=== PATIENT | female | born 1970 | race Caucasian/White ===

== ENCOUNTER 2017-10-20 08:33 | Emergency (ER) | payer BC, SELFPAY ==
[2017-10-20 08:34] VITALS: BP 166/87; PULSE 72; RESP 14; TEMP 36.6; O2SAT 100; BMI 35.2
--- NOTE | 2017-10-20 08:56 | ED.VISSUMM ---
- ER Visit Summary Date of Service: 10/20/17 Chief Complaint: Left lower quadrant abdominal pain with onset Thursday History of Present Illness: The patient is a 47 F sentence with chief complaint of left lower quadrant abdominal pain that started Thursday. She reports increased pain with movement and walking. She denied fever or chills. She did report night sweats and also volunteer that she has had a 15 pound weight loss that was unintentional. She states she feels fatigued and has no energy. She does not have restful sleep and falls asleep easily. She has no history of obstructive sleep apnea. She denies nausea, vomiting or diarrhea. She denies change in the consistency, caliber or frequency of her bowel movements. 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 She denies any urologic symptoms. She is status post hysterectomy approximately 1 year ago because of endometriosis. She did have a bilateral salpingo-oophorectomy as well. There is no history of renal ureterolithiasis. She denies any trauma. She denies rash or any skin lesions. She denies any cardiac or respiratory symptoms. She denies heat or cold intolerance. There is significant family history of cancer involving the liver, pancreas and colon. Physical Examination: No signs are remarkable for blood pressure 166/87. She is obese with a BMI of 35.3. Head is atraumatic normocephalic. Pupils are equal round reactive. Extraocular muscles are intact. TMs are pearly white with landmarks noted. Nares patent with no drainage. Posterior pharynx without erythema or exudate. Uvula is midline. There is no dysphonia or dysphasia. Trachea is midline. There is no stridor with auscultation of the neck. Heart is regular without murmur, gallop or rub. S1 and S2 are normal. Lungs are clear to auscultation with good movement of air bilaterally. Abdomen is soft with tenderness in the left upper quadrant. There is no hepatosplenomegaly. There is no evidence of umbilical or ventral hernia. Difficult to assess for inguinal hernia. She does report left CVA tenderness. There is no rash or lesions noted. She is alert oriented with a nonfocal neurologic exam. Patient did cry during the end of the history. Test Results: Nitro white count is normal with 45 segs and 43% lymphocytes. BMP is unremarkable. Chloride was elevated 111. Hepatic panel and lipase are normal. UA is nondiagnostic. Macro was positive for leukoesterase and ketones at 25 and 5 respectively. Micro reveals 0-5 WBCs and 0 RBCs 0-5 epithelial cells and 1+ bacteria. This is not consistent with a urinary tract infection and she has no urinary symptoms. ESR is slightly elevated at 30. Since this is not markedly elevated not concerned at this time with inflammatory process and specifically autoimmune, infectious or cancer. Emergency Department Course and Treatment: The patient complains of fatigue unintentional weight loss lack of energy will obtain a CBC to evaluate for anemia, and ESR. Since she has tenderness in the left upper quadrant and left lower quadrant will obtain hepatic and lipase. Also will obtain a UA since she has left CVA tenderness to percussion. Patient had 2 CAT scans of the abdomen and pelvis the end of 2015 that were unremarkable for any acute pathology and there was no mention or evidence of diverticulosis. The patient was medicated with 4 mg of Zofran and 4 mg of morphine for her discomfort. Treatment Plan: Repeat blood pressure is 144/90. Because patient complained of bloating sensation she was treated with Bentyl. Since her workup is unremarkable and her exam is benign for any acute emergent process. We will have her follow-up with her PCP Dr. Turner. Because she has had multiple elevated blood pressure readings not only today but prior visits will initiate treatment with antihypertensive, lisinopril 10 mg. We will also recommend follow-up with Dr. Stroud for outpatient sleep study since many of her symptoms are consistent with obstructive sleep apnea. Disposition: Charge with prescription for lisinopril and outpatient follow-up for further testing. Impression: 1. Left lower quadrant abdominal pain unknown etiology 2. Hypertension newly diagnosed and treated 3. Obesity 4. Fatigued, generalized weakness and sleep disturbance evaluate for obstructive sleep apnea This note was generated with [employer] dictation software. It may contain incorrect words, spelling, and punctuation that were not noted in review of the chart prior to signing ED Disposition - Plan for ED Patient: Disposition: Home or Assisted Living Chief Complaint: Abd Pain Instructions: ED Abdominal Pain Unkn Cause, ED Hypertension New Begin Tx, ED Apnea Sleep Obstructive Prescriptions: Dicyclomine HCl [Bentyl] 20 mg PO ACHS #10 cap Lisinopril [Zestril] 10 mg PO DAILY #30 tab Referrals: Yamile Turner MD [Primary Care Provider] - 1 Week Additional Instructions: Her prescriptions were sent to [facility] [place] your preferred pharmacy
[2017-10-20] MEDS: Ondansetron 4 MG/2 ML Vial IV (09:06)
[2017-10-20] MEDS: 0.9% Normal Saline 1,000 ML 150 ML IV (09:06)
[2017-10-20 09:14] LABS: Basophil# 0.01 X10^3/uL; Basophil% 0.2 % (0-1); Eosinophil# 0.13 X10^3/uL; Eosinophils% 2.9 % (0-5); Hematocrit 40.5 % (37-47); Hemoglobin 13.2 g/dl (12.0-15.0); Lymphocyte % 42.7 % (19-41); Mean Corp Hgb Conc 32.6 g/gl (32-36); Mean Corpuscular Hgb 28.7 pg (27.0-32.0); Neutrophil # 2.01 X10^3/uL (2.7-7.7); Neutrophil % 45.2 % (47-70); Platelet Count 253 K/mm3 (150-450); RBC Distribution Width CV 14.2 % (11.6-14.6); RBC Distribution Width SD 45.6 fl (35.1-43.9); White Blood Count 4.5 K/mm3 (4.4-11.0)
[2017-10-20 09:16] LABS: POSITIVE COUNT NO; POSITIVE DIFFERENTIAL NO; POSITIVE MORPHOLOGY NO
[2017-10-20 09:24] LABS: Erythrocyte Sedimentation Rate 30 mm/hr (0-20)
[2017-10-20 09:30] LABS: ALB/GLOB Ratio 0.9 RATIO (0.9-2.4); AST(SGOT) 21 U/L (15-37); Alanine Aminotransfer ALT/SGPT 17 U/L (13-56); Albumin, Serum 3.6 g/dL (3.2-5.0); Alkaline Phosphatase 90 U/L (45-117); Anion Gap 7 (5-15); BUN 19 mg/dL (7-18); BUN/Creat Ratio 27.9 RATIO (10-20); Calcium,Total 8.6 mg/dL (8.5-10.1); Chloride 111 mmol/L (98-107); Creatinine, Serum 0.68 mg/dL (0.55-1.02); EST Glomerular Filtration Rate 97 mL/min (>60); Est Glom Filt Rate - Afr Amer 118 mL/min (>60); Estimated Creatinine Clearance 97.32 ml/min; Globulin 3.9 g/dL (2.2-4.2); Glucose 84 mg/dL (74-106); Lipase 234 U/L (73-393); Potassium 3.7 mmol/L (3.5-5.1); Protein, Total 7.5 g/dL (6.4-8.2); Sodium Level 142 mmol/L (136-145)
[2017-10-20 09:50] VITALS: BP 144/90; PULSE 84; RESP 20; O2SAT 99
[2017-10-20 09:52] LABS: Mucous, Urine 0 SEEN /hpf (<or=2+); Red Blood Cells-Urine 0 SEEN /hpf (0-5)
[2017-10-20] MEDS: Dicyclomine 10 MG Capsule 20 MG PO (09:55)
[2017-10-20 09:59] LABS: Color, Urine Yellow (Yellow); Glucose, Dipstick Normal (Normal); Ketone-Dipstick 5 mg/dl (Negative); Leukocyte Esterase-Dipstick 25 /ul (Negative); Nitrite-Dipstick Negative (Negative); Occult Blood-Urine Negative /ul (Negative); Protein-Dipstick Negative (Negative); Urine Bilirubin Dipstick Negative (Negative); Urine Clarity Sl. Cloudy (Clear); Urine Urobilinogen Normal (Normal)
[2017-10-20 10:06] LABS: Bacteria 1+ /hpf (None Seen); Squamous Epithelial Cells - UA 0-5 SEEN /hpf (5-10); White Blood Cells 0-5 SEEN /hpf (0-5)
--- NOTE | 2017-10-20 10:36 | NURSING ---
PT REPORTS SUDDEN ONSET EPIGASTRIC BURNING THROUGH TO BACK FEW MINUTES AFTER DEBTYL GIVEN. SITTING UP AT SIDE OF BED ROCKING IN PAIN. DENIES NAUSEA. PT HYPERVENTILATING. ENCOURAGED BREATHING TECHNIQUES. DR CITLALY WEBB.
[2017-10-20 11:20] VITALS: BP 149/94; PULSE 87; RESP 18; O2SAT 99
--- NOTE | 2017-10-20 12:26 | ED.DCSUM_ITS ---
- ER Visit Summary Date of Service: 10/20/17 Chief Complaint: [] History of Present Illness: The patient is a 47 F [] Physical Examination: [] Test Results: [] Emergency Department Course and Treatment: [] Treatment Plan: [] Disposition: [] Impression: [] This note was generated with [employer] dictation software. It may contain incorrect words, spelling, and punctuation that were not noted in review of the chart prior to signing ED Disposition - Plan for ED Patient: Disposition: Home or Assisted Living Chief Complaint: Abd Pain Instructions: ED Abdominal Pain Unkn Cause, ED Hypertension New Begin Tx, ED Apnea Sleep Obstructive Prescriptions: Dicyclomine HCl [Bentyl] 20 mg PO ACHS #10 cap Lisinopril [Zestril] 10 mg PO DAILY #30 tab Famotidine [Pepcid] 20 mg PO BID #30 tab Referrals: Yamile Turner MD [Primary Care Provider] - 1 Week Additional Instructions: Her prescriptions were sent to [facility] [place] your preferred pharmacy
[2017-10-20 12:31] VITALS: BP 159/95
== END 2017-10-20 12:32 | disposition home or self-care (01) ==
PROVIDERS: Emergency Provider Emergency Medicine; Family Provider Internal Medicine; PCP Internal Medicine
DX: R10.32 Left lower quadrant pain (principal); R10.31 Right lower quadrant pain; R10.13 Epigastric pain; R10.33 Periumbilical pain; R53.83 Other fatigue; M62.81 Muscle weakness (generalized); G47.8 Other sleep disorders; I10 Essential (primary) hypertension; E66.9 Obesity, unspecified; Z68.35 Body mass index [BMI] 35.0-35.9, adult; F32.9 Major depressive disorder, single episode, unspecified; Z79.899 Other long term (current) drug therapy
CPT/HCPCS: 80053; 81001; 83690; 85025; 85652; 96361; 96365; 96375; 99285; J7030; J2405; J3490

== ENCOUNTER 2017-10-26 13:52 | Emergency (ER) | payer BC, SELFPAY ==
[2017-10-26 13:55] VITALS: BP 142/103; PULSE 82; RESP 20; TEMP 36.7; O2SAT 98; BMI 34.8
--- NOTE | 2017-10-26 14:01 | CT_ITS ---
STUDY: CT ABDOMEN AND PELVIS WITHOUT CONTRAST REASON FOR EXAM: Female, 47 years old. Abdominal pain and diarrhea. Prior gastric bypass surgery. RADIATION DOSAGE (If Supplied By Facility): CTDIvol = ( 16.34 ) mGy, DLP = ( 881.60 ) mGycm TECHNIQUE: Transaxial images were obtained from the dome of the diaphragm to the symphysis pubis without oral contrast, and without intravenous contrast. Sagittal and coronal images were reconstructed. Individualized dose optimization techniques were used for this CT. COMPARISON: Comparison is made with prior examination June 26, 2016. FINDINGS: The visualized lung bases are unremarkable. The visualized portions of the heart are within normal limits. Normal liver. There are surgical clips in the gallbladder fossa consistent with a prior cholecystectomy. Borderline splenomegaly. Normal pancreas. Normal bilateral adrenal glands. Normal right kidney. Normal left kidney. Surgical changes are seen in the region of the stomach with prior gastric bypass surgery. Normal small intestine. Normal colon. There is non-visualization of the appendix. Normal abdominal aorta. Normal inferior vena cava. Normal retroperitoneum. Normal urinary bladder. There is absence of the uterus consistent with a prior hysterectomy. Normal abdominal wall. Normal osseous structures. CT/Abdomen/Pelvis without Cont IMPRESSION: No acute abnormality is seen. Electronically Signed: Sergo Jacinto MD at 15:07 EST Tel [phone], Service support ,
[2017-10-26] MEDS: Ondansetron 4 MG/2 ML Vial IV (14:33)
[2017-10-26] MEDS: Dicyclomine 10 MG Capsule 20 MG PO (14:33)
[2017-10-26 14:35] LABS: Absolute Lymphocyte Count 1.88 X10^3/ul (0.83-4.51); Absolute Neutrophil Count 2.5 X10^3/uL (2.0-7.7); Basophil# 0.02 X10^3/uL; Basophil% 0.4 % (0-1); Eosinophil# 0.15 X10^3/uL; Eosinophils% 2.9 % (0-5); Hematocrit 38.3 % (37-47); Hemoglobin 12.1 g/dl (12.0-15.0); Lymphocyte # 1.88 X10^3/ul (4.0); Lymphocyte % 36.7 % (19-41); Mean Corp Hgb Conc 31.6 g/gl (32-36); Mean Corpuscular Hgb 28.1 pg (27.0-32.0); Mean Corpuscular Volume 88.9 fL (81-99); Mean Platelet Vol. 11.1 fl (6.2-12.0); Monocyte# 0.56 X10^3/uL; Monocyte% 10.9 % (0-10); Neutrophil # 2.51 X10^3/uL (2.7-7.7); Neutrophil % 49.1 % (47-70); Platelet Count 285 K/mm3 (150-450); RBC Distribution Width CV 14.3 % (11.6-14.6); RBC Distribution Width SD 46.8 fl (35.1-43.9); Red Blood Count 4.31 M/mm3 (4.2-5.4); White Blood Count 5.1 K/mm3 (4.4-11.0)
[2017-10-26 14:42] LABS: POSITIVE COUNT NO; POSITIVE DIFFERENTIAL NO; POSITIVE MORPHOLOGY NO
--- NOTE | 2017-10-26 14:43 | ED.VISSUMM ---
- ER Visit Summary Date of Service: 10/26/17 Chief Complaint: Abdominal pain History of Present Illness: The patient is a 47 F who has had a week's worth of abdominal pain. It is a continuous aching throughout her entire abdomen. She has had nausea without vomiting. She now has diarrhea. No urinary symptoms. She has not had a fever. She was seen here last week for the same symptoms. She had laboratory studies with no imaging performed. She was started on lisinopril due to high blood pressure and was given Pepcid at home. She followed up with her PCP who increased her lisinopril dose. Physical Examination: Vital signs reviewed. HEENT exam unremarkable. Heart is regular rate and rhythm without murmurs. Lungs are clear to auscultation. Abdomen is soft with diffuse tenderness to palpation. Extremities reveal no edema. Skin exam normal. Neurologic exam normal. Test Results: Laboratory studies normal. CAT scan normal Emergency Department Course and Treatment: Patient was initially treated with Bentyl and Zofran. She was still tearful and in pain so she is given a dose of morphine. Treatment Plan: I am unclear the etiology of the patient's pain. She has been seen here multiple times for abdominal pain without definitive diagnosis. She has had gastric bypass as well as a hysterectomy. I do not find any acute causes for her pain. It is mostly in the upper part of her abdomen. She is already on Bentyl at home. I will add Carafate to her medication regimen. She will need to follow-up with her primary care physician for further testing. Disposition: Discharge Impression: Abdominal pain This note was generated with [employer] dictation software. It may contain incorrect words, spelling, and punctuation that were not noted in review of the chart prior to signing ED Disposition - Plan for ED Patient: Chief Complaint: Abd Pain Referrals: Yamile Turner MD [Primary Care Provider] -
[2017-10-26 14:54] LABS: ALB/GLOB Ratio 0.9 RATIO (0.9-2.4); AST(SGOT) 29 U/L (15-37); Alanine Aminotransfer ALT/SGPT 31 U/L (13-56); Albumin, Serum 3.4 g/dL (3.2-5.0); Alkaline Phosphatase 108 U/L (45-117); Anion Gap 7 (5-15); BUN 16 mg/dL (7-18); BUN/Creat Ratio 24.1 RATIO (10-20); Calcium,Total 8.5 mg/dL (8.5-10.1); Chloride 110 mmol/L (98-107); Creatinine, Serum 0.66 mg/dL (0.55-1.02); EST Glomerular Filtration Rate 100 mL/min (>60); Est Glom Filt Rate - Afr Amer 122 mL/min (>60); Estimated Creatinine Clearance 100.27 ml/min; Globulin 3.6 g/dL (2.2-4.2); Glucose 85 mg/dL (74-106); Lipase 220 U/L (73-393); Potassium 4.7 mmol/L (3.5-5.1); Sodium Level 140 mmol/L (136-145)
--- NOTE | 2017-10-26 15:33 | ED.DEP ---
ED Disposition - Plan for ED Patient: Disposition: Home or Assisted Living Chief Complaint: Abd Pain Instructions: ED Abdominal Pain Unkn Cause Prescriptions: Sucralfate [Carafate] 1 gm PO 4X/DAY #60 tab Referrals: Yamile Turner MD [Primary Care Provider] -
[2017-10-26 15:44] VITALS: BP 132/77; PULSE 61; RESP 18; O2SAT 97
--- NOTE | 2017-10-26 15:45 | ED.RN ---
REVIEWED D/C INSTRUCTIONS, FOLLOW UP CARE, PRESCRIPTION, AND S/S THAT WOULD WARRANT A RETURN TO THE ED WITH PT. PT VERBALIZED AN UNDERSTANDING AND DENIES FURTHER QUESTIONS FOR THIS RN. PT SKIN P/W/D, RESP EVEN AND UNLABORED, PT A&O X 3, NO DISTRESS NOTED. PT AMBULATED OUT OF ED, GAIT STEADY.
== END 2017-10-26 15:46 | disposition home or self-care (01) ==
PROVIDERS: Emergency Provider Emergency Medicine; Family Provider Internal Medicine; PCP Internal Medicine
DX: R10.84 Generalized abdominal pain (principal); I10 Essential (primary) hypertension; F32.9 Major depressive disorder, single episode, unspecified; Z98.84 Bariatric surgery status; Z79.899 Other long term (current) drug therapy
CPT/HCPCS: 74176; 80053; 83690; 85025; 96374; 96375; 99285; A4216; J2405

== ENCOUNTER 2018-06-10 10:50 | Emergency (ER) | payer OTHER, SELFPAY ==
[2018-06-10 10:51] VITALS: BP 157/102; PULSE 67; RESP 18; TEMP 36.6; O2SAT 99; BMI 34.4
--- NOTE | 2018-06-10 10:59 | CT_ITS ---
STUDY: CT BRAIN WITHOUT CONTRAST REASON FOR EXAM: Female, 48 years old. Headaches. Hypertension. RADIATION DOSAGE (If Supplied By Facility): CTDIvol = ( 60.81 ) mGy, DLP = ( 1067.08 ) mGycm TECHNIQUE: Transaxial CT imaging of the brain was performed without administration of intravenous contrast material. Individualized dose optimization techniques were used for this CT. COMPARISON: Comparison is made with prior study dated September 30, 2017. FINDINGS: Normal soft tissue structures. Normal calvarium. Normal size ventricles and extra-axial spaces for the patient's age. Normal white matter tracts of the cerebral hemispheres. Normal basal ganglia and thalami. Normal brainstem. Normal cerebellum. There is no intracranial hemorrhage. There are no findings of an acute ischemic infarction. Normal visualized paranasal sinuses. CT/Brain/Head without Contrast IMPRESSION: Normal unenhanced CT scan of the brain. Electronically Signed: Sergo Jacinto MD at 12:12 EDT Tel [phone], Service support ,
--- NOTE | 2018-06-10 11:00 | EKG12_ITS ---
Test Reason : GEN ILLNESS Blood Pressure : / mmHG Vent. Rate : 061 BPM Atrial Rate : 061 BPM P-R Int : 158 ms QRS Dur : 088 ms QT Int : 402 ms P-R-T Axes : 035 034 034 degrees QTc Int : 404 ms Normal sinus rhythm Low voltage QRS (limb leads) Confirmed by SUSAN ORTIZ, MAO ([id number]), editor trade journal [employer] ([id number]) on 06/14/2018 2:43:09 PM Referred By: MARLO Confirmed By:MAO DAVIS MD
--- NOTE | 2018-06-10 11:00 | ED.VISSUMM ---
- ER Visit Summary Date of Service: 06/10/18 Chief Complaint: Headache, high blood pressure, tingling in hands History of Present Illness: The patient is a 48 F presents to the emergency department multiple complaints. Patient states she is been in normal state of health. She states over the past 2-3 days, she had a dull headache. She describes it as a pressure behind her forehead. It is worse with change in position. She is also had intermittent tingling in both hands and in her feet. The patient does have a history of hypertension and is on 5 mg of lisinopril. She states normally, her blood pressure is under very good control. She states that today, she just felt very lightheaded. They took her blood pressure and her diastolic was 110. She denies chest pain. She denies shortness of breath. She denies any orthopnea or increasing edema. Physical Examination: Vital signs reviewed General: Well-nourished, well-developed Head: Normocephalic, atraumatic Eyes: Pupils equal and reactive, extraocular muscles intact Neck, supple, no lymphadenopathy Heart: Regular rate and rhythm Respiratory: No distress, clear bilaterally Abdomen: Soft, nontender, nondistended, no peritoneal signs Back: Nontender Extremities: Nontender, no edema, no cords Skin: Normal color no rash Neuro: Alert and oriented, no focal or lateralizing deficits Test Results: [] Emergency Department Course and Treatment: The patient presents with elevated blood pressure, frontal headache, intermittent tingling of all extremities. I do not suspect hypertensive emergency. Her symptoms are nonfocal. They are mostly diffuse. I do feel that her headache and symptoms are likely secondary to her worsening hypertension. I did do a metabolic workup. Her EKG was unremarkable. Her head CT is also unremarkable. Screening labs are unremarkable. There is no protein in the urine. She has no evidence of orthopnea or evidence of heart failure. The patient was treated with Tylenol and Toradol. She did have some improvement of her headache. At this time, I do feel that the safest plan would be to increase her lisinopril from 5 mg to 10. I did prevocational/rehabilitation counselor her on taking her blood pressure and following up with her doctor closely for reevaluation. The patient is comfortable with this plan of care. Treatment Plan: [] Disposition: Discharge Impression: 1. Hypertension 2. Frontal headache This note was generated with Dragon dictation software. It may contain incorrect words, spelling, and punctuation that were not noted in review of the chart prior to signing ED Disposition - Plan for ED Patient: Chief Complaint: General Illness Instructions: ED Hypertension Conf Out Of Control Referrals: Yamile Turner MD [Primary Care Provider] -
[2018-06-10 11:09] VITALS: BP 168/76; PULSE 64; RESP 12; O2SAT 99
[2018-06-10 11:15] LABS: Bacteria 0 SEEN /hpf (None Seen); Mucous, Urine 0 SEEN /hpf (<or=2+); Red Blood Cells-Urine 0 SEEN /hpf (0-5)
[2018-06-10 11:16] LABS: Color, Urine Yellow (Yellow); Glucose, Dipstick Normal (Normal); Ketone-Dipstick Negative (Negative); Leukocyte Esterase-Dipstick 25 /ul (Negative); Nitrite-Dipstick Negative (Negative); Occult Blood-Urine Negative /ul (Negative); Protein-Dipstick Negative (Negative); Urine Bilirubin Dipstick Negative (Negative); Urine Clarity Clear (Clear); Urine Urobilinogen Normal (Normal)
[2018-06-10 11:21] LABS: White Blood Cells 0-5 SEEN /hpf (0-5)
[2018-06-10 11:22] LABS: Calcium Oxalate Crystals Ur 3+ /hpf (<or=2+); Squamous Epithelial Cells - UA 0-5 SEEN /hpf (5-10)
[2018-06-10 11:27] LABS: Basophil# 0.01 X10^3/uL; Basophil% 0.2 % (0-1); Eosinophil# 0.13 X10^3/uL; Eosinophils% 2.8 % (0-5); Hematocrit 37.2 % (37-47); Hemoglobin 11.6 g/dl (12.0-15.0); Mean Corp Hgb Conc 31.2 g/gl (32-36); Mean Corpuscular Hgb 27.6 pg (27.0-32.0); Mean Corpuscular Volume 88.4 fL (81-99); Mean Platelet Vol. 10.2 fl (6.2-12.0); Monocyte# 0.44 X10^3/uL; Monocyte% 9.4 % (0-10); Neutrophil # 1.99 X10^3/uL (2.7-7.7); Neutrophil % 42.6 % (47-70); Platelet Count 259 K/mm3 (150-450); RBC Distribution Width CV 14.3 % (11.6-14.6); RBC Distribution Width SD 46.5 fl (35.1-43.9); Red Blood Count 4.21 M/mm3 (4.2-5.4); White Blood Count 4.7 K/mm3 (4.4-11.0)
[2018-06-10 11:32] LABS: POSITIVE COUNT NO; POSITIVE DIFFERENTIAL NO; POSITIVE MORPHOLOGY NO
[2018-06-10 11:43] LABS: ALB/GLOB Ratio 0.9 RATIO (0.9-2.4); AST(SGOT) 22 U/L (15-37); Alanine Aminotransfer ALT/SGPT 20 U/L (13-56); Albumin, Serum 3.6 g/dL (3.2-5.0); Alkaline Phosphatase 97 U/L (45-117); Anion Gap 7 (5-15); BUN 18 mg/dL (7-18); BUN/Creat Ratio 22.2 RATIO (10-20); Calcium,Total 8.8 mg/dL (8.5-10.1); Chloride 109 mmol/L (98-107); Creatinine, Serum 0.81 mg/dL (0.55-1.02); EST Glomerular Filtration Rate 79 mL/min (>60); Est Glom Filt Rate - Afr Amer 96 mL/min (>60); Globulin 3.9 g/dL (2.2-4.2); Glucose 77 mg/dL (74-106); Potassium 3.7 mmol/L (3.5-5.1); Protein, Total 7.5 g/dL (6.4-8.2); Sodium Level 142 mmol/L (136-145)
[2018-06-10] MEDS: Ketorolac 15 MG/ML Vial IV (12:24)
[2018-06-10] MEDS: Acetaminophen 500 MG Tablet 1000 MG PO (12:24)
[2018-06-10 12:45] VITALS: BP 138/86; PULSE 65; RESP 16
== END 2018-06-10 12:54 | disposition home or self-care (01) ==
PROVIDERS: Emergency Provider Emergency Medicine; Family Provider Internal Medicine; PCP Internal Medicine
DX: I10 Essential (primary) hypertension (principal); R51 Headache
CPT/HCPCS: 70450; 80053; 81001; 85025; 93005; 96361; 96374; 99285; J7030; J7040

== ENCOUNTER 2018-12-02 06:51 | Outpatient (RCR) | payer SELFPAY ==
[2018-11-24 18:12] VITALS: BMI 35.2
== END 2018-12-02 19:00 | disposition home or self-care (01) ==
LOC: PT 06:51
PROVIDERS: Family Provider Internal Medicine; PCP Internal Medicine
DX: R69 Illness, unspecified (principal)

== ENCOUNTER 2019-03-31 18:56 | Emergency (ER) | payer OTHER, SELFPAY ==
[2018-11-24 18:12] VITALS: BMI 35.2
[2019-03-31 18:56] VITALS: BP 124/93; PULSE 70; RESP 16; TEMP 36.8; O2SAT 98; BMI 36.0
--- NOTE | 2019-03-31 21:07 | ED.VIS.GI ---
History of Present Illness Chief Complaint: Nausea/Vomiting/Diarrhea Informant: Patient - Abdominal Pain/Flank Pain Onset: Days - 3 Context: Gradual Onset Timing: Intermittent Quality: Cramping Location: - - Periumbilical Current Severity: Mild Maximum Severity: Mild Worsened by: Food Relieved by: Nothing - Nausea/Vomiting/Emesis GI Symptom: Nausea, Vomiting Quality: Nonbilious. Negative for: Blood streaks, Coffee ground, Hematemesis Severity: Severe - Diarrhea/Melena/Hematochezia GI Symptom: Diarrhea - Last bowel movement was over 12 hours ago. Negative for: Melena, Hematochezia Stool Quality: Watery. Negative for: Maroon, [place] per rectum Associated Symptoms: - - Not sure if she has had normal urine output or if it is decreased. Negative for: Dysuria, Frequency, Hematuria, Urgency Narrative: Vomiting and diarrhea with mild cramping for the past several days sent from urgent care. Patient denies any fevers or chills. No recent travel out of the area or country. No recent ground water ingestion or suspicious food ingestion. No recent antibiotics. No recent hospitalization or surgeries. - Past Medical History (1) Hypertension Status: Chronic (2) Migraines Status: Chronic Past Medical History - Allergies and Home Meds Allergies/Adverse Reactions: Allergies ethinyl estradiol [From NuvaRing] Allergy (Verified 03/31/19 18:58) Rash etonogestrel [From NuvaRing] Allergy (Verified 03/31/19 18:58) Rash oxycodone [From Percocet] Adverse Reaction (Intermediate, Verified 03/31/19 18:58) Rash Primary Care Physician: Yamile Turner MD [Primary Care Provider] - Surgical History: cholecystectomy, hysterectomy, - - , gastric bypass Smoking Status: Never smoker Alcohol: None - Family History Paternal Family History: Reports: - Review of Systems General: Reports: Malaise. Denies: Chills, Fever, Sweats Eyes: Denies: Visual changes - bilaterally, Diplopia ENT: Denies: Rhinorrhea, Sore throat Cardiovascular: Denies: Chest pain, Palpitations Respiratory: Denies: Dyspnea, Cough, Dyspnea on exertion Gastrointestinal: Reports: Abdominal pain, Nausea, Vomiting, Diarrhea. Denies: Melena, Hematochezia Genitourinary: Denies: Dysuria, Hematuria, Frequency Musculoskeletal: Denies: Back pain, Swelling, Extremity Pain Skin: Denies: Rash, Wounds Neurological: Denies: Headache, Weakness, Numbness Physical Exam Vital Signs/Narrative: Vital Signs Temp Pulse Resp BP Pulse Ox 03/31/19 18:56 98.2 F 70 16 124/93 H 98 Inital Vital Signs reviewed: Yes General: Well nourished, Well developed, Obese, No Acute Distress - Speaking softly, appears somewhat ill, no active emesis Head: Normocephalic, Atraumatic Eyes: Perrl, EOMI ENT: Moist mucous membranes - Partially moist, No rhinorrhea Neck: Supple, Nontender Cardiovascular: Regular rate, Regular rhythm, No murmurs. Negative for: Tachycardia Respiratory: No distress, CTA bilaterally, Chest nontender Abdomen: Soft, Nontender, Nondistended, Normal bowel sounds Back: Nontender, Normal Inspection Extremities: Nontender, No edema. Negative for: Calf Tenderness Skin: Normal color, No rash, No Trauma Neurological: Alert, Oriented x3, Cranial nerves II-XII grossly intact, Normal Strength, Normal Sensation Psychological: Normal affect, Normal Mood Diagnostic/Tx/Re-eval Laboratory Results 03/31/19 03/31/19 22:00 22:00 WBC 5.2 RBC 4.31 Hgb 11.6 L Hct 36.4 L MCV 84.5 MCH 26.9 L MCHC 31.9 L RDW Std Deviation 45.8 H RDW Coeff of Shira 14.8 H Plt Count 268 MPV 10.6 Immature Gran % (Auto) 0.200 Neut % (Auto) 44.0 L Lymph % (Auto) 43.7 H [place] % (Auto) 9.8 Eos % (Auto) 1.9 Baso % (Auto) 0.4 Absolute Neuts (auto) 2.3 Absolute Lymphs (auto) 2.27 Absolute Nucleated RBC 0.00 Nucleated RBC % 0 Sodium 141 Potassium 3.7 Chloride 112 H Carbon Dioxide 24.0 Anion Gap 5 BUN 19 H Creatinine 0.80 Estim Creat Clear Calc 80.90 Est GFR (MDRD) Af Amer 97 Est GFR (MDRD) Non-Af 80 BUN/Creatinine Ratio 23.7 H Glucose 90 Calcium 8.6 - Medical Decision Making Patient was given IV fluids and Zofran, however her arm started hurting just proximal to the IV site and nursing thinks it infiltrated so they discontinued her fluids which had gone about shelter in, and I reexamined her. Her arm is soft, all compartments are soft and nondistended, she has full range of motion of all joints. Supportive care advised along with warm compress. She feels much better with regards to nausea, and is tolerating oral fluids. She is amenable to discharge with oral Zofran. Her labs are very reassuring, shows some mild prerenal azotemia and no leukocytosis to suggest a dangerous process here. I suspect she has viral gastroenteritis, we discussed reasons to return and follow-up and she is comfortable with that plan. ED Disposition - Plan for ED Patient: Disposition: Home or Assisted Living Diagnosis: Mild dehydration, Gastroenteritis Instructions: GASTROENTERITIS, Viral (6y-Adult), DIET, Vomiting or Diarrhea [6yr-Adult] Prescriptions: Ondansetron [Zofran] 8 mg PO Q8H PRN #12 tab PRN Reason: Nausea/Vomiting Transmission Status: Pending to [facility] Referrals: Yamile Turner MD [Primary Care Provider] - (if not improving after 2-3 days)
[2019-03-31] MEDS: Ondansetron 4 MG/2 ML Vial IV (22:06)
[2019-03-31] MEDS: 0.9% Normal Saline 1,000 ML 1000 ML IV (22:06)
[2019-03-31 22:07] VITALS: PULSE 53; RESP 16; O2SAT 100
[2019-03-31 22:07] LABS: Absolute Lymphocyte Count 2.27 X10^3/uL (0.83-4.51); Absolute Neutrophil Count 2.3 X10^3/uL (2.0-7.7); Basophil# 0.02 X10^3/uL; Basophil% 0.4 % (0-1); Eosinophils% 1.9 % (0-5); Hematocrit 36.4 % (37-47); Hemoglobin 11.6 g/dL (12.0-15.0); Lymphocyte # 2.27 X10^3/ul (4.0); Lymphocyte % 43.7 % (19-41); Mean Corp Hgb Conc 31.9 g/dL (32-36); Mean Corpuscular Hgb 26.9 pg (27.0-32.0); Mean Corpuscular Volume 84.5 fL (81-99); Mean Platelet Vol. 10.6 fl (6.2-12.0); Monocyte# 0.51 X10^3/uL; Monocyte% 9.8 % (0-10); NRBC Flagged by Analyzer 0 % (0-5); Neutrophil # 2.28 X10^3/uL (2.7-7.7); Platelet Count 268 K/mm3 (150-450); RBC Distribution Width CV 14.8 % (11.6-14.6); RBC Distribution Width SD 45.8 fl (35.1-43.9); Red Blood Count 4.31 M/mm3 (4.2-5.4); White Blood Count 5.2 K/mm3 (4.4-11.0)
[2019-03-31 22:20] LABS: Anion Gap 5 (5-15); BUN 19 mg/dL (7-18); BUN/Creat Ratio 23.7 RATIO (10-20); Calcium,Total 8.6 mg/dL (8.5-10.1); Chloride 112 mmol/L (98-107); EST Glomerular Filtration Rate 80 mL/min (>60); Est Glom Filt Rate - Afr Amer 97 mL/min (>60); Glucose 90 mg/dL (74-106); Potassium 3.7 mmol/L (3.5-5.1); Sodium Level 141 mmol/L (136-145)
[2019-04-01 00:10] VITALS: BP 138/74; PULSE 66; RESP 17; O2SAT 98
== END 2019-04-01 00:20 | disposition home or self-care (01) ==
PROVIDERS: Emergency Provider Emergency Medicine; Family Provider Internal Medicine; PCP Internal Medicine
DX: K52.9 Noninfective gastroenteritis and colitis, unspecified (principal); E86.0 Dehydration; I10 Essential (primary) hypertension
CPT/HCPCS: 80048; 85025; 96361; 96374; 99285; J7030; A4216; J2405

== ENCOUNTER 2019-04-27 07:22 | Emergency (ER) | payer OTHER, SELFPAY ==
[2019-04-27 07:24] VITALS: BP 160/102; PULSE 94; RESP 18; TEMP 36.9; O2SAT 95; BMI 37.1
--- NOTE | 2019-04-27 07:40 | CT_ITS ---
STUDY: CT ABDOMEN AND PELVIS WITH CONTRAST REASON FOR EXAM: Female, 49 years old. Nausea and vomiting. History of gastric bypass surgery. RADIATION DOSAGE (If Supplied By Facility): CTDIvol = ( 20.11 ) mGy, DLP = ( 1251.65 ) mGycm TECHNIQUE: Transaxial images were obtained from the dome of the diaphragm to the symphysis pubis without oral contrast. 100 IV Isovue 300 was administered. Sagittal and coronal images were reconstructed. Individualized dose optimization techniques were used for this CT. COMPARISON: Comparison is made with prior examination dated October 26, 2017. FINDINGS: Minimal increase in markings at the lung bases suggestive of mild atelectasis. The visualized portions of the heart are within normal limits. Mild degree of intrahepatic biliary dilatation most likely secondary to the postcholecystectomy state. There are surgical clips in the gallbladder fossa consistent with a prior cholecystectomy. Normal spleen. Normal pancreas. Normal bilateral adrenal glands. Normal right kidney. Normal left kidney. Prior subtotal resection of the stomach secondary to gastric bypass surgery. Normal small intestine. Normal colon. The patient is status post appendectomy. Normal abdominal aorta. Normal inferior vena cava. Normal retroperitoneum. Normal urinary bladder. There is absence of the uterus consistent with a prior hysterectomy. Normal abdominal wall. Normal osseous structures. CT/Abdomen/Pelvis W IV Cont ONLY IMPRESSION: Status post cholecystectomy. Status post gastric bypass surgery. Mild degree of intrahepatic biliary ductal dilatation. Electronically Signed: Sergo Jacinto, at 10:01 EDT , Service support ,
[2019-04-27] MEDS: 0.9% Normal Saline 1,000 ML 1000 ML IV (08:09)
[2019-04-27] MEDS: HYDROmorphone 1 MG/ML Syringe IV ×2 (08:09→08:41)
[2019-04-27] MEDS: Ondansetron 4 MG/2 ML Vial IV (08:09)
--- NOTE | 2019-04-27 08:19 | ED.VISSUMM ---
- ER Visit Summary Date of Service: 04/27/19 Chief Complaint: Abdominal pain History of Present Illness: The patient is a 49 F with abdominal pain that started yesterday. It is severe today. It is periumbilical and radiates to her back. Associate with nausea, vomiting, diarrhea, fevers. She also reports a headache and anorexia. She never had this before. Nothing seems to trigger it. Nothing seems to help. History of cholecystectomy, hysterectomy, gastric bypass. Physical Examination: Afebrile and vital signs unremarkable except blood pressure 160/102. Patient appears uncomfortable but not toxic or in distress. Heart regular rate and rhythm. Lungs clear. Abdomen is tender in the periumbilical and to the right of the periumbilical region. No guarding or rebound. No distention. Skin appears normal. Test Results: Laboratory studies, urinalysis, and CT pending. Emergency Department Course and Treatment: Patient treated with pain medicine, nausea medicine, and IV fluids while awaiting results. White count 3.5. Lactate normal. Patient has no other evidence to suggest sepsis. This may be a viral process. CMP, lipase unremarkable. Urinalysis unremarkable. CT abdomen showed postoperative changes. She has mild intrahepatic ductal dilation, and she is postcholecystectomy, and has had this before. Repeat vitals and exam are reassuring. I believe the patient is appropriate for outpatient follow-up. Return for any new or worsening symptoms. Nausea meds, [id number] pain meds, and stay hydrated. Treatment Plan: As above Disposition: Discharge Impression: 1. Abdominal pain This note was generated with [employer] dictation software. It may contain incorrect words, spelling, and punctuation that were not noted in review of the chart prior to signing ED Disposition - Plan for ED Patient: Referrals: Yamile Turner MD [Primary Care Provider] -
[2019-04-27 08:26] LABS: Absolute Lymphocyte Count 0.89 X10^3/uL (0.83-4.51); Absolute Neutrophil Count 2.1 X10^3/uL (2.0-7.7); Basophil# 0.01 X10^3/uL; Basophil% 0.3 % (0-1); Eosinophil# 0.03 X10^3/uL; Eosinophils% 0.9 % (0-5); Hematocrit 40.4 % (37-47); Lymphocyte # 0.89 X10^3/ul (4.0); Lymphocyte % 25.3 % (19-41); Mean Corp Hgb Conc 32.2 g/dL (32-36); Mean Corpuscular Hgb 26.8 pg (27.0-32.0); Mean Corpuscular Volume 83.3 fL (81-99); Mean Platelet Vol. 10.5 fl (6.2-12.0); Monocyte# 0.52 X10^3/uL; Monocyte% 14.8 % (0-10); NRBC Flagged by Analyzer 0 % (0-5); Neutrophil # 2.07 X10^3/uL (2.7-7.7); Neutrophil % 58.7 % (47-70); Platelet Count 237 K/mm3 (150-450); RBC Distribution Width CV 14.7 % (11.6-14.6); RBC Distribution Width SD 44.7 fl (35.1-43.9); Red Blood Count 4.85 M/mm3 (4.2-5.4); White Blood Count 3.5 K/mm3 (4.4-11.0)
[2019-04-27 08:40] LABS: ALB/GLOB Ratio 0.8 RATIO (0.9-2.4); AST(SGOT) 22 U/L (15-37); Alanine Aminotransfer ALT/SGPT 17 U/L (13-56); Albumin, Serum 3.5 g/dL (3.2-5.0); Alkaline Phosphatase 103 U/L (45-117); Anion Gap 10 (5-15); BUN 17 mg/dL (7-18); BUN/Creat Ratio 18.1 RATIO (10-20); Calcium,Total 8.6 mg/dL (8.5-10.1); Chloride 109 mmol/L (98-107); Creatinine, Serum 0.94 mg/dL (0.55-1.02); EST Glomerular Filtration Rate 67 mL/min (>60); Est Glom Filt Rate - Afr Amer 81 mL/min (>60); Estimated Creatinine Clearance 66.28 ml/min; Globulin 4.2 g/dL (2.2-4.2); Glucose 90 mg/dL (74-106); Lipase 187 U/L (73-393); Potassium 3.8 mmol/L (3.5-5.1); Protein, Total 7.7 g/dL (6.4-8.2); Sodium Level 142 mmol/L (136-145)
[2019-04-27 09:26] VITALS: TEMP 36.8; O2SAT 92
[2019-04-27 09:29] LABS: Red Blood Cells-Urine 0 SEEN /hpf (0-5)
[2019-04-27 09:36] LABS: Color, Urine Yellow (Yellow); Glucose, Dipstick Normal (Normal); Ketone-Dipstick 15 mg/dl (Negative); Leukocyte Esterase-Dipstick 100 /ul (Negative); Nitrite-Dipstick Negative (Negative); Occult Blood-Urine Negative /ul (Negative); Protein-Dipstick 30 mg/dl (Negative); Specific Gravity, Urine 1.015 (1.002-1.030); Urine Bilirubin Dipstick Negative (Negative); Urine Clarity Sl. Cloudy (Clear); Urine Urobilinogen Normal (Normal)
[2019-04-27 09:44] LABS: Lactic Acid 0.5 mmol/L (0.4-2.0)
[2019-04-27 09:48] LABS: Squamous Epithelial Cells - UA 0-5 SEEN /hpf (5-10); White Blood Cells 0-5 SEEN /hpf (0-5)
[2019-04-27 09:49] LABS: Bacteria RARE /hpf (None Seen); Mucous, Urine RARE /hpf (<or=2+)
--- NOTE | 2019-04-27 10:09 | ED.RN ---
0945-pt sleeping and spo2 drops to 89% on ra post dilaudid. o2 on at 2l and up to 94% now.
[2019-04-27 10:27] VITALS: BP 126/98; PULSE 77; RESP 16; O2SAT 98
--- NOTE | 2019-04-27 10:30 | ED.DEP ---
ED Disposition - Plan for ED Patient: Instructions: ABDOMINAL PAIN, Unknown Cause, (Female) Prescriptions: Ondansetron [Zofran Odt] 4 mg PO Q8H PRN PRN #10 tab PRN Reason: Nausea Prescription Printed Referrals: Yamile Turner MD [Primary Care Provider] -
== END 2019-04-27 10:43 | disposition home or self-care (01) ==
LOC: ED 09:13
PROVIDERS: Emergency Provider Emergency Medicine; Family Provider Internal Medicine; PCP Internal Medicine
DX: R10.33 Periumbilical pain (principal); Z98.84 Bariatric surgery status; I10 Essential (primary) hypertension; G43.909 Migraine, unspecified, not intractable, without status migrainosus; Z79.899 Other long term (current) drug therapy
CPT/HCPCS: 74177; 80053; 81001; 83605; 83690; 85025; 96361; 96374; 96375; 99285; J7030; Q9967; J2405

== ENCOUNTER 2019-05-05 14:03 | Emergency (ER) | payer OTHER, SELFPAY ==
[2019-05-05 14:04] VITALS: BP 125/73; PULSE 85; RESP 18; TEMP 36.6; O2SAT 100; BMI 38.0
--- NOTE | 2019-05-05 14:44 | ED.DCSUM_ITS ---
History of Present Illness Chief Complaint: Nausea/Vomiting - Abdominal Pain/Flank Pain Onset: Weeks - 3 Context: Gradual Onset Timing: Continuous, Waxes and wanes Location: LUQ Current Severity: Moderate Maximum Severity: Moderate Worsened by: Food Relieved by: Nothing - Nausea/Vomiting/Emesis GI Symptom: Nausea, Vomiting Quality: Nonbilious - Now just dry heaves. Negative for: Blood streaks, Coffee ground, Hematemesis Severity: Moderate - Diarrhea/Melena/Hematochezia GI Symptom: Diarrhea. Negative for: Melena, Hematochezia Stool Quality: Watery Severity: Severe - 10-20 per 24-hour period Associated Symptoms: Negative for: Dysuria, Frequency, Hematuria, Urgency Narrative: Patient has had persistent vomiting and diarrhea associated with left upper quadrant pain. This has not migrated or changed. She was seen here initially, given medications for supportive care but the symptoms have progressed and been very persistent. She initially was having some fevers but those have resolved. She has had prior cholecystectomy. She does not drink alcohol or have a history of pancreatitis. She was seen as an outpatient, she had some outpatient labs and stool studies obtained, however when she came here to the hospital to get blood they were unable to get blood from her because she was dehydrated and so they directed her to the emergency department. She states she already gave a stool sample to the lab. - Past Medical History (1) Hypertension Status: Chronic Past Medical History - Allergies and Home Meds Allergies/Adverse Reactions: Allergies ethinyl estradiol [From NuvaRing] Allergy (Verified 05/05/19 14:06) Rash etonogestrel [From NuvaRing] Allergy (Verified 05/05/19 14:06) Rash oxycodone [From Percocet] Adverse Reaction (Intermediate, Verified 05/05/19 14:06) Rash Primary Care Physician: Yamile Turner MD [Primary Care Provider] - Surgical History: cholecystectomy, hysterectomy, - - , gastric bypass Smoking Status: Never smoker - Family History Paternal Family History: Reports: - Review of Systems General: Reports: Malaise, - - lightheadedness off and on, leandra w/ standing. Denies: Chills, Fever, Sweats Eyes: Denies: Visual changes - bilaterally, Diplopia ENT: Denies: Rhinorrhea, Sore throat Cardiovascular: Denies: Chest pain, Palpitations Respiratory: Denies: Dyspnea, Cough, Dyspnea on exertion Gastrointestinal: Reports: Abdominal pain, Nausea, Vomiting, Diarrhea. Denies: Melena, Hematochezia Genitourinary: Denies: Dysuria, Hematuria, Frequency Musculoskeletal: Denies: Back pain, Extremity Pain Skin: Denies: Rash, Wounds Neurological: Denies: Headache, Weakness, Numbness Physical Exam Vital Signs/Narrative: Vital Signs Temp Pulse Resp BP Pulse Ox 05/05/19 14:04 98 F 85 18 125/73 H 100 Inital Vital Signs reviewed: Yes General: Well nourished, Well developed, Obese, No Acute Distress - appears duglas ised Head: Normocephalic, Atraumatic Eyes: Perrl, EOMI ENT: No rhinorrhea, Dry mucous membranes Neck: Supple, Nontender Cardiovascular: Regular rate, Regular rhythm, No murmurs. Negative for: Tachycardia Respiratory: No distress, CTA bilaterally, Chest nontender Abdomen: Soft, Nondistended, Normal bowel sounds, Tender - LUQ. Negative for: Guarding, Rebound tenderness Back: Nontender, Normal Inspection Extremities: Nontender, No edema Skin: Normal color, No rash, No Trauma Neurological: Alert, Oriented x3, Cranial nerves II-XII grossly intact, Normal Strength, Normal Sensation Psychological: Normal affect, Normal Mood Diagnostic/Tx/Re-eval Impressions Abdomen/Pelvis CT 05/05/19 14:45 IMPRESSION: No acute abdominal or pelvic pathology demonstrated on this noncontrast CT. Mild splenomegaly. Status post cholecystectomy. Electronically Signed: Andres Larry, at 16:29 EDT Tel , Service support , 05/05/19 14:45 CT Abd [Abdomen/Pelvis without Cont] [CT] Stat Laboratory Results 05/05/19 05/05/19 14:20 14:20 WBC 6.6 RBC 4.77 Hgb 12.8 Hct 40.2 MCV 84.3 MCH 26.8 L MCHC 31.8 L RDW Std Deviation 46.6 H RDW Coeff of Shira 15.2 H Plt Count 318 MPV 11.0 Immature Gran % (Auto) 0.200 Neut % (Auto) 65.8 Lymph % (Auto) 21.0 [place]own[place] % (Auto) 10.9 H Eos % (Auto) 1.8 Baso % (Auto) 0.3 Absolute Neuts (auto) 4.4 Absolute Lymphs (auto) 1.39 Nucleated RBC % 0 Sodium 144 Potassium 3.4 L Chloride 114 H Carbon Dioxide 21.0 Anion Gap 9 BUN 14 Creatinine 0.98 Estim Creat Clear Calc 63.58 Est GFR (MDRD) Af Amer 77 Est GFR (MDRD) Non-Af 64 BUN/Creatinine Ratio 14.3 Glucose 78 Calcium 8.6 Total Bilirubin 0.30 AST 31 ALT 40 Alkaline Phosphatase 148 H Total Protein 7.7 Albumin 3.6 Globulin 4.1 Albumin/Globulin Ratio 0.9 Lipase 205 - Medical Decision Making Other than a slightly low potassium level, her labs are remarkably unremarkable. She has a BUN of 14 and a creatinine of almost 1. This indicates a little prerenal azotemia, but certainly not overly dehydrated. She was given 2 L of IV fluids, and she is tolerating oral fluids after Zofran and GI medications to improve her pain. I offered admission but she prefers to go home. I think that is reasonable. I called down to the lab to see what outpatient stool studies were ordered and they are running, it is ova and parasites and enteric bacterial panel. They have not been run yet and will not be today. At this time the patient can follow-up closely as an outpatient. She will be given follow-up prescription for Zofran and Bentyl. Of note, the CT showed slight splenomegaly, it is unknown if this is the cause of her pain or if it is related to her diarrhea, I suspect it is not given the lack of other findings. ED Disposition - Plan for ED Patient: Disposition: Home or Assisted Living Diagnosis: Nausea vomiting and diarrhea, Left upper quadrant pain Instructions: VOMITING AND DIARRHEA, Nonspecific (Adult) Prescriptions: Dicyclomine HCl [Bentyl] 20 mg PO Q6H PRN #20 cap PRN Reason: abdominal pain Prescription Printed Ondansetron [Zofran Odt] 4 - 8 mg PO Q8H PRN PRN #16 tab PRN Reason: Nausea Prescription Printed Referrals: Yamile Turner MD [Primary Care Provider] - 2 Days (For test results, reevaluation)
--- NOTE | 2019-05-05 14:45 | CT_ITS ---
STUDY: CT ABDOMEN AND PELVIS WITHOUT CONTRAST REASON FOR EXAM: Female, 49 years old. Pain RADIATION DOSAGE (If Supplied By Facility): DLP = ( 1058.91 ) mGycm TECHNIQUE: Transaxial images were obtained from the dome of the diaphragm to the symphysis pubis without oral contrast, and without intravenous contrast. Sagittal and coronal images were reconstructed. Individualized dose optimization techniques were used for this CT. COMPARISON: CT abdomen and pelvis April 27, 2019 FINDINGS: Evaluation of the abdominal viscera is limited in the absence of intravenous contrast. The visualized lung bases are clear. The visualized portions of the heart and pericardium are within normal limits. The gallbladder has been removed. The liver demonstrates an unremarkable unenhanced appearance. The spleen is normal mildly enlarged. The pancreas demonstrates an unremarkable unenhanced appearance. The adrenal glands are within normal limits. There are no obstructing renal stones. There is no hydronephrosis. Gastric bypass noted. There is no bowel obstruction or inflammation. The aorta is normal in caliber. There is no abdominal or pelvic free air, free fluid, fluid collection or lymphadenopathy. There are no destructive osseous lesions. CT/Abdomen/Pelvis without Cont IMPRESSION: No acute abdominal or pelvic pathology demonstrated on this noncontrast CT. Mild splenomegaly. Status post cholecystectomy. Electronically Signed: Andres Larry, at 16:29 EDT Tel , Service support ,
[2019-05-05 15:36] LABS: Absolute Lymphocyte Count 1.39 X10^3/uL (0.83-4.51); Absolute Neutrophil Count 4.4 X10^3/uL (2.0-7.7); Basophil# 0.02 X10^3/uL; Basophil% 0.3 % (0-1); Eosinophil# 0.12 X10^3/uL; Eosinophils% 1.8 % (0-5); Hematocrit 40.2 % (37-47); Hemoglobin 12.8 g/dL (12.0-15.0); Lymphocyte # 1.39 X10^3/ul (4.0); Mean Corp Hgb Conc 31.8 g/dL (32-36); Mean Corpuscular Hgb 26.8 pg (27.0-32.0); Mean Corpuscular Volume 84.3 fL (81-99); Monocyte# 0.72 X10^3/uL; Monocyte% 10.9 % (0-10); NRBC Flagged by Analyzer 0 % (0-5); Neutrophil # 4.36 X10^3/uL (2.7-7.7); Neutrophil % 65.8 % (47-70); Platelet Count 318 K/mm3 (150-450); RBC Distribution Width CV 15.2 % (11.6-14.6); RBC Distribution Width SD 46.6 fl (35.1-43.9); Red Blood Count 4.77 M/mm3 (4.2-5.4); White Blood Count 6.6 K/mm3 (4.4-11.0)
[2019-05-05] MEDS: 0.9% Normal Saline 1,000 ML 999 ML IV ×2 (15:39→17:05)
[2019-05-05] MEDS: Dicyclomine 20 MG/2 ML Vial IM (15:39)
[2019-05-05] MEDS: Ondansetron 4 MG/2 ML Vial IV (15:39)
[2019-05-05 15:59] LABS: ALB/GLOB Ratio 0.9 RATIO (0.9-2.4); AST(SGOT) 31 U/L (15-37); Alanine Aminotransfer ALT/SGPT 40 U/L (13-56); Albumin, Serum 3.6 g/dL (3.2-5.0); Alkaline Phosphatase 148 U/L (45-117); Anion Gap 9 (5-15); BUN 14 mg/dL (7-18); BUN/Creat Ratio 14.3 RATIO (10-20); Calcium,Total 8.6 mg/dL (8.5-10.1); Chloride 114 mmol/L (98-107); Creatinine, Serum 0.98 mg/dL (0.55-1.02); EST Glomerular Filtration Rate 64 mL/min (>60); Est Glom Filt Rate - Afr Amer 77 mL/min (>60); Estimated Creatinine Clearance 63.58 ml/min; Globulin 4.1 g/dL (2.2-4.2); Glucose 78 mg/dL (74-106); Lipase 205 U/L (73-393); Potassium 3.4 mmol/L (3.5-5.1); Protein, Total 7.7 g/dL (6.4-8.2); Sodium Level 144 mmol/L (136-145)
[2019-05-05 17:00] VITALS: BP 132/78; PULSE 75; RESP 16; O2SAT 99
[2019-05-05] MEDS: Ketorolac 30 MG/ML Syringe IV (17:10)
[2019-05-05 18:09] VITALS: BP 136/63; PULSE 82; RESP 16; O2SAT 100
--- NOTE | 2019-05-05 18:10 | ED.RN ---
REVIEWED D/C INSTRUCTIONS, FOLLOW UP CARE, PRESCRIPTIONS, AND S/S THAT WOULD WARRANT A RETURN TO THE ED WITH PT. PT VERBALIZED AN UNDERSTANDING AND DENIES FURTHER QUESTIONS FOR THIS RN. PT SKIN P/W/D, RESP EVEN AND UNLABORED, PT A&O X 3, NO DISTRESS NOTED. PT AMBULATED OUT OF ED, GAIT STEADY.
== END 2019-05-05 18:11 | disposition home or self-care (01) ==
PROVIDERS: Emergency Provider Emergency Medicine; Family Provider Internal Medicine; PCP Internal Medicine
DX: R11.2 Nausea with vomiting, unspecified (principal); R10.12 Left upper quadrant pain; R19.7 Diarrhea, unspecified; I10 Essential (primary) hypertension; E66.9 Obesity, unspecified
CPT/HCPCS: 74176; 80053; 83690; 85025; 96361; 96372; 96374; 96375; 99285; J7030; A4216; J2405

== ENCOUNTER → 2019-05-05 | Outpatient (CLI) | payer OTHER, SELFPAY ==
[2019-04-27 07:24] VITALS: BMI 37.1
== END | disposition home or self-care (01) ==
PROVIDERS: Family Provider Internal Medicine; PCP Internal Medicine
DX: R10.12 Left upper quadrant pain (principal); R19.7 Diarrhea, unspecified
CPT/HCPCS: 87177; 87209; 87506

== ENCOUNTER 2019-09-20 13:58 | Emergency (ER) | payer OTHER, SELFPAY ==
[2019-09-20 13:59] VITALS: BP 161/82; PULSE 67; RESP 16; TEMP 36; O2SAT 98; BMI 37.9
--- NOTE | 2019-09-20 15:11 | ED.VIS.HA ---
History of Present Illness Chief Complaint: Headache Informant: Patient Onset: Today Context: Sudden Timing: Continuous Quality: Similar Prior Headaches, Dull, Throbbing Location: Predominate right side Current Severity: Moderate Maximum Severity: Severe Worsened by: Light Relieved by: Nothing Associated Symptoms: Nausea, Photophobia. Negative for: Fever, Vomiting, Sore Throat, Sinus Pressure, Numbness, Tingling, Preceding Aura, Visual Changes, Blurred Vision, Visual Loss Injury: - - There is no history of trauma Narrative: Patient is a middle-age woman with history of migraine headaches who awoke with headache this morning. She states it is no different than her typical headache. She contacted her primary care physician and was instructed to come to the emergency department she attempted to go to urgent care who instructed her to come to the emergency department. She states she is taken her medication without relief. This is not unusual. She does report photophobia. Denies double vision, blurred vision loss of vision. She denies ringing or ears or sonophobia. She does complain of neck pain, which is chronic. She denies neck stiffness. She denies cardiac respiratory symptoms. She does report nausea without vomiting. She also reports intermittent left-sided abdominal pain that she is had for years and worked up with no known etiology. She had one episode which she felt she may have been slightly clumsy. She has not noted a rash. There is no history of trauma. Her most recent MRI was 6 months ago. There is no family history of subarachnoid hemorrhage. Prior similar symptoms: Yes Recent Illness/Hospitalization: No - Past Medical History (1) Hypertension Status: Chronic (2) Migraines Status: Chronic Past Medical History - Allergies and Home Meds Allergies/Adverse Reactions: Allergies ethinyl estradiol [From NuvaRing] Allergy (Verified 09/20/19 13:59) Rash etonogestrel [From NuvaRing] Allergy (Verified 09/20/19 13:59) Rash oxycodone [From Percocet] Adverse Reaction (Intermediate, Verified 09/20/19 13:59) Rash Primary Care Physician: Yamile Turner MD [Primary Care Provider] - Prior records reviewed: Yes Surgical History: cholecystectomy, hysterectomy, - - , gastric bypass Lives: Spouse/ Significant Other Smoking Status: Never smoker Alcohol: None Drugs: None - Family History Paternal Family History: Reports: - Review of Systems General: Denies: Chills, Fever, Malaise, Sweats Eyes: Denies: Visual changes - bilaterally, Blurred Vision - bilaterally, Diplopia ENT: Denies: Bilateral ear pain, Rhinorrhea, Sore throat Respiratory: Denies: Dyspnea, Cough, Dyspnea on exertion Gastrointestinal: Reports: Nausea. Denies: Abdominal pain, Vomiting, Diarrhea, Constipation, Melena, Hematochezia, -, - Genitourinary: Denies: Dysuria, Hematuria, Frequency Musculoskeletal: Reports: Neck pain. Denies: Myalgias, Arthralgias, Back pain, Swelling, Extremity Pain, -, - Neurological: Reports: Headache. Denies: Weakness, Parasthesia Hematologic: Denies: Easy bruising, Easy bleeding Physical Exam Vital Signs/Narrative: Vital Signs Temp Pulse Resp BP Pulse Ox 09/20/19 13:59 96.8 F L 67 16 161/82 H 98 Inital Vital Signs reviewed: Yes General: Well nourished, Well developed, Obese Head: NC, AT. Negative for: Tenderness, Temporary Artery Tenderness, Vesicular Rash, Sinus Tenderness Eyes: Perrl, EOMI, - - There is no APD. Posterior chamber is normal with no evidence of hemorrhage. There is normal cup-to-disc ratio.. Negative for: Pale conjunctiva, Scleral icterus ENT: Moist mucous membranes, No rhinorrhea, TM's clear. Negative for: Nasal congestion, Sinus tenderness Neck: Supple, No Lymphadenopathy, No JVD, Nontender, No Meningismus Cardiovascular: Regular rate, Regular rhythm, No murmurs, Normal S1, Normal S2 Respiratory: No distress, CTA bilaterally, Chest nontender Abdomen: Soft, Nontender, Nondistended, Normal bowel sounds Rectal: Deferred Back: Nontender, Normal Inspection Extremities: Nontender, No edema Skin: Normal color, No rash. Negative for: Cyanosis, Diaphoresis, Jaundice Neuro: Alert, Oriented x3, Cranial nerves II-XII grossly intact, Normal Strength, Normal Sensation, Normal DTR, Normal Gait Psychological: Depressed Diagnostic/Tx/Re-eval - Medical Decision Making With a normal neurologic exam recent MRI that was normal and no difference in headache compared to typical migraine will treat as a migraine headache. She was reassessed at 1719. She was awakened from sleep. She reports significant improvement. She would like to go home. ED Disposition - Plan for ED Patient: Diagnosis: Headache, migraine, intractable Instructions: ED, Migraine (Classical) Referrals: Yamile Turner MD [Primary Care Provider] - As Needed
[2019-09-20] MEDS: DiphenhydrAMINE 50 MG/ML Syringe 25 MG IV (15:26)
[2019-09-20] MEDS: Metoclopramide 10 MG/2 ML Vial IV (15:26)
[2019-09-20] MEDS: Ketorolac 30 MG/ML Syringe 15 MG IV (15:26)
[2019-09-20 16:08] VITALS: BP 142/81; PULSE 72; RESP 16; O2SAT 98
[2019-09-20 17:33] VITALS: BP 128/96; PULSE 74; RESP 18; O2SAT 98
== END 2019-09-20 17:34 | disposition home or self-care (01) ==
PROVIDERS: Emergency Provider Emergency Medicine; Family Provider Internal Medicine; PCP Internal Medicine
DX: G43.919 Migraine, unspecified, intractable, without status migrainosus (principal); M54.2 Cervicalgia; G89.29 Other chronic pain; R10.9 Unspecified abdominal pain; I10 Essential (primary) hypertension; F32.9 Major depressive disorder, single episode, unspecified; E66.9 Obesity, unspecified; Z79.899 Other long term (current) drug therapy; Z88.5 Allergy status to narcotic agent; Z98.84 Bariatric surgery status; Z90.49 Acquired absence of other specified parts of digestive tract; Z90.710 Acquired absence of both cervix and uterus
CPT/HCPCS: 96374; 96375; 99283; A4216

== ENCOUNTER 2019-12-01 12:13 | Emergency (ER) | payer OTHER, SELFPAY ==
[2019-12-01 12:15] VITALS: BP 164/111; PULSE 92; RESP 16; TEMP 37; O2SAT 98; BMI 38.3
--- NOTE | 2019-12-01 12:37 | EKG12_ITS ---
Test Reason : RC Blood Pressure : / mmHG Vent. Rate : 070 BPM Atrial Rate : 070 BPM P-R Int : 158 ms QRS Dur : 098 ms QT Int : 396 ms P-R-T Axes : 031 014 041 degrees QTc Int : 427 ms Normal sinus rhythm Normal ECG Confirmed by JENN JOINER ([id number]), graphic editor YI HAWKINS ([id number]) on 12/05/2019 11:02:52 AM Referred By: AMADEO Confirmed By:JENN JOINER
--- NOTE | 2019-12-01 12:45 | RAD_ITS ---
STUDY: X-RAY CHEST REASON FOR EXAM: Female, 49 years old. COUGH, SOB SINCE THURSDAY. STATES SHE HAD FEVER OF 101 AT HOME YESTERDAY TECHNIQUE: Single AP portable view of the chest. COMPARISON: Comparison is made with prior examination dated May 05, 2017. FINDINGS: The lungs are clear and expanded. Scattered calcified granulomas. There is no demonstrated pleural abnormality. Normal size heart. Normal mediastinum and diaz. Normal visualized pulmonary arteries. Normal visualized aortic arch and descending thoracic aorta. There are diffuse degenerative changes of the visualized thoracic spine. Dextroscoliosis. Normal visualized ribs, clavicles, and shoulders. There is no demonstrated abnormality of the visualized soft tissue structures of the upper abdomen. RAD/Chest 1 View (Portable) IMPRESSION: No acute abnormality is seen. Electronically Signed: Sergo Jacinto, at 13:11 EDT , Service support ,
[2019-12-01 13:16] VITALS: BP 167/64; PULSE 60; RESP 16; TEMP 37.1; O2SAT 99
[2019-12-01 13:57] LABS: Absolute Lymphocyte Count 1.91 X10^3/uL (0.83-4.51); Absolute Neutrophil Count 2.4 X10^3/uL (2.0-7.7); Basophil# 0.01 X10^3/uL; Basophil% 0.2 % (0-1); Eosinophil# 0.08 X10^3/uL; Eosinophils% 1.7 % (0-5); Hemoglobin 14.3 g/dL (12.0-15.0); Lymphocyte # 1.91 X10^3/ul (4.0); Lymphocyte % 39.5 % (19-41); Mean Corp Hgb Conc 31.8 g/dL (32-36); Mean Corpuscular Hgb 28.2 pg (27.0-32.0); Mean Corpuscular Volume 88.8 fL (81-99); Mean Platelet Vol. 10.7 fl (6.2-12.0); Monocyte% 8.3 % (0-10); NRBC Flagged by Analyzer 0 % (0-5); Neutrophil # 2.43 X10^3/uL (2.7-7.7); Neutrophil % 50.1 % (47-70); Platelet Count 260 K/mm3 (150-450); RBC Distribution Width CV 14.6 % (11.6-14.6); RBC Distribution Width SD 46.9 fl (35.1-43.9); Red Blood Count 5.07 M/mm3 (4.2-5.4); White Blood Count 4.8 K/mm3 (4.4-11.0)
[2019-12-01 14:10] LABS: ALB/GLOB Ratio 0.8 RATIO (0.9-2.4); AST(SGOT) 24 U/L (15-37); Alanine Aminotransfer ALT/SGPT 22 U/L (13-56); Albumin, Serum 3.8 g/dL (3.2-5.0); Alkaline Phosphatase 95 U/L (45-117); Anion Gap 5 (5-15); BUN 16 mg/dL (7-18); BUN/Creat Ratio 18.7 RATIO (10-20); Chloride 112 mmol/L (98-107); Creatinine, Serum 0.85 mg/dL (0.55-1.02); EST Glomerular Filtration Rate 74 mL/min (>60); Est Glom Filt Rate - Afr Amer 90 mL/min (>60); Estimated Creatinine Clearance 76.14 ml/min; Globulin 4.5 g/dL (2.2-4.2); Glucose 90 mg/dL (74-106); Potassium 3.9 mmol/L (3.5-5.1); Protein, Total 8.3 g/dL (6.4-8.2); Sodium Level 139 mmol/L (136-145)
--- NOTE | 2019-12-01 14:23 | ED.VIS.GEN ---
History of Present Illness Chief Complaint: Shortness of Breath Narrative: Patient presents with cough congestion rhinorrhea has been going on for about a week. She has had a fever but this has some what subsided. She is here because her employer told her that she cannot return back to work until she is clear from coronavirus. She has no contacts with any persons of interest. Past Medical History - Allergies and Home Meds Allergies/Adverse Reactions: Allergies ethinyl estradiol [From NuvaRing] Allergy (Verified 12/01/19 12:15) Rash etonogestrel [From NuvaRing] Allergy (Verified 12/01/19 12:15) Rash oxycodone [From Percocet] Adverse Reaction (Intermediate, Verified 12/01/19 12:15) Rash Primary Care Physician: Yamile Turner MD [Primary Care Provider] - Past Medical History: - - Headache, hypertension Surgical History: cholecystectomy, hysterectomy, - - , gastric bypass Smoking Status: Never smoker - Family History Paternal Family History: Reports: - Review of Systems General: Reports: Fever Eyes: Denies: Visual changes - bilaterally ENT: Reports: Rhinorrhea. Denies: Sore throat Cardiovascular: Denies: Chest pain Respiratory: Reports: Cough. Denies: Dyspnea Gastrointestinal: Denies: Abdominal pain, Nausea Genitourinary: Denies: Dysuria Musculoskeletal: Denies: Myalgias, Arthralgias Skin: Denies: Rash Neurological: Denies: Headache, Weakness Psych: Denies: Depression Endocrine: Denies: Polyuria Physical Exam Vital Signs/Narrative: Vital Signs Temp Pulse Resp BP Pulse Ox 12/01/19 13:16 98.7 F 60 16 167/64 H 99 12/01/19 12:15 98.6 F 92 16 164/111 H 98 General: Well nourished, Well developed ENT: Moist mucous membranes, - - Some upper airway congestion Cardiovascular: Regular rate, Regular rhythm Respiratory: - - Some bronchial breath sounds but mostly clear bilateral breath sounds Abdomen: Soft, Nontender Back: Nontender, Normal Inspection Extremities: Nontender Skin: Normal color, No rash Neurological: Alert Diagnostic/Tx/Re-eval - Medical Decision Making Patient has a negative influenza screening she has a normal chest x-ray. She does appear somewhat anxious she wants to go back to work, her employer will not let her go back to work until she has a negative coronavirus test. We cannot provide that here today due to shortages. I advised her she can follow-up with our other testing sites, or self quarantine as CDC recommends for 14 days. At this time she is not hypoxic she appears well and she has a normal x-ray. I believe she is stable for discharge. Patient was seen by me during peak influenza as well as the coronavirus outbreak. It is an epidemic. It is in National state of emergency. Emergency departments are full. The hospitals are full. There is quite a bit of a risk in all patients presenting to the emergency department. However per [facility] protocol all attempts were made by myself as well as the staff to keep the contamination level down. I was fully mask and gloved the entire time in the patient's presence. Patient may benefit from more testing however at this time it would be riskier to either get more testing or to get admitted to the hospital. The patient has normal vital signs appears well and can get the rest of the testing done in the outpatient environment which would be much safer for the patient. ED Disposition - Plan for ED Patient: Disposition: Home or Assisted Living Diagnosis: Upper respiratory infection Instructions: URI, Viral, No Abx (Adult) Referrals: Yamile Turner MD [Primary Care Provider] - 3-5 Days
[2019-12-01 14:31] VITALS: BP 155/71; PULSE 66; RESP 18; TEMP 37.1; O2SAT 99
[2019-12-01 15:06] VITALS: BP 154/92; PULSE 70; RESP 18; O2SAT 99
== END 2019-12-01 15:06 | disposition home or self-care (01) ==
PROVIDERS: Emergency Provider Emergency Medicine; PCP Internal Medicine
DX: J06.9 Acute upper respiratory infection, unspecified (principal); I10 Essential (primary) hypertension
CPT/HCPCS: 36415; 71045; 80053; 85025; 87040; 87804; 87880; 93005; 96360; 99285; J7040; A4216

== ENCOUNTER → 2020-05-02 17:24 | Outpatient (CLI) | payer OTHER, SELFPAY ==
[2020-05-01 16:32] VITALS: BMI 38.3
== END ==
PROVIDERS: PCP Internal Medicine; Referring Provider Physician Assistant Surgical; Visit Provider Physician Assistant Surgical
DX: Z20.828 Contact with and (suspected) exposure to other viral communicable diseases (principal)
CPT/HCPCS: 87635; 94799; C9803; U0003

== ENCOUNTER 2020-10-22 10:41 | Emergency (ER) | payer OTHER, SELFPAY ==
[2020-05-01 16:32] VITALS: BMI 38.3
[2020-10-22 10:42] VITALS: BP 154/74; PULSE 70; RESP 18; TEMP 36.6; O2SAT 100; BMI 38.7
[2020-10-22 11:05] VITALS: O2SAT 96
--- NOTE | 2020-10-22 11:05 | EKG12_ITS ---
Test Reason : CP Blood Pressure : / mmHG Vent. Rate : 072 BPM Atrial Rate : 072 BPM P-R Int : 154 ms QRS Dur : 096 ms QT Int : 386 ms P-R-T Axes : 030 018 029 degrees QTc Int : 422 ms Normal sinus rhythm Low voltage QRS (Limb Leads) Confirmed by SUSAN ORTIZ, MAO ([id number]), communications editor ALEE CONDE ([id number]) on 10/25/2020 9:25:24 AM Referred By: BUSTER Confirmed By:MAO DAVIS MD
--- NOTE | 2020-10-22 11:05 | RAD_ITS ---
STUDY: X-RAY CHEST REASON FOR EXAM: Female, 50 years old. Right sided chest and quot;tenderness and quot; and dizziness. TECHNIQUE: PA and lateral views of the chest. COMPARISON: Comparison is made with prior study dated 12/01/2019. FINDINGS: EKG electrodes are seen. The lungs are clear and expanded. There is no demonstrated pleural abnormality. Normal size heart. Normal mediastinum and diaz. Normal visualized pulmonary arteries. Normal visualized aortic arch and descending thoracic aorta. There are diffuse degenerative changes of the visualized thoracic spine. Dextroscoliosis. Normal visualized ribs, clavicles, and shoulders. Prior cholecystectomy. RAD/Chest PA and Lateral IMPRESSION: No acute abnormality is seen. Electronically Signed: Sergo Jacinto MD at 11:33 EST , Service support ,
[2020-10-22 11:20] LABS: Absolute Lymphocyte Count 2.01 X10^3/uL (0.83-4.51); Absolute Neutrophil Count 2.4 X10^3/uL (2.0-7.7); Basophil# 0.03 X10^3/uL; Basophil% 0.6 % (0-1); Eosinophil# 0.11 X10^3/uL; Eosinophils% 2.2 % (0-5); Hematocrit 43.6 % (37-47); Hemoglobin 13.9 g/dL (12.0-15.0); Lymphocyte # 2.01 X10^3/ul (4.0); Lymphocyte % 40.1 % (19-41); Mean Corp Hgb Conc 31.9 g/dL (32-36); Mean Corpuscular Hgb 29.4 pg (27.0-32.0); Mean Corpuscular Volume 92.2 fL (81-99); Mean Platelet Vol. 10.9 fl (6.2-12.0); Monocyte# 0.46 X10^3/uL; Monocyte% 9.2 % (0-10); NRBC Flagged by Analyzer 0 % (0-5); Neutrophil % 47.9 % (47-70); Platelet Count 264 K/mm3 (150-450); RBC Distribution Width CV 12.9 % (11.6-14.6); RBC Distribution Width SD 43.7 fl (35.1-43.9); Red Blood Count 4.73 M/mm3 (4.2-5.4)
--- NOTE | 2020-10-22 11:50 | NURSING ---
CHEMISTRIES HEMOLIZED. LAB WILL PRINT LABELS
[2020-10-22 12:28] LABS: Anion Gap 4 (5-15); BUN 15 mg/dL (7-18); BUN/Creat Ratio 19.4 RATIO (10-20); Calcium,Total 9.1 mg/dL (8.5-10.1); Chloride 113 mmol/L (98-107); Creatinine, Serum 0.78 mg/dL (0.55-1.02); EST Glomerular Filtration Rate 83 mL/min (>60); Est Glom Filt Rate - Afr Amer 100 mL/min (>60); Estimated Creatinine Clearance 78.98 ml/min; Glucose 92 mg/dL (74-106); Sodium Level 141 mmol/L (136-145)
[2020-10-22 12:41] VITALS: BP 130/78; PULSE 72; RESP 16; O2SAT 99
--- NOTE | 2020-10-22 12:45 | ED.DCSUM_ITS ---
History of Present Illness Chief Complaint: Dizziness Informant: Patient Narrative: Patient presenting for evaluation secondary to chest pain and presyncopal event. Patient states that over the course of about the last week she has been dealing with increasing pain in her right breast and right axilla. Pain is worse on palpation, and seems to be getting worse over the course of the week. Is worse with movement as well. No skin changes, no palpable masses, no injury to the area that is noted. Patient denies that she has been having any sort of fevers chills night sweats or unintended weight loss. She had a mammogram performed a week ago that was actually found to be normal. Patient states that today associated with the pain she had an episode of extreme lightheadedness where she felt as if she might pass out. She denies any chest pain or palpitations associated with it. Patient denies any cardiac history. View of systems otherwise negative. Past Medical History - Allergies and Home Meds Allergies/Adverse Reactions: Allergies ethinyl estradiol [From NuvaRing] Allergy (Verified 10/22/20 10:44) Rash etonogestrel [From NuvaRing] Allergy (Verified 10/22/20 10:44) Rash oxycodone [From Percocet] Adverse Reaction (Intermediate, Verified 10/22/20 10:44) Rash Primary Care Physician: Yamile Turner MD [Primary Care Provider] - Prior records reviewed: Yes Past Medical History: - - Hypertension, migraines Surgical History: cholecystectomy, hysterectomy, - - , gastric bypass Smoking Status: Never smoker Alcohol: None Drugs: None - Family History Paternal Family History: Reports: - Review of Systems All systems negative except as indicated General: Denies: Chills, Fever, Sweats Eyes: Denies: Visual changes - bilaterally, Diplopia ENT: Denies: Rhinorrhea, Sore throat Cardiovascular: Reports: Chest pain, - - Lightheadedness Respiratory: Denies: Dyspnea, Cough, Dyspnea on exertion Gastrointestinal: Denies: Abdominal pain, Nausea, Vomiting, Diarrhea, Melena, Hematochezia Genitourinary: Denies: Dysuria, Hematuria, Frequency Musculoskeletal: Denies: Back pain, Extremity Pain Skin: Denies: Rash, Wounds Neurological: Denies: Headache, Weakness, Numbness Physical Exam Vital Signs/Narrative: Vital Signs Temp Pulse Resp BP Pulse Ox 10/22/20 12:41 72 16 130/78 H 99 10/22/20 11:05 96 10/22/20 10:42 97.9 F 70 18 154/74 H 100 Inital Vital Signs reviewed: Yes General: Well nourished, Well developed, No Acute Distress Head: Normocephalic, Atraumatic Eyes: Perrl, EOMI ENT: Moist mucous membranes, No rhinorrhea Neck: Supple, Nontender Cardiovascular: Regular rate, Regular rhythm, No murmurs Respiratory: No distress, CTA bilaterally, Chest nontender, - - Chaperoned exam of the patient's chest shows pain in the right axilla and over the lateral portion of the patient's right breast. No induration, fluctuance, masses, or palpable adenopathy. Abdomen: Soft, Nontender, Nondistended, Normal bowel sounds Back: Nontender, Normal Inspection Extremities: Nontender, No edema Skin: Normal color, No rash Neurological: Alert, Oriented x3, Cranial nerves II-XII grossly intact, Normal Strength, Normal Sensation Psychological: Normal affect, Normal Mood Diagnostic/Tx/Re-eval Chest X-Ray - ED: 2 View, Normal - EKG Initial EKG Interpretation: - - Medical Decision Making Patient presenting secondary to axillary pain and a presyncopal episode. CBC chemistry and troponin found to be unremarkable. PA and lateral chest x-ray by my personal review as well as radiology found to be negative. EKG found to be unremarkable. Patient's heart score is either a 1 or 2. Patient is low risk for cardiac chest pain. Patient's pain seems clearly reproducible in her axilla, I do not feel any adenopathy, fluctuance, or masses. I do not feel that she requires admission or further inpatient management. Patient has a [facility] primary care physician, she will be referred to Dr. Roca for follow-up for her breast pain. ED Disposition - Plan for ED Patient: Disposition: Home or Assisted Living Diagnosis: Breast pain, right Instructions: ED Pain, Acute, Uncertain Cause Referrals: Gena Roca MD [STAFF PHYSICIAN] - As soon as possible
[2020-10-22 13:01] VITALS: BP 148/81; PULSE 73; RESP 18; O2SAT 99
--- NOTE | 2020-10-22 13:02 | ED.RN ---
THIS NURSE REVIEWED D/C INSTRUCTIONS WITH PT. PT VERBALIZED UNDERSTANDING OF INSTRUCTIONS. IV D/C. IV CATHETER INTACT. PT TOLERATED WELL
== END 2020-10-22 13:03 | disposition home or self-care (01) ==
PROVIDERS: Emergency Provider Emergency Medicine; PCP Internal Medicine
DX: N64.4 Mastodynia (principal); I10 Essential (primary) hypertension; Z90.710 Acquired absence of both cervix and uterus; Z98.84 Bariatric surgery status; Z90.49 Acquired absence of other specified parts of digestive tract
CPT/HCPCS: 71046; 80048; 84484; 85025; 93005; 99284; A4216

== ENCOUNTER 2020-11-27 19:15 | Emergency (ER) | payer OTHER, SELFPAY ==
[2020-11-27 19:16] VITALS: BP 145/83; PULSE 78; RESP 18; TEMP 36.8; O2SAT 98; BMI 38.3
--- NOTE | 2020-11-27 19:27 | CT_ITS ---
STUDY: CT ABDOMEN AND PELVIS WITH CONTRAST REASON FOR EXAM: Female, 50 years old. Left lower quadrant pain for 2 days. Nausea. History of diverticulitis. Surgical history of cholecystectomy. Gastric bypass and hysterectomy.. RADIATION DOSAGE (If Supplied By Facility): CTDIvol = ( 17.63 ) mGy, DLP = ( 1123.20 ) mGycm TECHNIQUE: Transaxial images were obtained from the dome of the diaphragm to the symphysis pubis without oral contrast. IV 100mL Isovue-300 was administered. Sagittal and coronal images were reconstructed. Individualized dose optimization techniques were used for this CT. COMPARISON: 05/05/2019. FINDINGS: The visualized lung bases are unremarkable. The visualized portions of the heart are within normal limits. There is elongation of the right lobe of the liver consistent with a Rajendra''s lobe. There is no focal mass. There is mild intra and extrahepatic biliary ductal dilatation thought to be secondary to the prior cholecystectomy. Borderline splenomegaly without mass. Normal pancreas. Normal bilateral adrenal glands. Normal right kidney. Normal left kidney. No evidence of gastric bypass surgery. Normal small intestine. Normal colon. There is non-visualization of the appendix. Normal abdominal aorta. Normal inferior vena cava. Normal retroperitoneum. Urinary bladder is collapsed. Unremarkable vaginal cough. There is no pelvic lymphadenopathy. No free air or free fluid is seen within the peritoneal cavity. Normal abdominal wall. Normal osseous structures. CT/Abdomen/Pelvis W IV Cont ONLY IMPRESSION: 1. Stable Rajendra''s lobe of the liver. 2. Stable borderline splenomegaly 3. No acute intra-abdominal or pelvic process or major interval change from the prior study. Electronically Signed: Austin Mackey DO at 20:49 EDT Tel [phone], Service support ,
--- NOTE | 2020-11-27 19:32 | ED.VIS.GEN ---
History of Present Illness Chief Complaint: Abd Pain Informant: Patient Narrative: 50-year-old female presents with concern for left lower quadrant pain. States it began 2 days ago. Intermittent and sharp in nature. Admits to nausea without vomiting. Denies any urinary symptoms. Denies any vaginal bleeding or discharge. States that she had fevers and chills at home. History of diverticulitis and this feels similar. States that she did have previous gastric bypass surgery. Past Medical History - Allergies and Home Meds Allergies/Adverse Reactions: Allergies ethinyl estradiol [From NuvaRing] Allergy (Verified 11/27/20 19:16) Rash etonogestrel [From NuvaRing] Allergy (Verified 11/27/20 19:16) Rash oxycodone [From Percocet] Adverse Reaction (Intermediate, Verified 11/27/20 19:16) Rash Primary Care Physician: Yamile Turner MD [Primary Care Provider] - Prior records reviewed: Yes Past Medical History: - - Hypertension, migraines Surgical History: cholecystectomy, hysterectomy, - - , gastric bypass Lives: With Family Smoking Status: Never smoker Alcohol: Rare Drugs: None - Family History Paternal Family History: Reports: - Review of Systems General: Reports: Fever. Denies: Chills, Sweats Eyes: Denies: Visual changes - bilaterally, Diplopia ENT: Denies: Rhinorrhea, Sore throat Cardiovascular: Denies: Chest pain, Palpitations Respiratory: Denies: Dyspnea, Cough, Dyspnea on exertion Gastrointestinal: Reports: Abdominal pain, Nausea. Denies: Vomiting, Diarrhea, Melena, Hematochezia Genitourinary: Denies: Dysuria, Hematuria, Frequency Musculoskeletal: Denies: Back pain, Extremity Pain Skin: Denies: Rash, Wounds Neurological: Denies: Headache, Weakness, Numbness Physical Exam Vital Signs/Narrative: Vital Signs Temp Pulse Resp BP Pulse Ox 11/27/20 19:16 98.3 F 78 18 145/83 H 98 Inital Vital Signs reviewed: Yes General: Well nourished, Well developed, No Acute Distress Head: Normocephalic, Atraumatic Eyes: Perrl, EOMI ENT: Moist mucous membranes, No rhinorrhea Neck: Supple, Nontender Cardiovascular: Regular rate, Regular rhythm, No murmurs Respiratory: No distress, CTA bilaterally, Chest nontender Abdomen: Soft, Nondistended, Normal bowel sounds, - - TTP in the LUQ and LLQ. Back: Nontender, Normal Inspection Extremities: Nontender, No edema Skin: Normal color, No rash Neurological: Alert, Oriented x3, Cranial nerves II-XII grossly intact, Normal Strength, Normal Sensation Psychological: Normal affect, Normal Mood Diagnostic/Tx/Re-eval Clinical Impression(s) from Imaging Studies Abdomen/Pelvis CT 11/27/20 19:27 IMPRESSION: 1. Stable Rajendra''s lobe of the liver. 2. Stable borderline splenomegaly 3. No acute intra-abdominal or pelvic process or major interval change from the prior study. Electronically Signed: Austin Mackey DO at 20:49 EDT Tel [phone], Service support , Laboratory Data 11/27/20 11/27/20 11/27/20 19:40 19:40 20:08 WBC 5.7 RBC 4.69 Hgb 14.0 Hct 42.7 MCV 91.0 MCH 29.9 MCHC 32.8 RDW Std Deviation 41.5 RDW Coeff of Shira 12.7 Plt Count 298 MPV 10.4 Immature Gran % (Auto) 0.200 Neut % (Auto) 50.5 Lymph % (Auto) 38.9 [place] % (Auto) 8.4 Eos % (Auto) 1.7 Baso % (Auto) 0.3 Absolute Neuts (auto) 2.9 Absolute Lymphs (auto) 2.23 Nucleated RBC % 0 Sodium 140 Potassium 4.2 Chloride 111 H Carbon Dioxide 24.0 Anion Gap 5 BUN 17 Creatinine 0.79 Estim Creat Clear Calc 81.01 Est GFR (MDRD) Af Amer 98 Est GFR (MDRD) Non-Af 81 BUN/Creatinine Ratio 21.5 H Glucose 93 Calcium 8.9 Total Bilirubin 0.20 AST 29 ALT 24 Alkaline Phosphatase 116 Total Protein 7.6 Albumin 3.5 Globulin 4.1 Albumin/Globulin Ratio 0.9 Lipase 213 Urine Color Yellow Urine Clarity Clear Urine pH 7.0 Ur Specific [place] 1.010 Urine Protein Negative Urine Glucose (UA) Normal Urine Ketones Negative Urine Occult Blood Negative Urine Nitrite Negative Urine Bilirubin Negative Urine Urobilinogen 1 H Ur Leukocyte Esterase 25 H Urine RBC 0 SEEN Urine WBC 0-5 SEEN Ur Squamous Epith Cells 0 SEEN Urine Bacteria 0 SEEN Urine Mucus 1+ - Medical Decision Making Patient appears well and nontoxic. Tenderness to palpation in the left upper and left lower quadrant. No wound or guarding. Lab work within normal limits. CT of the abdomen pelvis shows no acute process. Patient initially been given morphine and Zofran as well as fluid bolus. Patient continued to have pain. Her pain does sound more like gastritis versus a peptic ulcer given its left upper quadrant and epigastric in nature. Patient continued to have pain and was given Dilaudid. Upon thorough review of her chart it does appear that she has had this pain for over 1 decade. Patient will be referred to gastroenterology and given Bentyl as well as Zofran for home. Asked to return for new or worsening symptoms. Patient agreeable and stable at time of discharge. Impression: 1. Chronic abdominal pain ED Disposition - Plan for ED Patient: Disposition: Home or Assisted Living Instructions: ED Abdominal Pain Unkn Cause Fem Prescriptions: Dicyclomine HCl [Bentyl] 20 mg PO TIDAC #20 capsule Prescription Printed Sucralfate [Carafate] 1 gm PO 4X/DAY #56 tablet Prescription Printed Ondansetron [Zofran Odt] 4 mg PO Q8H PRN PRN #10 tablet PRN Reason: Nausea Prescription Printed Referrals: Yamile Turner MD [Primary Care Provider] - 2 Days Delroy Abad MD [NON-STAFF] - 3-5 Days
[2020-11-27] MEDS: Morphine 4 MG/ML Syringe IV (19:42)
[2020-11-27] MEDS: Ondansetron 4 MG/2 ML Vial IV (19:42)
[2020-11-27] MEDS: 0.9% Normal Saline 1,000 ML 1000 ML IV (19:42)
[2020-11-27 19:43] VITALS: BP 145/83; PULSE 78; RESP 18; TEMP 36.8; O2SAT 98
[2020-11-27 19:53] LABS: Absolute Lymphocyte Count 2.23 X10^3/uL (0.83-4.51); Absolute Neutrophil Count 2.9 X10^3/uL (2.0-7.7); Basophil# 0.02 X10^3/uL; Basophil% 0.3 % (0-1); Eosinophils% 1.7 % (0-5); Hematocrit 42.7 % (37-47); Lymphocyte # 2.23 X10^3/ul (4.0); Lymphocyte % 38.9 % (19-41); Mean Corp Hgb Conc 32.8 g/dL (32-36); Mean Corpuscular Hgb 29.9 pg (27.0-32.0); Mean Platelet Vol. 10.4 fl (6.2-12.0); Monocyte# 0.48 X10^3/uL; Monocyte% 8.4 % (0-10); NRBC Flagged by Analyzer 0 % (0-5); Neutrophil % 50.5 % (47-70); Platelet Count 298 K/mm3 (150-450); RBC Distribution Width CV 12.7 % (11.6-14.6); RBC Distribution Width SD 41.5 fl (35.1-43.9); Red Blood Count 4.69 M/mm3 (4.2-5.4); White Blood Count 5.7 K/mm3 (4.4-11.0)
[2020-11-27 20:15] LABS: ALB/GLOB Ratio 0.9 RATIO (0.9-2.4); AST(SGOT) 29 U/L (15-37); Alanine Aminotransfer ALT/SGPT 24 U/L (13-56); Albumin, Serum 3.5 g/dL (3.2-5.0); Alkaline Phosphatase 116 U/L (45-117); Anion Gap 5 (5-15); BUN 17 mg/dL (7-18); BUN/Creat Ratio 21.5 RATIO (10-20); Calcium,Total 8.9 mg/dL (8.5-10.1); Chloride 111 mmol/L (98-107); Creatinine, Serum 0.79 mg/dL (0.55-1.02); EST Glomerular Filtration Rate 81 mL/min (>60); Est Glom Filt Rate - Afr Amer 98 mL/min (>60); Estimated Creatinine Clearance 81.01 ml/min; Globulin 4.1 g/dL (2.2-4.2); Glucose 93 mg/dL (74-106); Lipase 213 U/L (73-393); Potassium 4.2 mmol/L (3.5-5.1); Protein, Total 7.6 g/dL (6.4-8.2); Sodium Level 140 mmol/L (136-145)
[2020-11-27 20:18] LABS: Bacteria 0 SEEN /hpf (None Seen); Red Blood Cells-Urine 0 SEEN /hpf (0-5); Squamous Epithelial Cells - UA 0 SEEN /hpf (5-10)
[2020-11-27 20:21] LABS: Color, Urine Yellow (Yellow); Glucose, Dipstick Normal (Normal); Ketone-Dipstick Negative (Negative); Leukocyte Esterase-Dipstick 25 /ul (Negative); Nitrite-Dipstick Negative (Negative); Occult Blood-Urine Negative /ul (Negative); Protein-Dipstick Negative (Negative); Urine Bilirubin Dipstick Negative (Negative); Urine Clarity Clear (Clear); Urine Urobilinogen 1 mg/dl (Normal)
[2020-11-27 20:27] LABS: Mucous, Urine 1+ /hpf (<or=2+); White Blood Cells 0-5 SEEN /hpf (0-5)
[2020-11-27] MEDS: Famotidine 200 MG/20 ML MDV 20 MG in 0.9% Normal Saline (Pres. free 8 ML 300 MG IV (21:15)
[2020-11-27] MEDS: Mag Hydrox/Al Hydrox/Simeth 30 ML UDC PO (21:15)
[2020-11-27 21:19] VITALS: BP 144/84; PULSE 65; RESP 20; TEMP 36.3; O2SAT 100
[2020-11-27] MEDS: HYDROmorphone 0.5 MG/0.5 ML SYRINGE IV (22:32)
[2020-11-27 22:41] VITALS: BP 140/78; PULSE 66; RESP 18; O2SAT 97
== END 2020-11-27 22:42 | disposition home or self-care (01) ==
PROVIDERS: Emergency Provider Emergency Medicine; PCP Internal Medicine
DX: R10.32 Left lower quadrant pain (principal); G89.29 Other chronic pain; I10 Essential (primary) hypertension; Z98.84 Bariatric surgery status; Z90.710 Acquired absence of both cervix and uterus; Z90.49 Acquired absence of other specified parts of digestive tract
CPT/HCPCS: 74177; 80053; 81001; 83690; 85025; 96361; 96374; 96375; 99284; Q9967; J2405; J3490

== ENCOUNTER → 2021-03-26 18:06 | Outpatient (CLI) | payer OTHER, SELFPAY ==
--- NOTE | 2021-03-26 19:00 | MRI_ITS ---
STUDY: MRI BRAIN WITH AND WITHOUT CONTRAST REASON FOR EXAM: Female, 51 years old. Retrobulbar optic neuritis right eye TECHNIQUE: Standardized multiplanar fat and water weighted pulse sequences were obtained. IV 22ml Dotarem was administered for the contrast portion of the examination. COMPARISON: None. FINDINGS: Normal size of the ventricles and extra-axial spaces for the patient''s age. Normal white matter tracts of the supratentorial brain. Normal bilateral basal ganglia. Normal thalami. There is no extra-axial fluid accumulation. Normal flow voids within the major intracranial circulation suggesting patency by spin echo criteria. Normal venous enhancement. There is no enhancing intra-axial or extra-axial abnormality. Normal sella turcica, pituitary gland, infundibular stalk, optic chiasm and hypothalamus. Normal tectal plate and pineal gland. Normal midbrain, shannon and medulla. Normal cerebellum. Normal basal cisterns. Normal bilateral temporal bones. Normal bilateral internal auditory canals. There is a subtle area of increased signal intensity within the retrobulbar optic nerve consistent with optic neuritis. There is no enhancement following contrast administration. Normal visualized paranasal sinuses. Normal calvarium and skull base. Normal visualized soft tissue structures. Normal visualized upper cervical spine. MRI/Brain W/WO Contrast IMPRESSION: Findings consistent with nonspecific optic neuritis of the right orbit.. Otherwise unremarkable MRI of the brain Electronically Signed: Andres Fry MD at 20:28 EDT , Service support ,
== END ==
PROVIDERS: PCP Internal Medicine; Visit Provider Ophthalmology
DX: H46.11 Retrobulbar neuritis, right eye (principal)
CPT/HCPCS: 70553; A9575

== ENCOUNTER 2021-12-16 08:23 | Emergency (ER) | payer OTHER, SELFPAY ==
[2021-12-16 08:24] VITALS: BP 150/93; PULSE 80; RESP 17; TEMP 36.7; O2SAT 100; BMI 38.5
--- NOTE | 2021-12-16 08:30 | EKG12_ITS ---
Test Reason : PALPS/DIZZY Blood Pressure : / mmHG Vent. Rate : 073 BPM Atrial Rate : 073 BPM P-R Int : 158 ms QRS Dur : 094 ms QT Int : 386 ms P-R-T Axes : 035 022 042 degrees QTc Int : 425 ms Sinus rhythm with occasional Premature ventricular complexes Otherwise normal ECG Confirmed by SUSAN ORTIZ, MAO ([id number]), digital editor TRISTAN TABARES ([id number]) on 12/18/2021 11:36:09 AM Referred By: MAT Confirmed By:MAO DAVIS MD
[2021-12-16] MEDS: Ondansetron ODT 4 MG Tablet PO (09:12)
[2021-12-16 09:13] VITALS: BP 142/83; PULSE 80; RESP 18; TEMP 36.2; O2SAT 99
--- NOTE | 2021-12-16 09:19 | EX.ED.DYSGE1 ---
HPI History of Present Illness Chief Complaint: Dizziness Detail of Chief Complaint: Upper respiratory symptoms a started yesterday and dizziness Informant: patient Onset/Context/Timing Onset: Today (Dizziness started this morning when patient got out of bed) and Yesterday (Viral symptoms started yesterday) Context: Sudden Onset Timing: Intermittent Quality: Upper respiratory and infectious symptoms and vertigo Location: Upper respiratory and inner ear Current Severity: Mild Maximum Severity: Moderate Worsened by: Turning head to the right or left Relieved by: Remaining still Associated Symptoms Associated Symptoms: Nausea, change in voice, not feeling well Narrative Narrative: Patient is a 51-year-old woman who presents because of dizziness. When asked to define dizziness she specifically states when she turns to get out of bed she had feels things are moving or spinning. This is associated with nausea. There is no double vision, blurred vision or loss of vision. She denies ringing or ears or decreased hearing. She does endorse nasal congestion. She denies postnasal drainage. She does endorse sore throat and change in voice. Her cough is essentially nonproductive. She denies dyspnea or dyspnea on exertion. She does report nausea without vomiting or diarrhea. She denies myalgias or arthralgias. She denies fever, chills or night sweats. She denies weight loss or weight gain. She denies dysuria, frequency, urgency or hematuria. She denies rash. She states when she is upright she is not dizzy. When she is supine and turns she becomes dizzy. She denies trouble with her speech meaning a expressive aphasia or slurring of her words. Prior similar symptoms: No Recent Illness/Hospitalization: No PFSH PFS Medical History Hypertension Macular degeneration Macular degeneration Home Medications eletriptan 20 mg PO .X1 PRN PRN 10/04/13 [History Last Taken 10/04/13] multivitamin,fp-[id number]-nqsymbwe 1 tab PO DAILY 03/28/14 [History Last Taken 05/04/17] tizanidine 4 mg PO QHS 03/28/14 [History Last Taken 05/04/17] topiramate 50 mg PO QHS 06/09/16 [History Last Taken 05/04/17] bupropion HCl 150 mg PO DAILY 05/05/17 [History Last Taken Unknown] fluticasone propionate 2 spray NASAL DAILY 05/05/17 [History Last Taken 05/04/17] naratriptan 1 tab PO DAILY PRN 05/05/17 [History Last Taken Unknown] lisinopril 20 mg PO DAILY 10/26/17 [History Last Taken Unknown] dicyclomine 20 mg PO TIDAC #20 capsule 11/27/20 [Rx Last Taken Unknown] ondansetron 4 mg PO Q8H PRN PRN #10 tablet 11/27/20 [Rx Last Taken Unknown] sucralfate 1 gm PO 4X/DAY #56 tablet 11/27/20 [Rx Last Taken Unknown] Allergy/AdvReac Type Severity Reaction Status Date / Time ethinyl estradiol Allergy Rash Verified 12/16/21 08:24 [From NuvaRing] etonogestrel [From NuvaRing] Allergy Rash Verified 12/16/21 08:24 oxycodone [From Percocet] AdvReac Intermediate Rash Verified 12/16/21 08:24 Surgical History H/O: hysterectomy H/O: hysterectomy History of cholecystectomy Social History (Updated 12/16/21 @ 09:[address] Kaden Wolf MD) household members: significant other Smoking Status: Never smoker substance use type: does not use ROS ROS ED Constitutional Constitutional ED: Denies chills, fever(s), subjective, sweats or weight loss Eyes Eyes: Reports other Details: Patient reports problems with vision; however, this is a chronic issue. ; Denies blurry vision, change in vision or diplopia ENT ENT ED: Reports other Details: She denies tinnitus ; Denies ear pain, rhinorrhea or sore throat Cardiovascular Cardiovascular: Denies chest pain, orthopnea, palpitations, paroxysmal nocturnal dyspnea or racing heartbeat Respiratory/Chest Respiratory/Chest: Reports cough; Denies dyspnea, dyspnea on exertion, orthopnea or paroxysmal nocturnal dyspnea Gastrointestinal Gastrointestinal: Reports nausea; Denies abdominal pain, constipation, diarrhea or melena Genitourinary Genitourinary ED: Denies dysuria, hematuria or urinary frequency Musculoskeletal Musculoskeletal: Denies arthralgias, back pain, myalgias or neck pain Integumentary Denies rash Neurologic Neurologic: Reports headache(s) and other Details: Patient states she had a headache yesterday. She presently does not have a headache. ; Denies paresthesias or weakness Psychiatric Psychiatric: Denies anxiety or depression Endocrine Endocrinology: Denies polydipsia or polyuria Hematologic/Lymphatic Hematologic/Lymphatic: Denies anemia, easy bleeding or easy bruising Allergic/Immunologic Allergic/Immunologic ED: Denies mouth swelling or tongue swelling EXAM Physical Exam Const Vital Signs: 12/16/21 08:24 12/16/21 09:13 Temperature 98.1 F 97.2 F L Temperature Source Temporal Oral Pulse Rate 80 80 Respiratory Rate 17 18 Respiratory Pattern Normal Blood Pressure 150/93 H 142/83 H Blood Pressure Mean 112 102 Pulse Ox 100 99 Oxygen Delivery Method Room Air Room Air Positive well nourished, well developed and obese General Appearance ED: well developed and NAD; Negative for cyanotic, diaphoretic or pallor Nutritional Appearance: obese HEENT Reports TM's clear and moist mucous membranes HEENT Narrative: Uvula is midline. There is no angioedema. She does have a hoarse voice. There is no exudate noted. Nares patent with mild discharge noted. Negative for trauma or tenderness Tympanic Membrane ED: Yes TM's clear Eyes PERRL and EOMs intact bilaterally Eyes Narrative: There is no nystagmus. There is no APD. Cup-to-disc ratio is normal with no papilledema. General Eye ED: Negative for pale conjunctiva or scleral icterus Neck no lymphadenopathy, supple and no JVD Neck Narrative: Trachea is midline. There is no inspiratory or expiratory stridor. Resp normal respiratory effort and clear to auscultation bilaterally Cardio regular rate, regular rhythm, S1 normal heart sound, S2 normal heart sound and no murmurs GI normal to inspection, nondistended, normoactive bowel sounds, non-tender and non-distended Palpation: soft Back/Spine no CVA tenderness Cervical Spine: Negative for cervical spine tenderness Thoracic Spine / Upper Back: Negative for thoracic spinal tenderness Extremity normal to inspection General Extremety ED: Negative for tenderness Neuro oriented x3, CN's II-XII intact bilaterally and no sensory deficits noted Neuro Narrative: There is no dysmetria. Reflexes are 2+ upper and lower extremity and symmetric. There is no Babinski sign. There is no clonus. The eye askew test was negative. The hint test was negative. Vanderwagen-Hallpike maneuver was negative; however, when having patient supine and turning to the left her symptoms reproduced and there was evidence of nystagmus. Sensorium / Orientation: alert Motor Exam: strength 5/5 throughout Psych mental status grossly normal Skin no rashes or lesions noted, no wounds and skin turgor normal General Skin Exam: Negative for jaundice or pallor MDM MDM MDM Narrative Medical decision making narrative: With respect to the dizziness patient has paroxysmal benign positional vertigo. Imaging is not indicated at this time. With regards to her other symptoms she has an upper respiratory infection and treatment is symptomatic Patient was treated with Zofran ODT prior to performing Vinh maneuver since she became quite nauseous when she was supine and turning to the left. Vinh maneuver was performed. Patient was asymptomatic when her head was to the left and right. When she was upright with her neck flexed 20 degrees she was most symptomatic and took greater than 20 minutes for her symptoms resolved. 30 minutes later she was ambulated by nursing staff. She was able to ambulate with no symptoms. Discharge Plan Triage Chief Complaint: Dizziness ED Provider: Kaden Wolf Dx/Rx/DC Orders Clinical Impression: Benign paroxysmal positional vertigo, Acute upper respiratory infection, Laryngitis, acute Instructions: ED BPV Vertigo, ED URI, Viral, No Abx (Adult) Prescriptions: No Action eletriptan 20 MG tablet 20 mg PO .X1 PRN PRN (Reason: Headache) RF: 0 tizanidine 4 MG tablet 4 mg PO QHS RF: 0 multivitamin,eo-yifn-sbjjfiww 1 TABLET tablet 1 tab PO DAILY RF: 0 topiramate 50 MG tablet 50 mg PO QHS RF: 0 naratriptan 2.5 MG tablet 1 tab PO DAILY PRN (Reason: HEADACHES) RF: 0 fluticasone propionate 1 SPRAY spray,suspension 2 spray NASAL DAILY RF: 0 bupropion HCl 150 MG tablet extended release 24 hr 150 mg PO DAILY RF: 0 lisinopril 10 MG tablet 20 mg PO DAILY RF: 0 ondansetron 4 MG tablet 4 mg PO Q8H PRN PRN (Reason: Nausea) Qty: 10 RF: 0 dicyclomine 10 MG capsule 20 mg PO TIDAC Qty: 20 RF: 0 sucralfate 1 GM tablet 1 gm PO 4X/DAY Qty: 56 RF: 0 Primary Care Provider: Yamile Turner Referrals: Yamile Turner MD [Primary Care Provider] - 10-14 Days if not better Activity Restrictions/Additional Instructions: You may have respiratory symptoms for 10-14 more days. Greater 95% of time this is caused by a viral infection. Since this is caused by a viral infection antibiotics were not ordered since they have no effect. Disposition Disposition: Home, Self Care
--- NOTE | 2021-12-16 11:35 | ED.RN ---
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 Pt had no complaints with walking. Stated I feel the same as I always do when I walk.
[2021-12-16 11:37] VITALS: BP 176/93; PULSE 79; RESP 18; O2SAT 100
== END 2021-12-16 11:41 | disposition home or self-care (01) ==
PROVIDERS: Emergency Provider Emergency Medicine; PCP Internal Medicine; Visit Provider Emergency Medicine
DX: H81.10 Benign paroxysmal vertigo, unspecified ear (principal); J06.9 Acute upper respiratory infection, unspecified; J04.0 Acute laryngitis; E66.9 Obesity, unspecified
CPT/HCPCS: 93005; 99283

== ENCOUNTER 2022-06-24 20:03 | Emergency (ER) | payer OTHER, BC, SELFPAY ==
[2022-06-24 20:05] VITALS: BP 151/92; PULSE 76; RESP 15; TEMP 37.1; O2SAT 100; BMI 38.7
--- NOTE | 2022-06-24 20:10 | EKG12_ITS ---
Test Reason : DYSRHYTHMIA Blood Pressure : / mmHG Vent. Rate : 073 BPM Atrial Rate : 073 BPM P-R Int : 166 ms QRS Dur : 096 ms QT Int : 398 ms P-R-T Axes : 029 017 037 degrees QTc Int : 438 ms Normal sinus rhythm Low voltage QRS (Limb Leads) Confirmed by SUSAN ORTIZ, MAO ([id number]), mapping editor ALEE CONDE ([id number]) on 06/26/2022 1:04:23 PM Referred By: FOREIGN Confirmed By:MAO DAVIS MD
[2022-06-24 21:00] LABS: Anion Gap 7 (5-15); BUN 21 mg/dL (7-18); BUN/Creat Ratio 23.4 RATIO (10-20); Calcium,Total 9.3 mg/dL (8.5-10.1); Chloride 110 mmol/L (98-107); EST Glomerular Filtration Rate 70 mL/min (>60); Est Glom Filt Rate - Afr Amer 84 mL/min (>60); Glucose 109 mg/dL (74-106); Potassium 4.1 mmol/L (3.5-5.1); Sodium Level 140 mmol/L (136-145); Troponin-I HS 6 pg/mL (3.0-54.0)
[2022-06-24 21:04] VITALS: BP 141/72; PULSE 70; RESP 10; O2SAT 95
[2022-06-24 22:00] VITALS: BP 122/104; PULSE 68; RESP 14
--- NOTE | 2022-06-24 22:12 | EDS_ITS ---
HPI History of Present Illness Chief Complaint: Palpitations Detail of Chief Complaint: Palpitations, bilateral jaw pain, paresthesia and heaviness in upper extrem Informant: patient Onset/Context/Timing Onset: Hours (Prior to arrival) Context: Sudden Onset Timing: Continuous Quality: Documented HPI narrative Location: Documented HPI narrative Current Severity: Mild Maximum Severity: Severe Worsened by: Heated disciplinary action and conversation Relieved by: Nothing Associated Symptoms Associated Symptoms: Documented HPI narrative Narrative Narrative: Patient is a 52-year-old woman with history of hypertension. Father had coronary disease in his 40s. She is a non-smoker. She was in a heated discussion over disciplinary action at work. The discussion lasted 15 minutes. She developed palpitations, bilateral jaw pain, heaviness in her arms and numbness in her digits upper extremity. She denied chest pain. She may have been slightly short of breath. This occurred right after the discussion that was heated. She denies history coronary disease. She denies history of diabetes. She denies history of PE or DVT. She has no risk factors for either. She denies black or maroon stool. She denies history of GERD, peptic ulcer disease. She denies leg pain, swelling discoloration. Prior similar symptoms: No Recent Illness/Hospitalization: No PFSH PFS Medical History Hypertension Macular degeneration Macular degeneration Home Medications eletriptan 20 mg tablet 20 mg PO .X1 PRN PRN Headache 10/04/13 [History Last Taken 10/04/13] multivitamin,hy-jpag-kxrvtxtj 27 mg-0.4 mg tablet 1 tab PO DAILY 03/28/14 [History Last Taken 05/04/17] tizanidine 4 mg tablet 4 mg PO QHS 03/28/14 [History Last Taken 05/04/17] topiramate 50 mg tablet 50 mg PO QHS 06/09/16 [History Last Taken 05/04/17] bupropion HCl 150 mg 24 hr tablet, extended release 150 mg PO DAILY 05/05/17 [History Last Taken Unknown] fluticasone propionate 50 mcg/actuation nasal spray,suspension 2 spray NASAL DAILY 05/05/17 [History Last Taken 05/04/17] naratriptan 2.5 mg tablet 1 tab PO DAILY PRN HEADACHES 05/05/17 [History Last Taken Unknown] lisinopril 10 mg tablet 20 mg PO DAILY 10/26/17 [History Last Taken Unknown] dicyclomine 10 mg capsule 20 mg PO TIDAC #20 CAPSULES 11/27/20 [Rx Last Taken Unknown] ondansetron 4 mg disintegrating tablet 4 mg PO Q8H PRN PRN Nausea #10 TABLETS 11/27/20 [Rx Last Taken Unknown] sucralfate 1 gram tablet 1 gm PO 4X/DAY #56 TABLETS 11/27/20 [Rx Last Taken Unknown] Allergy/AdvReac Type Severity Reaction Status Date / Time ethinyl estradiol Allergy Rash Verified 06/24/22 20:07 [From NuvaRing] etonogestrel [From NuvaRing] Allergy Rash Verified 06/24/22 20:07 oxycodone [From Percocet] AdvReac Intermediate Rash Verified 06/24/22 20:07 Surgical History H/O: hysterectomy H/O: hysterectomy History of cholecystectomy Social History household members: significant other Smoking Status: Never smoker substance use type: does not use ROS ROS ED Constitutional Constitutional ED: Denies chills, fever(s), subjective, sweats or weight loss Eyes Eyes: Denies blurry vision, change in vision or diplopia ENT ENT ED: Reports other Details: Bilateral jaw pain ; Denies ear pain, rhinorrhea or sore throat Cardiovascular Cardiovascular: Reports palpitations; Denies chest pain, orthopnea or racing heartbeat Respiratory/Chest Respiratory/Chest: Reports dyspnea; Denies cough, dyspnea on exertion or orthopnea Gastrointestinal Gastrointestinal: Denies abdominal pain, nausea or vomiting Musculoskeletal Musculoskeletal: Denies arthralgias, back pain, myalgias or neck pain Integumentary Denies Abrasions or rash Neurologic Neurologic: Reports paresthesias; Denies headache(s) or weakness Psychiatric Psychiatric: Reports anxiety Hematologic/Lymphatic Hematologic/Lymphatic: Reports systems reviewed and no addt'l complaints, except as documented and none EXAM Physical Exam Const Vital Signs: 06/24/22 20:05 06/24/22 20:24 06/24/22 21:04 Temperature 98.8 F Temperature Source Temporal Pulse Rate 76 70 Respiratory Rate 15 10 L Respiratory Effort Normal Non-Labored Respiratory Pattern Normal Blood Pressure 151/92 H 141/72 H Blood Pressure Mean 111 95 Pulse Ox 100 95 Oxygen Delivery Method Room Air Room Air 06/24/22 22:00 Temperature Temperature Source Pulse Rate 68 Respiratory Rate 14 Respiratory Effort Respiratory Pattern Blood Pressure 122/104 H Blood Pressure Mean 110 Pulse Ox Oxygen Delivery Method Positive well nourished, well developed and obese Constitutional Narrative: There was little to no eye contact during the history and physical examination. General Appearance ED: well developed and NAD; Negative for cyanotic or diaphoretic Nutritional Appearance: obese HEENT Reports moist mucous membranes HEENT Narrative: Head is atraumatic normocephalic. Ears normal. Nares patent. Mucosa moist. Uvula midline. There is no erythema or exudate the posterior pharynx. Eyes PERRL and EOMs intact bilaterally General Eye ED: Negative for pale conjunctiva or scleral icterus Neck no lymphadenopathy, supple and no JVD Resp normal respiratory effort and clear to auscultation bilaterally Cardio regular rate, regular rhythm, S1 normal heart sound, S2 normal heart sound and no murmurs GI normal to inspection, nondistended, normoactive bowel sounds, non-tender and non-distended; Negative for hepatosplenomegaly Extremity normal to inspection Extremity Narrative: There is no asymmetry, swelling, discoloration, leg vein distention, palpable cords or tenderness along the distribution of the deep venous system. Neuro oriented x3, CN's II-XII intact bilaterally and no sensory deficits noted Sensorium / Orientation: alert Motor Exam: strength 5/5 throughout Psych mental status grossly normal Skin no rashes or lesions noted, no wounds and skin turgor normal MDM MDM MDM Narrative Medical decision making narrative: Patient presents with atypical symptoms. Since she is a middle-aged woman with risk factors troponin and 2-hour troponin was obtained. EKG was obtained and reveals no abnormality. It is normal. Suspect this is related to the heated discussion and represents an anxiety reaction. Lab Data Attestation: I reviewed the patient's lab results. Lab results narrative: Electrolyte panel was unremarkable. First troponin is normal. Second troponin is pending. Second troponin is normal as well. Therefore patient was discharged to home. Labs: Laboratory Results - last 24 hr 06/24/22 06/24/22 20:25 22:20 Sodium 140 Potassium 4.1 Chloride 110 H Carbon Dioxide 23.0 Anion Gap 7 BUN 21 H Creatinine 0.90 Estim Creat Clear Calc 66.90 Est GFR (MDRD) Af Amer 84 Est GFR (MDRD) Non-Af 70 BUN/Creatinine Ratio 23.4 H Glucose 109 H Calcium 9.3 Troponin I High Sens 6 19 EKG Initial EKG: Attestation: I personally reviewed and interpreted this EKG as follows: Interpretation: Sinus Rhythm (Ventricular rate of 73. The EKG is normal. UT interval is 166 ms. QS duration 96 ms. QT duration 398 ms. [place] is normal.) Discharge Plan Triage Chief Complaint: Palpitations ED Provider: Kaden Wolf Dx/Rx/DC Orders Clinical Impression: Anxiety reaction, Hypertension, Paresthesia of both hands Instructions: ED Anxiety Reaction Prescriptions: No Action eletriptan 20 MG tablet 20 mg PO .X1 PRN PRN (Reason: Headache) Label Comments: MIGRAINE tizanidine 4 MG tablet 4 mg PO QHS Label Comments: muscle relaxer multivitamin,fb-yvji-hyofuhhm 1 TABLET tablet 1 tab PO DAILY Label Comments: vitamin topiramate 50 MG tablet 50 mg PO QHS Label Comments: migrianes naratriptan 2.5 MG tablet 1 tab PO DAILY PRN (Reason: HEADACHES) Label Comments: headaches fluticasone propionate 1 SPRAY spray,suspension 2 spray NASAL DAILY bupropion HCl 150 MG tablet extended release 24 hr 150 mg PO DAILY Label Comments: antidepressant lisinopril 10 MG tablet 20 mg PO DAILY ondansetron 4 MG tablet 4 mg PO Q8H PRN PRN (Reason: Nausea) Qty: 10 0RF dicyclomine 10 MG capsule 20 mg PO TIDAC Qty: 20 0RF sucralfate 1 GM tablet 1 gm PO 4X/DAY Qty: 56 0RF Primary Care Provider: Yamile Turner Referrals: Yamile Turner MD [Primary Care Provider] - As Needed Disposition Disposition: Home, Self Care
[2022-06-24 22:48] VITALS: RESP 18
== END 2022-06-24 22:54 | disposition home or self-care (01) ==
PROVIDERS: Emergency Provider Emergency Medicine; PCP Internal Medicine; Visit Provider Emergency Medicine
DX: F41.1 Generalized anxiety disorder (principal); R68.84 Jaw pain; R20.2 Paresthesia of skin; R06.02 Shortness of breath; I10 Essential (primary) hypertension
CPT/HCPCS: 80048; 84484; 93005; 99284; A4216

== ENCOUNTER 2022-10-01 09:09 | Emergency (ER) | payer OTHER, BC, SELFPAY ==
[2022-10-01 09:10] VITALS: BP 137/76; PULSE 83; RESP 17; TEMP 36.4; O2SAT 100; BMI 33.9
--- NOTE | 2022-10-01 09:22 | ED.VIS.GI ---
HPI HPI - GI History of Present Illness Chief Complaint: Abd Pain Informant: patient Abdominal Pain/Flank Pain Onset: Days (4) Context: Gradual Onset Timing: Continuous Quality: Burning Location: Epigastric Worsened by: Food Relieved by: Nothing Nausea/Vomiting/Emesis GI Symptom: Positive for Nausea; Negative for Vomiting Diarrhea/Melena/Hematochezia GI Symptom: Negative for Diarrhea, Melena or Hematochezia Associated Symptoms Associated Symptoms: Negative for Dysuria, Frequency or Hematuria LMP: Hysterectomy Narrative Narrative: Patient presents with abdominal pain that has been getting worse over the last 4 days. Patient also admits to a headache that has been getting worse over the last 4 days. Patient states her abdominal pain is over the epigastric area. Patient states it feels like it is burning. Patient states it feels similar to prior peptic ulcer disease. Patient admits to nausea but denies any vomiting. Patient states it is worse whenever she tries to eat or drink anything. Patient is concerned that she is becoming dehydrated because of this. Patient states nothing makes it better. Patient denies any diarrhea, melena, or hematochezia. Patient denies any dysuria, frequency, or hematuria. Patient does admit to some decreased urine output and a foul odor to her urine. Patient states she was having trouble focusing while she was at work today. Prior similar symptoms: Yes PFSH [facility] Medical History (Updated 10/01/22 @ 14:[address] Mirza Granger, DO) Fatty liver disease, nonalcoholic History of peptic ulcer disease Hypertension Macular degeneration Macular degeneration Renal cyst Home Medications eletriptan 20 mg tablet 20 mg PO .X1 PRN PRN Headache 10/04/13 [History Last Taken 10/04/13] multivitamin,oc-[id number]-[id number] 27 mg-0.4 mg tablet 1 tab PO DAILY 03/28/14 [History Last Taken 05/04/17] tizanidine 4 mg tablet 4 mg PO QHS 03/28/14 [History Last Taken 05/04/17] topiramate 50 mg tablet 50 mg PO QHS PRN Sleep 06/09/16 [History Last Taken 05/04/17] bupropion HCl 150 mg 24 hr tablet, extended release 150 mg PO DAILY 05/05/17 [History Last Taken Unknown] fluticasone propionate 50 mcg/actuation nasal spray,suspension 2 spray NASAL DAILY 05/05/17 [History Last Taken 05/04/17] naratriptan 2.5 mg tablet 1 tab PO DAILY PRN HEADACHES 05/05/17 [History Last Taken Unknown] lisinopril 10 mg tablet 20 mg PO DAILY 10/26/17 [History Last Taken Unknown] hydrocodone-acetaminophen 5-325mg 5mg-325mg 1 tab PO Q6H PRN PRN Pain 3 days #10 TABLETS 10/01/22 [Rx Last Taken Unknown] ondansetron 4 mg disintegrating tablet 4 mg PO Q8H PRN PRN Nausea #10 TABLETS 10/01/22 [Rx Last Taken Unknown] Allergy/AdvReac Type Severity Reaction Status Date / Time ethinyl estradiol Allergy Rash Verified 10/01/22 09:09 [From NuvaRing] etonogestrel [From NuvaRing] Allergy Rash Verified 10/01/22 09:09 oxycodone [From Percocet] AdvReac Intermediate Rash Verified 10/01/22 09:09 Surgical History H/O: hysterectomy H/O: hysterectomy History of cholecystectomy History of gastric surgery Social History household members: significant other Smoking Status: Never smoker substance use type: does not use ROS ROS ED Constitutional Constitutional ED: Denies chills or fever(s) Eyes Eyes: Reports blurry vision ENT ENT ED: Denies rhinorrhea or sore throat Cardiovascular Cardiovascular: Denies chest pain or palpitations Respiratory/Chest Respiratory/Chest: Denies cough or dyspnea Gastrointestinal Gastrointestinal: Reports abdominal pain and nausea; Denies diarrhea or vomiting Genitourinary Genitourinary ED: Denies dysuria or hematuria Musculoskeletal Musculoskeletal: Denies back pain or neck pain Integumentary Denies abscess or rash Neurologic Neurologic: Reports headache(s); Denies weakness Allergic/Immunologic Allergic/Immunologic ED: Denies mouth swelling or urticaria EXAM Physical Exam Const Vital Signs: 10/01/22 09:10 10/01/22 09:18 10/01/22 12:01 Temperature 97.6 F L Temperature Source Temporal Pulse Rate 83 69 Respiratory Rate 17 16 Respiratory Effort Normal Non-Labored Respiratory Pattern Normal Blood Pressure 137/76 H 129/73 H Blood Pressure Mean 96 91 Pulse Ox 100 100 Oxygen Delivery Method Room Air Room Air 10/01/22 14:47 10/01/22 14:47 Temperature Temperature Source Pulse Rate 67 67 Respiratory Rate 17 17 Respiratory Effort Respiratory Pattern Blood Pressure Blood Pressure Mean Pulse Ox 97 97 Oxygen Delivery Method Room Air Positive well nourished and well developed General Appearance ED: well developed HEENT Reports moist mucous membranes Neck supple and no JVD Resp normal respiratory effort and clear to auscultation bilaterally Cardio regular rate, regular rhythm and no murmurs GI normal to inspection, nondistended, normoactive bowel sounds Palpation: soft and tender epigastric; Negative for guarding or rebound tenderness present Extremity normal to inspection General Extremety ED: Negative for edema or tenderness General Extremity: Negative for edema Neuro oriented x3, CN's II-XII intact bilaterally and no sensory deficits noted Sensorium / Orientation: alert Motor Exam: strength 5/5 throughout Psych mental status grossly normal Skin no rashes or lesions noted MDM MDM MDM Narrative Medical decision making narrative: EKG was obtained. On my interpretation, it showed a normal sinus rhythm with a rate of 76. OK interval, QRS interval, and QTc intervals were all normal. Tofte was normal. There are no acute ST or T wave changes. CBC was obtained and was reviewed. There is a slightly low white blood cell count of 4.1. Hemoglobin was 11.7 hematocrit 35.9. Platelets were normal. Comprehensive metabolic profile was obtained and was reviewed. BUN was slightly elevated at 23. Chloride was slightly elevated at 111. The remainder was within normal limits. Lipase was obtained and was reviewed. This was normal. Urinalysis was obtained and was reviewed. There is no evidence of urinary tract infection or hematuria. CT scan of the abdomen pelvis was obtained. On my independent review, there is no acute intra-abdominal abnormality. There is no free air or obstruction. Radiologist also interpreted the CT scan. There is a mild degree of central intrahepatic ductal dilatation that is essentially unchanged from previous CT scan. He noted prior gastric bypass surgery. Patient was advised of her findings. Patient was instructed to start with a liquid diet and advance to a bland diet and then to a regular diet as she feels better. Patient was given prescription for Zofran and [place]. Patient was instructed to follow-up with her primary care physician in 3 to 5 days. Patient understood and was agreeable with the plan. All questions were answered. Lab Data Attestation: I reviewed the patient's lab results. Labs: Laboratory Results - last 24 hr 10/01/22 10/01/22 10/01/22 09:50 09:50 10:19 WBC Cancelled 4.1 L Corrected WBC Cancelled RBC Cancelled 4.00 L Hgb Cancelled 11.7 L Hct Cancelled 35.9 L MCV Cancelled 89.8 MCH Cancelled 29.3 MCHC Cancelled 32.6 RDW Std Deviation Cancelled 52.0 H RDW Coeff of Shira Cancelled 15.8 H Plt Count Cancelled 248 MPV Cancelled 10.4 Immature Gran % (Auto) Cancelled 0.200 Neut % (Auto) Cancelled 46.8 L Lymph % (Auto) Cancelled 40.4 [place] % (Auto) Cancelled 11.2 H Eos % (Auto) Cancelled 1.2 Baso % (Auto) Cancelled 0.2 Absolute Neuts (auto) Cancelled 1.9 L Absolute Lymphs (auto) Cancelled 1.66 Total Counted Cancelled Neutrophils % (Manual) Cancelled Band Neutrophils % Cancelled Lymphocytes % (Manual) Cancelled Monocytes % (Manual) Cancelled Eosinophils % (Manual) Cancelled Basophils % (Manual) Cancelled Metamyelocytes % Cancelled Myelocytes % Cancelled Promyelocytes % Cancelled Blast Cells % Cancelled Plasma Cell % (Manual) Cancelled Other Cells % Cancelled Nucleated RBC % Cancelled 0 Nucleated RBCs/100 WBC Cancelled Differential Comment Cancelled Diff Path Review Cancelled Hypersegmented Neuts Cancelled Atypical Lymphocytes Cancelled Reactive Lymphocytes Cancelled Smudge Cells Cancelled Toxic Granulation Cancelled Toxic Vacuolation Cancelled Dohle Bodies Cancelled Yudelka Rods Cancelled Platelet Estimate Cancelled Plt Morphology Comment Cancelled RBC Morphology Cancelled Polychromasia Cancelled Hypochromasia Cancelled Poikilocytosis Cancelled Basophilic Stippling Cancelled Anisocytosis Cancelled Microcytosis Cancelled Macrocytosis Cancelled Spherocytes Cancelled Sickle Cells Cancelled Target Cells Cancelled Tear Drop Cells Cancelled Ovalocytes Cancelled Stomatocytes Cancelled [place] Bodies Cancelled Hematite Cells Cancelled Bite Cells Cancelled Crenated Cell Cancelled Acanthocytes (Spur) Cancelled Rouleaux Cancelled Schistocytes Cancelled Sodium 139 Potassium 4.3 Chloride 111 H Carbon Dioxide 22.0 Anion Gap 6 BUN 23 H Creatinine 0.79 Estim Creat Clear Calc 76.21 Est GFR (MDRD) Af Amer 97 Est GFR (MDRD) Non-Af 80 BUN/Creatinine Ratio 29.1 H Glucose 88 Calcium 9.1 Total Bilirubin 0.50 AST 28 ALT 20 Alkaline Phosphatase 81 Total Protein 7.6 Albumin 3.5 Globulin 4.1 Albumin/Globulin Ratio 0.9 Lipase 258 Urine Color Urine Clarity Urine pH Ur Specific [place] Urine Protein Urine Glucose (UA) Urine Ketones Urine Occult Blood Urine Nitrite Urine Bilirubin Urine Urobilinogen Ur Leukocyte Esterase Urine RBC Urine WBC Ur Squamous Epith Cells Ur Transition Epith Cell Urine Bacteria Urine Mucus 10/01/22 11:00 WBC Corrected WBC RBC Hgb Hct MCV MCH MCHC RDW Std Deviation RDW Coeff of Shira Plt Count MPV Immature Gran % (Auto) Neut % (Auto) Lymph % (Auto) [place] % (Auto) Eos % (Auto) Baso % (Auto) Absolute Neuts (auto) Absolute Lymphs (auto) Total Counted Neutrophils % (Manual) Band Neutrophils % Lymphocytes % (Manual) Monocytes % (Manual) Eosinophils % (Manual) Basophils % (Manual) Metamyelocytes % Myelocytes % Promyelocytes % Blast Cells % Plasma Cell % (Manual) Other Cells % Nucleated RBC % Nucleated RBCs/100 WBC Differential Comment Diff Path Review Hypersegmented Neuts Atypical Lymphocytes Reactive Lymphocytes Smudge Cells Toxic Granulation Toxic Vacuolation Dohle Bodies Yudelka Rods Platelet Estimate Plt Morphology Comment RBC Morphology Polychromasia Hypochromasia Poikilocytosis Basophilic Stippling Anisocytosis Microcytosis Macrocytosis Spherocytes Sickle Cells Target Cells Tear Drop Cells Ovalocytes Stomatocytes [place] Bodies Margie Cells Bite Cells Crenated Cell Acanthocytes (Spur) Rouleaux Schistocytes Sodium Potassium Chloride Carbon Dioxide Anion Gap BUN Creatinine Estim Creat Clear Calc Est GFR (MDRD) Af Amer Est GFR (MDRD) Non-Af BUN/Creatinine Ratio Glucose Calcium Total Bilirubin AST ALT Alkaline Phosphatase Total Protein Albumin Globulin Albumin/Globulin Ratio Lipase Urine Color Yellow Urine Clarity Clear Urine pH 6.0 Ur Specific [place] 1.015 Urine Protein Negative Urine Glucose (UA) Normal Urine Ketones 15 H Urine Occult Blood Negative Urine Nitrite Negative Urine Bilirubin Negative Urine Urobilinogen Normal Ur Leukocyte Esterase 25 H Urine RBC 0-5 SEEN Urine WBC 0-5 SEEN Ur Squamous Epith Cells 0 SEEN Ur Transition Epith Cell 0-5 SEEN Urine Bacteria 0 SEEN Urine Mucus 0 SEEN Radiography Diagnostic Testing: Clinical Impression(s) from Imaging Studies Abdomen/Pelvis CT 10/01/22 09:28 IMPRESSION: Status post gastric bypass surgery as well as prior cholecystectomy. Mild degree of central intrahepatic ductal dilatation. There has been essentially no change since prior study. Status post hysterectomy. Scattered sigmoid diverticula. Stable examination. Electronically Signed: Sergo Jacinto MD at 12:42 EST , EKG Initial EKG: Attestation: I personally reviewed and interpreted this EKG as follows: Interpretation: Sinus Rhythm (76) and No Acute Injury Pattern Discharge Plan Triage Chief Complaint: Abd Pain ED Provider: Mirza Garnger Dx/Rx/DC Orders Clinical Impression: Abdominal pain, Fatty liver disease, nonalcoholic Instructions: ED Abdominal Pain Unkn Cause Fem Prescriptions: New hydrocodone-acetaminophen [hydrocodone-acetaminophen] 5-325 mg tablet 1 tab PO Q6H PRN PRN (Reason: Pain) 3 Days Qty: 10 0RF Continued ondansetron 4 MG tablet 4 mg PO Q8H PRN PRN (Reason: Nausea) Qty: 10 0RF No Action eletriptan 20 MG tablet 20 mg PO .X1 PRN PRN (Reason: Headache) Label Comments: MIGRAINE tizanidine 4 MG tablet 4 mg PO QHS Label Comments: muscle relaxer multivitamin,xx-owmc-vbxprmyz 1 TABLET tablet 1 tab PO DAILY Label Comments: vitamin topiramate 50 MG tablet 50 mg PO QHS PRN (Reason: Sleep) Label Comments: migrianes naratriptan 2.5 MG tablet 1 tab PO DAILY PRN (Reason: HEADACHES) Label Comments: headaches fluticasone propionate 1 SPRAY spray,suspension 2 spray NASAL DAILY bupropion HCl 150 MG tablet extended release 24 hr 150 mg PO DAILY Label Comments: antidepressant lisinopril 10 MG tablet 20 mg PO DAILY Primary Care Provider: Yamile Turner Referrals: Yamile Turner MD [Primary Care Provider] - 3-5 Days Disposition Disposition: Home, Self Care Discharge Date/Time: 10/01/22 14:51
--- NOTE | 2022-10-01 09:28 | CT_ITS ---
STUDY: CT ABDOMEN AND PELVIS WITH CONTRAST REASON FOR EXAM: Female, 52 years old. Abdominal pain X 3 DAYS. PRIOR GASTRIC Bypass, cholecystectomy, TOTAL HYSTERECTOMY RADIATION DOSAGE (If Supplied By Facility): CTDIvol = ( 14.01 ) mGy, DLP = ( 868.84 ) mGycm TECHNIQUE: Transaxial images were obtained from the dome of the diaphragm to the symphysis pubis without oral contrast. IV 100mL Isovue-300 was administered. Sagittal and coronal images were reconstructed. Individualized dose optimization techniques were used for this CT. COMPARISON: Comparison is made with prior study dated 11/27/2020. FINDINGS: Stable minimal increased linear markings at the right lung base suggestive of a linear atelectasis and/or scarring. The visualized portions of the heart are within normal limits. There is decreased attenuation of the liver consistent with steatosis. Rajendra''s lobe of the liver. There are surgical clips in the gallbladder fossa consistent with a prior cholecystectomy. Minimal dilatation of the central intrahepatic biliary ducts. Borderline splenomegaly. Normal pancreas. Normal bilateral adrenal glands. Normal right kidney. Normal left kidney. The patient is status post gastric bypass surgery. Normal small intestine. There are colonic diverticula consistent with diverticulosis. There is non-visualization of the appendix. Normal abdominal aorta. Normal inferior vena cava. Normal retroperitoneum. Normal urinary bladder. There is absence of the uterus consistent with a prior hysterectomy. Normal abdominal wall. Normal osseous structures. CT/Abdomen/Pelvis WITH Contrast IMPRESSION: Status post gastric bypass surgery as well as prior cholecystectomy. Mild degree of central intrahepatic ductal dilatation. There has been essentially no change since prior study. Status post hysterectomy. Scattered sigmoid diverticula. Stable examination. Electronically Signed: Sergo Jacinto MD at 12:42 EST ,
[2022-10-01] MEDS: 0.9% Normal Saline 1,000 ML 1000 ML IV (10:11)
[2022-10-01] MEDS: Morphine 4 MG/ML Syringe IV (10:11)
[2022-10-01] MEDS: Ondansetron 4 MG/2 ML Vial IV (10:11)
[2022-10-01 10:14] LABS: ALB/GLOB Ratio 0.9 RATIO (0.9-2.4); AST(SGOT) 28 U/L (15-37); Alanine Aminotransfer ALT/SGPT 20 U/L (13-56); Albumin, Serum 3.5 g/dL (3.2-5.0); Alkaline Phosphatase 81 U/L (45-117); Anion Gap 6 (5-15); BUN 23 mg/dL (7-18); BUN/Creat Ratio 29.1 RATIO (10-20); Calcium,Total 9.1 mg/dL (8.5-10.1); Chloride 111 mmol/L (98-107); Creatinine, Serum 0.79 mg/dL (0.55-1.02); EST Glomerular Filtration Rate 80 mL/min (>60); Est Glom Filt Rate - Afr Amer 97 mL/min (>60); Estimated Creatinine Clearance 76.21 ml/min; Globulin 4.1 g/dL (2.2-4.2); Glucose 88 mg/dL (74-106); Lipase 258 U/L (73-393); Potassium 4.3 mmol/L (3.5-5.1); Protein, Total 7.6 g/dL (6.4-8.2); Sodium Level 139 mmol/L (136-145)
[2022-10-01 10:30] LABS: Absolute Lymphocyte Count 1.66 X10^3/uL (0.83-4.51); Absolute Neutrophil Count 1.9 X10^3/uL (2.0-7.7); Basophil# 0.01 X10^3/uL; Basophil% 0.2 % (0-1); Eosinophil# 0.05 X10^3/uL; Eosinophils% 1.2 % (0-5); Hematocrit 35.9 % (37-47); Hemoglobin 11.7 g/dL (12.0-15.0); Lymphocyte # 1.66 X10^3/ul (0.83-4.51); Lymphocyte % 40.4 % (19-41); Mean Corp Hgb Conc 32.6 g/dL (32-36); Mean Corpuscular Hgb 29.3 pg (27.0-32.0); Mean Corpuscular Volume 89.8 fL (81-99); Mean Platelet Vol. 10.4 fl (6.2-12.0); Monocyte# 0.46 X10^3/uL; Monocyte% 11.2 % (0-10); NRBC Flagged by Analyzer 0 % (0-5); Neutrophil # 1.92 X10^3/uL (2.7-7.7); Neutrophil % 46.8 % (47-70); Platelet Count 248 K/mm3 (150-450); RBC Distribution Width CV 15.8 % (11.6-14.6); White Blood Count 4.1 K/mm3 (4.4-11.0)
[2022-10-01 11:09] LABS: Bacteria 0 SEEN /hpf (None Seen); Mucous, Urine 0 SEEN /hpf (<or=2+); Squamous Epithelial Cells - UA 0 SEEN /hpf (5-10)
[2022-10-01 11:14] LABS: Glucose, Dipstick Normal (Normal); Ketone-Dipstick 15 mg/dl (Negative); Leukocyte Esterase-Dipstick 25 /ul (Negative); Nitrite-Dipstick Negative (Negative); Occult Blood-Urine Negative /ul (Negative); Protein-Dipstick Negative (Negative); Specific Gravity, Urine 1.015 (1.002-1.030); Urine Bilirubin Dipstick Negative (Negative); Urine Urobilinogen Normal (Normal)
[2022-10-01 11:18] LABS: Color, Urine Yellow (Yellow); Urine Clarity Clear (Clear)
[2022-10-01 11:26] LABS: Red Blood Cells-Urine 0-5 SEEN /hpf (0-5); White Blood Cells 0-5 SEEN /hpf (0-5)
[2022-10-01 11:27] LABS: Transitional Epithelial - Ur 0-5 SEEN /hpf (0-5)
--- NOTE | 2022-10-01 11:47 | EKG12_ITS ---
Test Reason : ABDOMINAL PAIN Blood Pressure : / mmHG Vent. Rate : 076 BPM Atrial Rate : 076 BPM P-R Int : 158 ms QRS Dur : 090 ms QT Int : 388 ms P-R-T Axes : 021 010 042 degrees QTc Int : 436 ms Normal sinus rhythm Normal ECG Confirmed by TRUPTI ORTIZ, JOSE ([id number]), newspaper editor ALEE CONDE ([id number]) on 10/02/2022 1:12:00 PM Referred By: Confirmed By:YONATAN LYLES MD
[2022-10-01 12:01] VITALS: BP 129/73; PULSE 69; RESP 16; O2SAT 100
[2022-10-01 14:47] VITALS: PULSE 67; RESP 17; O2SAT 97
== END 2022-10-01 14:51 | disposition home or self-care (01) ==
PROVIDERS: Emergency Provider Emergency Medicine; PCP Internal Medicine; Visit Provider Emergency Medicine
DX: R10.9 Unspecified abdominal pain (principal); I10 Essential (primary) hypertension; K76.0 Fatty (change of) liver, not elsewhere classified; R11.0 Nausea; Z90.49 Acquired absence of other specified parts of digestive tract; Z98.84 Bariatric surgery status; Z87.11 Personal history of peptic ulcer disease
CPT/HCPCS: 74177; 80053; 81001; 83690; 85025; 93005; 99284; J7030; Q9967; A4216; J2405

== ENCOUNTER 2023-07-24 20:05 | Emergency (ER) | payer OTHER, BC, SELFPAY ==
[2023-07-24 20:05] VITALS: BP 113/65; PULSE 80; RESP 15; TEMP 36.5; O2SAT 100; BMI 26.4
--- NOTE | 2023-07-24 21:42 | EDS_ITS ---
HPI History of Present Illness HPI Narrative: Patient presents with left elbow pain that has been getting worse over the last 2 weeks. Patient states that today she went to the urgent care and was given a prescription for prednisone. Patient states that x-rays were not available at the urgent care today. Patient states that she was discharged and told that if her symptoms got worse she should get x-rays done. Patient states that her pain has not changed however, she started having increasing paresthesias into her left forearm and hand. Patient states it is worse whenever she applies pressure to the forearm and elbow. Patient describes her pain as burning. Patient states her pain is mainly over the medial aspect of her left elbow and over the left medial epicondyle. Patient denies any trauma or injury. Chief Complaint: Upper Extremity Injury Informant: patient Onset/Context/Timing Onset: Weeks (2) Context: Gradual Onset Timing: Continuous Quality of Pain: Burning Location: Left elbow Worsened by: Pressure Relieved by: Rest Associated Symptoms Associated Symptoms: Positive for Parasthesia; Negative for Weakness or Loss of Funtion PFSH PFS Medical History Fatty liver disease, nonalcoholic History of peptic ulcer disease Hypertension Macular degeneration Macular degeneration Renal cyst Home Medications eletriptan 20 mg tablet 20 mg PO .X1 PRN PRN Headache 10/04/13 [History Last Taken 10/04/13] multivitamin,ps-jote-yqinnvje 27 mg-0.4 mg tablet 1 tab PO DAILY 03/28/14 [History Last Taken 05/04/17] tizanidine 4 mg tablet 4 mg PO QHS 03/28/14 [History Last Taken 05/04/17] topiramate 50 mg tablet 50 mg PO QHS PRN Sleep 06/09/16 [History Last Taken 05/04/17] bupropion HCl 150 mg 24 hr tablet, extended release 150 mg PO DAILY 05/05/17 [History Last Taken Unknown] fluticasone propionate 50 mcg/actuation nasal spray,suspension 2 spray NASAL DAILY 05/05/17 [History Last Taken 05/04/17] naratriptan 2.5 mg tablet 1 tab PO DAILY PRN HEADACHES 05/05/17 [History Last Taken Unknown] lisinopril 10 mg tablet 20 mg PO DAILY 10/26/17 [History Last Taken Unknown] hydrocodone-acetaminophen 5-325mg 5mg-325mg 1 tab PO Q6H PRN PRN Pain 3 days #10 TABLETS 10/01/22 [Rx Last Taken Unknown] ondansetron 4 mg disintegrating tablet 4 mg PO Q8H PRN PRN Nausea #10 TABLETS 10/01/22 [Rx Last Taken Unknown] Allergy/AdvReac Type Severity Reaction Status Date / Time ethinyl estradiol Allergy Rash Verified 07/24/23 20:09 [From NuvaRing] etonogestrel [From NuvaRing] Allergy Rash Verified 07/24/23 20:09 oxycodone [From Percocet] AdvReac Intermediate Rash Verified 07/24/23 20:09 Surgical History H/O: hysterectomy H/O: hysterectomy History of cholecystectomy History of gastric surgery Social History household members: significant other Smoking Status: Never smoker substance use type: does not use ROS ROS ED Constitutional Constitutional ED: Denies chills or fever(s) Eyes Eyes: Denies blurry vision or change in vision ENT ENT ED: Denies rhinorrhea or sore throat Cardiovascular Cardiovascular: Denies chest pain or palpitations Respiratory/Chest Respiratory/Chest: Denies cough or dyspnea Gastrointestinal Gastrointestinal: Denies nausea or vomiting Genitourinary Genitourinary ED: Denies dysuria or hematuria Musculoskeletal Musculoskeletal: Denies back pain or neck pain Integumentary Denies abscess or rash Neurologic Neurologic: Denies headache(s) or weakness Allergic/Immunologic Allergic/Immunologic ED: Denies mouth swelling or urticaria EXAM Physical Exam Const Vital Signs: 07/24/23 20:05 Temperature 97.7 F L Temperature Source Temporal Pulse Rate 80 Respiratory Rate 15 Blood Pressure 113/65 Blood Pressure Mean 81 Pulse Ox 100 Oxygen Delivery Method Room Air Positive well nourished and well developed General Appearance ED: well developed and NAD Neck full ROM and supple Extremity Extremity Narrative: There is tenderness over the medial aspect of the left elbow. There is no edema or ecchymosis. There is no bony crepitance or step-off. There is good range of motion of the left elbow. There is some mild pain with resistive flexion of the wrist. There is no pain with resisted extension of the wrist. Radial pulses are equal bilateral. Sensation was intact light touch in the radial, median, and ulnar areas. Strength is 5/5 in the radial, median, and ulnar areas. Neuro oriented x3, CN's II-XII intact bilaterally, moves all extremities, no focal motor deficits and no sensory deficits noted Sensorium / Orientation: alert Motor Exam: strength 5/5 throughout MDM MDM MDM Narrative Medical decision making narrative: Differential diagnosis includes medial epicondylitis, neuropraxia, and neuropathy. X-rays of the left elbow will be obtained to assess for avulsion of the medial epicondyle. Radiography Diagnostic Testing: X-rays of the left elbow were obtained. There are 3 views. On my independent interpretation, there is no acute fracture. There are no degenerative changes noted. There is no joint effusion noted. Radiologist also interpreted the x- rays and agrees. Treatment and Re-Evaluation Narrative: Patient was advised of her findings. Patient was advised that this most likely medial epicondylitis. Patient was instructed to get a tennis elbow brace and applied to the left forearm. Patient was instructed to continue her prednisone as prescribed. Patient was instructed to use ice to the area. Patient was instructed to follow-up with her primary care physician in 5 to 7 days. Patient understood and was agreeable with the plan. All questions were answered. Discharge Plan Triage Chief Complaint: Upper Extremity Injury ED Provider: Mirza Granger Dx/Rx/DC Orders Clinical Impression: Medial epicondylitis of left elbow Instructions: ED Tennis Elbow Prescriptions: No Action eletriptan 20 MG tablet 20 mg PO .X1 PRN PRN (Reason: Headache) Patient Comments: MIGRAINE tizanidine 4 MG tablet 4 mg PO QHS Patient Comments: muscle relaxer multivitamin,bs-dfdv-pjfxvpbk 1 TABLET tablet 1 tab PO DAILY Patient Comments: vitamin topiramate 50 MG tablet 50 mg PO QHS PRN (Reason: Sleep) Patient Comments: migrianes naratriptan 2.5 MG tablet 1 tab PO DAILY PRN (Reason: HEADACHES) Patient Comments: headaches fluticasone propionate 1 SPRAY spray,suspension 2 spray NASAL DAILY bupropion HCl 150 MG tablet extended release 24 hr 150 mg PO DAILY Patient Comments: antidepressant lisinopril 10 MG tablet 20 mg PO DAILY hydrocodone-acetaminophen [hydrocodone-acetaminophen] 5-325 mg tablet 1 tab PO Q6H PRN PRN (Reason: Pain) 3 Days Qty: 10 0RF ondansetron 4 MG tablet 4 mg PO Q8H PRN PRN (Reason: Nausea) Qty: 10 0RF Primary Care Provider: Yamile Turner Referrals: Yamile Turner MD [Primary Care Provider] - 5-7 Days Activity Restrictions/Additional Instructions: Get a tennis elbow brace and apply it to your left forearm so that the pad is on the inside of your forearm. Continue your prednisone as prescribed. Disposition Disposition: Home, Self Care
--- NOTE | 2023-07-24 21:45 | RAD_ITS ---
STUDY: X-RAY - LEFT ELBOW REASON FOR EXAM: Female, 53 years old. Injury/Pain TECHNIQUE: 3 view(s) of the elbow. COMPARISON: None. FINDINGS: Normal visualized humerus, radius and ulna. Normal radiocapitellar and ulnotrochlear articulations. The soft tissue structures are unremarkable. RAD/Elbow min 3 Views IMPRESSION: Normal x-ray examination of the elbow. Electronically Signed: Noel Morrissey MD at 22:13 EST ,
== END 2023-07-24 22:47 | disposition home or self-care (01) ==
PROVIDERS: Emergency Provider Emergency Medicine; PCP Internal Medicine; Visit Provider Emergency Medicine
DX: M77.02 Medial epicondylitis, left elbow (principal); I10 Essential (primary) hypertension; Z90.710 Acquired absence of both cervix and uterus; Z90.49 Acquired absence of other specified parts of digestive tract
CPT/HCPCS: 73080; 99282

== ENCOUNTER 2023-11-24 17:48 | Emergency (ER) | payer OTHER, BC, SELFPAY ==
[2023-11-24 17:49] VITALS: BP 115/62; PULSE 77; RESP 16; TEMP 36.3; O2SAT 100; BMI 25.8
[2023-11-24] MEDS: Ketorolac 15 MG/ML Vial IV (19:50)
[2023-11-24] MEDS: 0.9% Normal Saline (1000mL) 1,000 ML 999 ML IV (19:50)
[2023-11-24] MEDS: DiphenhydrAMINE 50 MG/ML Syringe 25 MG IV (19:51)
[2023-11-24] MEDS: Metoclopramide 10 MG/2 ML Vial IV (19:51)
[2023-11-24 20:01] VITALS: BP 142/83; PULSE 62; RESP 16; O2SAT 100
--- NOTE | 2023-11-24 21:38 | EDS_ITS ---
HPI History of Present Illness Chief Complaint: Headache Informant: patient Narrative Narrative: Patient is a 53-year-old female with history of chronic migraines presenting with a worsening headache for the past 5 days. She states it started at work when she was working on her computer. She felt like pressure over her right eye it is just worsened since. She notes that she does get very blurry vision in her right eye. She also has associated tension in her neck. She has been taking naratriptan, Topamax, Zomig and Nurtec with no relief of her headache. She states this is typical of her migraine headaches 60 usually do not last this many days. She states even tried Zofran and Benadryl with no relief. Denies associated fever or chills. Has had associated nausea and vomiting. Also took Tylenol today. No she had to come in the past for migraine cocktails which did help. No other complaints or concerns verbalized at this time. Denies associated head injury. Notes that she did have a brain aneurysm in 2009 however this feels very different and just feels like her classic migraine. [facility] Medical History Fatty liver disease, nonalcoholic History of peptic ulcer disease Hypertension Macular degeneration Macular degeneration Renal cyst Home Medications eletriptan 20 mg tablet 20 mg PO .X1 PRN PRN Headache 10/04/13 [History Last Taken 10/04/13] multivitamin,eb-aynm-[id number] 27 mg-0.4 mg tablet 1 tab PO DAILY 03/28/14 [History Last Taken 05/04/17] tizanidine 4 mg tablet 4 mg PO QHS 03/28/14 [History Last Taken 05/04/17] topiramate 50 mg tablet 50 mg PO QHS PRN Sleep 06/09/16 [History Last Taken 05/04/17] bupropion HCl 150 mg 24 hr tablet, extended release 150 mg PO DAILY 05/05/17 [History Last Taken Unknown] fluticasone propionate 50 mcg/actuation nasal spray,suspension 2 spray NASAL DAILY 05/05/17 [History Last Taken 05/04/17] naratriptan 2.5 mg tablet 1 tab PO DAILY PRN HEADACHES 05/05/17 [History Last Taken Unknown] lisinopril 10 mg tablet 20 mg PO DAILY 10/26/17 [History Last Taken Unknown] hydrocodone-acetaminophen 5-325mg 5mg-325mg 1 tab PO Q6H PRN PRN Pain 3 days #10 TABLETS 10/01/22 [Rx Last Taken Unknown] ondansetron 4 mg disintegrating tablet 4 mg PO Q8H PRN PRN Nausea #10 TABLETS 10/01/22 [Rx Last Taken Unknown] Allergy/AdvReac Type Severity Reaction Status Date / Time ethinyl estradiol Allergy Rash Verified 11/24/23 17:50 [From NuvaRing] etonogestrel [From NuvaRing] Allergy Rash Verified 11/24/23 17:50 oxycodone [From Percocet] AdvReac Intermediate Rash Verified 11/24/23 17:50 Surgical History H/O: hysterectomy H/O: hysterectomy History of cholecystectomy History of gastric surgery Social History household members: significant other Smoking Status: Never smoker substance use type: does not use ROS ROS ED Constitutional Constitutional ED: Denies chills or fever(s) Eyes Eyes: Reports blurry vision right ENT ENT ED: Denies ear pain, rhinorrhea or sore throat Cardiovascular Cardiovascular: Denies chest pain Respiratory/Chest Respiratory/Chest: Denies cough Gastrointestinal Gastrointestinal: Reports nausea and vomiting; Denies abdominal pain Musculoskeletal Musculoskeletal: Reports neck pain; Denies arthralgias or myalgias Neurologic Neurologic: Reports headache(s); Denies paresthesias or weakness Psychiatric Psychiatric: Denies anxiety EXAM Physical Exam Const Vital Signs: 11/24/23 17:49 11/24/23 20:01 Temperature 97.4 F L Temperature Source Temporal Pulse Rate 77 62 Respiratory Rate 16 16 Blood Pressure 115/62 142/83 H Blood Pressure Mean 79 102 Pulse Ox 100 100 Oxygen Delivery Method Room Air Room Air Positive well nourished and well developed Constitutional Narrative: resting in the room with the lights off General Appearance ED: well developed and NAD HEENT Reports normocephalic atraumatic Eyes PERRL and EOMs intact bilaterally Neck supple and no meningeal signs Resp normal respiratory effort and clear to auscultation bilaterally Cardio regular rate and regular rhythm GI non-tender and non-distended Neuro oriented x3 and no sensory deficits noted Sensorium / Orientation: awake and alert Motor Exam: strength 5/5 throughout; Negative for general weakness Psych mental status grossly normal MDM MDM MDM Narrative Medical decision making narrative: Patient is evaluated for migraine headache. Is given migraine cocktail including IV Reglan, Benadryl and Toradol with IV fluids. Will reevaluate for symptoms. Differential includes migraine, intracranial hemorrhage, brain lesion. Lower suspicion for hemorrhage/subarachnoid hemorrhage given gradual onset and waxing waning symptoms. This is typical of her classic migraines a low suspicion for space-occupying lesion. She does not report any fever and does not have any nuchal rigidity so low suspicion for meningitis. On repeat evaluation patient has headache has resolved. She is feeling much be tter. Will be discharged home to follow-up with her neurologist. Discharge Plan Triage Chief Complaint: Headache ED Provider: Lesvia Dominique Dx/Rx/DC Orders Clinical Impression: Migraines Instructions: ED, Migraine (Classical) Prescriptions: No Action eletriptan 20 MG tablet 20 mg PO .X1 PRN PRN (Reason: Headache) Patient Comments: MIGRAINE tizanidine 4 MG tablet 4 mg PO QHS Patient Comments: muscle relaxer multivitamin,bd-mdxx-dfmnowqj 1 TABLET tablet 1 tab PO DAILY Patient Comments: vitamin topiramate 50 MG tablet 50 mg PO QHS PRN (Reason: Sleep) Patient Comments: migrianes naratriptan 2.5 MG tablet 1 tab PO DAILY PRN (Reason: HEADACHES) Patient Comments: headaches fluticasone propionate 1 SPRAY spray,suspension 2 spray NASAL DAILY bupropion HCl 150 MG tablet extended release 24 hr 150 mg PO DAILY Patient Comments: antidepressant lisinopril 10 MG tablet 20 mg PO DAILY hydrocodone-acetaminophen [hydrocodone-acetaminophen] 5-325 mg tablet 1 tab PO Q6H PRN PRN (Reason: Pain) 3 Days Qty: 10 0RF ondansetron 4 MG tablet 4 mg PO Q8H PRN PRN (Reason: Nausea) Qty: 10 0RF Primary Care Provider: Yamile Turner Referrals: Yamile Turner MD [Primary Care Provider] - Activity Restrictions/Additional Instructions: Drink plenty of fluids. Please follow-up with your neurologist. Return if you have progression worsening your symptoms or further concerns. Disposition Disposition: Home, Self Care
[2023-11-24 22:13] VITALS: BP 133/89; PULSE 68; RESP 17; TEMP 36.9; O2SAT 100
== END 2023-11-24 22:14 | disposition home or self-care (01) ==
PROVIDERS: Emergency Provider Emergency Medicine; PCP Internal Medicine; Visit Provider Emergency Medicine
DX: G43.909 Migraine, unspecified, not intractable, without status migrainosus (principal); I10 Essential (primary) hypertension; Z79.899 Other long term (current) drug therapy; Z90.710 Acquired absence of both cervix and uterus; Z90.49 Acquired absence of other specified parts of digestive tract
CPT/HCPCS: 96361; 96374; 96375; 99283; J7030; A4216

== ENCOUNTER 2024-08-05 20:10 | Emergency (ER) | payer OTHER, BC, SELFPAY ==
[2024-08-05 20:10] VITALS: BP 127/71; PULSE 89; RESP 15; TEMP 36.2; O2SAT 100; BMI 27.3
--- NOTE | 2024-08-05 20:36 | ED.VIS.GI ---
HPI HPI - GI History of Present Illness Chief Complaint: Abd Pain Informant: patient Abdominal Pain/Flank Pain Onset: Days (2) Context: Sudden Onset Timing: Continuous Quality: Cramping and Sharp Location: LUQ and LLQ Worsened by: - (Sitting) Relieved by: - (Nausea medication) Nausea/Vomiting/Emesis GI Symptom: Positive for Nausea; Negative for Vomiting Diarrhea/Melena/Hematochezia GI Symptom: Negative for Diarrhea, Melena or Hematochezia Associated Symptoms Associated Symptoms: Negative for Dysuria, Frequency or Hematuria Narrative Narrative: Patient presents with left-sided abdominal pain that began 2 days ago. Patient states that has been constant. Patient describes it as sharp and cramping. Patient states it is mainly over the left side of her abdomen. Patient states it is worse with sitting. Patient states she took a nausea medication at home which seemed to help. Patient admits to some nausea but denies any vomiting. Patient denies any diarrhea, melena, or hematochezia. Patient denies any urinary complaints. Patient admits to some subjective chills but denies any fevers. Patient states her pain does radiate into her back. [facility] Medical History Renal cyst Fatty liver disease, nonalcoholic History of peptic ulcer disease Macular degeneration Macular degeneration Hypertension Home Medications ?Medication ?Instructions ?Recorded ?Last Taken ?Type eletriptan 20 mg tablet 20 mg PO .X1 PRN PRN Headache 10/04/13 10/04/13 History multivitamin,mx-vlfz-jcurwibw 27 1 tab PO DAILY 03/28/14 05/04/17 History mg-0.4 mg tablet tizanidine 4 mg tablet 4 mg PO QHS 03/28/14 05/04/17 History topiramate 50 mg tablet 50 mg PO QHS PRN Sleep 06/09/16 05/04/17 History bupropion HCl 150 mg 24 hr tablet, 150 mg PO DAILY 05/05/17 Unknown History extended release fluticasone propionate 50 2 spray NASAL DAILY 05/05/17 05/04/17 History mcg/actuation nasal spray,suspension naratriptan 2.5 mg tablet 1 tab PO DAILY PRN HEADACHES 05/05/17 Unknown History lisinopril 10 mg tablet 20 mg PO DAILY 02/12/18 Unknown History hydrocodone-acetaminophen 5-325mg 1 tab PO Q6H PRN PRN Pain 3 days 10/01/22 Unknown Rx 5mg-325mg #10 TABLETS ondansetron 4 mg disintegrating 4 mg PO Q8H PRN PRN Nausea #10 10/01/22 Unknown Rx tablet TABLETS Allergy/AdvReac Type Severity Reaction Status Date / Time ethinyl estradiol (From Allergy Rash Verified 08/05/24 20:10 NuvaRing) etonogestrel (From NuvaRing) Allergy Rash Verified 08/05/24 20:10 oxycodone (From Percocet) AdvReac Intermediate Rash Verified 08/05/24 20:10 Surgical History History of gastric surgery H/O: hysterectomy H/O: hysterectomy History of cholecystectomy Social History household members: significant other Smoking Status: Never smoker substance use type: does not use ROS ROS ED Constitutional Constitutional ED: Reports chills and subjective; Denies fever(s) ENT ENT ED: Denies rhinorrhea or sore throat Cardiovascular Cardiovascular: Denies chest pain or palpitations Respiratory/Chest Respiratory/Chest: Denies cough or dyspnea Gastrointestinal Gastrointestinal: Reports abdominal pain and nausea; Denies vomiting Genitourinary Genitourinary ED: Denies dysuria or hematuria Musculoskeletal Musculoskeletal: Reports back pain; Denies neck pain Integumentary Denies abscess or rash Neurologic Neurologic: Denies headache(s) or weakness Allergic/Immunologic Allergic/Immunologic ED: Denies mouth swelling or urticaria EXAM Physical Exam Const Vital Signs: 08/05/24 20:10 Temperature 97.1 F L Temperature Source Temporal Pulse Rate 89 Respiratory Rate 15 Blood Pressure 127/71 H Blood Pressure Mean 89 Pulse Ox 100 Oxygen Delivery Method Room Air Positive well nourished and well developed General Appearance ED: well developed and NAD HEENT Reports moist mucous membranes Neck supple and no JVD Resp normal respiratory effort and clear to auscultation bilaterally Cardio regular rate and regular rhythm GI non-distended Palpation: soft and tender LLQ and LUQ; Negative for guarding or rebound tenderness present Extremity full ROM General Extremety ED: Negative for edema or tenderness General Extremity: Negative for edema Neuro CN's II-XII intact bilaterally, moves all extremities and no sensory deficits noted Sensorium / Orientation: alert Motor Exam: strength 5/5 throughout Psych mental status grossly normal MDM MDM MDM Narrative Medical decision making narrative: Differential diagnosis includes diverticulitis, bowel obstruction, perforation, pancreatitis, peptic ulcer disease, duodenal ulcer, gastrointestinal bleeding, and electrolyte abnormality. CBC will be obtained to assess for leukocytosis and anemia. Comprehensive metabolic profile will be obtained to assess for hepatic function, renal function, and electrolyte abnormality. Lipase will be obtained to assess for pancreatitis. Urinalysis will be obtained to assess for urinary tract infection and pyelonephritis. CT scan of the abdomen and pelvis will be obtained to assess for bowel obstruction, perforation, diverticulitis, pancreatitis, and pyelonephritis. Lab Data Attestation: I reviewed the patient's lab results. Lab results narrative: CBC was reviewed. White blood cell count was slightly low at 3.3. The remainder is within normal limits. Comprehensive metabolic profile was reviewed. BUN was 27 and creatinine was 1.04. Glucose was slightly elevated at 176. The remainder was within normal limits. Lipase was reviewed and was minimally elevated at 76. Urinalysis was reviewed. There is no evidence of urinary tract infection or hematuria. Labs: Laboratory Results - last 24 hr 08/05/24 08/05/24 20:21 21:22 WBC 3.3 L RBC 4.14 L Hgb 13.2 Hct 39.3 MCV 94.9 MCH 31.9 MCHC 33.6 RDW Std Deviation 44.1 H RDW Coeff of Shira 12.7 Plt Count 219 MPV 10.4 Immature Gran % (Auto) 0.000 Neut % (Auto) 32.6 L Lymph % (Auto) 57.2 H [place] % (Auto) 7.4 Eos % (Auto) 2.5 Baso % (Auto) 0.3 Absolute Neuts (auto) 1.1 L Absolute Lymphs (auto) 1.86 Nucleated RBC % 0 Sodium 141 Potassium 4.0 Chloride 112 H Carbon Dioxide 25.0 Anion Gap 5 BUN 27 H Creatinine 1.04 H Estim Creat Clear Calc 63.22 Est GFR (MDRD) Af Amer 70 Est GFR (MDRD) Non-Af 58 L BUN/Creatinine Ratio 26.0 H Glucose 176 H Calcium 9.2 Total Bilirubin 0.40 AST 33 ALT 38 Alkaline Phosphatase 73 Total Protein 7.9 Albumin 3.8 Globulin 4.1 Albumin/Globulin Ratio 0.9 Lipase 76 H Urine Color Yellow Urine Clarity Clear Urine pH 6.0 Ur Specific [place] 1.025 Urine Protein 30 H Urine Glucose (UA) Normal Urine Ketones Negative Urine Occult Blood Negative Urine Nitrite Negative Urine Bilirubin Negative Urine Urobilinogen 1 H Ur Leukocyte Esterase 25 H Urine RBC 0 SEEN Urine WBC 0-5 SEEN Ur Squamous Epith Cells 0 SEEN Urine Bacteria RARE Urine Mucus 1+ Radiography Diagnostic Testing: Clinical Impression(s) from Imaging Studies Abdomen/Pelvis CT 08/05/24 20:41 IMPRESSION: No acute findings in the abdomen or pelvis. Grossly stable since 2015. Electronically Signed: Jonny Nair MD at 22:03 EST , CT scan of the abdomen and pelvis was obtained. There is no acute abnormality noted. There is moderate diffuse fecal retention. There is no evidence of appendicitis or diverticulitis. This was interpreted by the radiologist and was also independently reviewed by myself. Treatment and Re-Evaluation :: Patient was given IV fluids. Patient was given Bentyl, morphine, and Zofran. Patient was given a repeat dose of morphine. Patient was advised of her findings. Patient was instructed to use [id number]-[id number] MiraLAX. Patient was instructed to drink plenty of fluids. Patient was instructed to follow-up with her primary care physician in 5 to 7 days. Patient was instructed to return if worse in any way. Patient understood and was agreeable with the plan. All questions were answered. Discharge Plan Triage Chief Complaint: Abd Pain ED Provider: Mirza Granger Dx/Rx/DC Orders Clinical Impression: Abdominal pain, Constipation Instructions: ED Abdominal Pain Unkn Cause Fem, ED Constipation (Adult) Prescriptions: No Action eletriptan 20 MG tablet 20 mg PO .X1 PRN PRN (Reason: Headache) Patient Comments: MIGRAINE tizanidine 4 MG tablet 4 mg PO QHS Patient Comments: muscle relaxer multivitamin,hl-npmr-uoaqtlwk 1 TABLET tablet 1 tab PO DAILY Patient Comments: vitamin topiramate 50 MG tablet 50 mg PO QHS PRN (Reason: Sleep) Patient Comments: migrianes naratriptan 2.5 MG tablet 1 tab PO DAILY PRN (Reason: HEADACHES) Patient Comments: headaches fluticasone propionate 1 SPRAY spray,suspension 2 spray NASAL DAILY bupropion HCl 150 MG tablet extended release 24 hr 150 mg PO DAILY Patient Comments: antidepressant lisinopril 10 MG tablet 20 mg PO DAILY hydrocodone-acetaminophen [hydrocodone-acetaminophen] 5-325 mg tablet 1 tab PO Q6H PRN PRN (Reason: Pain) 3 Days Qty: 10 0RF ondansetron 4 MG tablet 4 mg PO Q8H PRN PRN (Reason: Nausea) Qty: 10 0RF Primary Care Provider: Yamile Turner Referrals: Yamile Turner MD [Primary Care Provider] - 3-5 Days Activity Restrictions/Additional Instructions: You may use istr-dtb-xyopbmn laxatives such as MiraLAX and stool softener such as Colace to help with constipation. Eat a high-fiber diet. Drink plenty of fluids. Follow-up with your primary care physician in 3 to 5 days. Print Language: [place] Disposition Disposition: Home, Self Care
--- NOTE | 2024-08-05 20:41 | CT_ITS ---
EXAM: CT ABDOMEN AND PELVIS WITH INTRAVENOUS CONTRAST CLINICAL INDICATION: Abdominal pain TECHNIQUE: Helically acquired images were obtained of the abdomen and pelvis with intravenous contrast. This CT exam was performed using one or more of the following dose reduction techniques: automated exposure control, adjustment of the mA and/or kV according to patient size, and/or use of iterative reconstruction technique. CONTRAST: IV 75mL Isovue-370 RADIATION DOSE: CTDIvol = 13.32 mGy, DLP = 664.57 mGy-cm COMPARISON: 06/24/2016 FINDINGS: LOWER THORAX: Visualized lungs are clear. No cardiomegaly. No significant pericardial effusion. ABDOMEN: LIVER: Marked hepatomegaly, stable, with mild intrahepatic bile duct distention. No mass. GALLBLADDER AND BILE DUCTS: Cholecystectomy. Distended common bile duct measuring as much as 1.2 cm, stable. PANCREAS: Atrophic. No focal cystic or solid mass. SPLEEN: Unremarkable. Normal size without focal cystic or solid mass. ADRENALS: Unremarkable. No nodules. KIDNEYS AND URETERS: Unremarkable. Normal renal size and position. No hydronephrosis. STOMACH AND BOWEL: Evaluation of the GI tract is limited by absence of oral contrast. There has been previous gastric bypass. Cannot exclude stomach wall thickening. No dilated loops of bowel or evidence for obstruction. Cannot exclude segmental thickening of the culver of the small or large bowel. Cannot exclude enteritis or colitis. Moderate diffuse fecal retention. Appendix within normal limits. PELVIS: APPENDIX: No evidence of acute appendicitis. BLADDER: Unremarkable. REPRODUCTIVE: Hysterectomy. ABDOMEN and PELVIS: INTRAPERITONEAL SPACE: Unremarkable. No ascites or other fluid collection. No free air. BONES/JOINTS: Unremarkable. No suspicious lytic or blastic abnormality. SOFT TISSUES: Unremarkable. No discrete abdominal or pelvic wall hernia. VASCULATURE: Unremarkable. Abdominal aorta is non-dilated. LYMPH NODES: Unremarkable. No enlarged lymph nodes. CT/Abdomen/Pelvis W IV Cont ONLY IMPRESSION: No acute findings in the abdomen or pelvis. Grossly stable since 2015. Electronically Signed: Jonny Nair MD at 22:03 EST ,
[2024-08-05 20:52] LABS: Absolute Lymphocyte Count 1.86 X10^3/uL (0.83-4.51); Absolute Neutrophil Count 1.1 X10^3/uL (2.0-7.7); Basophil# 0.01 X10^3/uL; Basophil% 0.3 % (0-1); Eosinophil# 0.08 X10^3/uL; Eosinophils% 2.5 % (0-5); Hematocrit 39.3 % (37-47); Hemoglobin 13.2 g/dL (12.0-15.0); Lymphocyte # 1.86 X10^3/ul (0.83-4.51); Lymphocyte % 57.2 % (19-41); Mean Corp Hgb Conc 33.6 g/dL (32-36); Mean Corpuscular Hgb 31.9 pg (27.0-32.0); Mean Corpuscular Volume 94.9 fL (81-99); Mean Platelet Vol. 10.4 fl (6.2-12.0); Monocyte# 0.24 X10^3/uL; Monocyte% 7.4 % (0-10); NRBC Flagged by Analyzer 0 % (0-5); Neutrophil # 1.06 X10^3/uL (2.7-7.7); Neutrophil % 32.6 % (47-70); Platelet Count 219 K/mm3 (150-450); RBC Distribution Width CV 12.7 % (11.6-14.6); RBC Distribution Width SD 44.1 fl (35.1-43.9); Red Blood Count 4.14 M/mm3 (4.2-5.4); White Blood Count 3.3 K/mm3 (4.4-11.0)
[2024-08-05] MEDS: 0.9% Normal Saline (1000mL) 1,000 ML 999 ML IV (20:52)
[2024-08-05] MEDS: Ondansetron 4 MG/2 ML Vial IV (20:52)
[2024-08-05] MEDS: Morphine 4 MG/ML Syringe IV ×2 (20:53→22:53)
[2024-08-05] MEDS: Dicyclomine 20 MG/2 ML Vial IM (20:53)
[2024-08-05 21:13] LABS: ALB/GLOB Ratio 0.9 RATIO (0.9-2.4); AST(SGOT) 33 U/L (15-37); Alanine Aminotransfer ALT/SGPT 38 U/L (13-56); Albumin, Serum 3.8 g/dL (3.2-5.0); Alkaline Phosphatase 73 U/L (45-117); Anion Gap 5 (5-15); BUN 27 mg/dL (7-18); Calcium,Total 9.2 mg/dL (8.5-10.1); Chloride 112 mmol/L (98-107); Creatinine, Serum 1.04 mg/dL (0.55-1.02); EST Glomerular Filtration Rate 58 mL/min (>60); Est Glom Filt Rate - Afr Amer 70 mL/min (>60); Estimated Creatinine Clearance 63.22 ml/min; Globulin 4.1 g/dL (2.2-4.2); Glucose 176 mg/dL (74-106); Lipase 76 U/L (13-75); Protein, Total 7.9 g/dL (6.4-8.2); Sodium Level 141 mmol/L (136-145)
[2024-08-05 21:27] LABS: Red Blood Cells-Urine 0 SEEN /hpf (0-5); Squamous Epithelial Cells - UA 0 SEEN /hpf (5-10)
[2024-08-05 21:29] LABS: Color, Urine Yellow (Yellow); Glucose, Dipstick Normal (Normal); Ketone-Dipstick Negative (Negative); Leukocyte Esterase-Dipstick 25 /ul (Negative); Nitrite-Dipstick Negative (Negative); Occult Blood-Urine Negative /ul (Negative); Protein-Dipstick 30 mg/dl (Negative); Specific Gravity, Urine 1.025 (1.002-1.030); Urine Bilirubin Dipstick Negative (Negative); Urine Clarity Clear (Clear); Urine Urobilinogen 1 mg/dl (Normal)
[2024-08-05 21:37] LABS: Bacteria RARE /hpf (None Seen); Mucous, Urine 1+ /hpf (<or=2+); White Blood Cells 0-5 SEEN /hpf (0-5)
[2024-08-05 22:10] VITALS: BP 131/98; PULSE 70; RESP 16; O2SAT 97
[2024-08-05 23:29] VITALS: BP 135/88; PULSE 76; RESP 18; TEMP 36.1; O2SAT 99
== END 2024-08-05 23:32 | disposition home or self-care (01) ==
PROVIDERS: Emergency Provider Emergency Medicine; PCP Internal Medicine; Referring Provider Emergency Medicine; Visit Provider Emergency Medicine
DX: R10.9 Unspecified abdominal pain (principal); Z90.710 Acquired absence of both cervix and uterus; K59.00 Constipation, unspecified; R11.0 Nausea; I10 Essential (primary) hypertension; Z90.49 Acquired absence of other specified parts of digestive tract; Z98.84 Bariatric surgery status
CPT/HCPCS: 74177; 80053; 81001; 83690; 85025; 96361; 96372; 96374; 96375; 96376; 99283; J7030; Q9967; A4216; J2405

== ENCOUNTER 2024-12-26 09:03 | Emergency (ER) | payer OTHER, BC, SELFPAY ==
[2024-12-26 09:04] VITALS: BP 146/53; PULSE 98; RESP 18; TEMP 36.6; O2SAT 99; BMI 25.7
--- NOTE | 2024-12-26 09:21 | EX.ED.VIS.HA ---
HPI History of Present Illness Chief Complaint: Headache Detail of Chief Complaint: Headache Informant: patient Narrative Narrative: Patient presents to the emergency department with complaint of headache for the last 24 hours. Patient states that came on somewhat suddenly. She describes pain behind her right eye. Complains of photophobia and nausea. She does have history of migraines. Headaches typical of her migraines other than now she can hear her heartbeat in her ears. Patient denies recent illness. She denies fall or head injury. She rates her headache a 10 out of 10. [facility] Medical History Renal cyst Fatty liver disease, nonalcoholic History of peptic ulcer disease Macular degeneration Macular degeneration Hypertension Home Medications ?Medication ?Instructions ?Recorded ?Last Taken ?Type eletriptan 20 mg tablet 20 mg PO .X1 PRN PRN Headache 10/04/13 10/04/13 History multivitamin,sm-[id number]-cfhrlsft 27 1 tab PO DAILY 03/28/14 05/04/17 History mg-0.4 mg tablet tizanidine 4 mg tablet 4 mg PO QHS 03/28/14 05/04/17 History topiramate 50 mg tablet 50 mg PO QHS PRN Sleep 06/09/16 05/04/17 History bupropion HCl 150 mg 24 hr tablet, 150 mg PO DAILY 05/05/17 Unknown History extended release fluticasone propionate 50 2 spray NASAL DAILY 05/05/17 05/04/17 History mcg/actuation nasal spray,suspension naratriptan 2.5 mg tablet 1 tab PO DAILY PRN HEADACHES 05/05/17 Unknown History lisinopril 10 mg tablet 20 mg PO DAILY 10/26/17 Unknown History hydrocodone-acetaminophen 5-325mg 1 tab PO Q6H PRN PRN Pain 3 days 10/01/22 Unknown Rx 5mg-325mg #10 TABLETS ondansetron 4 mg disintegrating 4 mg PO Q8H PRN PRN Nausea #10 10/01/22 Unknown Rx tablet TABLETS Allergy/AdvReac Type Severity Reaction Status Date / Time ethinyl estradiol (From Allergy Rash Verified 12/26/24 09:05 NuvaRing) etonogestrel (From NuvaRing) Allergy Rash Verified 12/26/24 09:05 oxycodone (From Percocet) AdvReac Intermediate Rash Verified 12/26/24 09:05 Surgical History History of gastric surgery H/O: hysterectomy H/O: hysterectomy History of cholecystectomy Social History household members: significant other Smoking Status: Never smoker substance use type: does not use ROS ROS ED Review of Systems ROS Unobtainable: other Constitutional Constitutional ED: Reports lethargy; Denies chills, fever(s), sweats or weight loss Eyes Eyes: Denies blurry vision, change in vision or diplopia ENT ENT ED: Denies rhinorrhea or sore throat Cardiovascular Cardiovascular: Denies chest pain, orthopnea or racing heartbeat Respiratory/Chest Respiratory/Chest: Denies cough, dyspnea, dyspnea on exertion, orthopnea or sputum Gastrointestinal Gastrointestinal: Denies abdominal pain, diarrhea, nausea or vomiting Genitourinary Genitourinary ED: Denies dysuria, hematuria or urinary frequency Musculoskeletal Musculoskeletal: Denies arthralgias, back pain, myalgias or neck pain Integumentary Denies abscess, Abrasions or rash Neurologic Neurologic: Reports headache(s); Denies weakness Psychiatric Psychiatric: Denies anxiety, depression or suicidal thoughts Endocrine Endocrinology: Denies polydipsia, polyphagia or polyuria Hematologic/Lymphatic Hematologic/Lymphatic: Denies easy bleeding, easy bruising or lymphadenopathy Allergic/Immunologic Allergic/Immunologic ED: Denies mouth swelling, tongue swelling or urticaria EXAM Physical Exam Const Vital Signs: 12/26/24 09:04 12/26/24 12:46 Temperature 97.8 F Temperature Source Oral Pulse Rate 98 78 Respiratory Rate 18 18 Blood Pressure 146/53 H 150/98 H Blood Pressure Mean 84 115 Pulse Ox 99 97 Oxygen Delivery Method Room Air Room Air Positive well nourished and well developed General Appearance ED: well developed and NAD HEENT Reports TM's clear and moist mucous membranes normocephalic and atraumatic; Negative for trauma or tenderness Tympanic Membrane ED: Yes TM's clear Eyes PERRL and EOMs intact bilaterally General Eye ED: Negative for pale conjunctiva or scleral icterus Neck no lymphadenopathy, supple and no JVD General: Negative for tenderness Chest Wall inspection of chest normal and palpation of chest normal Chest: Negative for tenderness Resp normal respiratory effort and clear to auscultation bilaterally Effort and Inspection: Negative for respiratory distress or pain with movement Auscultation: Negative for rhonchi, wheezes or diminished lung sounds Cardio regular rate, regular rhythm, S1 normal heart sound, S2 normal heart sound and no murmurs Peripheral Pulses: pulses 2+ throughout GI normal to inspection, nondistended, normoactive bowel sounds, soft to palpation, non-tender, non-distended and no masses Back/Spine no CVA tenderness and no thoracic nor lumbar tenderness Extremity normal to inspection General Extremety ED: Negative for edema General Extremity: Negative for edema Neuro oriented x3, CN's II-XII intact bilaterally, no sensory deficits noted and gait normal Neuro Narrative: Finger-nose and heel cardona testing within normal limits, negative Romberg, negative for drift, fundi benign Sensorium / Orientation: awake, alert, oriented to person, oriented to place and oriented to time Motor Exam: strength 5/5 throughout and strength abnormal Psych mental status grossly normal Skin no rashes or lesions noted and no wounds MDM MDM MDM Narrative Medical decision making narrative: Patient presents with headache with history of migraines. Takes a little bit different and that now she will hear her heartbeat in her ears. She tells me that years ago she was diagnosed with an intracranial aneurysm in the frontal lobe but no intervention was ever undertaken. She states that she used to see neurologist yearly at [facility]. Patient initially was given Reglan, Benadryl, and Toradol and she did have some improvement in her headache. She also received a liter fluid bolus. She states the headache still continues to be about a 7 out of 10 and therefore we obtained a CTA of the head and neck which was unremarkable. Will give her Decadron 10 mg IV. She does not want thing more for pain. She will be referred to neurology for follow-up. I suspect this is likely migraine Lab Data Attestation: I reviewed the patient's lab results. Radiography Diagnostic Testing: Clinical Impression(s) from Imaging Studies Head/Neck CTA 12/26/24 12:01 IMPRESSION: Unremarkable examination. Reading Location: [place] [id number] Discharge Plan Triage Chief Complaint: Headache ED Provider: Catrachito Billings Dx/Rx/DC Orders Clinical Impression: Migraine Instructions: ED, Migraine (Classical) Prescriptions: No Action eletriptan 20 MG tablet 20 mg PO .X1 PRN PRN (Reason: Headache) Patient Comments: MIGRAINE tizanidine 4 MG tablet 4 mg PO QHS Patient Comments: muscle relaxer multivitamin,id-axlu-vkivqlad 1 TABLET tablet 1 tab PO DAILY Patient Comments: vitamin topiramate 50 MG tablet 50 mg PO QHS PRN (Reason: Sleep) Patient Comments: migrianes naratriptan 2.5 MG tablet 1 tab PO DAILY PRN (Reason: HEADACHES) Patient Comments: headaches fluticasone propionate 1 SPRAY spray,suspension 2 spray NASAL DAILY bupropion HCl 150 MG tablet extended release 24 hr 150 mg PO DAILY Patient Comments: antidepressant lisinopril 10 MG tablet 20 mg PO DAILY hydrocodone-acetaminophen [hydrocodone-acetaminophen] 5-325 mg tablet 1 tab PO Q6H PRN PRN (Reason: Pain) 3 Days Qty: 10 0RF ondansetron 4 MG tablet 4 mg PO Q8H PRN PRN (Reason: Nausea) Qty: 10 0RF Primary Care Provider: Yamile Turner Referrals: Yamile Turner MD [Primary Care Provider] - Ovidio Garay MD [Non-Staff -Ordering Privileges] - 3-5 Days Print Language: Portuguese Disposition Disposition: Home, Self Care
[2024-12-26] MEDS: Metoclopramide 10 MG/2 ML Vial IV (09:33)
[2024-12-26] MEDS: 0.9% Normal Saline (1000mL) 1,000 ML 1000 ML IV (09:33)
[2024-12-26] MEDS: DiphenhydrAMINE 50 MG/ML Syringe 25 MG IV (09:33)
[2024-12-26] MEDS: Ketorolac 15 MG/ML Vial IV (09:33)
--- NOTE | 2024-12-26 12:01 | CT_ITS ---
PROCEDURE: CTA HEAD AND NECK W/ CONTRAST 12/26/2024 REASON FOR EXAM: HEADACHE BEHIND RIGHT EYE, HX OF ANEURYSM TECHNIQUE: CTA imaging of the head and neck from the aortic arch to the skull vertex with out constrast and with intravenous contrast. Coronal and Sagittal reconstruction series were provided. 3D post processing with reformations, Maximum intensity projection (MIPs) Volume rendering and Shaded surface rendering was provided. CONTRAST: Isovue 370 VOLUME: 100 mL One or more dose reduction techniques were used (e.g., Automated exposure control, adjustment of the mA and/or kV according to patient size, use of iterative reconstruction technique). RADIATION DOSE SUMMARY: CTDlvol: 23 mGy DLP: 774.9 mGycm COMPARISON: Unenhanced CT scan of the brain done earlier in the day. FINDINGS: Aortic Arch: Normal size and branching pattern. No significant atherosclerotic plaque. Brachiocephalic and Subclavians: Unremarkable RIGHT Carotid: Right CCA: Unremarkable. Right ICA: Unremarkable. Right ECA: Unremarkable. LEFT Carotid: Left CCA: Unremarkable. Left ICA: Unremarkable. Left ECA: Unremarkable. Vertebrals: Codominant. Arise from the subclavians. Both vertebrals form the basilar. RIGHT Vertebral: Unremarkable. LEFT Vertebral: Unremarkable. Anatomy: [place] anatomy is normal. Aneurysm or avm: No intracranial aneurysms or large vascular malformations are identified. Anterior cerebral arteries: Unremarkable: Middle cerebral arteries: Unremarkable. Basilar artery: Unremarkable. Posterior cerebral arteries: Unremarkable. Other major branches of the posterior circulation: Unremarkable. Major venous structures: Unremarkable. Other findings: Neck: No lymphadenopathy. Lungs: Lung apices are clear. Bones: CT/CTA Head AND Neck W/ Contrast IMPRESSION: Unremarkable examination. Reading Location: [place] [id number]
[2024-12-26 12:46] VITALS: BP 150/98; PULSE 78; RESP 18; O2SAT 97
[2024-12-26] MEDS: dexAMETHasone 10 MG/ML Vial IV (13:07)
== END 2024-12-26 13:10 | disposition home or self-care (01) ==
PROVIDERS: Emergency Provider Emergency Medicine; PCP Internal Medicine; Visit Provider Emergency Medicine
DX: G43.909 Migraine, unspecified, not intractable, without status migrainosus (principal); Z90.710 Acquired absence of both cervix and uterus; I10 Essential (primary) hypertension; Z90.49 Acquired absence of other specified parts of digestive tract; Z98.84 Bariatric surgery status
CPT/HCPCS: 70496; 70498; 96361; 96374; 96375; 99283; Q9967; A4216

== ENCOUNTER 2025-04-18 13:03 | Emergency (ER) | payer OTHER, BC, SELFPAY ==
[2025-04-18 13:03] VITALS: BP 101/56; PULSE 76; RESP 15; TEMP 36.7; O2SAT 98
[2025-04-18 13:05] VITALS: BMI 26.3
--- NOTE | 2025-04-18 13:16 | EX.ED.VIS.HA ---
HPI History of Present Illness Chief Complaint: Headache Informant: patient Onset/Context/Timing Onset: Days Context: Gradual Timing: Continuous Quality -Headache: Positive for Similar Prior Headaches Location: Frontal Worsened by: Light Relieved by: Nothing Associated Symptoms/Injury Associated Symptoms: Positive for Nausea, Vomiting, Tingling, Blurred Vision and Photophobia; Negative for Fever, Sore Throat, Sinus Pressure, Numbness, Preceding Aura, Visual Changes or Visual Loss Narrative Narrative: Patient presents with a headache that has been getting worse over the past few days. Patient states she woke up few days ago with vertigo. Patient states that she still has vertigo symptoms. Patient states she now has a frontal headache. Patient states it feels somewhat similar to prior migraine headaches. Patient states that it is constant. Patient states it is worse with light. Patient admits to some nausea and vomiting. Patient also admits to some tingling around her lips. Patient admits to some blurry vision and photophobia. Patient states her pain radiates into her neck. Prior similar symptoms: Yes PFSH PFS Medical History Renal cyst Fatty liver disease, nonalcoholic History of peptic ulcer disease Macular degeneration Macular degeneration Hypertension Home Medications ?Medication ?Instructions ?Recorded ?Last Taken ?Type eletriptan 20 mg tablet 20 mg PO .X1 PRN PRN Headache 10/04/13 10/04/13 History multivitamin,eg-imms-vbhlcfoz 27 1 tab PO DAILY 03/28/14 05/04/17 History mg-0.4 mg tablet tizanidine 4 mg tablet 4 mg PO QHS 03/28/14 05/04/17 History topiramate 50 mg tablet 50 mg PO QHS PRN Sleep 06/09/16 05/04/17 History bupropion HCl 150 mg 24 hr tablet, 150 mg PO DAILY 05/05/17 Unknown History extended release fluticasone propionate 50 2 spray NASAL DAILY 05/05/17 05/04/17 History mcg/actuation nasal spray,suspension naratriptan 2.5 mg tablet 1 tab PO DAILY PRN HEADACHES 05/05/17 Unknown History lisinopril 10 mg tablet 20 mg PO DAILY 10/26/17 Unknown History hydrocodone-acetaminophen 5-325mg 1 tab PO Q6H PRN PRN Pain 3 days 10/01/22 Unknown Rx 5mg-325mg #10 TABLETS ondansetron 4 mg disintegrating 4 mg PO Q8H PRN PRN Nausea #10 10/01/22 Unknown Rx tablet TABLETS Allergy/AdvReac Type Severity Reaction Status Date / Time ethinyl estradiol (From Allergy Rash Verified 04/18/25 13:05 NuvaRing) etonogestrel (From NuvaRing) Allergy Rash Verified 04/18/25 13:05 oxycodone (From Percocet) AdvReac Intermediate Rash Verified 04/18/25 13:05 Surgical History History of gastric surgery H/O: hysterectomy H/O: hysterectomy History of cholecystectomy Social History household members: significant other Smoking Status: Never smoker substance use type: does not use ROS ROS ED Constitutional Constitutional ED: Denies chills or fever(s) Eyes Eyes: Reports blurry vision; Denies diplopia ENT ENT ED: Denies rhinorrhea or sore throat Cardiovascular Cardiovascular: Denies chest pain or palpitations Respiratory/Chest Respiratory/Chest: Denies cough or dyspnea Gastrointestinal Gastrointestinal: Denies nausea or vomiting Genitourinary Genitourinary ED: Denies dysuria or hematuria Musculoskeletal Musculoskeletal: Reports neck pain; Denies back pain Integumentary Denies abscess or rash Neurologic Neurologic: Reports headache(s); Denies weakness Allergic/Immunologic Allergic/Immunologic ED: Denies mouth swelling or urticaria EXAM Physical Exam Const Vital Signs: 04/18/25 13:03 04/18/25 15:03 Temperature 98.1 F Temperature Source Oral Pulse Rate 76 55 L Respiratory Rate 15 16 Blood Pressure 101/56 L 124/77 H Blood Pressure Mean 71 92 Pulse Ox 98 100 Oxygen Delivery Method Room Air Positive well nourished and well developed General Appearance ED: well developed and NAD HEENT Reports normocephalic and moist mucous membranes Neck supple and no JVD Resp normal respiratory effort and clear to auscultation bilaterally Cardio regular rate and regular rhythm GI non-tender and non-distended Palpation: soft Neuro oriented x3, CN's II-XII intact bilaterally and no sensory deficits noted Magdalena Coma Scale: document GCS findings Spontaneous Obeys Commands Oriented 15 Sensorium / Orientation: awake and alert Speech: speech normal Motor Exam: strength 5/5 throughout Psych mental status grossly normal MDM MDM MDM Narrative Medical decision making narrative: Differential diagnosis includes migraine headache, tension headache, electrolyte abnormality, dehydration, vertigo, stroke, and intracranial bleeding. CT scan of the brain will be obtained to assess for stroke or intracranial bleeding. CBC will be obtained to assess for leukocytosis and anemia. Basic metabolic profile will be obtained to assess for electrolyte abnormality and renal function. Lab Data Attestation: I reviewed the patient's lab results. Lab results narrative: CBC was reviewed. White blood cell count was slightly low at 3.0. The remainder was within normal limits. Basic metabolic profile was reviewed and was essentially within normal limits. Labs: Laboratory Results - last 24 hr 04/18/25 13:40 WBC 3.0 L RBC 4.08 L Hgb 12.5 Hct 38.5 MCV 94.4 MCH 30.6 MCHC 32.5 RDW Std Deviation 43.6 RDW Coeff of Shira 12.6 Plt Count 222 MPV 9.8 Immature Gran % (Auto) 0.000 Neut % (Auto) 34.9 L Lymph % (Auto) 52.6 H [place] % (Auto) 9.9 Eos % (Auto) 2.3 Baso % (Auto) 0.3 Absolute Neuts (auto) 1.1 L Absolute Lymphs (auto) 1.59 Nucleated RBC % 0 Sodium 141 Potassium 4.3 Chloride 108 Carbon Dioxide 24.6 Anion Gap 9 BUN 17 Creatinine 0.78 Estim Creat Clear Calc 81.83 Est GFR (MDRD) Non-Af 88 BUN/Creatinine Ratio 21.6 H Glucose 90 Calcium 9.0 Radiography Diagnostic Testing: Clinical Impression(s) from Imaging Studies Brain CT 04/18/25 13:51 IMPRESSION: NORMAL NONCONTRAST HEAD CT. Reading Location: [id number] scan of the brain was obtained. There is no acute intracranial abnormality. This was interpreted by the radiologist and was also independently reviewed by myself. Treatment and Re-Evaluation Narrative: Patient was given IV fluids, Reglan, and Benadryl. Patient had minimal relief with this. Patient was given Imitrex, Decadron, and Toradol. Patient was feeling better after this. Patient wants to go home. Patient was instructed to follow-up with her primary care physician in 5 to 7 days. Patient was instructed to rest in a dark quiet room. Patient understood and was agreeable with the plan. All questions were answered. Discharge Plan Triage Chief Complaint: Headache ED Provider: Mirza Granger Dx/Rx/DC Orders Clinical Impression: Migraine headache, Hypertension Instructions: ED, Migraine (Classical) Prescriptions: No Action eletriptan 20 MG tablet 20 mg PO .X1 PRN PRN (Reason: Headache) Patient Comments: MIGRAINE tizanidine 4 MG tablet 4 mg PO QHS Patient Comments: muscle relaxer multivitamin,jd-lgxb-[id number] 1 TABLET tablet 1 tab PO DAILY Patient Comments: vitamin topiramate 50 MG tablet 50 mg PO QHS PRN (Reason: Sleep) Patient Comments: migrianes naratriptan 2.5 MG tablet 1 tab PO DAILY PRN (Reason: HEADACHES) Patient Comments: headaches fluticasone propionate 1 SPRAY spray,suspension 2 spray NASAL DAILY bupropion HCl 150 MG tablet extended release 24 hr 150 mg PO DAILY Patient Comments: antidepressant lisinopril 10 MG tablet 20 mg PO DAILY hydrocodone-acetaminophen [hydrocodone-acetaminophen] 5-325 mg tablet 1 tab PO Q6H PRN PRN (Reason: Pain) 3 Days Qty: 10 0RF ondansetron 4 MG tablet 4 mg PO Q8H PRN PRN (Reason: Nausea) Qty: 10 0RF Primary Care Provider: Yamile Turner Referrals: Yamile Turner MD [Primary Care Provider] - 5-7 Days Print Language: Uzbek Disposition Disposition: Home, Self Care
[2025-04-18] MEDS: 0.9% Normal Saline (1000mL) 1,000 ML 999 ML IV (13:32)
[2025-04-18] MEDS: DiphenhydrAMINE 50 MG/ML Syringe 25 MG IV (13:33)
[2025-04-18 13:48] LABS: Hematocrit 38.5 % (37-47); Hemoglobin 12.5 g/dL (12.0-15.0); Immature Granulocytes Count 0.000 X10^3/uL (0.0-0.0); Mean Corp Hgb Conc 32.5 g/dL (32-36); Mean Corpuscular Volume 94.4 fL (81-99); Mean Platelet Vol. 9.8 fl (6.2-12.0); NRBC Flagged by Analyzer 0 % (0-5); Platelet Count 222 K/mm3 (150-450); RBC Distribution Width CV 12.6 % (11.6-14.6); RBC Distribution Width SD 43.6 fl (35.1-43.9); Red Blood Count 4.08 M/mm3 (4.2-5.4); White Blood Count 3.0 K/mm3 (4.4-11.0)
--- NOTE | 2025-04-18 13:51 | CT_ITS ---
PROCEDURE: BRAIN/HEAD WITHOUT CONTRAST 04/18/2025 REASON FOR EXAM: PAIN Vertigo. Headaches. TECHNIQUE: BRAIN/HEAD WITHOUT CONTRAST Coronal and Sagittal reconstruction series were provided. One or more dose reduction techniques were used (e.g., Automated exposure control, adjustment of the mA and/or kV according to patient size, use of iterative reconstruction technique. RADIATION DOSE SUMMARY: CTDlvol: 44.99 mGy DLP: 829.85 mGycm COMPARISON: Prior study dated December 26, 2024. FINDINGS: Brain: Normal CSF Spaces: Normal Sinuses/Mastoids: Clear at visualized levels Bones: Unremarkable CT/Brain/Head without Contrast IMPRESSION: NORMAL NONCONTRAST HEAD CT. Reading Location: [id number]
[2025-04-18 14:32] LABS: Anion Gap 9 (5-15); BUN 17 mg/dL (4-19); BUN/Creat Ratio 21.6 RATIO (10-20); Calcium,Total 9.0 mg/dL (7.6-11.0); Carbon Dioxide 24.6 mmol/L (21.0-32.0); Chloride 108 mmol/L (98-108); Estimated Creatinine Clearance 81.83 ml/min (50-250); Glucose 90 mg/dL (70-99); Potassium 4.3 mmol/L (3.3-5.1)
[2025-04-18 15:03] VITALS: BP 124/77; PULSE 55; RESP 16; O2SAT 100
[2025-04-18 16:16] VITALS: BP 116/69; PULSE 61; RESP 18; TEMP 36.6; O2SAT 99
--- OUTSIDE RECORDS SUMMARY | 2025-04-18 19:23 | XMS RPT_ITS ---
Author Name Auto Generated Organization OHIP Care Team Providers Care Design Specialist Name Role Phone PACI, TRACEY D Attending Unavailable TALAMPAS, GLENNA D Primary Care Unavailable TALAMPAS, GLENNA D Attending Unavailable TALAMPAS, GLENNA D Primary Care Unavailable TALAMPAS, GLENNA D Referring Unavailable TALAMPAS, GLENNA D Primary Care Unavailable PACI, TRACEY D Attending Unavailable TALAMPAS, GLENNA D Primary Care Unavailable GREGORY GONZALES Attending Unavailable TALAMPAS, GLENNA D Primary Care Unavailable PACI, TRACEY D Attending Unavailable TALAMPAS, GLENNA D Primary Care Unavailable PACI, TRCAEY D Referring Unavailable TALAMPAS, GLENNA D Primary Care Unavailable TALAMPAS, GLENNA D Referring Unavailable TALAMPAS, GLENNA D Primary Care Unavailable HOLCOMB, JADE Attending Unavailable TALAMPAS, GLENNA D Referring Unavailable TALAMPAS, GLENNA D Primary Care Unavailable TALAMPAS, GLENNA D Attending Unavailable TALAMPAS, GLENNA D Primary Care Unavailable TALAMPAS, GLENNA D Attending Unavailable TALAMPAS, GLENNA D Primary Care Unavailable PROBLEMS DATE TYPE CONDITION / CODE ATTENDING STATUS [facility] 04/03/2025 Active Dumping syndrome / K91.1(ICD-10) PACITRACEY Active [facility] 04/03/2025 Active History of Aury- en-Y gastric bypass / Z98.84(ICD-10) PACITRACEY Active [facility] 04/03/2025 Active Reactive hypogly cemia / E16.1(ICD-10) PACITRACEY Active [facility] 03/31/2025 Active S/P gastric bypa ss / Z98.84(ICD-10) GREGORY GONZALES Active [facility] 03/31/2025 Active Impaired intesti nal absorption (HCC) / K90.9(ICD-10) GREGORY GONZALES Active [facility] 03/11/2022 Active Attention defici t disorder (ADD) without hyperactivity / F98.8(ICD-10) GLENNA TURNER Active [facility] 02/01/2025 Active Fatigue, unspeci fied type / R53.83(ICD-10) GLENNA TURNER Active [facility] 02/01/2025 Active Daytime sleepine ss / R40.0(ICD-10) GLENNA TURNRE Active [facility] 02/01/2025 Active Anxiety / F41.9(ICD-10) GLENNA TURNER Active [facility] 10/23/2017 Active H/O gastric bypa ss / Z98.84(ICD-10) JADE HOLCOMB Active [facility] 11/07/2024 Active Encounter for immunization / Z23(ICD-10) JADE HOLCOMB Active [facility] 11/07/2024 Active Essential (prima ry) hypertension / I10(ICD-10) JADE HOLCOMB Active [facility] 10/07/2024 Active Encounter for sc reening mammogram for breast cancer / Z12.31(ICD-10) NA Active [facility] 01/31/2016 Active Cervicalgia / M54.2(ICD-10) LGENNA TURNER Active [facility] 12/28/2015 Active Migraine variant with headache / G43.809(ICD-10) GLENNA TURNER Active [facility] 07/01/2024 Active Memory change / R41.3(ICD-10) GLENNA TURNER Active [facility] 07/01/2024 Active Tired / R53.83(ICD-10) GLENNA TURNER Active [facility] 07/01/2024 Active Screening for de pression / Z13.31(ICD-10) GLENNA TURNER Active [facility] 07/01/2024 Active Encounter for nj reening examination for other mental health and behavioral disorders / Z13.39(ICD-10) GLENNA TURNER Active [facility] 05/02/2024 Active Acute viral synd kaylie / B34.9(ICD-10) GLENNA TURNER Active [facility] 05/02/2024 Active Primary hyperten ana / I10(ICD-10) GLENNA TURNER Active [facility] PROCEDURES No Procedure Records Found RESULTS DEPRECATED HGB A1C BLD Collected: 04/05 7:33 AM Status: F Source: [facility] Order Comment: Specimen Type : BLOOD SPECIMEN Ordering Facility: [facility] Address: [address] [place] [address] TYPE CODE TESTS RESULT OUT OF RANGE REFERENCE UNITS LAB 4548-4(LOINC) HbA1c MFr Bld 5.1 4.3-5.6 % Result Comment: [place] [employer] betes Association guidelines indicate that patients with HgbA1c in the range 5.7-6.4% are at increased risk for development of diabetes, and intervention by lifestyle modification may be beneficial. HgbA1c greater or equal to 6.5% is considered diagnostic of diabetes. LAB 11016-4(LOINC) Est. average glucose Bld gHb Est-mCnc 100 mg/dL Result Comment: eAG: (Estima adolfo average glucose) is a calculated value from HgbA1c and is cash application representative of the average blood glucose level in the last 2-3 month period. Performed By: #### 76040-3 # ### [facility] CLIA [id number] [address] [place] [address] [place] COMP METAB 2000 PNL SERPL Collected: 7:33 AM Status: F Source: [facility] Order Comment: Specimen Type : BLOOD SPECIMEN Ordering Facility: [facility] Address: [address] [place] [address] TYPE CODE TESTS RESULT OUT OF RANGE REFERENCE UNITS LAB 2885-2(LOINC) Prot SerPl-mCnc 7.0 6.3-8.0 g/dL LAB 1751-7(LOINC) Albumin SerPl-mCnc 3.8 Low 3.9-4.9 g/dL LAB 26568-3(LOINC) Calcium SerPl-mCnc 9.1 8.5-10.2 mg/dL LAB 1975-2(LOINC) Bilirub SerPl-mCnc 0.3 0.2-1.3 mg/dL LAB 6768-6(LOINC) ALP SerPl-cCnc 69 34-123 U/L LAB 1920-8(LOINC) AST SerPl-cCnc 31 13-35 U/L LAB 1742-6(LOINC) ALT SerPl-cCnc 24 7-38 U/L LAB 2345-7(LOINC) Glucose SerPl-mCnc 87 74-99 mg/dL Result Comment: The [place] Diabetes Association (ADA) provides guidance for cutoff values for fasting glucose and random glucose. The ADA defines fasting as no caloric intake for at least 8 hours. Fasting plasma glucose results between 100 to 125 mg/dL indicate increased risk for diabetes (prediabetes). Fasting plasma glucose results greater than or equal to 126 mg/dL meet the criteria for diagnosis of diabetes. In the absence of unequivocal hyperglycemia, results should be confirmed by repeat testing. In a patient with classic symptoms of hyperglycemia or hyperglycemic crisis, random plasma glucose results greater than or equal to 200 mg/dL meet the criteria for diagnosis of diabetes. Reference: Standards of Medical Care in Diabetes 2016, [place] [employer] Association. Diabetes Care. 2016.39(Suppl 1). LAB 3094-0(LOINC) BUN SerPl-mCnc 19 7-21 mg/dL LAB 2160-0(LOINC) Creat SerPl-mCnc 0.81 0.58-0.96 mg/dL LAB 2951-2(LOINC) Sodium SerPl-sCnc 141 136-144 mmol/L LAB 2823-3(LOINC) Potassium SerPl-sCnc 4.3 3.7-5.1 mmol/L LAB 2075-0(LOINC) Chloride SerPl-sCnc 106 98-107 mmol/L LAB 2028-9(LOINC) CO2 SerPl-sCnc 26 22-30 mmol/L LAB 96725-6(LOINC) Anion Gap SerPl-sCnc 9 8-15 mmol/L LAB 72620-9(LOINC) eGFRcr SerPlBld CKD-EPI 2020 85 >=60 mL/min/1. 73m??? Result Comment: Estimated Gl omerular Filtration Rate (eGFR) is calculated using the 2020 CKD-EPI creatinine equation. This equation utilizes serum creatinine, sex, and age as parameters. The creatinine assay has traceable calibration to isotope dilution-mass spectrometry. Refer to KDIGO guidelines for clinical interpretation. In patients with unstable renal function, e.g. those with acute kidney injury, the eGFR may not accurately reflect actual GFR. Performed By: #### 37194-0, 2276-4, 79224-4, 98761-1 #### [facility] CLIA [id number] [address] [place] [address] [place] IRON+TIBC PNL SERPL Collected: 04/05/2025 7:[address] atus: F Source: [facility] Comment: Specimen Type : BLOOD SPECIMEN Ordering Facility: [facility] Address: [address] [place] [address] TYPE CODE TESTS RESULT OUT OF RANGE REFERENCE UNITS LAB 2498-4(LOINC) Iron SerPl-mCnc 72 41-186 ug/dL LAB 2500-7(LOINC) TIBC SerPl-mCnc 317 232-386 ug/dL LAB 52619-7(LOINC) Iron/TIBC SerPl-sRto 22.7 15.0-57.0 % Performed By: #### 28140-4, 2276-4, 58926-0, 90568-6 #### [facility] CLIA [id number] [address] [place] [address] [place] LIPID 1996 PNL SERPL Collected: 7:33 AM Status: F Source: [facility] Order Comment: Specimen Type : BLOOD SPECIMEN Ordering Facility: [facility] Address: [address] [place] [address] TYPE CODE TESTS RESULT OUT OF RANGE REFERENCE UNITS LAB 2093-3(LOINC) Cholest SerPl-mCnc 139 <200 mg/dL Result Comment: <200 mg/dL, Desirable 200-239 mg/dL, Borderline high >239 mg/dL, High LAB 2571-8(LOINC) Trigl SerPl-mCnc 46 <150 mg/dL Result Comment: <150 mg/dL, Normal 150-199 mg/dL, Borderline high 200-499 mg/dL, High >499 mg/dL, Very high LAB 2085-9(LOINC) HDLc SerPl-mCnc 64 >39 mg/dL Result Comment: 40-59 mg/dL, Acceptable >59 mg/dL, High: Negative risk factor for coronary heart disease <40 mg/dL, Low: Positive risk factor for coronary heart disease LAB 2089-1(LOINC) LDLc SerPl-mCnc 64 <100 mg/dL Result Comment: <100 mg/dL, Optimal 100-129 mg/dL, Near optimal/above optimal 130-159 mg/dL, Borderline high 160-189 mg/dL, High >189 mg/dL, Very high Secondary prevention optimal LDL Cholesterol levels are recommended to be <70 mg/dL LDL cholesterol is calculated using the Raines-NIH equation. LAB 34842-8(LOINC) NonHDLc SerPl-mCnc 75 <130 mg/dL Result Comment: <130 mg/dL, Optimal 130-159 mg/dL, Near optimal/above optimal 160-189 mg/dL, Borderline high 190-219 mg/dL, High >219 mg/dL, Very high Secondary prevention optimal non HDL Cholesterol levels are recommended to be <100 mg/dL LAB 09709-4(LOINC) VLDLc SerPl Calc-mCnc 7 <30 mg/dL LAB 9830-1(LOINC) Cholest/HDLc SerPl 2.17 <5.10 LAB 53746-1(LOINC) LDLc/HDLc SerPl 1.00 <2.54 Result Comment: Reference: 1. National Cholesterol Education Program ATP III Guideline At-A-Glance Quick Desk Reference: National Heart, Lung, and Blood [place]. National Institutes of Health. 2001: NIH Publication No. 01-3305. 2. An International Atherosclerosis Society position paper: global recommendations for the management of dyslipidemia: executive summary, Atherosclerosis. 2014: 232(2):410-413. LAB FT FASTING TIME 12 hrs Performed By: #### 04030-6, 2276-4, 71647-7, 31061-1 #### [facility] CLIA [id number] [address] [place] [address] [place] FERRITIN SERPL-MCNC Collected: 04/05/20 7:33 AM Status: F Source: [facility] Comment: Specimen Type : BLOOD SPECIMEN Ordering Facility: [facility] Address: [address] [place] [address] TYPE CODE TESTS RESULT OUT OF RANGE REFERENCE UNITS LAB 2276-4(LOINC) Ferritin SerPl-mCnc 76.0 14.7-205.1 ng/mL Performed By: #### 23309-1, 2276-4, 48437-8, 45461-1 #### [facility] CLIA [id number] [address] [place] [address] [place] VIT A SERPL-MCNC Collected: 7:33 AM Status: F Source: [facility] Comment: Specimen Type : BLOOD SPECIMEN Ordering Facility: [facility] Address: [address] [place] [address] TYPE CODE TESTS RESULT OUT OF RANGE REFERENCE UNITS LAB 2923-1(LOINC) Vit A SerPl-mCnc 0.38 0.30-1.20 mg/L Result Comment: This test wa s developed, and its performance characteristics determined by the [facility] Department of Pathology and Laboratory Medicine. It has not been cleared or approved by the FDA. The [facility] Department of Pathology and Laboratory Medicine is regulated under CLIA as qualified to perform high-complexity testing. This test is used for clinical purposes. It should not be regarded as investigational or for research. Performed By: #### 2923-1 ## ## [facility] CLIA [id number] [address] [place] [address] [place] VITAMIN B1 (THIAMINE), WHOLE BLOOD Otilio ected: 04/05/2025 7:33 AM Status: F Source: [facility] Comment: Specimen Type : BLOOD SPECIMEN Ordering Facility: [facility] Address: [address] [place] [address] TYPE CODE TESTS RESULT OUT OF RANGE REFERENCE UNITS LAB 85393-5(LOINC) Vit B1 Bld-sCnc 187.6 84.3-213.3 nmol/L Result Comment: This assay m easures the concentration of thiamine diphosphate (TDP), the primary active form of vitamin B1. Approximately 90 percent of vitamin B1 present in whole blood is TDP. Thiamine and thiamine monophosphate, which comprise the remaining 10 percent, are not measured. This test was developed, and its performance characteristics determined by the [facility] Department of Pathology and Laboratory Medicine. It has not been cleared or approved by the FDA. The [facility] Department of Pathology and Laboratory Medicine is regulated under CLIA as qualified to perform high- complexity testing. This test is used for clinical purposes. It should not be regarded as investigational or for research. Performed By: #### B1WB #### [facility] CLIA [id number] [address] [place] [address] [place] CBC W AUTO DIFF BLD Collected: 04/05/2025 7:[address] atus: F Source: [facility] Order Comment: Specimen Type : BLOOD SPECIMEN Ordering Facility: [facility] Address: [address] [place] [address] TYPE CODE TESTS RESULT OUT OF RANGE REFERENCE UNITS LAB 6690-2(LOINC) WBC # Bld Auto 3.20 Low 3.70-11.00 k/uL LAB 789-8(LOINC) RBC # Bld Auto 4.12 3.90-5.20 m/ uL LAB 718-7(LOINC) Hgb Bld-mCnc 12.7 11.5-15.5 g/dL LAB 4544-3(LOINC) Hct VFr Bld Auto 38.8 36.0-46.0 % LAB 787-2(LOINC) MCV RBC Auto 94.2 80.0-100.0 fL LAB 785-6(LOINC) MCH RBC Qn Auto 30.8 26.0-34.0 p g LAB 786-4(LOINC) MCHC RBC Auto-mCnc 32.7 30.5-36.0 g/dL LAB 74119-4(LOINC) RDW RBC-Rto 12.3 11.5-15.0 % LAB 777-3(LOINC) Platelet # Bld Auto 225 150-400 k/uL LAB 47118-3(LOINC) PMV Bld Auto 10.8 9.0-12.7 fL LAB 770-8(LOINC) Neutrophils/leuk NFr Bld Auto 37.5 % LAB 751-8(LOINC) Neutrophils # Bld Auto 1.20 Low 1.45-7.50 k/uL LAB 736-9(LOINC) Lymphocytes/leuk NFr Bld Auto 53.1 % LAB 731-0(LOINC) Lymphocytes # Bld Auto 1.70 1.00-4.00 k/uL LAB 5905-5(LOINC) Monocytes/leuk NFr Bld Auto 7.8 % LAB 742-7(LOINC) Monocytes # Bld Auto 0.25 <0.87 k/uL LAB 713-8(LOINC) Eosinophil/leuk NFr Bld Auto 1.6 % LAB 711-2(LOINC) Eosinophil # Bld Auto 0.05 <0.46 k/uL LAB 706-2(LOINC) Basophils/leuk NFr Bld Auto 0.0 % LAB 704-7(LOINC) Basophils # Bld Auto <0.03 <0.11 k/uL LAB 66065-1(LOINC) Imm Granulocytes/rowan k NFr Bld Auto 0.0 % LAB 26036-2(LOINC) Imm Granulocytes # Bld Auto <0.03 <0.10 k/uL LAB 44180-8(LOINC) nRBC/100 WBC Bld-Rto 0.0 /100 WBC LAB 771-6(INC) nRBC # Bld Auto <0.01 <0.01 k/u L LAB 84578-7(INC) Differential method Bld Auto Performed By: #### 04339-7 # ### [facility] CLIA [id number] [address] [place] [address] [place] INSULIN SERPL-ACNC Collected: 5 7:33 AM Status: F Source: [facility] Order Comment: Specimen Type : BLOOD SPECIMEN Ordering Facility: [facility] Address: [address] [place] [address] TYPE CODE TESTS RESULT OUT OF RANGE REFERENCE UNITS LAB 04157-7([facility]) Insulin SerPl-aCnc 7.0 2.6-24.9 uU/mL Result Comment: Reference in tervals established for fasting specimens. Performed By: #### 28218-8 # ### [facility] CLIA [id number] [address] [place], [place] [address] [place] PTH-INTACT SERPL-MCNC Collected: 04/05/2025 7:33 AM Status: F Source: [facility] Comment: Specimen Type : BLOOD SPECIMEN Ordering Facility: [facility] Address: [address] [place] [address] TYPE CODE TESTS RESULT OUT OF RANGE REFERENCE UNITS LAB 2731-8(LOINC) PTH-Intact SerPl-mCnc 39 15-65 pg/mL Performed By: #### 2731-8, 2 132-9, 2284-8 #### [facility] CLIA [id number] [address] [place] [address] [place] VIT B12 SERPL-MCNC Collected: 04/05/2025 7:33 AM Sta tus: F Source: [facility] Comment: Specimen Type : BLOOD SPECIMEN Ordering Facility: [facility] Address: [address] [place] [address] TYPE CODE TESTS RESULT OUT OF RANGE REFERENCE UNITS LAB 2132-9(LOINC) Vit B12 SerPl-mCnc >2000 High 232-1245 pg/mL Performed By: #### 2731-8, 2 132-9, 2284-8 #### [facility] CLIA [id number] [address] [place] [address] [place] FOLATE SERPL-MCNC Collected: 04/05/2025 7:33 AM Stat us: F Source: [facility] Comment: Specimen Type : BLOOD SPECIMEN Ordering Facility: [facility] Address: [address] [place], [place] [address] TYPE CODE TESTS RESULT OUT OF RANGE REFERENCE UNITS LAB 2284-8(LOINC) Folate SerPl-mCnc 7.5 >4.7 ng/mL Performed By: #### 2731-8, 2 132-9, 2284-8 #### [facility] CLIA [id number] [address] [place], [place] [address] [place] 25(OH)D3 SERPL-MCNC Collected: 04/05/2025 7:[address] atus: F Source: [facility] Order Comment: Specimen Type : BLOOD SPECIMEN Ordering Facility: [facility] Address: [address] [place] [address] TYPE CODE TESTS RESULT OUT OF RANGE REFERENCE UNITS LAB 1988-11(LOINC) 25(OH)D3 SerPl-mCnc 51.7 31.0-80.0 ng/mL Performed By: #### 1988-11 ## ## [facility] CLIA [id number] [address] [place] [address] [place] PROGRESS Observed: 04/03/2025 1:30 PM Status: COMPLETED Source: [facility] HNO ID: [id number] Author: TRACEY PEÑA APRN.MANAGER ADMINISTRATIVE SERVICES Service: ? Author Type: Nurse Practitioner Type: Progress Notes Filed: 04/03/2025 14:05 Note Text: Glenna Turner MD [address] [facility] [address] GI/Bariatric Endoscopy Clinic Visit Gastroenterology, Hepatology, and Nutrition Department ?[facility] [place] ([facility]) ? 04/03/2025 ? The patient encounter is a virtual/telephone visit today, 04/03/2025, in lieu of an office visit due to the current COVID-19 pandemic crisis and need for social distancing. Reason for Visit: Complications of bariatric surgery s/p RYGB c/b weight gain, overweight and medical weight management Patient is: Established patient Location of Provider: Hospital Location of Patient: Home Consent for virtual care, including informing the patient that insurance will be billed, and that in-person care is available in case of emergencies or as needed otherwise, was discussed at the time of scheduling. Dear Glenna Turner MD, ? I had the pleasure of seeing Elvia Schmidt in the [facility] for complications of bariatric surgery s/p RYGB c/b weight gain, overweight and medical weight management ?? The patient is a 55 year old female with past medical history as below presenting to us with complications of bariatric surgery s/p RYGB c/b weight gain, overweight and medical weight management. Interval: The patient is a 55-year-old female presenting for follow-up regarding weight management and dumping syndrome. She reports significant improvement in her symptoms since starting acarbose, stating that she no longer experiences nausea and that her symptoms are now normal. She denies any side effects from acarbose. She attributes her improvement to a combination of interventions, including being diligent about not drinking fluids with meals and ensuring that when she consumes carbohydrates, she also includes sufficient protein. She continues to focus on eating small, frequent meals, solids from liquids, and avoiding simple sugars. Her current medications include acarbose (25 mg TID), tirzepatide (Mounjaro) 2.5 mg, and Adderall for attention deficit disorder (different prescriber). She confirms that she is no longer taking metformin we stopped at last visit. She also reports taking a multivitamin with iron and vitamin D, vitamins checked last year vitamin D was elevated will repeat labs. She states that her weight has remained stable, stays around 155 lbs. Prior History taken from on 09/09/2022: Elvia Schmidt has a history of besity class I, vitamin D deficiency, migraines, nonruptured cerebral aneurysm, uterus, fibroid, ovarian cyst, cervicalgia, vertigo Elvia Schmidt underwent RYGB with Dr. Hernandez in 2006. Heaviest weight 388 lbs. Her prebypass weight was 341 pounds with a post bypass alvin weight of 175 pounds, over 1 years. The patient then experienced weight regain in 2019 during pandemic and now weighs 202 lbs. She reports gaining weight, gained 2 lbs after stopping Mounjaro. She was taking 12.5 mg Mounjaro was stopped after side effects of dizziness, confusion, weakness, blurry vision, headache, numbness and tingling of lips, echo in ears. Patient was started on Metformin, reports weight gain of 2 lbs, no side effects. Patient has tried to control the diet and be able to lose weight up to 5 lbs however regain weight. Unfortunately, the patient would subsequently experience rebound weight regain following lifestyle modification interventions (diet + exercise). Patient has tried increasing physical activity or exercise, Keto diet, high protein/low carb sugar diets, multiple dietitian healthy diets (low carbs, low fat, high protein diets). Patient is currently on topamax for migraines. She is not interested in revisional bariatric surgery as she reports having difficulty with PO intake and severe nausea and vomiting after RYGB. Exercise is below recommended 150-200 mins per week however she plans on increasing physical activity and riding her stationary bike. 24 hrs Diet recall: See last dietitian note Wakes up to eat: No Current Exercise Activity: Walking has 2 dogs now. Stairs and walking daily 30 mins each time. And yard work Weight History: Heaviest weight: 388 lbs (BMI 62.6) Pre-RYGB weight: 341.8 lbs (BMI 56.01). Post-RYGB alvin: 175 lbs (BMI 28.2). Wt 70.3 kg (155 lb) LMP 11/07/2009 BMI 25.02 kg/m? LMP 11/07/2009 Goal weight BMI < 27: 162.3 Goal weight BMI < 30: 180.3 Last 5 Encounter Wt Readings: Date: Wt: 02/01/2025 72.3 kg (159 lb 6.3 oz) 11/29/2024 71.7 kg (158 lb) 11/07/2024 73 kg (160 lb 15 oz) 07/01/2024 72.6 kg (160 lb 0.9 oz) 05/02/2024 71.4 kg (157 lb 6.5 oz) Risk factors: Tobacco use: No EtOH intake: No NSAIDs: No H. Pylori: No Relevant Medications: Omeprazole OTC Mounjaro 10 mg weekly Wellbutrin Topamax for migraines Metformin stopped Acarbose 25 mg TID Vitamins/Minerals Supplements: MVI, Vit D, B12, C, iron, calcium, biotin Relevant Bariatric Procedures/Surgeries Bariatric Surgeon: Dr. 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 IV, or unspecified(403.90) Variants of migraine, not elsewhere classified, with intractable migraine, so stated, without mention of status migrainosus Past Surgical History: PAST SURGICAL HISTORY Procedure Laterality Date CHOLECYSTECTOMY 1994 lap COLONOSCOPY FLX DX W/COLLJ SPEC WHEN PFRMD 10/27/2018 Colonoscopy EGD 11/29/2020 EXC BREAST LES PREOP PLMT RAD MARKER OPEN 1 LES 09/02/2011 LEFT HYSTERECTOMY HX 2016 total robotic with bso LAP AURY Y BYPASS BAND OUTLET NOVASURE 11/27/2009 PAST SURGICAL HISTORY OF 09/01/2007 gastric bypass surgery PREOP PLACEMENT NEEDLE LOC 09/02/2011 LEFT THERAPEUTIC SPINAL PUNCTURE DRAINAGE CSF 02/14/2011 TONSILLECTOMY PRIMARY/SECONDARY <AGE 12 1975 Tonsillectomy Medications: Current Outpatient Medications Medication Sig Dispense Refill clonazePAM (KLONOPIN) 0.5 mg tablet Take 1 tablet by mouth two times a day as needed for anxiety for up to 30 days. 60 tablet 0 hyoscyamine sublingual (LEVSIN SL) 0.125 mg DISSOLVE 1 TABLET UNDER THE TONGUE EVERY 4 HOURS NEEDED (ABDOMINAL SPASMS) 30 tablet 0 acarbose (PRECOSE) 25 mg tablet Take 1 tablet by mouth three times a day with meals. 270 tablet 2 nystatin (NYSTOP) powder Apply 1 application to affected area four times daily. 60 g 4 tirzepatide (MOUNJARO) 2.5 mg/0.5 mL pen injector Inject 2.5 mg subcutaneously one time a week. 6 mL 0 metFORMIN (GLUCOPHAGE) 1,000 mg tablet TAKE 1 TABLET BY MOUTH EVERY DAY WITH DINNER 90 tablet 0 tiZANidine (ZANAFLEX) 4 mg tablet Take 1.5 tablets by mouth daily at bedtime. Take 1 to 1.5 tablets in the morning as needed for breakthrough muscle spasm 270 tablet 3 rimegepant (NURTEC ODT) 75 mg disintegrating tablet Take 1 tablet by mouth once daily as needed. Max 1 per day 8 tablet 5 amphetamine-dextroamphetamine (ADDERALL) 15 mg tablet Take 1 tablet by mouth two times a day for 30 days. 60 tablet 0 amphetamine-dextroamphetamine (ADDERALL) 15 mg tablet Take 1 tablet by mouth two times a day for 30 days. Patient should start on April 02, 2025. 60 tablet 0 amphetamine-dextroamphetamine (ADDERALL) 15 mg tablet Take 1 tablet by mouth two times a day for 30 days. Patient should start on March 03, 2025. 60 tablet 0 ondansetron orally disintegrating (ZOFRAN ODT) 4 mg disintegrating tablet Take 1 tablet by mouth every 6 hours as needed for nausea/vomiting. 30 tablet 1 amphetamine-dextroamphetamine (ADDERALL) 15 mg tablet Take 1 tablet by mouth two times a day for 30 days. Patient should start on December 08, 2024. 60 tablet 0 amphetamine-dextroamphetamine (ADDERALL) 15 mg tablet Take 1 tablet by mouth two times a day for 30 days. Patient should start on January 07, 2025. 60 tablet 0 buPROPion XL (WELLBUTRIN XL) 300 mg 24 hr tablet Take 1 tablet by mouth once daily. 90 tablet 3 topiramate (TOPAMAX) 50 mg tablet Take 3 tablets by mouth daily at bedtime. May also take 0.5 tablets once daily as needed (for breakthrough migraines). Take 50 mg at bedtime. May take an additional 25mg as needed in AM for breakthrough headaches.. 290 tablet 3 Olopatadine 0.6 % spry Use 1 or 2 sprays once or twice daily for allergic rhinitis. 91.5 g 3 lisinopril (ZESTRIL) 20 mg tablet Take 1 tablet by mouth once daily. 90 tablet 3 esomeprazole (NEXIUM 24HR) 20 mg capsule Take 1 capsule by mouth twice daily at 6AM and 9PM. multivitamin (ONE-A-DAY ESSENTIAL ORAL) Take 1 tablet by mouth once daily. BIOTIN 2,500 MCG CAP take 5,000 mcg once a day 0 0 calcium carbonate/vitamin d3(CALCIUM 600 + D(3) 600 MG (1,500)-200 UNIT TAB) Take one(1) tablet twice daily. 0 0 No current facility-administered medications for this visit. Allergies: ALLERGIES Allergen Reactions Ethinyl Estradiol Rash, Other: See Comments Nuvaring [Etonogest* Rash Percocet [Oxycodone* Itching Family History: No known colon cancer, polyps, IBD, celiac disease, pancreatic disease, or liver disease. FAMILY HISTORY Problem Relation Age of Onset Cancer Mother Liver Hypertension Father Cancer Maternal Grandfather prostate ? Social History: Social History Tobacco Use Smoking status: Never Smokeless tobacco: Never Vaping Use Vaping status: Never Used Substance Use Topics Alcohol use: Yes Comment: Occasionally Drug use: No Comment: h/ THC use in past Tobacco: Tobacco Use: Never Alcohol: Alcohol Use: Yes (Occasionally) Illicits: Drug Use: No (h/ THC use in past) Review of Systems: Review of Systems Constitutional: (-) fatigue Cardiovascular: (-) palpitations Gastrointestinal: (-) abdominal pain, (-) nausea, (-) abdominal cramping, (-) diarrhea, (-) heartburn, (-) constipation Skin: (-) no new skin issues Neurological: (-) dizziness, (-) lightheadedness, (-) syncope 12 point ROS otherwise negative. Physical Examination: Wt 70.3 kg (155 lb) LMP 11/07/2009 BMI 25.02 kg/m? Physical Exam virtual/videocall encounter: Patient reported height 5'6 and weight 155 lbs LMP 11/07/2009 General - cooperative, in no acute distress Able to interact verbally by video conference Psych - ORIENTATION: normal to time place, person and situation Mood/Affect: AFFECT AND MOOD: Normal Head/Neuro - Normal size and shape Facial appearance normal Pulmonary - respiratory effort normal Cardiovascular - patient describes extremities normal, warm, no cyanosis,no clubbing and no edema Abdominal - (-) abdominal pain, (-) nausea, (-) abdominal cramping, (-) diarrhea, (-) heartburn, (-) constipation Skin - abnormal lesions not visualized Motor - patient seen sitting with Normal appearing strength and coordination ? Laboratory Data: Lab Results Component Value Date WBC 3.89 11/12/2023 WBC 4.34 10/06/2022 WBC 4.49 02/12/2022 HCT 39.4 11/12/2023 HCT 42.8 10/06/2022 HCT 39.7 02/12/2022 PLT 260 11/12/2023 PLT 334 10/06/2022 PLT 305 02/12/2022 Lab Results Component Value Date ALB 4.4 11/12/2023 TBILI 0.4 11/12/2023 Lab Results Component Value Date INR 1.0 07/23/2021 No components found for: VITDT, 25VITD, 25OHVITAMIND Lab Results Component Value Date B12 >2,000 (H) 11/12/2023 TSH Date Value Ref Range Status 02/01/2025 0.853 0.270 - 4.200 mIU/L Final No components found for: GHBA1C, [id number] WBC (k/uL) Date Value 11/12/2023 3.89 RBC (m/uL) Date Value 11/12/2023 4.33 Hemoglobin (g/dL) Date Value 11/12/2023 13.4 Hematocrit (%) Date Value 11/12/2023 39.4 MCV (fL) Date Value 11/12/2023 91.0 MCH (pg) Date Value 11/12/2023 30.9 MCHC (g/dL) Date Value 11/12/2023 34.0 RDW-CV (%) Date Value 11/12/2023 13.0 Platelet Count (k/uL) Date Value 11/12/2023 260 MPV (fL) Date Value 11/12/2023 10.3 Potassium (mmol/L) Date Value 02/01/2025 4.0 07/23/2021 4.1 Sodium (mmol/L) Date Value 02/01/2025 140 07/23/2021 140 Magnesium (mg/dL) Date Value 10/06/2022 2.3 07/23/2021 2.3 Creatinine (mg/dL) Date Value 02/01/2025 0.76 07/23/2021 0.84 BUN (mg/dL) Date Value 02/01/2025 22 07/23/2021 18 Glucose (mg/dL) Date Value 02/01/2025 78 07/23/2021 61 PT INR (no units) Date Value 07/23/2021 1.0 TSH Date Value 02/01/2025 0.853 mIU/L 01/04/2020 1.630 uU/mL d Dimer (ng/mL FEU) Date Value 05/28/2016 320 Glucose (mg/dL) Date Value 02/01/2025 78 BUN (mg/dL) Date Value 02/01/2025 22 (H) Creatinine (mg/dL) Date Value 02/01/2025 0.76 Sodium (mmol/L) Date Value 02/01/2025 140 Potassium (mmol/L) Date Value 02/01/2025 4.0 Chloride (mmol/L) Date Value 02/01/2025 106 CO2 (mmol/L) Date Value 02/01/2025 26 Protein, Total (g/dL) Date Value 11/12/2023 7.5 Albumin (g/dL) Date Value 11/12/2023 4.4 Calcium, Total (mg/dL) Date Value 02/01/2025 9.7 Alkaline Phosphatase (U/L) Date Value 11/12/2023 76 Bilirubin, Total (mg/dL) Date Value 11/12/2023 0.4 AST (U/L) Date Value 11/12/2023 28 ALT (U/L) Date Value 11/12/2023 25 Glucose (mg/dL) Date Value 02/01/2025 78 07/23/2021 61 Creatinine (mg/dL) Date Value 02/01/2025 0.76 07/23/2021 0.84 Potassium (mmol/L) Date Value 02/01/2025 4.0 07/23/2021 4.1 AST (U/L) Date Value 11/12/2023 28 07/23/2021 33 ALT (U/L) Date Value 11/12/2023 25 07/23/2021 24 Hemoglobin A1C (%) Date Value 11/12/2023 5.0 12/19/2020 5.3 Cholesterol, Total (mg/dL) Date Value 11/12/2023 183 04/09/2019 178 HDL Cholesterol (mg/dL) Date Value 11/12/2023 76 04/09/2019 57 ] LDL Cholesterol, Calculated (mg/dL) Date Value 11/12/2023 98 04/09/2019 103 Triglyceride (mg/dL) Date Value 11/12/2023 43 04/09/2019 88 ] Imagin06/24/2022 CT ABD/PEL IMPRESSION: NO ACUTE FINDINGS IN THE ABDOMEN AND PELVIS. AURY-EN-Y GASTRIC BYPASS SURGERY. NO DILATED BOWEL. 04/28/2022 Fibroscan Impression. The reading was adequate, and corresponds to Fibrosis stage F0-F1 (No significant fibrosis) and steatosis grade of S2. Endoscopy: 07/24/2021 Enteroscopy Findings: The examined esophagus was normal. Evidence of a Aury-en-Y gastric bypass (RYGB) was found. The gastrojejunal anastomosis (GJA) was characterized by normal appearing mucosa. No ulcers, erosion or david. The GJA outlet was dilated 25 mm diameter and was traversed. The gastric pouch extended from 39 cm to 40 cm from the incisors. The jejunum was normal at 65 cm (both Aury/alimentary and blind limbs). There was severe angulation and resistance, and the JJ could not be reached despite multiple maneuvers (balloon enteroscope, scope stiffner wire, change patient's position, abdominal pressure). Impression: - Normal esophagus. - RYGB anatomy. - Normal examined jejunum. - No specimens collected. Estimated Blood Loss: Estimated blood loss: none. Assessment and Recommendations: ??55 year old female with history as per HPI obesity class I s/p RYGB, vitamin D deficiency, migraines, nonruptured cerebral aneurysm, uterus, fibroid, ovarian cyst, cervicalgia, vertigo, presenting to GI/Bariatric Endoscopy clinic for complications of bariatric surgery s/p RYGB c/b weight gain, overweight and weight management. Patient originally seen in GI bariatric for marginal ulcer and chronic abdominal pain following RYGB, work up negative and she was started on AOM for management of obesity. Interval: Doing well with diet and lifestyle modifications and Acarbose. On mounjaro and adderall. Weight History: Heaviest weight: 388 lbs (BMI 62.6) Pre-RYGB weight: 341.8 lbs (BMI 56.01). Post-RYGB alvin: 175 lbs (BMI 28.2). weight: 245 lbs (BMI 39.54) -Marginal ulcer weight: 240 lbs (BMI 38.74) Initial program Weight: 245 lbs - our program AOM mounjaro started Weight 219 lbs (BMI 35.35) continues to follow program on mounjaro weight is 175 lbs (BMI 28) following program +AOM weight is 165 lbs (BMI 26.63) following program +AOM weight is 160 lbs (BMI 25.82) following program +AOM weight 155 lbs (BMI 25) weight is 161 lbs (BMI 25.99) following program +AOM weight is 154 lbs (BMI 24.8) following program +AOM weight: 158 lbs (BMI 25.50) +AOM Todays weight: 155 lbs (BMI 25) +AOM Recommendations: We discussed your diabetes and gastrointestinal symptoms: - Continue taking Acarbose (Precose) 25 mg TID at the current dose, as it is helping to manage your symptoms without side effects. If you experience worsening symptoms such as episodes of dumping, return to your dietary changes (e.g., solids and liquids, eating small frequent meals, and avoiding simple sugars). If symptoms persist, we may consider increasing the dose. - Maintain your current dietary habits, including eating protein with carbohydrates, focusing on lean proteins, vegetables, and fiber-rich whole grains, and avoiding simple sugars. - You have enough Acarbose for now. We will follow up in 2 months to ensure you do not run out. We discussed your weight management and medications: - Continue taking Mounjaro (tirzepatide) 2.5 mg as prescribed. You have four refills remaining, and the prescription is valid until the end of May. If you need a refill before your next visit, please call or message the office. - Your weight appears stable. Continue monitoring it as needed. - We stopped Metformin last visit. We discussed your vitamin levels and lab work: - Repeat your vitamin labs, including vitamin D, as your levels were elevated last year, and we want to reassess. Do not take your vitamins right before the blood draw, as this may affect the results. - A lipid panel (cholesterol test) will also be included as part of your yearly check-up. - You must fast for 12 hours before these labs. Stay hydrated with water during the fasting period. - You can complete these labs at any [facility] lab or a local lab. If you prefer a local lab, please provide a fax number for us to send the orders. We discussed your follow-up plan: - A follow-up visit is scheduled in 2 months (early May). This will be a virtual visit unless you need to reschedule. You will receive a message in your [employer] [place] with scheduling details. - Continue to follow up with dietitian - If you need to adjust the timing of your visit or refill prescriptions earlier, please call or message the office. Please continue your current medications and dietary habits, and let us know if you experience any new or worsening symptoms. VIRTUAL VISIT I spent a total of 35 minutes during this real-time, interactive virtual clinical encounter, which was conducted virtually using HIPAA compliant videoconferencing technology. Greater than 50% of the time spent was devoted to counseling and coordinating care including review of records, pertinent lab data and studies, as well as discussing diagnostic evaluation and work up, planned therapeutic interventions and future disposition of care. This includes any additional research needed to obtain further information in formulating the plan of care of this patient. This includes counseling the patient about her disease and diagnosis, specifically: complications of bariatric surgery, overweight and weight management We reviewed coronavirus precautions including avoiding public places, maintaining 6 feet of distance from other persons when in public, no sick contacts, and fastidious handwashing. Thank you for allowing me to participate in the care of your patient. If you have any questions or concerns, please feel free to contact me. Tracey Peña APRN.MANAGER ADMINISTRATIVE SERVICES GI Bariatric Endoscopy 04/03/2025 2:04 PM PROGRESS Observed: 03/31/2025 8:00 AM Status: COMPLETED Source: [facility] HNO ID: [id number] Author: GREGORY GONZALES RD Service: ? Author Type: Registered Dietitian Type: Progress Notes Filed: 03/31/2025 10:11 Note Text: The [facility] Nutrition Therapy: Virtual Consult - Re-assessment I have communicated my name and active licensure. The patient?s identity and physical location were verified at the time of this visit. Either the patient or their legal cash application representative has been informed of the risks and benefits of -- and alternatives to -- treatment through a remote evaluation and consents to proceed with the evaluation remotely. Nutrition Diagnosis: Altered Gastrointestinal Tract Function, related to, S/P bariatric surgery, as evidenced by surgical and weight history. RECOMMENDED MALNUTRITION DIAGNOSIS: NO MALNUTRITION IDENTIFIED NUTRITION CARE PLAN: Nutrition Intervention 03/31/2025: Modify type and amount of food consumed for meals and snacks: Vitamins and Minerals - OK to use a bariatric multivitamin: - Bariatric Fusion: 4 Complete Chewable Multivitamins per day (2 in the AM, 2 in the PM) [email or web address] - Celebrate: 2 Multivitamins (chewables) OR 3 Multivitamin (capsules) PLUS 3 Calcium Citrate Soft Chews per day and Iron (chewable, capsule, or soft chew for a total of 45-60 mg per day) * Multivitamins DO NOT have iron in them [email or web address] - [employer] [facility]: 1 Multivitamin capsule and Calcium Citrate (total of 5800-3486 mg/day) * take calcium citrate separately from Multivitamin with iron at least 2 hours apart and 4 hours apart from additional calcium www.[employer] - Bariatric Choice: 4 Multivitamins (chewables) per day [email or web address] - Bariatric Advantage: 2 Multivitamins and 3 Calcium Citrate Chewables per day * take calcium citrate separately from Multivitamin with iron at least 2 hours apart and 4 hours apart from additional calcium [email or web address] The goal in managing reactive hypoglycemia is to slow down the rate at which glucose enters the bloodstream. This can be attained through these guidelines: Eating small meals/snacks every 3 hours. By eating smaller meals throughout the day, you are providing energy your body needs without overloading glucose into the bloodstream. Follow MyPlate guidelines. This will provide you with the nutrients your body needs, as well as provide a healthy balance of carbohydrates, protein, and fat to help regulate your blood glucose levels. Information can be found at https://www.myplate.gov/ Include foods that are high in fiber. Fiber decreases the time that it takes to absorb glucose, providing a steady release of glucose into the bloodstream. Include protein with meals and snacks. Proteins have minimal effect on blood sugars but do provide satiety and calories. They may also slow down digestion of carbohydrates. Limit or avoid foods high in simple sugars and sweets such as soda pop, sports drinks, fruits juices, corn syrups, honey, candy, pies, cakes, pastries, jelly, and sugar, especially on an empty stomach. These foods can make symptoms worse. Alcoholic beverages should be limited, as they can decrease blood glucose levels, recommended to be avoided post bariatric surgery. Limit beverages that contain caffeine. Caffeine can prevent blood flow to the brain during episodes of hypoglycemia, causing you to feel worse. Caffeine post bariatric surgery can also increase your risk of dehydration. Exercise regularly. Try to exercise at the same time every day. Make sure that you have eaten a meal 1-3 hours before physical activity. Additional sources of carbohydrate may be needed to compensate for the additional use of energy. If you experience an episode of hypoglycemia, DO NOT use a simple sugar (like candy or juice) to compensate. This will raise blood sugars quickly, but then the body will try to use it rapidly, causing another episode. Instead, have a snack of a protein with a complex carbohydrate such as an apple with peanut butter or crackers with cheese. Nutrition Monitoring AND Evaluation: Adherence to nutrition recommendations Need for Follow up: as needed PROGRESS: Interval History: Nutrition follow up in preparation for GI/bariatric endoscopy procedure, interested in EGBR. S/p RYGB in 2006. Patient started on acarbose with some relief of symptoms. and continues on tirzepitide for dumping syndrome and reactive hypoglycemia. Since last encounter patient has gained 1 lbs. Diet recall reveals continued eating and meal pattern. She is trying to balance meals for healthy plate portions and improved management of dumping with smaller carbohydrate portions and pairing with protein. Meeting protein and fluids needs most days. eating and drinking as recommended. Water is primary beverage and patient is consuming sufficient fluids daily. Taking most vitamins per guidelines. Exercise is routine with walking dogs daily and increasing activity with [employer] work. After session today, patient able to verbalize protein/fluid/exercise goals, recommendations for vitamin/minerals, use of protein shakes during post-procedure liquid diet. Also able to demonstrate post-procedure diet advancement/portion control using food models. Anticipate post-procedure compliance. Nutrition Intervention 02/08/25 Continue with three balanced meals per day (1/2 plate of nonstarchy vegetables, 1/4 plate lean protein, 1/4 plate complex carbohydrates) Use protein shake as needed 64 oz of water per day Continue to increase exercise as able (cardio + strength training) Vitamins and Minerals - OK to use a bariatric multivitamin: - Bariatric Fusion: 4 Complete Chewable Multivitamins per day (2 in the AM, 2 in the PM) [email or web address] - Celebrate: 2 Multivitamins (chewables) OR 3 Multivitamin (capsules) PLUS 3 Calcium Citrate Soft Chews per day and Iron (chewable, capsule, or soft chew for a total of 45-60 mg per day) * Multivitamins DO NOT have iron in them [email or web address] - [employer] [facility]: 1 Multivitamin capsule and Calcium Citrate (total of 2017-7652 mg/day) * take calcium citrate separately from Multivitamin with iron at least 2 hours apart and 4 hours apart from additional calcium [email or web address] - Bariatric Choice: 4 Multivitamins (chewables) per day [email or web address] - Bariatric Advantage: 2 Multivitamins and 3 Calcium Citrate Chewables per day * take calcium citrate separately from Multivitamin with iron at least 2 hours apart and 4 hours apart from additional calcium [email or web address] Actions to implement interventions: see assessment Diet History: Breakfast - protein shake Snack - string cheese and fruit Lunch - salad with protein (chicken, salmon, tuna) OR black beans and vegetables Snack - fruit with nuts or peanut butter Dinner - crockpot; protein (pork, roast, chicken breast, hamburger) with starch (sweet potato, corn) and salad Snack - none Beverages - water (64 oz per day) Alcohol - none Vitamins/Supplements - , zinic, vitamin B12, calcium citrate with vitamin D (2 a day), biotin, iron Activity: 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 Resting Metabolic Rate: 1322 Malnutrition Screening Significant unintentional weight loss? No Eating less than 75% of usual intake for more than 2 weeks? No Potential Signs of Inflammation: no identifiable sources Nutritional status: Food Insecurity: No Food Insecurity (03/31/2025) Hunger Vital Sign Worried About Running Out of Food in the Last Year: Never true Ran Out of Food in the Last Year: Never true Education Materials Provided: None this visit READINESS TO LEARN Cognitive ability: Alert and oriented Motivation to learn: Interested Family support: Unable to assess - Family not present Instruction provided to: Patient Patient learns best by: Multiple Methods Factors affecting learning: None Physical limitations affecting learning: None Likelihood of Adherence: Moderate Referred by: Dr. Allen MNT Billing Type: Re-assess 2 units Total Time (mins): 30 SIGNATURE: Gregory Gonzales RD PATIENT NAME: Elvia Schmidt DATE: March 31, 2025 TIME: 8:00 AM PAGER: N/A PROGRESS Observed: 03/06/2025 1:00 PM Status: COMPLETED Source: [facility] HNO ID: [id number] Author: TRACEY PEÑA APRN.CNP Service: ? Author Type: Nurse Practitioner Type: Progress Notes Filed: 03/07/2025 09:53 Note Text: Glenna Turner MD [address] [place] [address] GI/Bariatric Endoscopy Clinic Visit Gastroenterology, Hepatology, and Nutrition Department ?[facility] [place] ([facility] ? 03/06/2025 ? The patient encounter is a virtual/telephone visit today, 03/06/2025, in lieu of an office visit due to the current COVID-19 pandemic crisis and need for social distancing. Reason for Visit: Complications of bariatric surgery s/p RYGB c/b weight gain, overweight and medical weight management Patient is: Established patient Location of Provider: Hospital Location of Patient: Home Consent for virtual care, including informing the patient that insurance will be billed, and that in-person care is available in case of emergencies or as needed otherwise, was discussed at the time of scheduling. Dear Glenna Turner MD, ? I had the pleasure of seeing Elvia Schmidt in the [facility] GI/Bariatric Endoscopy Clinic for complications of bariatric surgery s/p RYGB c/b weight gain, overweight and medical weight management ?? The patient is a 54 year old female with past medical history as below presenting to us with complications of bariatric surgery s/p RYGB c/b weight gain, overweight and medical weight management. Interval: The patient is a 54-year-old female with a history of gastric bypass, presenting for evaluation of worsening postprandial symptoms, including abdominal pain, nausea, and features suggestive of dumping syndrome and reactive hypoglycemia. She reports that her symptoms have worsened since approximately November, with recurrence of pain in her side at the same location and with the same character as her prior ulcer pain. The pain comes and goes and is not present with every meal. She also experiences nausea every time she eats, which she describes as consistent with her prior episodes attributed to dumping syndrome. She notes that the nausea is severe enough that she requires ondansetron (Zofran) almost daily to manage symptoms. She also reports cramping, diarrhea 1 hour after eating, and denies constipation. Additional symptoms include abdominal pain, cramping, bloating,flushing, heart palpitations, dizziness, lightheadedness, fatigue, and weakness, all of which she experiences after meals. She describes episodes of reactive hypoglycemia, checking her blood sugars at home whenever she feels symptomatic. The lowest recorded blood glucose was 42 mg/dL, which improved after taking glucose tablets. She denies any episodes of fainting. She reports strong cravings for sweets, which she has not experienced in 15 years, and occasionally consumes candy such as Tootsie Rolls or suckers, but does not specifically associate these with worsening symptoms. She notes that her most severe episode of illness occurred about an hour after eating chili for lunch. Her current weight is 158 lbs. She follows a diet focused on small, frequent meals with an emphasis on protein, as previously advised. Typical foods include sausage, cabbage, string cheese, oranges, peanut butter with celery or apples, hummus with carrots, salad wraps, nuts, cheese, and vegetable kebabs. She reports snacking on sweets occasionally due to cravings but otherwise maintains a high-protein, high-fiber diet. Her current medications include tirzepatide (Mounjaro) at 2.5 mg, metformin 1,000 mg at dinner (recently advised to stop), topiramate (Topamax) at bedtime for migraines, Adderall 15 mg, bupropion (Wellbutrin) 300 mg in the morning, esomeprazole (Nexium) as needed (not taken daily, as she does not have heartburn or reflux symptoms), hyoscyamine (Levsin) as needed for pain and cramping, and ondansetron (Zofran) for nausea. She reports that hyoscyamine provides some relief for pain and cramping, and that Zofran helps her keep food down. She also uses nystatin powder for skin issues related to rash and chafing. She underwent an enteroscopy in 2020, which showed a dilated outlet (25 mm) and a small pouch (1 cm). She last had a CT scan in 2021, which showed post-surgical changes of gastric bypass without evidence of mass, dilation, or wall thickening. She has had her gallbladder removed. She denies current heartburn or reflux symptoms and does not take Nexium daily. She reports that her symptoms are not heartburn-related and localizes her pain to the area of her remnant stomach. She has had difficulty scheduling with a can filler as previously recommended. (2021) CT Scan of the Abdomen and Pelvis with Contrast: No masses in spleen, pancreas, or kidneys. No significant dilation or wall thickening. Post-surgical changes of Aury-en-Y gastric bypass. No dilated bowel. (2020) Enteroscopy: Gastric outlet dilated to 25 mm (normal ~15 mm). Pouch measured 1 cm. Prior History taken from on 09/09/2022: Elvia Schmidt has a history of besity class I, vitamin D deficiency, migraines, nonruptured cerebral aneurysm, uterus, fibroid, ovarian cyst, cervicalgia, vertigo Elvia Schmidt underwent RYGB with Dr. Hernandez in 2006. Heaviest weight 388 lbs. Her prebypass weight was 341 pounds with a post bypass alvin weight of 175 pounds, over 1 years. The patient then experienced weight regain in 2019 during pandemic and now weighs 202 lbs. She reports gaining weight, gained 2 lbs after stopping Mounjaro. She was taking 12.5 mg Mounjaro was stopped after side effects of dizziness, confusion, weakness, blurry vision, headache, numbness and tingling of lips, echo in ears. Patient was started on Metformin, reports weight gain of 2 lbs, no side effects. Patient has tried to control the diet and be able to lose weight up to 5 lbs however regain weight. Unfortunately, the patient would subsequently experience rebound weight regain following lifestyle modification interventions (diet + exercise). Patient has tried increasing physical activity or exercise, Keto diet, high protein/low carb sugar diets, multiple dietitian healthy diets (low carbs, low fat, high protein diets). Patient is currently on topamax for migraines. She is not interested in revisional bariatric surgery as she reports having difficulty with PO intake and severe nausea and vomiting after RYGB. Exercise is below recommended 150-200 mins per week however she plans on increasing physical activity and riding her stationary bike. 24 hrs Diet recall: Breakfast: sausage and cabbage Snack: none Lunch: string cheese, orange, chicken salad wraps Snack: PB and celery, humus with carrots Dinner: protein and vegetable kabobs Snack: sucker or tootsie roll Wakes up to eat: No Current Exercise Activity: Walking has 2 dogs now. Stairs and walking daily 30 mins each time. And yard work Weight History: Heaviest weight: 388 lbs (BMI 62.6) Pre-RYGB weight: 341.8 lbs (BMI 56.01). Post-RYGB alvin: 175 lbs (BMI 28.2). Ht 167.6 cm (5' 6) Wt 71.7 kg (158 lb) LMP 11/07/2009 BMI 25.50 kg/m? LMP 11/07/2009 Goal weight BMI < 27: 162.3 Goal weight BMI < 30: 180.3 Last 5 Encounter Wt Readings: Date: Wt: 02/01/2025 72.3 kg (159 lb 6.3 oz) 11/29/2024 71.7 kg (158 lb) 11/07/2024 73 kg (160 lb 15 oz) 07/01/2024 72.6 kg (160 lb 0.9 oz) 05/02/2024 71.4 kg (157 lb 6.5 oz) Risk factors: Tobacco use: No EtOH intake: No NSAIDs: No H. Pylori: No Relevant Medications: Omeprazole OTC Mounjaro 10 mg weekly Wellbutrin Topamax for migraines Metformin 1000 mg daily Vitamins/Minerals Supplements: MVI, Vit D, B12, C, iron, calcium, biotin Relevant Bariatric Procedures/Surgeries Bariatric Surgeon: Dr. 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 IV, or unspecified(403.90) Variants of migraine, not elsewhere classified, with intractable migraine, so stated, without mention of status migrainosus Past Surgical History: PAST SURGICAL HISTORY Procedure Laterality Date CHOLECYSTECTOMY 1994 lap COLONOSCOPY FLX DX W/COLLJ SPEC WHEN PFRMD 10/27/2018 Colonoscopy EGD 11/29/2020 EXC BREAST LES PREOP PLMT RAD MARKER OPEN 1 LES 09/02/2011 LEFT HYSTERECTOMY HX 2016 total robotic with bso LAP AURY Y BYPASS BAND OUTLET NOVASURE 11/27/2009 PAST SURGICAL HISTORY OF 09/01/2007 gastric bypass surgery PREOP PLACEMENT NEEDLE LOC 09/02/2011 LEFT THERAPEUTIC SPINAL PUNCTURE DRAINAGE CSF 02/14/2011 TONSILLECTOMY PRIMARY/SECONDARY <AGE 12 1975 Tonsillectomy Medications: Current Outpatient Medications Medication Sig Dispense Refill metFORMIN (GLUCOPHAGE) 1,000 mg tablet TAKE 1 TABLET BY MOUTH EVERY DAY WITH DINNER 90 tablet 0 tiZANidine (ZANAFLEX) 4 mg tablet Take 1.5 tablets by mouth daily at bedtime. Take 1 to 1.5 tablets in the morning as needed for breakthrough muscle spasm 270 tablet 3 rimegepant (NURTEC ODT) 75 mg disintegrating tablet Take 1 tablet by mouth once daily as needed. Max 1 per day 8 tablet 5 amphetamine-dextroamphetamine (ADDERALL) 15 mg tablet Take 1 tablet by mouth two times a day for 30 days. 60 tablet 0 [START ON 04/02/2025] amphetamine-dextroamphetamine (ADDERALL) 15 mg tablet Take 1 tablet by mouth two times a day for 30 days. Patient should start on April 02, 2025. 60 tablet 0 amphetamine-dextroamphetamine (ADDERALL) 15 mg tablet Take 1 tablet by mouth two times a day for 30 days. Patient should start on March 03, 2025. 60 tablet 0 clonazePAM (KLONOPIN) 0.5 mg tablet Take 1 tablet by mouth two times a day as needed for anxiety for up to 30 days. 60 tablet 0 ondansetron orally disintegrating (ZOFRAN ODT) 4 mg disintegrating tablet Take 1 tablet by mouth every 6 hours as needed for nausea/vomiting. 30 tablet 1 tirzepatide (MOUNJARO) 2.5 mg/0.5 mL pen injector Inject 2.5 mg subcutaneously one time a week. 6 mL 0 hyoscyamine sublingual (LEVSIN/SL) 0.125 mg Dissolve 1 tablet under the tongue every 4 hours as needed (abdominal spasms). 30 tablet 0 amphetamine-dextroamphetamine (ADDERALL) 15 mg tablet Take 1 tablet by mouth two times a day for 30 days. Patient should start on December 08, 2024. 60 tablet 0 amphetamine-dextroamphetamine (ADDERALL) 15 mg tablet Take 1 tablet by mouth two times a day for 30 days. Patient should start on January 07, 2025. 60 tablet 0 buPROPion XL (WELLBUTRIN XL) 300 mg 24 hr tablet Take 1 tablet by mouth once daily. 90 tablet 3 topiramate (TOPAMAX) 50 mg tablet Take 3 tablets by mouth daily at bedtime. May also take 0.5 tablets once daily as needed (for breakthrough migraines). Take 50 mg at bedtime. May take an additional 25mg as needed in AM for breakthrough headaches.. 290 tablet 3 Olopatadine 0.6 % spry Use 1 or 2 sprays once or twice daily for allergic rhinitis. 91.5 g 3 lisinopril (ZESTRIL) 20 mg tablet Take 1 tablet by mouth once daily. 90 tablet 3 esomeprazole (NEXIUM 24HR) 20 mg capsule Take 1 capsule by mouth twice daily at 6AM and 9PM. multivitamin (ONE-A-DAY ESSENTIAL ORAL) Take 1 tablet by mouth once daily. BIOTIN 2,500 MCG CAP take 5,000 mcg once a day 0 0 calcium carbonate/vitamin d3(CALCIUM 600 + D(3) 600 MG (1,500)-200 UNIT TAB) Take one(1) tablet twice daily. 0 0 No current facility-administered medications for this visit. Allergies: ALLERGIES Allergen Reactions Ethinyl Estradiol Rash, Other: See Comments Nuvaring [Etonogest* Rash Percocet [Oxycodone* Itching Family History: No known colon cancer, polyps, IBD, celiac disease, pancreatic disease, or liver disease. FAMILY HISTORY Problem Relation Age of Onset Cancer Mother Liver Hypertension Father Cancer Maternal Grandfather prostate ? Social History: Social History Tobacco Use Smoking status: Never Smokeless tobacco: Never Vaping Use Vaping status: Never Used Substance Use Topics Alcohol use: Yes Comment: Occasionally Drug use: No Comment: h/ THC use in past Tobacco: Tobacco Use: Never Alcohol: Alcohol Use: Yes (Occasionally) Illicits: Drug Use: No (h/ THC use in past) Review of Systems: Review of Systems Constitutional: (+) fatigue, (+) weakness Cardiovascular: (+) palpitations Gastrointestinal: (+) abdominal pain, (+) nausea, (+) abdominal cramping, (+) diarrhea, (-) heartburn, (-) constipation Skin: (+) flushing Neurological: (+) dizziness, (+) lightheadedness, (-) syncope Endocrine: (+) sweet cravings 12 point ROS otherwise negative. Physical Examination: Ht 167.6 cm (5' 6) Wt 71.7 kg (158 lb) LMP 11/07/2009 BMI 25.50 kg/m? Physical Exam virtual/videocall encounter: Patient reported height 5'6 and weight 158 lbs LMP 11/07/2009 General - cooperative, in no acute distress Able to interact verbally by video conference Psych - ORIENTATION: normal to time place, person and situation Mood/Affect: AFFECT AND MOOD: Normal Head/Neuro - Normal size and shape Facial appearance normal Pulmonary - respiratory effort normal Cardiovascular - patient describes extremities normal, warm, no cyanosis,no clubbing and no edema Abdominal - (+) abdominal pain, (+) nausea, (+) abdominal cramping, (+) diarrhea, (-) heartburn, (-) constipation Skin - abnormal lesions not visualized Motor - patient seen sitting with Normal appearing strength and coordination ? Laboratory Data: Lab Results Component Value Date WBC 3.89 11/12/2023 WBC 4.34 10/06/2022 WBC 4.49 02/12/2022 HCT 39.4 11/12/2023 HCT 42.8 10/06/2022 HCT 39.7 02/12/2022 PLT 260 11/12/2023 PLT 334 10/06/2022 PLT 305 02/12/2022 Lab Results Component Value Date ALB 4.4 11/12/2023 TBILI 0.4 11/12/2023 Lab Results Component Value Date INR 1.0 07/23/2021 No components found for: VITDT, 25VITD, 25OHVITAMIND Lab Results Component Value Date B12 >2,000 (H) 11/12/2023 TSH Date Value Ref Range Status 02/01/2025 0.853 0.270 - 4.200 mIU/L Final No components found for: GHBA1C, [id number] WBC (k/uL) Date Value 11/12/2023 3.89 RBC (m/uL) Date Value 11/12/2023 4.33 Hemoglobin (g/dL) Date Value 11/12/2023 13.4 Hematocrit (%) Date Value 11/12/2023 39.4 MCV (fL) Date Value 11/12/2023 91.0 MCH (pg) Date Value 11/12/2023 30.9 MCHC (g/dL) Date Value 11/12/2023 34.0 RDW-CV (%) Date Value 11/12/2023 13.0 Platelet Count (k/uL) Date Value 11/12/2023 260 MPV (fL) Date Value 11/12/2023 10.3 Potassium (mmol/L) Date Value 02/01/2025 4.0 07/23/2021 4.1 Sodium (mmol/L) Date Value 02/01/2025 140 07/23/2021 140 Magnesium (mg/dL) Date Value 10/06/2022 2.3 07/23/2021 2.3 Creatinine (mg/dL) Date Value 02/01/2025 0.76 07/23/2021 0.84 BUN (mg/dL) Date Value 02/01/2025 22 07/23/2021 18 Glucose (mg/dL) Date Value 02/01/2025 78 07/23/2021 61 PT INR (no units) Date Value 07/23/2021 1.0 TSH Date Value 02/01/2025 0.853 mIU/L 01/04/2020 1.630 uU/mL d Dimer (ng/mL FEU) Date Value 05/28/2016 320 Glucose (mg/dL) Date Value 02/01/2025 78 BUN (mg/dL) Date Value 02/01/2025 22 (H) Creatinine (mg/dL) Date Value 02/01/2025 0.76 Sodium (mmol/L) Date Value 02/01/2025 140 Potassium (mmol/L) Date Value 02/01/2025 4.0 Chloride (mmol/L) Date Value 02/01/2025 106 CO2 (mmol/L) Date Value 02/01/2025 26 Protein, Total (g/dL) Date Value 11/12/2023 7.5 Albumin (g/dL) Date Value 11/12/2023 4.4 Calcium, Total (mg/dL) Date Value 02/01/2025 9.7 Alkaline Phosphatase (U/L) Date Value 11/12/2023 76 Bilirubin, Total (mg/dL) Date Value 11/12/2023 0.4 AST (U/L) Date Value 11/12/2023 28 ALT (U/L) Date Value 11/12/2023 25 Glucose (mg/dL) Date Value 02/01/2025 78 07/23/2021 61 Creatinine (mg/dL) Date Value 02/01/2025 0.76 07/23/2021 0.84 Potassium (mmol/L) Date Value 02/01/2025 4.0 07/23/2021 4.1 AST (U/L) Date Value 11/12/2023 28 07/23/2021 33 ALT (U/L) Date Value 11/12/2023 25 07/23/2021 24 Hemoglobin A1C (%) Date Value 11/12/2023 5.0 12/19/2020 5.3 Cholesterol, Total (mg/dL) Date Value 11/12/2023 183 04/09/2019 178 HDL Cholesterol (mg/dL) Date Value 11/12/2023 76 04/09/2019 57 ] LDL Cholesterol, Calculated (mg/dL) Date Value 11/12/2023 98 04/09/2019 103 Triglyceride (mg/dL) Date Value 11/12/2023 43 04/09/2019 88 ] Imagin06/24/2022 CT ABD/PEL IMPRESSION: NO ACUTE FINDINGS IN THE ABDOMEN AND PELVIS. AURY-EN-Y GASTRIC BYPASS SURGERY. NO DILATED BOWEL. 04/28/2022 Fibroscan Impression. The reading was adequate, and corresponds to Fibrosis stage F0-F1 (No significant fibrosis) and steatosis grade of S2. Endoscopy: 07/24/2021 Enteroscopy Findings: The examined esophagus was normal. Evidence of a Aury-en-Y gastric bypass (RYGB) was found. The gastrojejunal anastomosis (GJA) was characterized by normal appearing mucosa. No ulcers, erosion or david. The GJA outlet was dilated 25 mm diameter and was traversed. The gastric pouch extended from 39 cm to 40 cm from the incisors. The jejunum was normal at 65 cm (both Aury/alimentary and blind limbs). There was severe angulation and resistance, and the JJ could not be reached despite multiple maneuvers (balloon enteroscope, scope stiffner wire, change patient's position, abdominal pressure). Impression: - Normal esophagus. - RYGB anatomy. - Normal examined jejunum. - No specimens collected. Estimated Blood Loss: Estimated blood loss: none. Assessment and Recommendations: ??54 year old female with history as per HPI obesity class I s/p RYGB, vitamin D deficiency, migraines, nonruptured cerebral aneurysm, uterus, fibroid, ovarian cyst, cervicalgia, vertigo, presenting to GI/Bariatric Endoscopy clinic for complications of bariatric surgery s/p RYGB c/b weight gain, overweight and weight management. Patient originally seen in GI bariatric for marginal ulcer and chronic abdominal pain following RYGB, work up negative and she was started on AOM for management of obesity. Interval: s/p RYGB c/b dumping syndrome. Currently on Mounjaro and metformin for weight management. Discussed stopping metformin. Starting Acarbose. Discussed diet and lifestyle modifications for dumping. Referral to endocrinology and dietitian/psychologist. Discussed EGBR for dumping. Weight History: Heaviest weight: 388 lbs (BMI 62.6) Pre-RYGB weight: 341.8 lbs (BMI 56.01). Post-RYGB alvin: 175 lbs (BMI 28.2). weight: 245 lbs (BMI 39.54) -Marginal ulcer weight: 240 lbs (BMI 38.74) Initial program Weight: 245 lbs - our program AOM mounjaro started Weight 219 lbs (BMI 35.35) continues to follow program on mounjaro weight is 175 lbs (BMI 28) following program +AOM weight is 165 lbs (BMI 26.63) following program +AOM weight is 160 lbs (BMI 25.82) following program +AOM weight 155 lbs (BMI 25) weight is 161 lbs (BMI 25.99) following program +AOM weight is 154 lbs (BMI 24.8) following program +AOM Todays weight: 158 lbs (BMI 25.50) +AOM Recommendations: We discussed your symptoms of dumping syndrome and related concerns: - I prescribed Acarbose (25 mg) to help manage your symptoms of late dumping syndrome. Start by taking it twice daily with the first bite of your meal. If tolerated, increase to three times daily with meals. Be aware that initial side effects may include abdominal bloating, gas, or diarrhea. If these side effects persist or worsen, please let me know. - Stop taking Metformin for now, as it may contribute to your low blood sugar episodes. - Continue taking your current injection medication Tirzepitide 2.5 mg may help with reactive hypoglycemia - Continue following a diet of 5-6 small meals per day, focusing on high-protein and high-fiber foods. Avoid simple sugars and separate eating from drinking by at least 30 minutes. - Monitor your blood sugar levels at home, especially if you experience symptoms of low blood sugar (e.g., shakiness, sweating). If your blood sugar drops below 70 and does not improve after consuming fast-acting glucose (e.g., glucose tablets, candy, or regular soda), seek emergency care immediately. We discussed your abdominal pain and nausea: - I sent a refill for Hyoscyamine (Levsin) to help manage abdominal pain and cramping. Dissolve it under your tongue as needed. - Continue taking Zofran as prescribed to manage nausea. Let me know if your symptoms worsen or if you need additional support. - Start taking Nexium (or another PPI) daily to help prevent potential ulcers or irritation. Let me know if this does not control your symptoms. We discussed your need for specialist care and additional support: - I referred you to Dr. Quinteros, an materials and processes manager specializing in bariatric patients and dumping syndrome. Please schedule an appointment with her by calling [phone] or [phone]. - I referred you to one of our dieticians (Gregory or Catherine) to review your diet and lifestyle modifications in detail. If you do not hear from our schedulers, please call [phone] (option [phone]) to schedule this appointment. - I also referred you to our psychologist, Dr. Rivera, to ensure comprehensive care and support. We discussed potential next steps if your symptoms do not improve: - If your symptoms worsen or do not improve with Acarbose, we may consider additional treatments, such as increasing the dose of Acarbose, OR trying Octreotide (an injectable medication), or pursuing a procedure to address your anatomy in 2020 your GJA outlet was 25 mm and 1 cm pouch. - If needed, we may repeat an EGD (upper endoscopy) to assess your anatomy and rule out ulcers or other issues. We discussed your other medications and concerns: - I sent a refill for Nystatin powder to help with skin irritation and chafing. Use as needed. - Continue taking your other medications as prescribed, including Topamax (for migraines), Adderall, and Wellbutrin. Follow-Up: - Please follow up with me in 4-6 weeks to assess how you are responding to Acarbose and the updated care plan. - If your symptoms worsen or you experience severe side effects, please contact me or seek emergency care. All prescriptions (Acarbose, Hyoscyamine, Nystatin powder, and Mounjaro) have been sent to your preferred [facility] pharmacy in [place]. VIRTUAL VISIT I spent a total of 35 minutes during this real-time, interactive virtual clinical encounter, which was conducted virtually using HIPAA compliant videoconferencing technology. Greater than 50% of the time spent was devoted to counseling and coordinating care including review of records, pertinent lab data and studies, as well as discussing diagnostic evaluation and work up, planned therapeutic interventions and future disposition of care. This includes any additional research needed to obtain further information in formulating the plan of care of this patient. This includes counseling the patient about her disease and diagnosis, specifically: complications of bariatric surgery, overweight and weight management We reviewed coronavirus precautions including avoiding public places, maintaining 6 feet of distance from other persons when in public, no sick contacts, and fastidious handwashing. Thank you for allowing me to participate in the care of your patient. If you have any questions or concerns, please feel free to contact me. Tracey Peña APRN.MANAGER ADMINISTRATIVE SERVICES GI Bariatric Endoscopy 03/06/2025 1:46 PM Answers submitted by the patient for this visit: Review of Systems Gastroenterology (Submitted on 03/06/2025) Night Sweats: No Unitentional Weight Change: No Difficulty Breathing: No A feeling of fullness or have belly pain after eating: Yes Food getting stuck in your throat or chest after eating: No Regurgitation - that is, food or liquid coming back up into your throat or mouth without vomiting, or feel burning behind your breast bone: No Loss of appetite: No Black tarry stools: No The feeling like you need to empty your bowels right away - that is, feel as if you would have an accident: Yes Bowel incontinence - that is, have an accident because you cannot make it to the bathroom in time: No Pain in rectum or anus during bowel movements: No Problems with jaundice - that is, yellow discoloration of your skin or eyes, now or in the past: No Problems with having to flush the toilet more than two times due to oily stool, or see stool floating with oil: No BAS METAB 2000 PNL SERPL Collected: 4:43 PM Status: F Source: [facility] Order Comment: Specimen Type : BLOOD SPECIMEN Ordering Facility: [facility] Address: [place] [address] TYPE CODE TESTS RESULT OUT OF RANGE REFERENCE UNITS LAB 2345-7(LOINC) Glucose SerPl-mCnc 78 74-99 mg/dL Result Comment: The [place] [employer] (ADA) provides guidance for cutoff values for fasting glucose and random glucose. The ADA defines fasting as no caloric intake for at least 8 hours. Fasting plasma glucose results between 100 to 125 mg/dL indicate increased risk for diabetes (prediabetes). Fasting plasma glucose results greater than or equal to 126 mg/dL meet the criteria for diagnosis of diabetes. In the absence of unequivocal hyperglycemia, results should be confirmed by repeat testing. In a patient with classic symptoms of hyperglycemia or hyperglycemic crisis, random plasma glucose results greater than or equal to 200 mg/dL meet the criteria for diagnosis of diabetes. Reference: Standards of Medical Care in Diabetes 2016, [place] [employer]. Diabetes Care. 2016.39(Suppl 1). LAB 3094-0(LOINC) BUN SerPl-mCnc 22 High 7-21 mg/ dL LAB 2160-0(LOINC) Creat SerPl-mCnc 0.76 0.58-0.96 mg/dL LAB 2951-2(LOINC) Sodium SerPl-sCnc 140 136-144 mmol/L LAB 2823-3(LOINC) Potassium SerPl-sCnc 4.0 3.7-5.1 mmol/L LAB 2075-0(LOINC) Chloride SerPl-sCnc 106 98-107 mmol/L LAB 2027-9(LOINC) CO2 SerPl-sCnc 26 22-30 mmo l/L LAB 29035-2(LOINC) Anion Gap SerPl-sCnc 8 8-15 mmol/L LAB 95010-9(LOINC) Calcium SerPl-mCnc 9.7 8.5-10.2 mg/dL LAB 42730-0(LOINC) Creatinine + eGFR Pnl SerPlBld 92 >=60 mL/min/1 .73m??? Result Comment: Estimated Gl omerular Filtration Rate (eGFR) is calculated using the 2020 CKD-EPI creatinine equation. This equation utilizes serum creatinine, sex, and age as parameters. The creatinine assay has traceable calibration to isotope dilution-mass spectrometry. Refer to KDIGO guidelines for clinical interpretation. In patients with unstable renal function, e.g. those with acute kidney injury, the eGFR may not accurately reflect actual GFR. Performed By: #### 75866-7, 3024-7, 3051-0, 3016-3 #### [facility] CLIA [id number] [address] [place] [id number] [place] T3FREE SERPL-MCNC Collected: 02/01/2025 4:43 PM Stat us: F Source: [facility] Comment: Specimen Type : BLOOD SPECIMEN Ordering Facility: [facility] Address: [address] [place] [address] TYPE CODE TESTS RESULT OUT OF RANGE REFERENCE UNITS LAB 3051-0(LOINC) T3Free SerPl-mCnc 2.7 2.3-4.1 pg/mL Performed By: #### 51562-0, 3024-7, 3051-0, 3016-3 #### [facility] CLIA [id number] [address] [place] [id number] [place] T4 FREE SERPL-MCNC Collected: 02/01/2025 4:43 PM Sta tus: F Source: [facility] Comment: Specimen Type : BLOOD SPECIMEN Ordering Facility: [facility] Address: [address] [place] [address] TYPE CODE TESTS RESULT OUT OF RANGE REFERENCE UNITS LAB 3024-7(LOINC) T4 Free SerPl-mCnc 0.9 0.9-1.7 ng/dL Performed By: #### 96441-4, 3024-7, 3051-0, 3016-3 #### [facility] CLIA [id number] [address] [place] [address] [place] TSH SERPL-ACNC Collected: 4:43 PM Status: F Source: [facility] Comment: Specimen Type : BLOOD SPECIMEN Ordering Facility: [facility] Address: [address] [id number] TYPE CODE TESTS RESULT OUT OF RANGE REFERENCE UNITS LAB 3016-3(LOINC) TSH SerPl-aCnc 0.853 0.270-4.200 mIU/L Performed By: #### 37967-1, 3024-7, 3051-0, 3016-3 #### [facility] CLIA [id number] [address] [facility] [place] 2[place] [address] [facility] PROGRESS Observed: 02/01/2025 4:04 PM Status: COMPLETED Source: [facility] HNO ID: [id number] Author: GLENNA TURNER MD Service: ? Author Type: Physician Type: Progress Notes Filed: 02/20/2025 01:59 Note Text: This note was created using [employer]isle[employer]. Subjective Elvia Schmidt is a 54 year old female. Patient presents with: F/U 3 Month Elvia is a 54-year-old female with a history of ADHD, presenting with fatigue and blurry vision. Elvia reports a 4-week history of fatigue and blurry vision. She notes a significant increase in fatigue, describing it as exhaustion that has led her to fall asleep as early as 1730 and sleep through the night until 0600 on multiple occasions. This is a marked change from her usual sleep pattern of 5-6 hours per night; she is now sleeping more than 7 hours per night but still feels tired the next day. She denies daytime sleepiness severe enough to cause her to fall asleep while driving or mid-conversation, but she does report feeling very tired while driving home from work. She denies any recent changes in diet, medications, or supplements, and continues to take Adderall in the morning, which she notes helps with focus but not with fatigue. She denies any recent illnesses or exposure to sick contacts, though she mentions that her children may have had strep throat. She also denies any chest pain, dyspnea, fevers, chills, diarrhea, or constipation. She reports no changes in appetite and maintains her usual eating pattern. In addition to fatigue, Elvia reports persistent blurry vision despite a recent change in her eyeglass prescription. She describes the blurriness as affecting both near and distant vision and notes that she often finds herself blinking to try to bring things into focus. She denies any double vision or ptosis. She has a history of histoplasmosis, which previously caused significant vision problems, but her eye doctor has reportedly stated that her current symptoms are not related to this condition. Elvia has a history of fatty liver disease and is currently taking clonazepam, Nurtec, and Zofran. She is due for refills of these medications. She also mentions that she does not drink enough water. Recent lab results from November include a WBC count of 3.9 K/uL, hemoglobin of 13.6 g/dL, hematocrit of 40.1%, and MCV of 91.0 fL. Her metabolic panel showed a glucose level of 79 mg/dL, BUN of 24 mg/dL, creatinine of 0.83 mg/dL, eGFR of 83 mL/min/1.73m?, sodium of 140 mmol/L, potassium of 4.0 mmol/L, chloride of 107 mmol/L, CO2 of 21 mmol/L, calcium of 9.5 mg/dL, total protein of 7.5 g/dL, albumin of 4.3 g/dL, and bilirubin of 0.4 mg/dL. Her liver enzymes were within normal limits, with an alkaline phosphatase level of 72 U/L, AST of 20 U/L, and ALT of 18 U/L. Her lipid panel showed a total cholesterol level of 183 mg/dL, HDL of 72 mg/dL, LDL of 102 mg/dL, and triglycerides of 46 mg/dL. Her iron studies showed a total iron binding capacity of 338 mcg/dL, serum iron of 62 mcg/dL, and iron saturation of 18%. Her hemoglobin A1c was 5.4%, folate level was 13.2 ng/mL, vitamin A level was 31.3 mcg/dL, vitamin D level was 37 ng/mL, and vitamin B12 level was 810 pg/mL. Her intact PTH level was 24 pg/mL. 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 hyoscyamine sublingual (LEVSIN/SL) 0.125 mg Dissolve 1 tablet under the tongue every 4 hours as needed (abdominal spasms). metFORMIN (GLUCOPHAGE) 1,000 mg tablet Take 1 tablet by mouth daily with dinner. buPROPion XL (WELLBUTRIN XL) 300 mg 24 hr tablet Take 1 tablet by mouth once daily. topiramate (TOPAMAX) 50 mg tablet Take 3 tablets by mouth daily at bedtime. May also take 0.5 tablets once daily as needed (for breakthrough migraines). Take 50 mg at bedtime. May take an additional 25mg as needed in AM for breakthrough headaches.. Olopatadine 0.6 % spry Use 1 or 2 sprays once or twice daily for allergic rhinitis. rimegepant (NURTEC ODT) 75 mg disintegrating tablet Take 1 tablet by mouth once daily as needed. Max 1 per day tiZANidine (ZANAFLEX) 4 mg tablet Take 1.5 tablets by mouth daily at bedtime. Take 1 to 1.5 tablets in the morning as needed for breakthrough muscle spasm lisinopril (ZESTRIL) 20 mg tablet Take 1 tablet by mouth once daily. esomeprazole (NEXIUM 24HR) 20 mg capsule Take 1 capsule by mouth twice daily at 6AM and 9PM. multivitamin (ONE-A-DAY ESSENTIAL ORAL) Take 1 tablet by mouth once daily. BIOTIN 2,500 MCG CAP take 5,000 mcg once a day calcium carbonate/vitamin d3(CALCIUM 600 + D(3) 600 MG (1,500)-200 UNIT TAB) Take one(1) tablet twice daily. amphetamine-dextroamphetamine (ADDERALL) 15 mg tablet Take 1 tablet by mouth two times a day for 30 days. [START ON 04/02/2025] amphetamine-dextroamphetamine (ADDERALL) 15 mg tablet Take 1 tablet by mouth two times a day for 30 days. Patient should start on April 02, 2025. [START ON 03/03/2025] amphetamine-dextroamphetamine (ADDERALL) 15 mg tablet Take 1 tablet by mouth two times a day for 30 days. Patient should start on March 03, 2025. clonazePAM (KLONOPIN) 0.5 mg tablet Take 1 tablet by mouth two times a day as needed for anxiety for up to 30 days. ondansetron orally disintegrating (ZOFRAN ODT) 4 mg disintegrating tablet Take 1 tablet by mouth every 6 hours as needed for nausea/vomiting. amphetamine-dextroamphetamine (ADDERALL) 15 mg tablet Take 1 tablet by mouth two times a day for 30 days. Patient should start on December 08, 2024. amphetamine-dextroamphetamine (ADDERALL) 15 mg tablet Take 1 tablet by mouth two times a day for 30 days. Patient should start on January 07, 2025. No current facility-administered medications for this visit. Review of Systems Objective BP 100/72 Pulse 85 Wt 72.3 kg (159 lb 6.3 oz) LMP 11/07/2009 SpO2 100% BMI 25.73 kg/m? Physical Exam Constitutional: Appearance: Normal appearance. HENT: Head: Normocephalic. Eyes: Conjunctiva/sclera: Conjunctivae normal. Cardiovascular: Rate and Rhythm: Normal rate and regular rhythm. Heart sounds: Normal heart sounds. Pulmonary: Effort: Pulmonary effort is normal. Breath sounds: Normal breath sounds. Skin: General: Skin is warm and dry. Neurological: General: No focal deficit present. Mental Status: She is alert and oriented to person, place, and time. Psychiatric: Mood and Affect: Mood normal. Behavior: Behavior normal. Thought Content: Thought content normal. Judgment: Judgment normal. Assessment and Plan # Fatigue, unspecified type (R53.83) # Daytime sleepiness (R40.0) - Onset approximately one month ago, with increased sleep duration but persistent fatigue. - Recent labs from November reviewed; no significant abnormalities noted. - Ordered repeat metabolic panel and TSH to evaluate for potential thyroid dysfunction or electrolyte imbalances. - Advised to maintain adequate hydration. 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 - Prescription refilled with next refills scheduled for March 03, April 02, and May 02. # Anxiety (F41.9) - Refilled clonazepam prescription. # Fatty liver (K76.0) - Previous labs showed slightly elevated liver enzymes; current liver function tests are within normal limits. - Continue monitoring liver function. # Blurred vision (H53.8) - Recent eye examination showed no significant findings. - Advised to follow up with an flour tester if symptoms persist or worsen. Glenna Turner MD Recording using [employer] software for draft documentation of the visit was discussed with the patient/authorized cash application representative; all questions welcomed and answered. Patient/authorized cash application representative agreed to proceed CNOV Observed: 02/01/2025 3:00 PM Status: COMPLETED Source: [facility] Office Visit (INTMWS) ELVIA SCHMIDT ([id number]) 1970 F Date Time Provider Department 02/01/25 3:00 PM GLENNA TURNER INTMWS During your visit today, we recorded the following information about you: Pulse Blood pressure Weight 85/minute 100/72 72.3 kg Glenna Turner MD 02/20/2025 1:59 AM Signed This note was created using [employer]. Subjective Elvia Schmidt is a 54 year old female. Patient presents with: F/U 3 Month Elvia is a 54-year-old female with a history of ADHD, presenting with fatigue and blurry vision. Elvia reports a 4-week history of fatigue and blurry vision. She notes a significant increase in fatigue, describing it as exhaustion that has led her to fall asleep as early as 1730 and sleep through the night until 0600 on multiple occasions. This is a marked change from her usual sleep pattern of 5-6 hours per night; she is now sleeping more than 7 hours per night but still feels tired the next day. She denies daytime sleepiness severe enough to cause her to fall asleep while driving or mid-conversation, but she does report feeling very tired while driving home from work. She denies any recent changes in diet, medications, or supplements, and continues to take Adderall in the morning, which she notes helps with focus but not with fatigue. She denies any recent illnesses or exposure to sick contacts, though she mentions that her children may have had strep throat. She also denies any chest pain, dyspnea, fevers, chills, diarrhea, or constipation. She reports no changes in appetite and maintains her usual eating pattern. In addition to fatigue, Elvia reports persistent blurry vision despite a recent change in her eyeglass prescription. She describes the blurriness as affecting both near and distant vision and notes that she often finds herself blinking to try to bring things into focus. She denies any double vision or ptosis. She has a history of histoplasmosis, which previously caused significant vision problems, but her eye doctor has reportedly stated that her current symptoms are not related to this condition. Elvia has a history of fatty liver disease and is currently taking clonazepam, Nurtec, and Zofran. She is due for refills of these medications. She also mentions that she does not drink enough water. Recent lab results from November include a WBC count of 3.9 K/uL, hemoglobin of 13.6 g/dL, hematocrit of 40.1%, and MCV of 91.0 fL. Her metabolic panel showed a glucose level of 79 mg/dL, BUN of 24 mg/dL, creatinine of 0.83 mg/dL, eGFR of 83 mL/min/1.73m?, sodium of 140 mmol/L, potassium of 4.0 mmol/L, chloride of 107 mmol/L, CO2 of 21 mmol/L, calcium of 9.5 mg/dL, total protein of 7.5 g/dL, albumin of 4.3 g/dL, and bilirubin of 0.4 mg/dL. Her liver enzymes were within normal limits, with an alkaline phosphatase level of 72 U/L, AST of 20 U/L, and ALT of 18 U/L. Her lipid panel showed a total cholesterol level of 183 mg/dL, HDL of 72 mg/dL, LDL of 102 mg/dL, and triglycerides of 46 mg/dL. Her iron studies showed a total iron binding capacity of 338 mcg/dL, serum iron of 62 mcg/dL, and iron saturation of 18%. Her hemoglobin A1c was 5.4%, folate level was 13.2 ng/mL, vitamin A level was 31.3 mcg/dL, vitamin D level was 37 ng/mL, and vitamin B12 level was 810 pg/mL. Her intact PTH level was 24 pg/mL. 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 hyoscyamine sublingual (LEVSIN/SL) 0.125 mg Dissolve 1 tablet under the tongue every 4 hours as needed (abdominal spasms). metFORMIN (GLUCOPHAGE) 1,000 mg tablet Take 1 tablet by mouth daily with dinner. buPROPion XL (WELLBUTRIN XL) 300 mg 24 hr tablet Take 1 tablet by mouth once daily. topiramate (TOPAMAX) 50 mg tablet Take 3 tablets by mouth daily at bedtime. May also take 0.5 tablets once daily as needed (for breakthrough migraines). Take 50 mg at bedtime. May take an additional 25mg as needed in AM for breakthrough headaches.. Olopatadine 0.6 % spry Use 1 or 2 sprays once or twice daily for allergic rhinitis. rimegepant (NURTEC ODT) 75 mg disintegrating tablet Take 1 tablet by mouth once daily as needed. Max 1 per day tiZANidine (ZANAFLEX) 4 mg tablet Take 1.5 tablets by mouth daily at bedtime. Take 1 to 1.5 tablets in the morning as needed for breakthrough muscle spasm lisinopril (ZESTRIL) 20 mg tablet Take 1 tablet by mouth once daily. esomeprazole (NEXIUM 24HR) 20 mg capsule Take 1 capsule by mouth twice daily at 6AM and 9PM. multivitamin (ONE-A-DAY ESSENTIAL ORAL) Take 1 tablet by mouth once daily. BIOTIN 2,500 MCG CAP take 5,000 mcg once a day calcium carbonate/vitamin d3(CALCIUM 600 + D(3) 600 MG (1,500)-200 UNIT TAB) Take one(1) tablet twice daily. amphetamine-dextroamphetamine (ADDERALL) 15 mg tablet Take 1 tablet by mouth two times a day for 30 days. [START ON 04/02/2025] amphetamine-dextroamphetamine (ADDERALL) 15 mg tablet Take 1 tablet by mouth two times a day for 30 days. Patient should start on April 02, 2025. [START ON 03/03/2025] amphetamine-dextroamphetamine (ADDERALL) 15 mg tablet Take 1 tablet by mouth two times a day for 30 days. Patient should start on March 03, 2025. clonazePAM (KLONOPIN) 0.5 mg tablet Take 1 tablet by mouth two times a day as needed for anxiety for up to 30 days. ondansetron orally disintegrating (ZOFRAN ODT) 4 mg disintegrating tablet Take 1 tablet by mouth every 6 hours as needed for nausea/vomiting. amphetamine-dextroamphetamine (ADDERALL) 15 mg tablet Take 1 tablet by mouth two times a day for 30 days. Patient should start on December 08, 2024. amphetamine-dextroamphetamine (ADDERALL) 15 mg tablet Take 1 tablet by mouth two times a day for 30 days. Patient should start on January 07, 2025. No current facility-administered medications for this visit. Review of Systems Objective BP 100/72 Pulse 85 Wt 72.3 kg (159 lb 6.3 oz) LMP 11/07/2009 SpO2 100% BMI 25.73 kg/m? Physical Exam Constitutional: Appearance: Normal appearance. HENT: Head: Normocephalic. Eyes: Conjunctiva/sclera: Conjunctivae normal. Cardiovascular: Rate and Rhythm: Normal rate and regular rhythm. Heart sounds: Normal heart sounds. Pulmonary: Effort: Pulmonary effort is normal. Breath sounds: Normal breath sounds. Skin: General: Skin is warm and dry. Neurological: General: No focal deficit present. Mental Status: She is alert and oriented to person, place, and time. Psychiatric: Mood and Affect: Mood normal. Behavior: Behavior normal. Thought Content: Thought content normal. Judgment: Judgment normal. Assessment and Plan # Fatigue, unspecified type (R53.83) # Daytime sleepiness (R40.0) - Onset approximately one month ago, with increased sleep duration but persistent fatigue. - Recent labs from November reviewed; no significant abnormalities noted. - Ordered repeat metabolic panel and TSH to evaluate for potential thyroid dysfunction or electrolyte imbalances. - Advised to maintain adequate hydration. 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 - Prescription refilled with next refills scheduled for March 03, April 02, and May 02. # Anxiety (F41.9) - Refilled clonazepam prescription. # Fatty liver (K76.0) - Previous labs showed slightly elevated liver enzymes; current liver function tests are within normal limits. - Continue monitoring liver function. # Blurred vision (H53.8) - Recent eye examination showed no significant findings. - Advised to follow up with an flour tester if symptoms persist or worsen. Glenna Turner MD Recording using [employer] software for draft documentation of the visit was discussed with the patient/authorized cash application representative; all questions welcomed and answered. Patient/authorized cash application representative agreed to proceed Glenna Turner MD 02/01/2025 4:36 PM Signed Allergies As of Date: 02/01/2025 Noted Allergy Reaction ETHINYL ESTRADIOL 11/27/2020 2 - Rash 14 - Other: See Comments NUVARING (ETONOGESTREL-ETHINYL ES*03/29/2009 2 - Rash PERCOCET (OXYCODONE-ACETAMINOPHEN)06/30/2016 9 - Itching Date Reviewed: 02/01/2025 Reviewed by: Tatyana Naranjo LPN - Fully Assessed Reason for Visit: F/U 3 Month [443] Primary Visit Diagnosis:Fatigue, unspecified type [R53.83] Other Visit Diagnoses:Daytime sleepiness [R40.0] Attention deficit disorder (ADD) without hyperactivity [F98.8] Anxiety [F41.9] Fatty liver [K76.0] Blurred vision [H53.8] Order(s):amphetamine-dextroamphetamine (ADDERALL) 15 mg tabletTake 1 tablet by mouth two times a day for 30 days.Disp: 60 tabletRfl: 0 [START ON 04/02/2025] amphetamine-dextroamphetamine (ADDERALL) 15 mg tabletTake 1 tablet by mouth two times a day for 30 days. Patient should start on April 02, 2025.Disp: 60 tabletRfl: 0 [START ON 03/03/2025] amphetamine-dextroamphetamine (ADDERALL) 15 mg tabletTake 1 tablet by mouth two times a day for 30 days. Patient should start on March 03, 2025.Disp: 60 tabletRfl: 0 clonazePAM (KLONOPIN) 0.5 mg tabletTake 1 tablet by mouth two times a day as needed for anxiety for up to 30 days.Disp: 60 tabletRfl: 0 ondansetron orally disintegrating (ZOFRAN ODT) 4 mg disintegrating tabletTake 1 tablet by mouth every 6 hours as needed for nausea/vomiting.Disp: 30 tabletRfl: 1 THYROID STIMULATING HORMONE [SQTSH] Order #: [id number] FUTURE T4 FREE/FREE THYROXINE [SQFT4] Order #: [id number] FUTURE T3, FREE [SQFREET3] Order #: [id number] FUTURE BASIC METABOLIC PANEL [SQBMP] Order #: [id number] FUTURE Prescriptions as of 02/20/2025 - amphetamine-dextroamphetamine (ADDERALL) 15 mg tablet Take 1 tablet by mouth two times a day for 30 days. - amphetamine-dextroamphetamine (ADDERALL) 15 mg tablet Take 1 tablet by mouth two times a day for 30 days. Patient should start on April 02, 2025. - amphetamine-dextroamphetamine (ADDERALL) 15 mg tablet Take 1 tablet by mouth two times a day for 30 days. Patient should start on March 03, 2025. - clonazePAM (KLONOPIN) 0.5 mg tablet Take 1 tablet by mouth two times a day as needed for anxiety for up to 30 days. - ondansetron orally disintegrating (ZOFRAN ODT) 4 mg disintegrating tablet Take 1 tablet by mouth every 6 hours as needed for nausea/vomiting. - tirzepatide (MOUNJARO) 2.5 mg/0.5 mL pen injector Inject 2.5 mg subcutaneously one time a week. - hyoscyamine sublingual (LEVSIN/SL) 0.125 mg Dissolve 1 tablet under the tongue every 4 hours as needed (abdominal spasms). - metFORMIN (GLUCOPHAGE) 1,000 mg tablet Take 1 tablet by mouth daily with dinner. - amphetamine-dextroamphetamine (ADDERALL) 15 mg tablet Take 1 tablet by mouth two times a day for 30 days. Patient should start on December 08, 2024. - amphetamine-dextroamphetamine (ADDERALL) 15 mg tablet Take 1 tablet by mouth two times a day for 30 days. Patient should start on January 07, 2025. - buPROPion XL (WELLBUTRIN XL) 300 mg 24 hr tablet Take 1 tablet by mouth once daily. - topiramate (TOPAMAX) 50 mg tablet Take 3 tablets by mouth daily at bedtime. May also take 0.5 tablets once daily as needed (for breakthrough migraines). Take 50 mg at bedtime. May take an additional 25mg as needed in AM for breakthrough headaches.. - Olopatadine 0.6 % spry Use 1 or 2 sprays once or twice daily for allergic rhinitis. - rimegepant (NURTEC ODT) 75 mg disintegrating tablet Take 1 tablet by mouth once daily as needed. Max 1 per day - tiZANidine (ZANAFLEX) 4 mg tablet Take 1.5 tablets by mouth daily at bedtime. Take 1 to 1.5 tablets in the morning as needed for breakthrough muscle spasm - lisinopril (ZESTRIL) 20 mg tablet Take 1 tablet by mouth once daily. - esomeprazole (NEXIUM 24HR) 20 mg capsule Take 1 capsule by mouth twice daily at 6AM and 9PM. - multivitamin (ONE-A-DAY ESSENTIAL ORAL) Take 1 tablet by mouth once daily. - BIOTIN 2,500 MCG CAP take 5,000 mcg once a day - calcium carbonate/vitamin d3(CALCIUM 600 + D(3) 600 MG (1,500)-200 UNIT TAB) Take one(1) tablet twice daily. Problem List As Of Date 02/01/2025 Noted Resolved Unspecified asthma(493.90) [J45.909] 06/17/2007 06/01/2015 Obesity (BMI 35.0-39.9 without comorbidity) [E6*08/23/2007 03/15/2024 Other and unspecified postsurgical nonabsorptio*11/26/2007 06/01/2015 Other and unspecified ovarian cyst [N83.209] 11/07/2008 Allergic rhinitis [J30.9] 11/06/2010 Migraine variant with headache [G43.809] Aneurysm, cerebral, nonruptured [I67.1] 05/16/2011 Abnormal mammogram, unspecified [R92.8] 08/27/2011 Fibroid, uterus 11/05/2011 Bilateral ovarian cysts [N83.201, N83.202] 11/05/2011 Incisional hernia [K43.2] 06/17/2013 06/01/2015 Unspecified essential hypertension [I10] 06/01/2015 06/01/2015 Fracture [T14.8XXA] 06/01/2015 06/01/2015 Cervicalgia [M54.2] 01/31/2016 Vitamin D deficiency [E55.9] 04/12/2016 Acute pain of left shoulder [M25.512] 07/30/2017 Acute back pain with sciatica, left [M54.42] 07/30/2017 H/O gastric bypass [Z98.84] 10/23/2017 Attention deficit disorder (ADD) without hypera*03/11/2022 Benign paroxysmal positional vertigo [H81.10] 01/16/2022 Other instructions from your clinician: Prescriptions ordered this encounter Disp Refills Start End DEXTROAMPHETAMINE-AMPHETAMINE 15 MG * 60 t* 0 02/01/2025 03/03/2025 Route: PO Sig: Take 1 tablet by mouth two times a day for 30 days. DEXTROAMPHETAMINE-AMPHETAMINE 15 MG * 60 t* 0 04/02/2025 05/02/2025 Route: PO Sig: Take 1 tablet by mouth two times a day for 30 days. Patient should start on April 02, 2025. DEXTROAMPHETAMINE-AMPHETAMINE 15 MG * 60 t* 0 03/03/2025 04/02/2025 Route: PO Sig: Take 1 tablet by mouth two times a day for 30 days. Patient should start on March 03, 2025. CLONAZEPAM 0.5 MG TABLET 60 t* 0 02/01/2025 03/03/2025 Route: PO Sig: Take 1 tablet by mouth two times a day as needed for anxiety for up to 30 days. ONDANSETRON 4 MG DISINTEGRATING TABL* 30 t* 1 02/01/2025 Route: PO Sig: Take 1 tablet by mouth every 6 hours as needed for nausea/vomiting. Medications Discontinued During This Encounter Prescriptions - amphetamine-dextroamphetamine (ADDERALL) 15 mg tablet (Discontinued) Take 1 tablet by mouth two times a day for 30 days. Patient should start on November 08, 2024. - clonazePAM (KLONOPIN) 0.5 mg tablet (Discontinued) Take 1 tablet by mouth two times a day as needed for anxiety for up to 30 days. Patient should start on December 20, 2024. - ondansetron orally disintegrating (ZOFRAN ODT) 4 mg disintegrating tablet (Discontinued) Take 1 tablet by mouth every 6 hours as needed for nausea/vomiting. Level of Service: OFFICE/OUTPATIENT ESTABLISHED MOD MDM 30 MIN [14844] Additional E/M codes: VISIT CPLX INHERENT EANDM ASSOC WITH MED * Disposition: Return for 3 months follow up (make next 2 appointments). Follow-up and Disposition History for Encounter Date Provider Department Center 02/01/2025 [id number] TURNER [facility] Encounter Status:Closed by GLENNA TURNER on 02/20/25 PROGRESS Observed: 11/29/2024 2:00 PM Status: COMPLETED Source: [facility] HNO ID: [id number] Author: TRACEY PEÑA APRN.MANAGER ADMINISTRATIVE SERVICES Service: ? Author Type: Nurse Practitioner Type: Progress Notes Filed: 11/30/2024 15:31 Note Text: Glenna Turner MD [id number] [facility] [id number] GI/Bariatric Endoscopy Clinic Visit Gastroenterology, Hepatology, and Nutrition Department ?[facility] [place] ([facility]) ? 11/29/2024 ? The patient encounter is a virtual/telephone visit today, 11/29/2024, in lieu of an office visit due to the current COVID-19 pandemic crisis and need for social distancing. Reason for Visit: Complications of bariatric surgery, medically supervised weight management and medication follow up. Patient is: Established patient Location of Provider: Hospital Location of Patient: Home Consent for virtual care, including informing the patient that insurance will be billed, and that in-person care is available in case of emergencies or as needed otherwise, was discussed at the time of scheduling. I have communicated my name and active licensure. The patient's identity and physical location were verified at the time of this visit. Either the patient or their legal cash application representative has been informed of the risks and benefits of -- and alternatives to -- treatment through a remote evaluation and consents to proceed with the evaluation remotely. Dear Glenna Turner MD, ? I had the pleasure of seeing Elvia Schmidt in the [facility]oscopy [facility] for complications of bariatric surgery, and weight management. ?? The patient is a 54 year old female with past medical history as below presenting to us with complications of bariatric surgery, and weight management. Interval: - Pt presents to f/u on medical weight management - Last seen in December 2023 - Continues Mounjaro and Metformin; also on Topamax and Adderall Attempted to stop Mounjaro for one month but experienced reactive hypoglycemia, which improved after restarting - Reports extreme, sharp LLQ abdominal pain resembling contractions or spasms Experienced 2 episodes: one while off Mounjaro and another in July 2024 Seen in the ED in July and diagnosed with gas pains No clear relieving or aggravating factors Tried laying down, walking, sipping water--intensified pain Regular BMs (1-2 daily) Used Gas-X and went to bed; next morning, generalized body soreness remained but no further episodes since Now cautious to avoid recurrence Discussed potential causes: gas, constipation, SIBO, dumping syndrome - Taking Bariatric MVI and calcium - Engages in physical activity: actively walks dogs, walks outdoors when weather allows, and takes stairs regularly Anthropometrics Weight History Weight Change Height 5 ft 6 in Current Weight BMI 158 lbs 25 Initial Program Weight BMI 245 lbs 39.5 -87 lbs Procedure Weight BMI 35.5 %TWL Last Visit Weight 154 lbs (24.86) +4 lbs Prior History taken from on 09/09/2022: Elvia Schmidt has a history of besity class I, vitamin D deficiency, migraines, nonruptured cerebral aneurysm, uterus, fibroid, ovarian cyst, cervicalgia, vertigo Elvia Schmidt underwent RYGB with Dr. Hernandez in 2006. Heaviest weight 388 lbs. Her prebypass weight was 341 pounds with a post bypass alvin weight of 175 pounds, over 1 years. The patient then experienced weight regain in 2019 during pandemic and now weighs 202 lbs. She reports gaining weight, gained 2 lbs after stopping Mounjaro. She was taking 12.5 mg Mounjaro was stopped after side effects of dizziness, confusion, weakness, blurry vision, headache, numbness and tingling of lips, echo in ears. Patient was started on Metformin, reports weight gain of 2 lbs, no side effects. Patient has tried to control the diet and be able to lose weight up to 5 lbs however regain weight. Unfortunately, the patient would subsequently experience rebound weight regain following lifestyle modification interventions (diet + exercise). Patient has tried increasing physical activity or exercise, Keto diet, high protein/low carb sugar diets, multiple dietitian healthy diets (low carbs, low fat, high protein diets). Patient is currently on topamax for migraines. She is not interested in revisional bariatric surgery as she reports having difficulty with PO intake and severe nausea and vomiting after RYGB. Exercise is below recommended 150-200 mins per week however she plans on increasing physical activity and riding her stationary bike. 24 hrs Diet recall: Breakfast: String cheese fruit (orange) and protein shake with coffee Snack: None Lunch: chicken breast and green beans Snack: string cheese Dinner: pot roast Snack: None Wakes up to eat: No Current Exercise Activity: Walking has 2 dogs now. Stairs and walking daily 30 mins each time. And yard work Weight History: Heaviest weight: 388 lbs (BMI 62.6) Pre-RYGB weight: 341.8 lbs (BMI 56.01). Post-RYGB alvin: 175 lbs (BMI 28.2). Ht 167.6 cm (5' 6) Wt 71.7 kg (158 lb) LMP 11/07/2009 BMI 25.50 kg/m? LMP 11/07/2009 Goal weight BMI < 27: 162.3 Goal weight BMI < 30: 180.3 Last 5 Encounter Wt Readings: Date: Wt: 11/28/2022 91.6 kg (202 lb) 10/27/2022 91.6 kg (202 lb) 10/22/2022 90.7 kg (200 lb) 10/06/2022 90.3 kg (199 lb) 10/03/2022 91.2 kg (201 lb) Risk factors: Tobacco use: No EtOH intake: No NSAIDs: No H. Pylori: No Relevant Medications: Omeprazole OTC Mounjaro 10 mg weekly Wellbutrin Topamax for migraines Metformin 1000 mg daily Vitamins/Minerals Supplements: MVI, Vit D, B12, C, iron, calcium, biotin Relevant Bariatric Procedures/Surgeries Bariatric Surgeon: Dr. 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 Morbid obesity (HCC) 08/23/2007 Peripheral vascular disease (HCC) aneurysm brain, not peripheral S/P gastric bypass gastric bypass back in September 01, 2007 Unspecified essential hypertension Unspecified hypertensive 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 IV, or unspecified(403.90) Variants of migraine, not elsewhere classified, with intractable migraine, so stated, without mention of status migrainosus Past Surgical History: PAST SURGICAL HISTORY Procedure Laterality Date CHOLECYSTECTOMY 1994 lap COLONOSCOPY FLX DX W/COLLJ SPEC WHEN PFRMD 10/27/2018 Colonoscopy EGD 11/29/2020 EXC BREAST LES PREOP PLMT RAD MARKER OPEN 1 LES 09/02/2011 LEFT HYSTERECTOMY HX 2016 total robotic with bso LAP AURY Y BYPASS BAND OUTLET NOVASURE 11/27/2009 PAST SURGICAL HISTORY OF 09/01/2007 gastric bypass surgery PREOP PLACEMENT NEEDLE LOC 09/02/2011 LEFT THERAPEUTIC SPINAL PUNCTURE DRAINAGE CSF 02/14/2011 TONSILLECTOMY PRIMARY/SECONDARY <AGE 12 1976 Tonsillectomy Medications: Current Outpatient Medications Medication Sig Dispense Refill amphetamine-dextroamphetamine (ADDERALL) 15 mg tablet Take 1 tablet by mouth two times a day for 30 days. Patient should start on November 08, 2024. 60 tablet 0 [START ON 12/08/2024] amphetamine-dextroamphetamine (ADDERALL) 15 mg tablet Take 1 tablet by mouth two times a day for 30 days. Patient should start on December 08, 2024. 60 tablet 0 [START ON 01/07/2025] amphetamine-dextroamphetamine (ADDERALL) 15 mg tablet Take 1 tablet by mouth two times a day for 30 days. Patient should start on January 07, 2025. 60 tablet 0 buPROPion XL (WELLBUTRIN XL) 300 mg 24 hr tablet Take 1 tablet by mouth once daily. 90 tablet 3 ondansetron orally disintegrating (ZOFRAN ODT) 4 mg disintegrating tablet Take 1 tablet by mouth every 6 hours as needed for nausea/vomiting. 30 tablet 1 clonazePAM (KLONOPIN) 0.5 mg tablet Take 1 tablet by mouth two times a day as needed for anxiety for up to 90 days. 90 tablet 0 topiramate (TOPAMAX) 50 mg tablet Take 3 tablets by mouth daily at bedtime. May also take 0.5 tablets once daily as needed (for breakthrough migraines). Take 50 mg at bedtime. May take an additional 25mg as needed in AM for breakthrough headaches.. 290 tablet 3 Olopatadine 0.6 % spry Use 1 or 2 sprays once or twice daily for allergic rhinitis. 91.5 g 3 rimegepant (NURTEC ODT) 75 mg disintegrating tablet Take 1 tablet by mouth once daily as needed. Max 1 per day 8 tablet 5 tiZANidine (ZANAFLEX) 4 mg tablet Take 1.5 tablets by mouth daily at bedtime. Take 1 to 1.5 tablets in the morning as needed for breakthrough muscle spasm 270 tablet 3 lisinopril (ZESTRIL) 20 mg tablet Take 1 tablet by mouth once daily. 90 tablet 3 metFORMIN (GLUCOPHAGE) 1,000 mg tablet take 1 tablet by mouth every day with dinner 90 tablet 0 tirzepatide (MOUNJARO) 2.5 mg/0.5 mL pen injector Inject 2.5 mg subcutaneously one time a week. Patient should start on January 15, 2024. 2 mL 3 nystatin (NYSTOP) powder Apply 1 application to affected area four times daily. (Patient not taking: Reported on 11/07/2024) 60 g 3 esomeprazole (NEXIUM 24HR) 20 mg capsule Take 1 capsule by mouth twice daily at 6AM and 9PM. ferrous fum/C/B12/liver/folic ([id number] C-FA-IF ORAL) (Patient not taking: Reported on 11/07/2024) multivitamin (ONE-A-DAY ESSENTIAL ORAL) Take 1 tablet by mouth once daily. BIOTIN 2,500 MCG CAP take 5,000 mcg once a day 0 0 calcium carbonate/vitamin d3(CALCIUM 600 + D(3) 600 MG (1,500)-200 UNIT TAB) Take one(1) tablet twice daily. 0 0 No current facility-administered medications for this visit. Allergies: ALLERGIES Allergen Reactions Ethinyl Estradiol Rash, Other: See Comments Nuvaring [Etonogest* Rash Percocet [Oxycodone* Itching Family History: No known colon cancer, polyps, IBD, celiac disease, pancreatic disease, or liver disease. FAMILY HISTORY Problem Relation Age of Onset Cancer Mother Liver Hypertension Father Cancer Maternal Grandfather prostate ? Social History: Social History Tobacco Use Smoking status: Never Smokeless tobacco: Never Vaping Use Vaping status: Never Used Substance Use Topics Alcohol use: Yes Comment: Occasionally Drug use: No Comment: h/ THC use in past Tobacco: Tobacco Use: Never Alcohol: Alcohol Use: Yes (Occasionally) Illicits: Drug Use: No (h/ THC use in past) Review of Systems: ROS Constitutional: no fevers, chills, night sweats Cardiovascular: no chest pain Pulmonary: no shortness of breath Eyes: no visual changes or eye irritation Musculoskeletal: no myalgias or arthralgias Skin: erythema, chafing, rash underneath skin folds arms, breast, thighs, buttocks 12 point ROS otherwise negative. Physical Examination: Ht 167.6 cm (5' 6) Wt 71.7 kg (158 lb) LMP 11/07/2009 BMI 25.50 kg/m? Physical Exam virtual/videocall encounter: Patient reported height 5'6 and weight 158 lbs LMP 11/07/2009 General - overweight, cooperative, in no acute distress Able to interact verbally by video conference Psych - ORIENTATION: normal to time place, person and situation Mood/Affect: AFFECT AND MOOD: Normal Head/Neuro - Normal size and shape Facial appearance normal Pulmonary - respiratory effort normal Cardiovascular - patient describes extremities normal, warm, no cyanosis,no clubbing and no edema Abdominal - Areas of pain/tenderness: denies Episodic symptoms Skin - erythema, chafing, rash underneath skin folds arms, breast, thighs, buttocks Motor - patient seen sitting with Normal appearing strength and coordination ? Laboratory Data: Lab Results Component Value Date WBC 3.89 11/12/2023 WBC 4.34 10/06/2022 WBC 4.49 02/12/2022 HCT 39.4 11/12/2023 HCT 42.8 10/06/2022 HCT 39.7 02/12/2022 PLT 260 11/12/2023 PLT 334 10/06/2022 PLT 305 02/12/2022 Lab Results Component Value Date ALB 4.4 11/12/2023 TBILI 0.4 11/12/2023 Lab Results Component Value Date INR 1.0 07/23/2021 No components found for: VITDT, 25VITD, 25OHVITAMIND Lab Results Component Value Date B12 >2,000 (H) 11/12/2023 TSH Date Value Ref Range Status 12/18/2021 1.150 0.270 - 4.200 mIU/L Final No components found for: GHBA1C, [id number] WBC (k/uL) Date Value 11/12/2023 3.89 RBC (m/uL) Date Value 11/12/2023 4.33 Hemoglobin (g/dL) Date Value 11/12/2023 13.4 Hematocrit (%) Date Value 11/12/2023 39.4 MCV (fL) Date Value 11/12/2023 91.0 MCH (pg) Date Value 11/12/2023 30.9 MCHC (g/dL) Date Value 11/12/2023 34.0 RDW-CV (%) Date Value 11/12/2023 13.0 Platelet Count (k/uL) Date Value 11/12/2023 260 MPV (fL) Date Value 11/12/2023 10.3 Potassium (mmol/L) Date Value 11/12/2023 3.8 07/23/2021 4.1 Sodium (mmol/L) Date Value 11/12/2023 139 07/23/2021 140 Magnesium (mg/dL) Date Value 10/06/2022 2.3 07/23/2021 2.3 Creatinine (mg/dL) Date Value 11/12/2023 0.90 07/23/2021 0.84 BUN (mg/dL) Date Value 11/12/2023 24 07/23/2021 18 Glucose (mg/dL) Date Value 11/12/2023 97 07/23/2021 61 PT INR (no units) Date Value 07/23/2021 1.0 TSH Date Value 12/18/2021 1.150 mIU/L 01/04/2020 1.630 uU/mL d Dimer (ng/mL FEU) Date Value 05/28/2016 320 Glucose (mg/dL) Date Value 11/12/2023 97 BUN (mg/dL) Date Value 11/12/2023 24 (H) Creatinine (mg/dL) Date Value 11/12/2023 0.90 Sodium (mmol/L) Date Value 11/12/2023 139 Potassium (mmol/L) Date Value 11/12/2023 3.8 Chloride (mmol/L) Date Value 11/12/2023 105 CO2 (mmol/L) Date Value 11/12/2023 26 Protein, Total (g/dL) Date Value 11/12/2023 7.5 Albumin (g/dL) Date Value 11/12/2023 4.4 Calcium, Total (mg/dL) Date Value 11/12/2023 9.5 Alkaline Phosphatase (U/L) Date Value 11/12/2023 76 Bilirubin, Total (mg/dL) Date Value 11/12/2023 0.4 AST (U/L) Date Value 11/12/2023 28 ALT (U/L) Date Value 11/12/2023 25 Glucose (mg/dL) Date Value 11/12/2023 97 07/23/2021 61 Creatinine (mg/dL) Date Value 11/12/2023 0.90 07/23/2021 0.84 Potassium (mmol/L) Date Value 11/12/2023 3.8 07/23/2021 4.1 AST (U/L) Date Value 11/12/2023 28 07/23/2021 33 ALT (U/L) Date Value 11/12/2023 25 07/23/2021 24 Hemoglobin A1C (%) Date Value 11/12/2023 5.0 12/19/2020 5.3 Cholesterol, Total (mg/dL) Date Value 11/12/2023 183 04/09/2019 178 HDL Cholesterol (mg/dL) Date Value 11/12/2023 76 04/09/2019 57 ] LDL Cholesterol (mg/dL) Date Value 11/12/2023 98 04/09/2019 103 Triglyceride (mg/dL) Date Value 11/12/2023 43 04/09/2019 88 ] Imagin06/24/2022 CT ABD/PEL IMPRESSION: NO ACUTE FINDINGS IN THE ABDOMEN AND PELVIS. AURY-EN-Y GASTRIC BYPASS SURGERY. NO DILATED BOWEL. 04/28/2022 Fibroscan Impression. The reading was adequate, and corresponds to Fibrosis stage F0-F1 (No significant fibrosis) and steatosis grade of S2. Endoscopy: 07/24/2021 Enteroscopy Findings: The examined esophagus was normal. Evidence of a Aury-en-Y gastric bypass (RYGB) was found. The gastrojejunal anastomosis (GJA) was characterized by normal appearing mucosa. No ulcers, erosion or david. The GJA outlet was dilated 25 mm diameter and was traversed. The gastric pouch extended from 39 cm to 40 cm from the incisors. The jejunum was normal at 65 cm (both Aury/alimentary and blind limbs). There was severe angulation and resistance, and the JJ could not be reached despite multiple maneuvers (balloon enteroscope, scope stiffner wire, change patient's position, abdominal pressure). Impression: - Normal esophagus. - RYGB anatomy. - Normal examined jejunum. - No specimens collected. Estimated Blood Loss: Estimated blood loss: none. Assessment and Recommendations: ??54 year old female with history as per HPI, obesity class I s/p RYGB, vitamin D deficiency, migraines, nonruptured cerebral aneurysm, uterus, fibroid, ovarian cyst, cervicalgia, vertigo, presenting to GI/Bariatric Endoscopy clinic for complications of bariatric surgery s/p RYGB c/b weight gain, overweight and weight management. Patient originally seen in GI bariatric for marginal ulcer and chronic abdominal pain following RYGB, work up negative and she was started on AOM for management of obesity. Interval: - Pt presents to f/u on medical weight management - Last seen in December 2023 - Continues Mounjaro and Metformin; also on Topamax and Adderall Attempted to stop Mounjaro for one month but experienced reactive hypoglycemia, which improved after restarting - Reports extreme, sharp LLQ abdominal pain resembling contractions or spasms Experienced 2 episodes: one while off Mounjaro and another in July 2024 Seen in the ED in July and diagnosed with gas pains No clear relieving or aggravating factors Tried laying down, walking, sipping water--intensified pain Regular BMs (1-2 daily) Used Gas-X and went to bed; next morning, generalized body soreness remained but no further episodes since Now cautious to avoid recurrence Discussed potential causes: gas, constipation, SIBO, dumping syndrome - Taking Bariatric MVI and calcium - Engages in physical activity: actively walks dogs, walks outdoors when weather allows, and takes stairs regularly Weight History: Heaviest weight: 388 lbs (BMI 62.6) Pre-RYGB weight: 341.8 lbs (BMI 56.01). Post-RYGB alvin: 175 lbs (BMI 28.2). weight: 245 lbs (BMI 39.54) -Marginal ulcer weight: 240 lbs (BMI 38.74) Initial program Weight: 245 lbs - our program AOM mounjaro started Weight 219 lbs (BMI 35.35) continues to follow program on mounjaro weight is 175 lbs (BMI 28) following program +AOM weight is 165 lbs (BMI 26.63) following program +AOM weight is 160 lbs (BMI 25.82) following program +AOM weight 155 lbs (BMI 25) weight is 161 lbs (BMI 25.99) following program +AOM weight is 154 lbs (BMI 24.8) following program +AOM Todays weight: 158 lbs (BMI 25.50) +AOM Recommendations: - Monitor for recurrent symptoms - Track food/beverage intake to ID potential triggers - Try FD or IB brea over the counter for symptoms management - Levsin 0.125 mcg SL tablet as needed every 4 hours with symptoms - Stay hydrated aim for at least 64 fluid ounces - If symptoms persist, can consider stopping GLP1/GIP and complete work up for SIBO, dumping syndrome, IBS - Continue Mounjaro unless symptoms return then stop injection - Continue Metformin as prescribed - Avoid high sugar or processed foods that can contribute to dumping syndrome symptoms - Separate eating from drinking - Try FODmap diet - Schedule f/u with our dietitians and psychologist for medical weight management - RTC in 4-6 weeks or if symptoms return can review education materials sent through [employer] VIRTUAL VISIT I spent a total of 30 minutes during this real-time, interactive virtual clinical encounter, which was conducted virtually using HIPAA compliant videoconferencing technology. Greater than 50% of the time spent was devoted to counseling and coordinating care including review of records, pertinent lab data and studies, as well as discussing diagnostic evaluation and work up, planned therapeutic interventions and future disposition of care. This includes any additional research needed to obtain further information in formulating the plan of care of this patient. This includes counseling the patient about her disease and diagnosis, specifically: complications of bariatric surgery, overweight and weight management We reviewed coronavirus precautions including avoiding public places, maintaining 6 feet of distance from other persons when in public, no sick contacts, and fastidious handwashing. Thank you for allowing me to participate in the care of your patient. If you have any questions or concerns, please feel free to contact me. Tracey Peña APRN.MANAGER ADMINISTRATIVE SERVICES GI Bariatric Endoscopy 11/29/2024 3:35 PM PROGRESS Observed: 11/07/2024 3:44 PM Status: COMPLETED Source: [facility] HNO ID: [id number] Author: JADE HOLCOMB APRN.BAILIFF Service: ? Author Type: Nurse Specialist Type: Progress Notes Filed: 11/07/2024 16:18 Note Text: SUBJECTIVE: HPI Elvia Mario is a 52 year old female. Past medical history significant for ACTIVE PROBLEM LIST Other and Unspecified Ovarian Cyst Allergic Rhinitis Migraine Variant With Headache Aneurysm, Cerebral, Nonruptured Abnormal Mammogram, Unspecified Fibroid, Uterus Bilateral Ovarian Cysts Cervicalgia Vitamin D Deficiency Acute Pain of Left Shoulder Acute Back Pain With Sciatica, Left H/O Gastric Bypass Attention Deficit Disorder (Add) Without Hyperactivity Benign Paroxysmal Positional Vertigo Since last seen in internal medicine she has continued to follow-up with gastroenterology. Tracey Peña CNP. She has followed regarding gastric bypass, obesity class II, and weight management. . ADHD. Today reports doing well with ADHD medication .Notes no problems with medication. Stable on current medications. No adverse effects noted. Has been effective for her. Notes increased concentration. Hemoglobin A1C (%) Date Value 11/12/2023 5.0 10/06/2022 5.0 12/19/2020 5.3 10/23/2017 5.2 ) Last 14 Encounter BP Readings: Date: BP: 11/07/2024 120/63 07/01/2024 116/82 05/02/2024 124/78 03/01/2024 130/80 02/10/2024 112/78 11/24/2023 117/68 11/12/2023 110/60 11/06/2023 116/82 07/28/2023 118/72 07/24/2023 122/78 05/06/2023 122/80 01/19/2023 122/80 10/22/2022 110/64 04/21/2022 126/82 Her most recent lipid panels are: Cholesterol, Total (mg/dL) Date Value 11/12/2023 183 12/18/2021 179 04/09/2019 178 06/14/2013 143 HDL Cholesterol (mg/dL) Date Value 11/12/2023 76 12/18/2021 56 04/09/2019 57 06/14/2013 54 LDL Cholesterol (mg/dL) Date Value 11/12/2023 98 12/18/2021 113 04/09/2019 103 06/14/2013 80 Triglyceride (mg/dL) Date Value 11/12/2023 43 12/18/2021 52 04/09/2019 88 06/14/2013 47 Review of Systems Constitutional: Negative. Objective BP 120/63 Pulse 76 Resp 16 Wt 73 kg (160 lb 15 oz) LMP 11/07/2009 BMI 25.98 kg/m? Physical Exam HENT: Head: Normocephalic and atraumatic. Right Ear: Tympanic membrane and ear canal normal. Left Ear: Tympanic membrane and ear canal normal. Nose: No mucosal edema or rhinorrhea. Right Sinus: No maxillary sinus tenderness or frontal sinus tenderness. Left Sinus: No maxillary sinus tenderness or frontal sinus tenderness. Mouth/Throat: Lips: Aiken. Mouth: Mucous membranes are moist. Pharynx: Oropharynx is clear. Eyes: Conjunctiva/sclera: Conjunctivae normal. Cardiovascular: Rate and Rhythm: Normal rate and regular rhythm. Pulmonary: Effort: Pulmonary effort is normal. Breath sounds: Normal breath sounds. Abdominal: General: Bowel sounds are normal. Palpations: Abdomen is soft. Neurological: General: No focal deficit present. Mental Status: She is alert and oriented to person, place, and time. ALLERGIES Allergen Reactions Ethinyl Estradiol Rash, Other: See Comments Nuvaring [Etonogest* Rash Percocet [Oxycodone* Itching Medication clonazePAM (KLONOPIN) 0.5 mg tablet Take 1 tablet by mouth two times a day as needed for anxiety for up to 90 days. amphetamine-dextroamphetamine (ADDERALL) 15 mg tablet Take 1 tablet by mouth two times a day for 30 days. Patient should start on October 08, 2024. ondansetron orally disintegrating (ZOFRAN ODT) 4 mg disintegrating tablet Take 1 tablet by mouth every 6 hours as needed for nausea/vomiting. topiramate (TOPAMAX) 50 mg tablet Take 3 tablets by mouth daily at bedtime. May also take 0.5 tablets once daily as needed (for breakthrough migraines). Take 50 mg at bedtime. May take an additional 25mg as needed in AM for breakthrough headaches.. Olopatadine 0.6 % spry Use 1 or 2 sprays once or twice daily for allergic rhinitis. rimegepant (NURTEC ODT) 75 mg disintegrating tablet Take 1 tablet by mouth once daily as needed. Max 1 per day tiZANidine (ZANAFLEX) 4 mg tablet Take 1.5 tablets by mouth daily at bedtime. Take 1 to 1.5 tablets in the morning as needed for breakthrough muscle spasm lisinopril (ZESTRIL) 20 mg tablet Take 1 tablet by mouth once daily. buPROPion XL (WELLBUTRIN XL) 300 mg 24 hr tablet Take 1 tablet by mouth once daily. tirzepatide (MOUNJARO) 2.5 mg/0.5 mL pen injector Inject 2.5 mg subcutaneously one time a week. Patient should start on January 15, 2024. esomeprazole (NEXIUM 24HR) 20 mg capsule Take 1 capsule by mouth twice daily at 6AM and 9PM. multivitamin (ONE-A-DAY ESSENTIAL ORAL) Take 1 tablet by mouth once daily. BIOTIN 2,500 MCG CAP take 5,000 mcg once a day calcium carbonate/vitamin d3(CALCIUM 600 + D(3) 600 MG (1,500)-200 UNIT TAB) Take one(1) tablet twice daily. amphetamine-dextroamphetamine (ADDERALL) 15 mg tablet Take 1 tablet by mouth two times a day for 30 days. Patient should start on July 10, 2024. amphetamine-dextroamphetamine (ADDERALL) 15 mg tablet Take 1 tablet by mouth two times a day for 30 days. Patient should start on August 09, 2024. metFORMIN (GLUCOPHAGE) 1,000 mg tablet take 1 tablet by mouth every day with dinner nystatin (NYSTOP) powder Apply 1 application to affected area four times daily. 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 Morbid obesity (HCC) 08/23/2007 Peripheral vascular disease (HCC) aneurysm brain, not peripheral S/P gastric bypass gastric bypass back in September 01, 2007 Unspecified essential hypertension Unspecified hypertensive 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 IV, or unspecified(403.90) Variants of migraine, not elsewhere classified, with intractable migraine, so stated, without mention of status migrainosus Social History Tobacco Use Smoking status: Never Smokeless tobacco: Never Vaping Use Vaping status: Never Used Substance Use Topics Alcohol use: Yes Comment: Occasionally Drug use: No Comment: h/ THC use in past Component Latest Ref Rng AND Units 10/06/2022 WBC 3.70 - 11.00 k/uL 4.34 RBC 3.90 - 5.20 m/uL 4.85 Hemoglobin 11.5 - 15.5 g/dL 14.1 Hematocrit 36.0 - 46.0 % 42.8 MCV 80.0 - 100.0 fL 88.2 MCH 26.0 - 34.0 pg 29.1 MCHC 30.5 - 36.0 g/dL 32.9 RDW-CV 11.5 - 15.0 % 15.5 (H) Platelet Count 150 - 400 k/uL 334 MPV 9.0 - 12.7 fL 10.4 Neut% % 63.6 Abs Neut (ANC) 1.45 - 7.50 k/uL 2.76 Lymph% % 27.6 Abs Lymph 1.00 - 4.00 k/uL 1.20 [place]% % 6.9 Abs [place] <0.87 k/uL 0.30 Eosin% % 1.2 Abs Eosin <0.46 k/uL 0.05 Baso% % 0.5 Abs Baso <0.11 k/uL <0.03 Immature Gran % % 0.2 IMMATURE GRANS (ABS) <0.10 k/uL <0.03 NRBC /100 WBC 0.0 Absolute nRBC <0.01 k/uL <0.01 DTYPE Auto Phencyclidine Negative Negative Benzodiazepines Urine Negative Negative Cocaine Urine Negative Negative Amphetamines Negative Preliminary positive (A) Cannabinoids, Urine Negative Negative Opiates Negative Negative Barbiturates Negative Negative Ethanol, Urine <11 mg/dL <11 Oxycodone, Urine Negative Negative Albumin 3.9 - 4.9 g/dL 4.2 Bilirubin, Total 0.2 - 1.3 mg/dL 0.3 Bilirubin, Conjug <0.2 mg/dL <0.2 Alkaline Phosphatase 34 - 123 U/L 113 AST 13 - 35 U/L 22 ALT 7 - 38 U/L 16 Protein, Total 6.3 - 8.0 g/dL 8.2 (H) Iron 41 - 186 ug/dL 106 TIBC 232 - 386 ug/dL 307 Transferrin Saturation 15.0 - 57.0 % 34.5 Hemoglobin A1C 4.3 - 5.6 % 5.0 Estimated Average Glucose mg/dL 97 Calcium 8.5 - 10.2 mg/dL 9.7 Chromium <0.6 ug/L <0.5 Copper 80 - 155 ug/dL 90 Folate >4.7 ng/mL >20.0 Insulin 3.0 - 25.0 mU/L 7.5 Magnesium 1.7 - 2.3 mg/dL 2.3 Vitamin A 0.30 - 1.20 mg/L 0.17 (L) Vitamin B12 232 - 1,245 pg/mL 1,151 Vitamin B6, Plasma 20.0 - 125.0 nmol/L 70.9 Vitamin D 25 Hydroxy 31.0 - 80.0 ng/mL 79.0 Vitamin K 0.22 - 4.88 nmol/L 0.83 Zinc 60 - 120 ug/dL 116 Ferritin 14.7 - 205.1 ng/mL 38.8 PTH, Intact 15 - 65 pg/mL 21 ASSESSMENT/PLAN: 1. Encounter for immunization - ICD9: V03.89, ICD10: Z23 - PNEUMOCOCCAL VACCINE, 20 VALENT (PREVNAR 20) - INFLUENZA VACCINE, AGE 6MO-64YR, TRIVALENT (AFLURIA, FLULAVAL, FLUVIRIN, FLUZONE) 2. Essential (primary) hypertension - ICD9: 401.9, ICD10: I10 controlled - Continue current medications - Encouraged sodium restriction, DASH or Mediterranean diet - Recommend regular aerobic exercise 3. Attention deficit disorder (ADD) without hyperactivity - ICD9: 314.00, ICD10: F98.8 (primary diagnosis) Stable on current treatment without adverse effects noted, continue unchanged. - DEXTROAMPHETAMINE-AMPHETAMINE 15 MG TABLET - DEXTROAMPHETAMINE-AMPHETAMINE 15 MG TABLET - DEXTROAMPHETAMINE-AMPHETAMINE 15 MG TABLET 4. H/O gastric bypass - ICD9: V45.86, ICD10: Z98.84 Due for follow up with gstroenterology. will order usual labs, she reports will complete at work - VITAMIN D 25 HYDROXY - VITAMIN B12 - VITAMIN B1 (THIAMINE), WHOLE BLOOD - VITAMIN A/RETINOL - PTH INTACT - LIPID PANEL BASIC - IRON AND TIBC - HEMOGLOBIN A1C - FOLATE, SERUM - FERRITIN - COMPLETE BLOOD COUNT AND DIFFERENTIAL - COMPREHENSIVE METABOLIC PANEL 3 mo follow up MD Jade Castellanos APRN.BAILIFF Medical Decision Making: Problems: Moderate: 2+ stable chronic illnesses Data: Unique test(s) ordered: 3+ Risk: Moderate: Drug management Medical Decision Making Level: 4 - Moderate CNOV Observed: 11/07/2024 3:00 PM Status: COMPLETED Source: [facility] Office Visit (INTMWS) RODRÍGUEZELVIA ([id number]) 1970 F Date Time Provider Department 11/07/24 3:00 PM JADE HOLCOMB INTMWS During your visit today, we recorded the following information about you: Pulse Respiration Blood pressure Weight 76/minute 16/minute 120/63 73 kg Jade Holcomb, ANSON.BAILIFF 11/07/2024 4:18 PM Signed SUBJECTIVE: HOLLY Hopkinsna Adele Shelbi is a 52 year old female. Past medical history significant for ACTIVE PROBLEM LIST Other and Unspecified Ovarian Cyst Allergic Rhinitis Migraine Variant With Headache Aneurysm, Cerebral, Nonruptured Abnormal Mammogram, Unspecified Fibroid, Uterus Bilateral Ovarian Cysts Cervicalgia Vitamin D Deficiency Acute Pain of Left Shoulder Acute Back Pain With Sciatica, Left H/O Gastric Bypass Attention Deficit Disorder (Add) Without Hyperactivity Benign Paroxysmal Positional Vertigo Since last seen in internal medicine she has continued to follow-up with gastroenterology. Tracey Peña CNP. She has followed regarding gastric bypass, obesity class II, and weight management. . ADHD. Today reports doing well with ADHD medication .Notes no problems with medication. Stable on current medications. No adverse effects noted. Has been effective for her. Notes increased concentration. Hemoglobin A1C (%) Date Value 11/12/2023 5.0 10/06/2022 5.0 12/19/2020 5.3 10/23/2017 5.2 ) Last 14 Encounter BP Readings: Date: BP: 11/07/2024 120/63 07/01/2024 116/82 05/02/2024 124/78 03/01/2024 130/80 02/10/2024 112/78 11/24/2023 117/68 11/12/2023 110/60 11/06/2023 116/82 07/28/2023 118/72 07/24/2023 122/78 05/06/2023 122/80 01/19/2023 122/80 10/22/2022 110/64 04/21/2022 126/82 Her most recent lipid panels are: Cholesterol, Total (mg/dL) Date Value 11/12/2023 183 12/18/2021 179 04/09/2019 178 06/14/2013 143 HDL Cholesterol (mg/dL) Date Value 11/12/2023 76 12/18/2021 56 04/09/2019 57 06/14/2013 54 LDL Cholesterol (mg/dL) Date Value 11/12/2023 98 12/18/2021 113 04/09/2019 103 06/14/2013 80 Triglyceride (mg/dL) Date Value 11/12/2023 43 12/18/2021 52 04/09/2019 88 06/14/2013 47 Review of Systems Constitutional: Negative. Objective BP 120/63 Pulse 76 Resp 16 Wt 73 kg (160 lb 15 oz) LMP 11/07/2009 BMI 25.98 kg/m? Physical Exam HENT: Head: Normocephalic and atraumatic. Right Ear: Tympanic membrane and ear canal normal. Left Ear: Tympanic membrane and ear canal normal. Nose: No mucosal edema or rhinorrhea. Right Sinus: No maxillary sinus tenderness or frontal sinus tenderness. Left Sinus: No maxillary sinus tenderness or frontal sinus tenderness. Mouth/Throat: Lips: [place]. Mouth: Mucous membranes are moist. Pharynx: Oropharynx is clear. Eyes: Conjunctiva/sclera: Conjunctivae normal. Cardiovascular: Rate and Rhythm: Normal rate and regular rhythm. Pulmonary: Effort: Pulmonary effort is normal. Breath sounds: Normal breath sounds. Abdominal: General: Bowel sounds are normal. Palpations: Abdomen is soft. Neurological: General: No focal deficit present. Mental Status: She is alert and oriented to person, place, and time. ALLERGIES Allergen Reactions Ethinyl Estradiol Rash, Other: See Comments Nuvaring [Etonogest* Rash Percocet [Oxycodone* Itching Medication clonazePAM (KLONOPIN) 0.5 mg tablet Take 1 tablet by mouth two times a day as needed for anxiety for up to 90 days. amphetamine-dextroamphetamine (ADDERALL) 15 mg tablet Take 1 tablet by mouth two times a day for 30 days. Patient should start on October 08, 2024. ondansetron orally disintegrating (ZOFRAN ODT) 4 mg disintegrating tablet Take 1 tablet by mouth every 6 hours as needed for nausea/vomiting. topiramate (TOPAMAX) 50 mg tablet Take 3 tablets by mouth daily at bedtime. May also take 0.5 tablets once daily as needed (for breakthrough migraines). Take 50 mg at bedtime. May take an additional 25mg as needed in AM for breakthrough headaches.. Olopatadine 0.6 % spry Use 1 or 2 sprays once or twice daily for allergic rhinitis. rimegepant (NURTEC ODT) 75 mg disintegrating tablet Take 1 tablet by mouth once daily as needed. Max 1 per day tiZANidine (ZANAFLEX) 4 mg tablet Take 1.5 tablets by mouth daily at bedtime. Take 1 to 1.5 tablets in the morning as needed for breakthrough muscle spasm lisinopril (ZESTRIL) 20 mg tablet Take 1 tablet by mouth once daily. buPROPion XL (WELLBUTRIN XL) 300 mg 24 hr tablet Take 1 tablet by mouth once daily. tirzepatide (MOUNJARO) 2.5 mg/0.5 mL pen injector Inject 2.5 mg subcutaneously one time a week. Patient should start on January 15, 2024. esomeprazole (NEXIUM 24HR) 20 mg capsule Take 1 capsule by mouth twice daily at 6AM and 9PM. multivitamin (ONE-A-DAY ESSENTIAL ORAL) Take 1 tablet by mouth once daily. BIOTIN 2,500 MCG CAP take 5,000 mcg once a day calcium carbonate/vitamin d3(CALCIUM 600 + D(3) 600 MG (1,500)-200 UNIT TAB) Take one(1) tablet twice daily. amphetamine-dextroamphetamine (ADDERALL) 15 mg tablet Take 1 tablet by mouth two times a day for 30 days. Patient should start on July 10, 2024. amphetamine-dextroamphetamine (ADDERALL) 15 mg tablet Take 1 tablet by mouth two times a day for 30 days. Patient should start on August 09, 2024. metFORMIN (GLUCOPHAGE) 1,000 mg tablet take 1 tablet by mouth every day with dinner nystatin (NYSTOP) powder Apply 1 application to affected area four times daily. 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 Morbid obesity (HCC) 08/23/2007 Peripheral vascular disease (HCC) aneurysm brain, not peripheral S/P gastric bypass gastric bypass back in September 01, 2007 Unspecified essential hypertension Unspecified hypertensive 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 IV, or unspecified(403.90) Variants of migraine, not elsewhere classified, with intractable migraine, so stated, without mention of status migrainosus Social History Tobacco Use Smoking status: Never Smokeless tobacco: Never Vaping Use Vaping status: Never Used Substance Use Topics Alcohol use: Yes Comment: Occasionally Drug use: No Comment: h/ THC use in past Component Latest Ref Rng AND Units 10/06/2022 WBC 3.70 - 11.00 k/uL 4.34 RBC 3.90 - 5.20 m/uL 4.85 Hemoglobin 11.5 - 15.5 g/dL 14.1 Hematocrit 36.0 - 46.0 % 42.8 MCV 80.0 - 100.0 fL 88.2 MCH 26.0 - 34.0 pg 29.1 MCHC 30.5 - 36.0 g/dL 32.9 RDW-CV 11.5 - 15.0 % 15.5 (H) Platelet Count 150 - 400 k/uL 334 MPV 9.0 - 12.7 fL 10.4 Neut% % 63.6 Abs Neut (ANC) 1.45 - 7.50 k/uL 2.76 Lymph% % 27.6 Abs Lymph 1.00 - 4.00 k/uL 1.20 [place]% % 6.9 Abs [place] <0.87 k/uL 0.30 Eosin% % 1.2 Abs Eosin <0.46 k/uL 0.05 Baso% % 0.5 Abs Baso <0.11 k/uL <0.03 Immature Gran % % 0.2 IMMATURE GRANS (ABS) <0.10 k/uL <0.03 NRBC /100 WBC 0.0 Absolute nRBC <0.01 k/uL <0.01 DTYPE Auto Phencyclidine Negative Negative Benzodiazepines Urine Negative Negative Cocaine Urine Negative Negative Amphetamines Negative Preliminary positive (A) Cannabinoids, Urine Negative Negative Opiates Negative Negative Barbiturates Negative Negative Ethanol, Urine <11 mg/dL <11 Oxycodone, Urine Negative Negative Albumin 3.9 - 4.9 g/dL 4.2 Bilirubin, Total 0.2 - 1.3 mg/dL 0.3 Bilirubin, Conjug <0.2 mg/dL <0.2 Alkaline Phosphatase 34 - 123 U/L 113 AST 13 - 35 U/L 22 ALT 7 - 38 U/L 16 Protein, Total 6.3 - 8.0 g/dL 8.2 (H) Iron 41 - 186 ug/dL 106 TIBC 232 - 386 ug/dL 307 Transferrin Saturation 15.0 - 57.0 % 34.5 Hemoglobin A1C 4.3 - 5.6 % 5.0 Estimated Average Glucose mg/dL 97 Calcium 8.5 - 10.2 mg/dL 9.7 Chromium <0.6 ug/L <0.5 Copper 80 - 155 ug/dL 90 Folate >4.7 ng/mL >20.0 Insulin 3.0 - 25.0 mU/L 7.5 Magnesium 1.7 - 2.3 mg/dL 2.3 Vitamin A 0.30 - 1.20 mg/L 0.17 (L) Vitamin B12 232 - 1,245 pg/mL 1,151 Vitamin B6, Plasma 20.0 - 125.0 nmol/L 70.9 Vitamin D 25 Hydroxy 31.0 - 80.0 ng/mL 79.0 Vitamin K 0.22 - 4.88 nmol/L 0.83 Zinc 60 - 120 ug/dL 116 Ferritin 14.7 - 205.1 ng/mL 38.8 PTH, Intact 15 - 65 pg/mL 21 ASSESSMENT/PLAN: 1. Encounter for immunization - ICD9: V03.89, ICD10: Z23 - PNEUMOCOCCAL VACCINE, 20 VALENT (PREVNAR 20) - INFLUENZA VACCINE, AGE 6MO-64YR, TRIVALENT (AFLURIA, FLULAVAL, FLUVIRIN, FLUZONE) 2. Essential (primary) hypertension - ICD9: 401.9, ICD10: I10 controlled - Continue current medications - Encouraged sodium restriction, DASH or Mediterranean diet - Recommend regular aerobic exercise 3. Attention deficit disorder (ADD) without hyperactivity - ICD9: 314.00, ICD10: F98.8 (primary diagnosis) Stable on current treatment without adverse effects noted, continue unchanged. - DEXTROAMPHETAMINE-AMPHETAMINE 15 MG TABLET - DEXTROAMPHETAMINE-AMPHETAMINE 15 MG TABLET - DEXTROAMPHETAMINE-AMPHETAMINE 15 MG TABLET 4. H/O gastric bypass - ICD9: V45.86, ICD10: Z98.84 Due for follow up with gstroenterology. will order usual labs, she reports will complete at work - VITAMIN D 25 HYDROXY - VITAMIN B12 - VITAMIN B1 (THIAMINE), WHOLE BLOOD - VITAMIN A/RETINOL - PTH INTACT - LIPID PANEL BASIC - IRON AND TIBC - HEMOGLOBIN A1C - FOLATE, SERUM - FERRITIN - COMPLETE BLOOD COUNT AND DIFFERENTIAL - COMPREHENSIVE METABOLIC PANEL 3 mo follow up MD Jade Castellanos, ENGINEER [employer] AND [employer]ER.BAILIFF Medical Decision Making: Problems: Moderate: 2+ stable chronic illnesses Data: Unique test(s) ordered: 3+ Risk: Moderate: Drug management Medical Decision Making Level: 4 - Moderate Referring Provider: GLENNA TURNER [[id number]] Allergies As of Date: 11/07/2024 Noted Allergy Reaction ETHINYL ESTRADIOL 11/27/2020 2 - Rash 14 - Other: See Comments NUVARING (ETONOGESTREL-ETHINYL ES*03/29/2009 2 - Rash PERCOCET (OXYCODONE-ACETAMINOPHEN)06/30/2016 9 - Itching Date Reviewed: 11/07/2024 Reviewed by: Jade Holcomb APRN.BAILIFF - Fully Assessed Reason for Visit: F/U 3 Month [443] Primary Visit Diagnosis:Attention deficit disorder (ADD) without hyperactivity [F98.8] Other Visit Diagnoses:Encounter for immunization [Z23] Essential (primary) hypertension [I10] H/O gastric bypass [Z98.84] Order(s):[START ON 11/08/2024] amphetamine-dextroamphetamine (ADDERALL) 15 mg tabletTake 1 tablet by mouth two times a day for 30 days. Patient should start on November 08, 2024.Disp: 60 tabletRfl: 0 [START ON 12/08/2024] amphetamine-dextroamphetamine (ADDERALL) 15 mg tabletTake 1 tablet by mouth two times a day for 30 days. Patient should start on December 08, 2024.Disp: 60 tabletRfl: 0 [START ON 01/07/2025] amphetamine-dextroamphetamine (ADDERALL) 15 mg tabletTake 1 tablet by mouth two times a day for 30 days. Patient should start on January 07, 2025.Disp: 60 tabletRfl: 0 buPROPion XL (WELLBUTRIN XL) 300 mg 24 hr tabletTake 1 tablet by mouth once daily.Disp: 90 tabletRfl: 3 ondansetron orally disintegrating (ZOFRAN ODT) 4 mg disintegrating tabletTake 1 tablet by mouth every 6 hours as needed for nausea/vomiting.Disp: 30 tabletRfl: 1 VITAMIN D 25 HYDROXY [SQVITD] Order #: [id number] FUTURE VITAMIN B12 [SQB12] Order #: [id number] FUTURE VITAMIN B1 (THIAMINE), WHOLE BLOOD [SQB1WB] Order #: [id number] FUTURE VITAMIN A/RETINOL [SQVITA] Order #: [id number] FUTURE PTH INTACT [SQPTHI] Order #: [id number] FUTURE LIPID PANEL BASIC [SQLIPB] Order #: [id number] FUTURE IRON AND TIBC [SQIRON] Order #: [id number] FUTURE HEMOGLOBIN A1C [VQTJJ7T] Order #: [id number] FUTURE FOLATE, SERUM [SQSERFOL] Order #: [id number] FUTURE FERRITIN [SQFERR] Order #: [id number] FUTURE COMPLETE BLOOD COUNT AND DIFFERENTIAL [SQCBCDIF] Order #: [id number] FUTURE COMPREHENSIVE METABOLIC PANEL [SQCMP] Order #: [id number] FUTURE Prescriptions as of 11/07/2024 - amphetamine-dextroamphetamine (ADDERALL) 15 mg tablet Take 1 tablet by mouth two times a day for 30 days. Patient should start on November 08, 2024. - amphetamine-dextroamphetamine (ADDERALL) 15 mg tablet Take 1 tablet by mouth two times a day for 30 days. Patient should start on December 08, 2024. - amphetamine-dextroamphetamine (ADDERALL) 15 mg tablet Take 1 tablet by mouth two times a day for 30 days. Patient should start on January 07, 2025. - buPROPion XL (WELLBUTRIN XL) 300 mg 24 hr tablet Take 1 tablet by mouth once daily. - ondansetron orally disintegrating (ZOFRAN ODT) 4 mg disintegrating tablet Take 1 tablet by mouth every 6 hours as needed for nausea/vomiting. - clonazePAM (KLONOPIN) 0.5 mg tablet Take 1 tablet by mouth two times a day as needed for anxiety for up to 90 days. - topiramate (TOPAMAX) 50 mg tablet Take 3 tablets by mouth daily at bedtime. May also take 0.5 tablets once daily as needed (for breakthrough migraines). Take 50 mg at bedtime. May take an additional 25mg as needed in AM for breakthrough headaches.. - Olopatadine 0.6 % spry Use 1 or 2 sprays once or twice daily for allergic rhinitis. - rimegepant (NURTEC ODT) 75 mg disintegrating tablet Take 1 tablet by mouth once daily as needed. Max 1 per day - tiZANidine (ZANAFLEX) 4 mg tablet Take 1.5 tablets by mouth daily at bedtime. Take 1 to 1.5 tablets in the morning as needed for breakthrough muscle spasm - lisinopril (ZESTRIL) 20 mg tablet Take 1 tablet by mouth once daily. - metFORMIN (GLUCOPHAGE) 1,000 mg tablet take 1 tablet by mouth every day with dinner - tirzepatide (MOUNJARO) 2.5 mg/0.5 mL pen injector Inject 2.5 mg subcutaneously one time a week. Patient should start on January 15, 2024. - nystatin (NYSTOP) powder Apply 1 application to affected area four times daily. - esomeprazole (NEXIUM 24HR) 20 mg capsule Take 1 capsule by mouth twice daily at 6AM and 9PM. - ferrous fum/C/B12/liver/folic ([id number] C-FA-IF ORAL) - multivitamin (ONE-A-DAY ESSENTIAL ORAL) Take 1 tablet by mouth once daily. - BIOTIN 2,500 MCG CAP take 5,000 mcg once a day - calcium carbonate/vitamin d3(CALCIUM 600 + D(3) 600 MG (1,500)-200 UNIT TAB) Take one(1) tablet twice daily. Problem List As Of Date 11/07/2024 Noted Resolved Unspecified asthma(493.90) [J45.909] 06/17/2007 06/01/2015 Obesity (BMI 35.0-39.9 without comorbidity) [E6*08/23/2007 03/15/2024 Other and unspecified postsurgical nonabsorptio*11/26/2007 06/01/2015 Other and unspecified ovarian cyst [N83.209] 11/07/2008 Allergic rhinitis [J30.9] 11/06/2010 Migraine variant with headache [G43.809] Aneurysm, cerebral, nonruptured [I67.1] 05/16/2011 Abnormal mammogram, unspecified [R92.8] 08/27/2011 Fibroid, uterus 11/05/2011 Bilateral ovarian cysts [N83.201, N83.202] 11/05/2011 Incisional hernia [K43.2] 06/17/2013 06/01/2015 Unspecified essential hypertension [I10] 06/01/2015 06/01/2015 Fracture [T14.8XXA] 06/01/2015 06/01/2015 Cervicalgia [M54.2] 01/31/2016 Vitamin D deficiency [E55.9] 04/12/2016 Acute pain of left shoulder [M25.512] 07/30/2017 Acute back pain with sciatica, left [M54.42] 07/30/2017 H/O gastric bypass [Z98.84] 10/23/2017 Attention deficit disorder (ADD) without hypera*03/11/2022 Benign paroxysmal positional vertigo [H81.10] 01/16/2022 Prescriptions ordered this encounter Disp Refills Start End DEXTROAMPHETAMINE-AMPHETAMINE 15 MG * 60 t* 0 11/08/2024 12/08/2024 Route: ORAL Sig: Take 1 tablet by mouth two times a day for 30 days. Patient should start on November 08, 2024. DEXTROAMPHETAMINE-AMPHETAMINE 15 MG * 60 t* 0 12/08/2024 01/07/2025 Route: ORAL Sig: Take 1 tablet by mouth two times a day for 30 days. Patient should start on December 08, 2024. DEXTROAMPHETAMINE-AMPHETAMINE 15 MG * 60 t* 0 01/07/2025 02/06/2025 Route: ORAL Sig: Take 1 tablet by mouth two times a day for 30 days. Patient should start on January 07, 2025. BUPROPION XL 300 MG 24 HR TAB 90 t* 3 11/07/2024 Route: ORAL Sig: Take 1 tablet by mouth once daily. ONDANSETRON 4 MG DISINTEGRATING TABL* 30 t* 1 11/07/2024 Route: ORAL Sig: Take 1 tablet by mouth every 6 hours as needed for nausea/vomiting. Medications Discontinued During This Encounter Prescriptions - buPROPion XL (WELLBUTRIN XL) 300 mg 24 hr tablet (Discontinued) Take 1 tablet by mouth once daily. - amphetamine-dextroamphetamine (ADDERALL) 15 mg tablet (Discontinued) Take 1 tablet by mouth two times a day for 30 days. Patient should start on July 10, 2024. - amphetamine-dextroamphetamine (ADDERALL) 15 mg tablet (Discontinued) Take 1 tablet by mouth two times a day for 30 days. Patient should start on August 09, 2024. - ondansetron orally disintegrating (ZOFRAN ODT) 4 mg disintegrating tablet (Discontinued) Take 1 tablet by mouth every 6 hours as needed for nausea/vomiting. - amphetamine-dextroamphetamine (ADDERALL) 15 mg tablet (Discontinued) Take 1 tablet by mouth two times a day for 30 days. Patient should start on October 08, 2024. Level of Service: OFFICE/OUTPATIENT ESTABLISHED MOD MDM 30 MIN [65878] Additional E/M codes: VISIT CPLX INHERENT EANDM ASSOC WITH MED * Follow-up and Disposition History for Encounter Date Provider Department Center 11/07/2024 [id number] VALERIO [facility] [place] Encounter Status:Closed by JADE HOLCOMB on 11/07/24 PROGRESS Observed: 10/07/2024 2:50 PM Status: COMPLETED Source: [facility] ID: [id number] Author: BOB TAN Mammo Tech Service: ? Author Type: Club Lounge Attendant Type: Progress Notes Filed: 10/07/2024 15:01 Note Text: Radiology Service Progress Note PATIENT NAME: Elvia Schmidt DATE OF SERVICE: October 07, 2024 TIME: 3:00 PM PATIENT IDENTITY VERIFICATION COMPLETED USING TWO (2) IDENTIFIERS: Name and Date of confirmed by patient verbally. FALL SCREENING: Has the patient had 2 falls in the last year or 1 fall with injury or currently using an Ambulatory Assistive Device (Walker, Cane, Wheelchair, Crutches, etc.)? No PATIENT GENDER DATA: Assigned female at . status: : No status: NO. PATIENT RELEVANT IMPLANT DATA REVIEWED: Not Applicable PATIENT PRESENTS WITH AN IMPLANTABLE OR ATTACHED HABILITATIVE INTERVENTIONIST: No RADIOLOGY DEPARTMENT: Mammography PERIPHERAL IV DATA: Not applicable SIGNED BY: Sachi Mcclellan October 07, 2024 3:00 PM CHLOE SCREENING W BRIANNA Observed: 2:38 PM Status: F Source: [facility] * * *Final Report* * * DATE OF EXAM: Oct 07 2024 2:38PM [facility] [id number] - CHLOE SCREENING W BRIANNA / PROCEDURE REASON: Encounter for screening mammogram for breast cancer * * * * Physician Interpretation * * * * RESULT: [place] [address] #[id number] - CHLOE SCREENING W BRIANNA HISTORY: Patient is 54 years old and is seen for screening and is asymptomatic in both breasts. Patient states no personal history of breast cancer. Patient states no personal history of other cancers. COMPARISON STUDIES: The present examination has been compared to prior imaging studies dated 09/28/2020 (mammogram), 10/01/2021 (mammogram), 10/03/2022 (mammogram) and 10/05/2023 (mammogram). MAMMOGRAM TECHNIQUE: The study was acquired using full field digital technology and interpreted from soft copy. Digital Breast Tomosynthesis (DBT) images were obtained and used to assist in the interpretation of this examination. MAMMOGRAM FINDINGS: There are scattered areas of fibroglandular density. No suspicious masses, calcifications or other abnormalities are seen in either breast. There are no significant interval changes. IMPRESSION: There is no mammographic evidence of malignancy in either breast. Routine screening mammogram is recommended. Annual mammogram will be due in 1 year. BI-RADS Category 1: Negative RISK: Based on the Tyrer-Cuzick (TC) risk assessment model, this patient has a 7.8% lifetime risk of developing breast cancer, meaning they are at average risk for developing breast cancer. However, this is only an estimate based on available history provided on the patient's questionnaire. We encourage all patients to talk with their providers about these results, further recommendations for managing breast health, and appropriate supplemental screening options if the patient has dense breast tissue. Interpreting Radiologist: June Dietrich M.D. Electronically signed on: 10/10/2024 Facilities And Grounds Director: SHARLENE Transcribe Date/Time: Oct 07 2024 2:28P Dictated by: JUNE DIETRICH MD This examination was interpreted and the report reviewed and electronically signed by: JUNE DIETRICH MD on Oct 10 2024 10:37AM EST [id number] Observed: 07/01/2024 3:34 PM Status: COMPLETED Source: [facility] HN ID: [id number] Author: GLENNA TURNER MD Service: ? Author Type: Physician Type: Progress Notes Filed: 08/06/2024 16:04 Note Text: This note was created using [email or web address]. Subjective Elvia Schmidt is a 54 year old female. Patient presents with: F/U 3 Month SUBJECTIVE: Elvia Schmidt is a 54 year old year old lady here today for 3 month follow up appointment for review of medical conditions. The patient is a 54-year-old female with a history of anxiety, migraines, and diabetes, presenting for a routine follow-up and medication refills. The patient reports stability in her current health status and is requesting refills for multiple medications, including Topamax, lepidine nasal spray, clonazepam, Zofran, Nurtec, Adderall, and metformin. She uses Zofran approximately twice a week and requests an increase in the quantity to 30 tablets to last for three months. She has been experiencing difficulties with medication availability at [facility], particularly with Adderall, and expresses frustration with the pharmacy's inconsistent supply. She notes that her insurance only covers [facility] and [facility], limiting her options. The patient has a follow-up appointment scheduled for October and wants to ensure she has enough medication refills to last until then. She also mentions that she is unable to see her GI specialist before the end of the month for a metformin refill and requests assistance with this. She has received her flu shot and declines further COVID-19 vaccinations. She has a mammogram scheduled for September and is not currently interested in the shingles vaccine. She reports feeling well and denies symptoms of depression or anxiety, stating that she is good now and not bothered by anxiety symptoms. 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 tiZANidine (ZANAFLEX) 4 mg tablet Take 1.5 tablets by mouth daily at bedtime. Take 1 to 1.5 tablets in the morning as needed for breakthrough muscle spasm amphetamine-dextroamphetamine (ADDERALL) 15 mg tablet Take 1 tablet by mouth two times a day for 30 days. Patient should start on May 26, 2024. amphetamine-dextroamphetamine (ADDERALL) 15 mg tablet Take 1 tablet by mouth two times a day for 30 days. Patient should start on June 25, 2024. [START ON 07/25/2024] amphetamine-dextroamphetamine (ADDERALL) 15 mg tablet Take 1 tablet by mouth two times a day for 30 days. Patient should start on July 25, 2024. lisinopril (ZESTRIL) 20 mg tablet Take 1 tablet by mouth once daily. metFORMIN (GLUCOPHAGE) 1,000 mg tablet take 1 tablet by mouth every day with dinner clonazePAM (KLONOPIN) 0.5 mg tablet Take 1 tablet by mouth two times a day as needed for anxiety for up to 90 days. Do not start before April 12, 2024. amphetamine-dextroamphetamine (ADDERALL) 15 mg tablet Take 1 tablet by mouth two times a day for 30 days. Do not start before April 17, 2024. buPROPion XL (WELLBUTRIN XL) 300 mg 24 hr tablet Take 1 tablet by mouth once daily. tirzepatide (MOUNJARO) 2.5 mg/0.5 mL pen injector Inject 2.5 mg subcutaneously one time a week. Patient should start on January 15, 2024. nystatin (NYSTOP) powder Apply 1 application to affected area four times daily. rimegepant (NURTEC ODT) 75 mg disintegrating tablet Take 1 tablet by mouth once daily as needed. Max 1 per day topiramate (TOPAMAX) 50 mg tablet Take 3 tablets by mouth daily at bedtime. May also take 0.5 tablets once daily as needed (for breakthrough migraines). Take 50 mg at bedtime. May take an additional 25mg as needed in AM for breakthrough headaches.. Olopatadine 0.6 % spry USE 1 OR 2 SPRAYS ONCE OR TWICE DAILY FOR ALLERGIC RHINITIS. esomeprazole (NEXIUM 24HR) 20 mg capsule Take 1 capsule by mouth twice daily at 6AM and 9PM. ferrous fum/C/B12/liver/folic ([id number]-T19-NYG C-FA-IF ORAL) multivitamin (ONE-A-DAY ESSENTIAL ORAL) Take 1 tablet by mouth once daily. BIOTIN 2,500 MCG CAP take 5,000 mcg once a day calcium carbonate/vitamin d3(CALCIUM 600 + D(3) 600 MG (1,500)-200 UNIT TAB) Take one(1) tablet twice daily. No current facility-administered medications for this visit. Review of Systems Objective LMP 11/07/2009 Physical Exam Constitutional: Appearance: Normal appearance. HENT: Head: Normocephalic. Eyes: Conjunctiva/sclera: Conjunctivae normal. Cardiovascular: Rate and Rhythm: Normal rate and regular rhythm. Heart sounds: Normal heart sounds. Pulmonary: Effort: Pulmonary effort is normal. Breath sounds: Normal breath sounds. Musculoskeletal: Right lower leg: No edema. Left lower leg: No edema. Skin: General: Skin is warm and dry. Neurological: General: No focal deficit present. Mental Status: She is alert and oriented to person, place, and time. Psychiatric: Mood and Affect: Mood normal. Behavior: Behavior normal. Thought Content: Thought content normal. Judgment: Judgment normal. Latest Ref Rng 10/06/2022 11/12/2023 WBC 3.70 - 11.00 k/uL 4.34 3.89 RBC 3.90 - 5.20 m/uL 4.85 4.33 Hemoglobin 11.5 - 15.5 g/dL 14.1 13.4 Hematocrit 36.0 - 46.0 % 42.8 39.4 MCV 80.0 - 100.0 fL 88.2 91.0 MCH 26.0 - 34.0 pg 29.1 30.9 MCHC 30.5 - 36.0 g/dL 32.9 34.0 RDW-CV 11.5 - 15.0 % 15.5 (H) 13.0 Platelet Count 150 - 400 k/uL 334 260 MPV 9.0 - 12.7 fL 10.4 10.3 Neut% % 63.6 40.8 Abs Neut (ANC) 1.45 - 7.50 k/uL 2.76 1.59 Lymph% % 27.6 46.5 Abs Lymph 1.00 - 4.00 k/uL 1.20 1.81 [place]% % 6.9 8.0 Abs [place] <0.87 k/uL 0.30 0.31 Eosin% % 1.2 3.6 Abs Eosin <0.46 k/uL 0.05 0.14 Baso% % 0.5 0.8 Abs Baso <0.11 k/uL <0.03 0.03 Immature Gran % % 0.2 0.3 IMMATURE GRANS (ABS) <0.10 k/uL <0.03 <0.03 NRBC /100 WBC 0.0 0.0 Absolute nRBC <0.01 k/uL <0.01 <0.01 DTYPE Auto Auto Protein, Total 6.3 - 8.0 g/dL 8.2 (H) 7.5 Albumin 3.9 - 4.9 g/dL 4.2 4.4 Calcium 8.5 - 10.2 mg/dL 9.7 9.5 Bilirubin, Total 0.2 - 1.3 mg/dL 0.3 0.4 Alkaline Phosphatase 34 - 123 U/L 113 76 AST 13 - 35 U/L 22 28 ALT 7 - 38 U/L 16 25 Glucose 74 - 99 mg/dL 97 BUN 7 - 21 mg/dL 24 (H) Creatinine 0.58 - 0.96 mg/dL 0.90 Sodium 136 - 144 mmol/L 139 Potassium 3.7 - 5.1 mmol/L 3.8 Chloride 97 - 105 mmol/L 105 CO2 22 - 30 mmol/L 26 Anion Gap 9 - 18 mmol/L 8 (L) eGFR >=60 mL/min/1.73m? 76 Fibrosis Score 0.21 Fibrosis Stage F0 Fibrosis Interpretation No Fibrosis Necroinflam Activity Score 0.14 Necroinflam Activity Grade A0 Necroinflam Activity Interp No Activity Alpha 2 Macroglobulin 110 - 270 mg/dL 253 Haptoglobin 31 - 238 mg/dL 50 APOLIPOPROTEIN A1 >124 mg/dL 179 Total Bilirubin 0.2 - 1.3 mg/dL 0.5 GGT 6 - 42 U/L 8 ALT 10 - 35 U/L 31 Phencyclidine Negative Negative Negative Benzodiazepines Urine Negative Negative Negative Cocaine Urine Negative Negative Negative Amphetamines Negative Preliminary positive ! Preliminary positive ! Cannabinoids, Urine Negative Negative Negative Opiates Negative Negative Negative Barbiturates Negative Negative Negative Ethanol, Urine <11 mg/dL <11 <11 Oxycodone, Urine Negative Negative Negative Cholesterol, Total <200 mg/dL 183 Triglyceride <150 mg/dL 43 HDL Cholesterol >39 mg/dL 76 Non HDL Cholesterol <130 mg/dL 107 Fasting Time hrs 11 VLDL Cholesterol <30 mg/dL 9 TC:HDL Ratio <5.10 2.41 LDL Cholesterol <100 mg/dL 98 LDL:HDL Ratio <2.54 1.29 Bilirubin, Direct <0.2 mg/dL <0.2 Iron 41 - 186 ug/dL 106 87 TIBC 232 - 386 ug/dL 307 337 Transferrin Saturation 15.0 - 57.0 % 34.5 25.8 Hemoglobin A1C 4.3 - 5.6 % 5.0 5.0 Estimated Average Glucose mg/dL 97 97 Chromium <0.6 ug/L <0.5 Copper 80 - 155 ug/dL 90 Folate >4.7 ng/mL >20.0 >20.0 Insulin 3.0 - 25.0 mU/L 7.5 3.2 Magnesium 1.7 - 2.3 mg/dL 2.3 Vitamin A 0.30 - 1.20 mg/L 0.17 (L) 0.42 Vitamin B12 232 - 1,245 pg/mL 1,151 >2,000 (H) Vitamin B6, Plasma 20.0 - 125.0 nmol/L 70.9 Vitamin D 25 Hydroxy 31.0 - 80.0 ng/mL 79.0 83.7 (H) Vitamin K 0.22 - 4.88 nmol/L 0.83 Zinc 60 - 120 ug/dL 116 Ferritin 14.7 - 205.1 ng/mL 38.8 43.3 PTH, Intact 15 - 65 pg/mL 21 19 H. pylori IgG, Qualitative Negative Negative Vitamin B1 (TDP), Whole Blood 84.3 - 213.3 nmol/L 236.8 (H) Legend: (H) High ! 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 - Refilled Adderall prescription; issued for July 10, August 09, and September 08 to ensure continuity until next appointment in October. - Discussed challenges with [facility] pharmacy regarding medication availability; patient advised to explore [facility] mail-in options if issues persist. # Anxiety (F41.9) - Symptoms well-controlled on current medication regimen. - Refilled clonazepam, 90-day supply, to be taken twice daily as needed. # Migraine variant with headache (G43.809) - Refilled Topamax and Nurtec prescriptions. - Nurtec prescribed once daily, 8 pills with 5 refills. # Cervicalgia (M54.2) - No acute issues reported; condition stable. # Memory change (R41.3) - No acute issues reported; condition stable. # Essential (primary) hypertension (I10) - Blood pressure reading 110/80 mmHg, well-controlled. - Continue current antihypertensive regimen. # Tired (R53.83) - No acute issues reported; condition stable. # Screening for depression (Z13.31) - Patient reports no feelings of depression or hopelessness; no further intervention needed at this time. # Encounter for screening examination for other mental health and behavioral disorders (Z13.39) - Patient reports no current symptoms of anxiety or depression; continue current treatment plan. # Encounter for screening mammogram for breast cancer (Z12.31) - Mammogram completed in September; order placed for next screening in September 2024. Glenna Turner MD CNOV Observed: 07/01/2024 3:20 PM Status: COMPLETED Source: [facility] Office Visit (INTMWS) ELVIA SCHMIDT ([id number]) 1970 F Date Time Provider Department 07/01/24 3:20 PM GLENNA TURNER INTMWS During your visit today, we recorded the following information about you: Pulse Respiration Blood pressure Weight 73/minute 14/minute 116/82 72.6 kg Glenna Turner MD 08/06/2024 4:04 PM Signed This note was created using [employer]. Subjective Elvia Schmidt is a 54 year old female. Patient presents with: F/U 3 Month SUBJECTIVE: Elvia Schmidt is a 54 year old year old lady here today for 3 month follow up appointment for review of medical conditions. The patient is a 54-year-old female with a history of anxiety, migraines, and diabetes, presenting for a routine follow-up and medication refills. The patient reports stability in her current health status and is requesting refills for multiple medications, including Topamax, lepidine nasal spray, clonazepam, Zofran, Nurtec, Adderall, and metformin. She uses Zofran approximately twice a week and requests an increase in the quantity to 30 tablets to last for three months. She has been experiencing difficulties with medication availability at [facility], particularly with Adderall, and expresses frustration with the pharmacy's inconsistent supply. She notes that her insurance only covers [facility] and [facility], limiting her options. The patient has a follow-up appointment scheduled for October and wants to ensure she has enough medication refills to last until then. She also mentions that she is unable to see her GI specialist before the end of the month for a metformin refill and requests assistance with this. She has received her flu shot and declines further COVID-19 vaccinations. She has a mammogram scheduled for September and is not currently interested in the shingles vaccine. She reports feeling well and denies symptoms of depression or anxiety, stating that she is good now and not bothered by anxiety symptoms. 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 tiZANidine (ZANAFLEX) 4 mg tablet Take 1.5 tablets by mouth daily at bedtime. Take 1 to 1.5 tablets in the morning as needed for breakthrough muscle spasm amphetamine-dextroamphetamine (ADDERALL) 15 mg tablet Take 1 tablet by mouth two times a day for 30 days. Patient should start on May 26, 2024. amphetamine-dextroamphetamine (ADDERALL) 15 mg tablet Take 1 tablet by mouth two times a day for 30 days. Patient should start on June 25, 2024. [START ON 07/25/2024] amphetamine-dextroamphetamine (ADDERALL) 15 mg tablet Take 1 tablet by mouth two times a day for 30 days. Patient should start on July 25, 2024. lisinopril (ZESTRIL) 20 mg tablet Take 1 tablet by mouth once daily. metFORMIN (GLUCOPHAGE) 1,000 mg tablet take 1 tablet by mouth every day with dinner clonazePAM (KLONOPIN) 0.5 mg tablet Take 1 tablet by mouth two times a day as needed for anxiety for up to 90 days. Do not start before April 12, 2024. amphetamine-dextroamphetamine (ADDERALL) 15 mg tablet Take 1 tablet by mouth two times a day for 30 days. Do not start before April 17, 2024. buPROPion XL (WELLBUTRIN XL) 300 mg 24 hr tablet Take 1 tablet by mouth once daily. tirzepatide (MOUNJARO) 2.5 mg/0.5 mL pen injector Inject 2.5 mg subcutaneously one time a week. Patient should start on January 15, 2024. nystatin (NYSTOP) powder Apply 1 application to affected area four times daily. rimegepant (NURTEC ODT) 75 mg disintegrating tablet Take 1 tablet by mouth once daily as needed. Max 1 per day topiramate (TOPAMAX) 50 mg tablet Take 3 tablets by mouth daily at bedtime. May also take 0.5 tablets once daily as needed (for breakthrough migraines). Take 50 mg at bedtime. May take an additional 25mg as needed in AM for breakthrough headaches.. Olopatadine 0.6 % spry USE 1 OR 2 SPRAYS ONCE OR TWICE DAILY FOR ALLERGIC RHINITIS. esomeprazole (NEXIUM 24HR) 20 mg capsule Take 1 capsule by mouth twice daily at 6AM and 9PM. ferrous fum/C/B12/liver/folic (JQVO-T02-ICU C-FA-IF ORAL) multivitamin (ONE-A-DAY ESSENTIAL ORAL) Take 1 tablet by mouth once daily. BIOTIN 2,500 MCG CAP take 5,000 mcg once a day calcium carbonate/vitamin d3(CALCIUM 600 + D(3) 600 MG (1,500)-200 UNIT TAB) Take one(1) tablet twice daily. No current facility-administered medications for this visit. Review of Systems Objective LMP 11/07/2009 Physical Exam Constitutional: Appearance: Normal appearance. HENT: Head: Normocephalic. Eyes: Conjunctiva/sclera: Conjunctivae normal. Cardiovascular: Rate and Rhythm: Normal rate and regular rhythm. Heart sounds: Normal heart sounds. Pulmonary: Effort: Pulmonary effort is normal. Breath sounds: Normal breath sounds. Musculoskeletal: Right lower leg: No edema. Left lower leg: No edema. Skin: General: Skin is warm and dry. Neurological: General: No focal deficit present. Mental Status: She is alert and oriented to person, place, and time. Psychiatric: Mood and Affect: Mood normal. Behavior: Behavior normal. Thought Content: Thought content normal. Judgment: Judgment normal. Latest Ref Rng 10/06/2022 11/12/2023 WBC 3.70 - 11.00 k/uL 4.34 3.89 RBC 3.90 - 5.20 m/uL 4.85 4.33 Hemoglobin 11.5 - 15.5 g/dL 14.1 13.4 Hematocrit 36.0 - 46.0 % 42.8 39.4 MCV 80.0 - 100.0 fL 88.2 91.0 MCH 26.0 - 34.0 pg 29.1 30.9 MCHC 30.5 - 36.0 g/dL 32.9 34.0 RDW-CV 11.5 - 15.0 % 15.5 (H) 13.0 Platelet Count 150 - 400 k/uL 334 260 MPV 9.0 - 12.7 fL 10.4 10.3 Neut% % 63.6 40.8 Abs Neut (ANC) 1.45 - 7.50 k/uL 2.76 1.59 Lymph% % 27.6 46.5 Abs Lymph 1.00 - 4.00 k/uL 1.20 1.81 [place]% % 6.9 8.0 Abs [place] <0.87 k/uL 0.30 0.31 Eosin% % 1.2 3.6 Abs Eosin <0.46 k/uL 0.05 0.14 Baso% % 0.5 0.8 Abs Baso <0.11 k/uL <0.03 0.03 Immature Gran % % 0.2 0.3 IMMATURE GRANS (ABS) <0.10 k/uL <0.03 <0.03 NRBC /100 WBC 0.0 0.0 Absolute nRBC <0.01 k/uL <0.01 <0.01 DTYPE Auto Auto Protein, Total 6.3 - 8.0 g/dL 8.2 (H) 7.5 Albumin 3.9 - 4.9 g/dL 4.2 4.4 Calcium 8.5 - 10.2 mg/dL 9.7 9.5 Bilirubin, Total 0.2 - 1.3 mg/dL 0.3 0.4 Alkaline Phosphatase 34 - 123 U/L 113 76 AST 13 - 35 U/L 22 28 ALT 7 - 38 U/L 16 25 Glucose 74 - 99 mg/dL 97 BUN 7 - 21 mg/dL 24 (H) Creatinine 0.58 - 0.96 mg/dL 0.90 Sodium 136 - 144 mmol/L 139 Potassium 3.7 - 5.1 mmol/L 3.8 Chloride 97 - 105 mmol/L 105 CO2 22 - 30 mmol/L 26 Anion Gap 9 - 18 mmol/L 8 (L) eGFR >=60 mL/min/1.73m? 76 Fibrosis Score 0.21 Fibrosis Stage F0 Fibrosis Interpretation No Fibrosis Necroinflam Activity Score 0.14 Necroinflam Activity Grade A0 Necroinflam Activity Interp No Activity Alpha 2 Macroglobulin 110 - 270 mg/dL 253 Haptoglobin 31 - 238 mg/dL 50 APOLIPOPROTEIN A1 >124 mg/dL 179 Total Bilirubin 0.2 - 1.3 mg/dL 0.5 GGT 6 - 42 U/L 8 ALT 10 - 35 U/L 31 Phencyclidine Negative Negative Negative Benzodiazepines Urine Negative Negative Negative Cocaine Urine Negative Negative Negative Amphetamines Negative Preliminary positive ! Preliminary positive ! Cannabinoids, Urine Negative Negative Negative Opiates Negative Negative Negative Barbiturates Negative Negative Negative Ethanol, Urine <11 mg/dL <11 <11 Oxycodone, Urine Negative Negative Negative Cholesterol, Total <200 mg/dL 183 Triglyceride <150 mg/dL 43 HDL Cholesterol >39 mg/dL 76 Non HDL Cholesterol <130 mg/dL 107 Fasting Time hrs 11 VLDL Cholesterol <30 mg/dL 9 TC:HDL Ratio <5.10 2.41 LDL Cholesterol <100 mg/dL 98 LDL:HDL Ratio <2.54 1.29 Bilirubin, Direct <0.2 mg/dL <0.2 Iron 41 - 186 ug/dL 106 87 TIBC 232 - 386 ug/dL 307 337 Transferrin Saturation 15.0 - 57.0 % 34.5 25.8 Hemoglobin A1C 4.3 - 5.6 % 5.0 5.0 Estimated Average Glucose mg/dL 97 97 Chromium <0.6 ug/L <0.5 Copper 80 - 155 ug/dL 90 Folate >4.7 ng/mL >20.0 >20.0 Insulin 3.0 - 25.0 mU/L 7.5 3.2 Magnesium 1.7 - 2.3 mg/dL 2.3 Vitamin A 0.30 - 1.20 mg/L 0.17 (L) 0.42 Vitamin B12 232 - 1,245 pg/mL 1,151 >2,000 (H) Vitamin B6, Plasma 20.0 - 125.0 nmol/L 70.9 Vitamin D 25 Hydroxy 31.0 - 80.0 ng/mL 79.0 83.7 (H) Vitamin K 0.22 - 4.88 nmol/L 0.83 Zinc 60 - 120 ug/dL 116 Ferritin 14.7 - 205.1 ng/mL 38.8 43.3 PTH, Intact 15 - 65 pg/mL 21 19 H. pylori IgG, Qualitative Negative Negative Vitamin B1 (TDP), Whole Blood 84.3 - 213.3 nmol/L 236.8 (H) Legend: (H) High ! 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 - Refilled Adderall prescription; issued for July 10, August 09, and September 08 to ensure continuity until next appointment in October. - Discussed challenges with [facility] pharmacy regarding medication availability; patient advised to explore [facility] mail-in options if issues persist. # Anxiety (F41.9) - Symptoms well-controlled on current medication regimen. - Refilled clonazepam, 90-day supply, to be taken twice daily as needed. # Migraine variant with headache (G43.809) - Refilled Topamax and Nurtec prescriptions. - Nurtec prescribed once daily, 8 pills with 5 refills. # Cervicalgia (M54.2) - No acute issues reported; condition stable. # Memory change (R41.3) - No acute issues reported; condition stable. # Essential (primary) hypertension (I10) - Blood pressure reading 110/80 mmHg, well-controlled. - Continue current antihypertensive regimen. # Tired (R53.83) - No acute issues reported; condition stable. # Screening for depression (Z13.31) - Patient reports no feelings of depression or hopelessness; no further intervention needed at this time. # Encounter for screening examination for other mental health and behavioral disorders (Z13.39) - Patient reports no current symptoms of anxiety or depression; continue current treatment plan. # Encounter for screening mammogram for breast cancer (Z12.31) - Mammogram completed in September; order placed for next screening in September 2024. MD Yue Castellanos Liza D, MD 07/01/2024 4:46 PM Addendum - Continue taking Topamax, Olapatidine nasal spray, clonazepam, Zofran, Nurtec, Adderall, Wellbutrin, and Lisinopril as prescribed. - Fill Adderall prescriptions on July 10, August 09, and September 08. - Call for an Adderall prescription in September to cover until your October appointment. - Follow up with your specialist in August for metformin management. - Schedule a mammogram for September 2024. Allergies As of Date: 07/01/2024 Noted Allergy Reaction ETHINYL ESTRADIOL 11/27/2020 2 - Rash 14 - Other: See Comments NUVARING (ETONOGESTREL-ETHINYL ES*03/29/2009 2 - Rash PERCOCET (OXYCODONE-ACETAMINOPHEN)06/30/2016 9 - Itching Date Reviewed: 07/01/2024 Reviewed by: Carroll Her MA - Fully Assessed Reason for Visit: F/U 3 Month [443] Primary Visit Diagnosis:Attention deficit disorder (ADD) without hyperactivity [F98.8] Other Visit Diagnoses:Anxiety [F41.9] Migraine variant with headache [G43.809] Cervicalgia [M54.2] Memory change [R41.3] Essential (primary) hypertension [I10] Tired [R53.83] Screening for depression [Z13.31] Encounter for screening examination for other mental health and behavioral disorders [Z13.39] Encounter for screening mammogram for breast cancer [Z12.31] Order(s):topiramate (TOPAMAX) 50 mg tabletTake 3 tablets by mouth daily at bedtime. May also take 0.5 tablets once daily as needed (for breakthrough migraines). Take 50 mg at bedtime. May take an additional 25mg as needed in AM for breakthrough headaches..Disp: 290 tabletRfl: 3 Olopatadine 0.6 % spryUse 1 or 2 sprays once or twice daily for allergic rhinitis.Disp: 91.5 gRfl: 3 clonazePAM (KLONOPIN) 0.5 mg tabletTake 1 tablet by mouth two times a day as needed for anxiety for up to 90 days.Disp: 90 tabletRfl: 0 ondansetron orally disintegrating (ZOFRAN ODT) 4 mg disintegrating tabletTake 1 tablet by mouth every 6 hours as needed for nausea/vomiting.Disp: 30 tabletRfl: 1 rimegepant (NURTEC ODT) 75 mg disintegrating tabletTake 1 tablet by mouth once daily as needed. Max 1 per dayDisp: 8 tabletRfl: 5 amphetamine-dextroamphetamine (ADDERALL) 15 mg tabletTake 1 tablet by mouth two times a day for 30 days. Patient should start on July 10, 2024.Disp: 60 tabletRfl: 0 [START ON 08/09/2024] amphetamine-dextroamphetamine (ADDERALL) 15 mg tabletTake 1 tablet by mouth two times a day for 30 days. Patient should start on August 09, 2024.Disp: 60 tabletRfl: 0 [START ON 09/08/2024] amphetamine-dextroamphetamine (ADDERALL) 15 mg tabletTake 1 tablet by mouth two times a day for 30 days. Patient should start on September 08, 2024.Disp: 60 tabletRfl: 0 DEPRESSION SCREENING [8390398] Order #: [id number]: 1 ANXIETY SCREENING [[id number]] Order #: [id number]: 1 CHLOE SCREENING W BRIANNA [[id number]] Order #: [id number] FUTURE Prescriptions as of 08/06/2024 - topiramate (TOPAMAX) 50 mg tablet Take 3 tablets by mouth daily at bedtime. May also take 0.5 tablets once daily as needed (for breakthrough migraines). Take 50 mg at bedtime. May take an additional 25mg as needed in AM for breakthrough headaches.. - Olopatadine 0.6 % spry Use 1 or 2 sprays once or twice daily for allergic rhinitis. - clonazePAM (KLONOPIN) 0.5 mg tablet Take 1 tablet by mouth two times a day as needed for anxiety for up to 90 days. - ondansetron orally disintegrating (ZOFRAN ODT) 4 mg disintegrating tablet Take 1 tablet by mouth every 6 hours as needed for nausea/vomiting. - rimegepant (NURTEC ODT) 75 mg disintegrating tablet Take 1 tablet by mouth once daily as needed. Max 1 per day - amphetamine-dextroamphetamine (ADDERALL) 15 mg tablet Take 1 tablet by mouth two times a day for 30 days. Patient should start on July 10, 2024. - amphetamine-dextroamphetamine (ADDERALL) 15 mg tablet Take 1 tablet by mouth two times a day for 30 days. Patient should start on August 09, 2024. - amphetamine-dextroamphetamine (ADDERALL) 15 mg tablet Take 1 tablet by mouth two times a day for 30 days. Patient should start on September 08, 2024. - tiZANidine (ZANAFLEX) 4 mg tablet Take 1.5 tablets by mouth daily at bedtime. Take 1 to 1.5 tablets in the morning as needed for breakthrough muscle spasm - lisinopril (ZESTRIL) 20 mg tablet Take 1 tablet by mouth once daily. - metFORMIN (GLUCOPHAGE) 1,000 mg tablet take 1 tablet by mouth every day with dinner - buPROPion XL (WELLBUTRIN XL) 300 mg 24 hr tablet Take 1 tablet by mouth once daily. - tirzepatide (MOUNJARO) 2.5 mg/0.5 mL pen injector Inject 2.5 mg subcutaneously one time a week. Patient should start on January 15, 2024. - nystatin (NYSTOP) powder Apply 1 application to affected area four times daily. - esomeprazole (NEXIUM 24HR) 20 mg capsule Take 1 capsule by mouth twice daily at 6AM and 9PM. - ferrous fum/C/B12/liver/folic (QUIR-Q20-EWN C-FA-IF ORAL) - multivitamin (ONE-A-DAY ESSENTIAL ORAL) Take 1 tablet by mouth once daily. - BIOTIN 2,500 MCG CAP take 5,000 mcg once a day - calcium carbonate/vitamin d3(CALCIUM 600 + D(3) 600 MG (1,500)-200 UNIT TAB) Take one(1) tablet twice daily. Medication notes this encounter METFORMIN 1,000 MG TABLET >> Glenna Turner MD 07/01/2024 4:38 PM >> GLENNA TURNER Jul 01, 2024 4:38 PM Got refill end of May Problem List As Of Date 07/01/2024 Noted Resolved Unspecified asthma(493.90) [J45.909] 06/17/2007 06/01/2015 Obesity (BMI 35.0-39.9 without comorbidity) [E6*08/23/2007 03/15/2024 Other and unspecified postsurgical nonabsorptio*11/26/2007 06/01/2015 Other and unspecified ovarian cyst [N83.209] 11/07/2008 Allergic rhinitis [J30.9] 11/06/2010 Migraine variant with headache [G43.809] Aneurysm, cerebral, nonruptured [I67.1] 05/16/2011 Abnormal mammogram, unspecified [R92.8] 08/27/2011 Fibroid, uterus 11/05/2011 Bilateral ovarian cysts [N83.201, N83.202] 11/05/2011 Incisional hernia [K43.2] 06/17/2013 06/01/2015 Unspecified essential hypertension [I10] 06/01/2015 06/01/2015 Fracture [T14.8XXA] 06/01/2015 06/01/2015 Cervicalgia [M54.2] 01/31/2016 Vitamin D deficiency [E55.9] 04/12/2016 Acute pain of left shoulder [M25.512] 07/30/2017 Acute back pain with sciatica, left [M54.42] 07/30/2017 H/O gastric bypass [Z98.84] 10/23/2017 Attention deficit disorder (ADD) without hypera*03/11/2022 Benign paroxysmal positional vertigo [H81.10] 01/16/2022 Other instructions from your clinician: - Continue taking Topamax, Olapatidine nasal spray, clonazepam, Zofran, Nurtec, Adderall, Wellbutrin, and Lisinopril as prescribed. - Fill Adderall prescriptions on July 10, August 09, and September 08. - Call for an Adderall prescription in September to cover until your October appointment. - Follow up with your specialist in August for metformin management. - Schedule a mammogram for September 2024. Prescriptions ordered this encounter Disp Refills Start End TOPIRAMATE 50 MG TABLET 290 * 3 07/01/2024 Route: ORAL Sig: Take 3 tablets by mouth daily at bedtime. May also take 0.5 tablets once daily as needed (for breakthrough migraines). Take 50 mg at bedtime. May take an additional 25mg as needed in AM for breakthrough headaches.. OLOPATADINE 0.6 % NASAL SPRAY 91.5* 3 07/01/2024 Sig: Use 1 or 2 sprays once or twice daily for allergic rhinitis. CLONAZEPAM 0.5 MG TABLET 90 t* 0 07/01/2024 09/29/2024 Route: ORAL Sig: Take 1 tablet by mouth two times a day as needed for anxiety for up to 90 days. ONDANSETRON 4 MG DISINTEGRATING TABL* 30 t* 1 07/01/2024 Route: ORAL Sig: Take 1 tablet by mouth every 6 hours as needed for nausea/vomiting. NURTEC ODT 75 MG DISINTEGRATING TABL* 8 ta* 5 07/01/2024 Route: ORAL Sig: Take 1 tablet by mouth once daily as needed. Max 1 per day DEXTROAMPHETAMINE-AMPHETAMINE 15 MG * 60 t* 0 07/10/2024 08/09/2024 Route: ORAL Sig: Take 1 tablet by mouth two times a day for 30 days. Patient should start on July 10, 2024. DEXTROAMPHETAMINE-AMPHETAMINE 15 MG * 60 t* 0 08/09/2024 09/08/2024 Route: ORAL Sig: Take 1 tablet by mouth two times a day for 30 days. Patient should start on August 09, 2024. DEXTROAMPHETAMINE-AMPHETAMINE 15 MG * 60 t* 0 09/08/2024 10/08/2024 Route: ORAL Sig: Take 1 tablet by mouth two times a day for 30 days. Patient should start on September 08, 2024. Medications Discontinued During This Encounter Prescriptions - Olopatadine 0.6 % spry (Discontinued) USE 1 OR 2 SPRAYS ONCE OR TWICE DAILY FOR ALLERGIC RHINITIS. - topiramate (TOPAMAX) 50 mg tablet (Discontinued) Take 3 tablets by mouth daily at bedtime. May also take 0.5 tablets once daily as needed (for breakthrough migraines). Take 50 mg at bedtime. May take an additional 25mg as needed in AM for breakthrough headaches.. - rimegepant (NURTEC ODT) 75 mg disintegrating tablet (Discontinued) Take 1 tablet by mouth once daily as needed. Max 1 per day - clonazePAM (KLONOPIN) 0.5 mg tablet (Discontinued) Take 1 tablet by mouth two times a day as needed for anxiety for up to 90 days. Do not start before April 12, 2024. - ondansetron orally disintegrating (ZOFRAN ODT) 4 mg disintegrating tablet (Discontinued) Take 1 tablet by mouth every 6 hours as needed for nausea/vomiting. - amphetamine-dextroamphetamine (ADDERALL) 15 mg tablet (Discontinued) Take 1 tablet by mouth two times a day for 30 days. Do not start before April 17, 2024. - amphetamine-dextroamphetamine (ADDERALL) 15 mg tablet (Discontinued) Take 1 tablet by mouth two times a day for 30 days. Patient should start on May 26, 2024. - amphetamine-dextroamphetamine (ADDERALL) 15 mg tablet (Discontinued) Take 1 tablet by mouth two times a day for 30 days. Patient should start on June 25, 2024. - amphetamine-dextroamphetamine (ADDERALL) 15 mg tablet (Discontinued) Take 1 tablet by mouth two times a day for 30 days. Patient should start on July 25, 2024. Level of Service: OFFICE/OUTPATIENT ESTABLISHED MOD MDM 30 MIN [54055] Additional E/M codes: VISIT CPLX INHERENT EANDM ASSOC WITH MED * Disposition: Return for Keep up 3 month FUs. Follow-up and Disposition History for Encounter Date Provider Department Center 07/01/2024 [id number] TURNER IN[facility] [place] Encounter Status:Closed by GLENNA TURNER on 08/06/24 CNOV Observed: 05/02/2024 4:20 PM Status: COMPLETED Source: [facility] Office Visit (INTMWS) ELVIA SCHMIDT ([id number]) 1970 F Date Time Provider Department 05/02/24 4:20 PM GLENNA TURNER During your visit today, we recorded the following information about you: Temperature Pulse Respiration Blood pressure 98.1 degrees 103/minute 16/minute 124/78 Weight 71.4 kg Glenna Turner MD 05/02/2024 4:08 PM Signed This note was created using NoteWriter. Subjective Elvia Schmidt is a 54 year old female. Patient presents with: F/U 3 Month SUBJECTIVE: Elvia Schmidt is a 54 year old year old lady here today for 3 month follow up appointment for review of medical conditions. Patient is a 54-year-old female presenting for 3 month follow up but had developed acute onset of viral symptoms, including rhinorrhea, nasal congestion, cephalalgia, nausea, and diarrhea, which began yesterday. She describes the nausea as severe and the headache as unusual, located at the back of her head. She has been managing the headache with Tylenol and uses a daily nasal spray for allergies, which has not provided relief. She denies any wheezing, dyspnea, or cough. Patient is interested in COVID-19 testing. Patient also inquired about the discontinuation of tizanidine, which she believes may be contributing to her current neck pain and headache. She reports that the medication was effective in managing her symptoms previously. Otherwise, stable from other chronic medical issues. ADD managed well with Adderall. Though PDMP does no show filled since 03/07, she states next RX not due to around 05/28. 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, or unspecified(403.90) No date: Variants of migraine, not elsewhere classified, with intractable migraine, so stated, without mention of status migrainosus PAST SURGICAL HISTORY 1994: CHOLECYSTECTOMY Comment: lap 10/27/2018: COLONOSCOPY FLX DX W/COLLJ SPEC WHEN PFRMD Comment: Colonoscopy 11/29/2020: EGD 09/02/2011: EXC BREAST LES PREOP PLMT RAD MARKER OPEN 1 LES Comment: LEFT 2016: HYSTERECTOMY HX Comment: total robotic with bso No date: LAP AURY Y BYPASS BAND OUTLET 11/27/2009: NOVASURE 09/01/2007: PAST SURGICAL HISTORY OF Comment: gastric bypass surgery 09/02/2011: PREOP PLACEMENT NEEDLE LOC Comment: LEFT 02/14/2011: THERAPEUTIC SPINAL PUNCTURE DRAINAGE CSF Comment: 1976: TONSILLECTOMY PRIMARY/SECONDARY <AGE 10 Comment: Tonsillectomy Current Outpatient Medications Medication Sig metFORMIN (GLUCOPHAGE) 1,000 mg tablet take 1 tablet by mouth every day with dinner clonazePAM (KLONOPIN) 0.5 mg tablet Take 1 tablet by mouth two times a day as needed for anxiety for up to 90 days. Do not start before April 12, 2024. triamcinolone (KENALOG) 0.025 % cream Apply 1 application to affected area two times a day. amphetamine-dextroamphetamine (ADDERALL) 15 mg tablet Take 1 tablet by mouth two times a day for 30 days. Do not start before February 17, 2024. amphetamine-dextroamphetamine (ADDERALL) 15 mg tablet Take 1 tablet by mouth two times a day for 30 days. Do not start before 2024. amphetamine-dextroamphetamine (ADDERALL) 15 mg tablet Take 1 tablet by mouth two times a day for 30 days. Do not start before April 17, 2024. buPROPion XL (WELLBUTRIN XL) 300 mg 24 hr tablet Take 1 tablet by mouth once daily. tirzepatide (MOUNJARO) 2.5 mg/0.5 mL pen injector Inject 2.5 mg subcutaneously one time a week. Patient should start on January 15, 2024. nystatin (NYSTOP) powder Apply 1 application to affected area four times daily. rimegepant (NURTEC ODT) 75 mg disintegrating tablet Take 1 tablet by mouth once daily as needed. Max 1 per day ondansetron orally disintegrating (ZOFRAN ODT) 4 mg disintegrating tablet Take 1 tablet by mouth every 6 hours as needed for nausea/vomiting. amphetamine-dextroamphetamine (ADDERALL) 15 mg tablet Take 1 tablet by mouth two times a day for 30 days. Do not start before January 25, 2024. topiramate (TOPAMAX) 50 mg tablet Take 3 tablets by mouth daily at bedtime. May also take 0.5 tablets once daily as needed (for breakthrough migraines). Take 50 mg at bedtime. May take an additional 25mg as needed in AM for breakthrough headaches.. ondansetron (ZOFRAN) 4 mg tablet Take 1 tablet by mouth every 12 hours as needed for nausea/vomiting (for nausea.). Olopatadine 0.6 % spry USE 1 OR 2 SPRAYS ONCE OR TWICE DAILY FOR ALLERGIC RHINITIS. lisinopril (ZESTRIL) 20 mg tablet Take 1 tablet by mouth once daily. esomeprazole (NEXIUM 24HR) 20 mg capsule Take 1 capsule by mouth twice daily at 6AM and 9PM. ferrous fum/C/B12/liver/folic (AOFN-F19-VQP C-FA-IF ORAL) multivitamin (ONE-A-DAY ESSENTIAL ORAL) Take 1 tablet by mouth once daily. BIOTIN 2,500 MCG CAP take 5,000 mcg once a day calcium carbonate/vitamin d3(CALCIUM 600 + D(3) 600 MG (1,500)-200 UNIT TAB) Take one(1) tablet twice daily. No current facility-administered medications for this visit. Review of Systems Objective LMP 11/07/2009 Physical Exam Constitutional: General: She is not in acute distress. Appearance: Normal appearance. She is ill-appearing. She is not toxic-appearing or diaphoretic. HENT: Head: Normocephalic. Eyes: Conjunctiva/sclera: Conjunctivae normal. Cardiovascular: Rate and Rhythm: Normal rate and regular rhythm. Heart sounds: Normal heart sounds. Pulmonary: Effort: Pulmonary effort is normal. Breath sounds: Normal breath sounds. Skin: General: Skin is warm and dry. Neurological: General: No focal deficit present. Mental Status: She is alert and oriented to person, place, and time. Psychiatric: Attention and Perception: Attention normal. Mood and Affect: Affect is flat. Speech: Speech normal. Behavior: Behavior normal. Thought Content: Thought content normal. Judgment: Judgment normal. Comments: Patient appears tired and affect flat from illness.Complained of nausea and headache. Assessment and Plan Acute viral syndrome: - Symptoms include runny nose, congestion, headache, and nausea. - Ordered bundled test for COVID-19, influenza, and RSV to confirm viral etiology. - Ondansetron ODT (orally disintegrating tablet) prescribed for nausea, 20 tablets, to be picked up at [facility] in [place]. - Advised to use [id number] Tylenol for headache management. - Recommended short-term use of oxymetazoline nasal spray for severe nasal congestion, not to exceed 3-7 days. - Lungs auscultated and found to be clear, no wheezing or shortness of breath noted. - Provided education on rest, hydration, and symptomatic management including the use of chicken soup. - Work excuse note provided, with results expected by tomorrow. Attention deficit disorder (ADD) without hyperactivity: - Current medication: Adderall. - Reviewed and updated prescription dates to ensure continuity of medication: May 26, June 25, and July 26. - Confirmed that the patient is stable on current dosage and medication is effective. Primary hypertension: - Current medication: Lisinopril. - Prescription reviewed and confirmed to be up-to-date. - No changes in medication regimen as the condition is stable. Continues to get meds through GI who are managing weight loss s/p bariatric surgery. Noted that has been successful with weight loss since started on Mounjaro 06/17/2022. MD Yue Castellanos Liza D, MD 05/02/2024 4:03 PM Signed -We have ordered a bundled test to check for COVID, flu, and RSV due to your symptoms of runny nose, congestion, and headache. The results should be back by tomorrow. - Ondansetron (Zofran) prescription has been sent to your pharmacy for nausea management. - Continue using your nasal spray and consider using a decongestant nasal spray like Afrin (oxymetazoline) for short-term relief (3-7 days) if you are very congested. - Take Tylenol for headache relief as needed. - Tizanidine prescription has been renewed for muscle spasm management. - Adderall prescription has been updated and sent to your pharmacy. - Nexium, Metformin, Neurotech, Mounjaro, and Topamax prescriptions are being managed by your other healthcare providers. - A work excuse note has been provided. - Your next appointments are scheduled out through January. Allergies As of Date: 05/02/2024 Noted Allergy Reaction ETHINYL ESTRADIOL 11/27/2020 2 - Rash 14 - Other: See Comments NUVARING (ETONOGESTREL-ETHINYL ES*03/29/2009 2 - Rash PERCOCET (OXYCODONE-ACETAMINOPHEN)06/30/2016 9 - Itching Date Reviewed: 05/02/2024 Reviewed by: Regi Irving LPN - Fully Assessed Reason for Visit: F/U 3 Month [443] Primary Visit Diagnosis:Acute viral syndrome [B34.9] Other Visit Diagnoses:Attention deficit disorder (ADD) without hyperactivity [F98.8] Primary hypertension [I10] Order(s):COVID AND INFLUENZA A/B AND RSV NAAT, ROUTINE [[id number]] Order #: [id number]. #:[id number] ondansetron orally disintegrating (ZOFRAN ODT) 4 mg disintegrating tabletTake 1 tablet by mouth every 6 hours as needed for nausea/vomiting.Disp: 20 tabletRfl: 0 tiZANidine (ZANAFLEX) 4 mg tabletTake 1.5 tablets by mouth daily at bedtime. Take 1 to 1.5 tablets in the morning as needed for breakthrough muscle spasmDisp: 270 tabletRfl: 3 [START ON 05/26/2024] amphetamine-dextroamphetamine (ADDERALL) 15 mg tabletTake 1 tablet by mouth two times a day for 30 days. Patient should start on May 26, 2024.Disp: 60 tabletRfl: 0 [START ON 06/25/2024] amphetamine-dextroamphetamine (ADDERALL) 15 mg tabletTake 1 tablet by mouth two times a day for 30 days. Patient should start on June 25, 2024.Disp: 60 tabletRfl: 0 [START ON 07/25/2024] amphetamine-dextroamphetamine (ADDERALL) 15 mg tabletTake 1 tablet by mouth two times a day for 30 days. Patient should start on July 25, 2024.Disp: 60 tabletRfl: 0 lisinopril (ZESTRIL) 20 mg tabletTake 1 tablet by mouth once daily.Disp: 90 tabletRfl: 3 Prescriptions as of 05/02/2024 - ondansetron orally disintegrating (ZOFRAN ODT) 4 mg disintegrating tablet Take 1 tablet by mouth every 6 hours as needed for nausea/vomiting. - tiZANidine (ZANAFLEX) 4 mg tablet Take 1.5 tablets by mouth daily at bedtime. Take 1 to 1.5 tablets in the morning as needed for breakthrough muscle spasm - amphetamine-dextroamphetamine (ADDERALL) 15 mg tablet Take 1 tablet by mouth two times a day for 30 days. Patient should start on May 26, 2024. - amphetamine-dextroamphetamine (ADDERALL) 15 mg tablet Take 1 tablet by mouth two times a day for 30 days. Patient should start on June 25, 2024. - amphetamine-dextroamphetamine (ADDERALL) 15 mg tablet Take 1 tablet by mouth two times a day for 30 days. Patient should start on July 25, 2024. - lisinopril (ZESTRIL) 20 mg tablet Take 1 tablet by mouth once daily. - metFORMIN (GLUCOPHAGE) 1,000 mg tablet take 1 tablet by mouth every day with dinner - clonazePAM (KLONOPIN) 0.5 mg tablet Take 1 tablet by mouth two times a day as needed for anxiety for up to 90 days. Do not start before April 12, 2024. - amphetamine-dextroamphetamine (ADDERALL) 15 mg tablet Take 1 tablet by mouth two times a day for 30 days. Do not start before April 17, 2024. - buPROPion XL (WELLBUTRIN XL) 300 mg 24 hr tablet Take 1 tablet by mouth once daily. - tirzepatide (MOUNJARO) 2.5 mg/0.5 mL pen injector Inject 2.5 mg subcutaneously one time a week. Patient should start on January 15, 2024. - nystatin (NYSTOP) powder Apply 1 application to affected area four times daily. - rimegepant (NURTEC ODT) 75 mg disintegrating tablet Take 1 tablet by mouth once daily as needed. Max 1 per day - topiramate (TOPAMAX) 50 mg tablet Take 3 tablets by mouth daily at bedtime. May also take 0.5 tablets once daily as needed (for breakthrough migraines). Take 50 mg at bedtime. May take an additional 25mg as needed in AM for breakthrough headaches.. - Olopatadine 0.6 % spry USE 1 OR 2 SPRAYS ONCE OR TWICE DAILY FOR ALLERGIC RHINITIS. - esomeprazole (NEXIUM 24HR) 20 mg capsule Take 1 capsule by mouth twice daily at 6AM and 9PM. - ferrous fum/C/B12/liver/folic (ZXQH-G17-RBH C-FA-IF ORAL) - multivitamin (ONE-A-DAY ESSENTIAL ORAL) Take 1 tablet by mouth once daily. - BIOTIN 2,500 MCG CAP take 5,000 mcg once a day - calcium carbonate/vitamin d3(CALCIUM 600 + D(3) 600 MG (1,500)-200 UNIT TAB) Take one(1) tablet twice daily. Problem List As Of Date 05/02/2024 Noted Resolved Unspecified asthma(493.90) [J45.909] 06/17/2007 06/01/2015 Obesity (BMI 35.0-39.9 without comorbidity) [E6*08/23/2007 03/15/2024 Other and unspecified postsurgical nonabsorptio*11/26/2007 06/01/2015 Other and unspecified ovarian cyst [N83.209] 11/07/2008 Allergic rhinitis [J30.9] 11/06/2010 Migraine variant with headache [G43.809] Aneurysm, cerebral, nonruptured [I67.1] 05/16/2011 Abnormal mammogram, unspecified [R92.8] 08/27/2011 Fibroid, uterus 11/05/2011 Bilateral ovarian cysts [N83.201, N83.202] 11/05/2011 Incisional hernia [K43.2] 06/17/2013 06/01/2015 Unspecified essential hypertension [I10] 06/01/2015 06/01/2015 Fracture [T14.8XXA] 06/01/2015 06/01/2015 Cervicalgia [M54.2] 01/31/2016 Vitamin D deficiency [E55.9] 04/12/2016 Acute pain of left shoulder [M25.512] 07/30/2017 Acute back pain with sciatica, left [M54.42] 07/30/2017 H/O gastric bypass [Z98.84] 10/23/2017 Attention deficit disorder (ADD) without hypera*03/11/2022 Benign paroxysmal positional vertigo [H81.10] 01/16/2022 Other instructions from your clinician: -We have ordered a bundled test to check for COVID, flu, and RSV due to your symptoms of runny nose, congestion, and headache. The results should be back by tomorrow. - Ondansetron (Zofran) prescription has been sent to your pharmacy for nausea management. - Continue using your nasal spray and consider using a decongestant nasal spray like Afrin (oxymetazoline) for short-term relief (3-7 days) if you are very congested. - Take Tylenol for headache relief as needed. - Tizanidine prescription has been renewed for muscle spasm management. - Adderall prescription has been updated and sent to your pharmacy. - Nexium, Metformin, Neurotech, Mounjaro, and Topamax prescriptions are being managed by your other healthcare providers. - A work excuse note has been provided. - Your next appointments are scheduled out through January. Prescriptions ordered this encounter Disp Refills Start End ONDANSETRON 4 MG DISINTEGRATING TABL* 20 t* 0 05/02/2024 Route: ORAL Sig: Take 1 tablet by mouth every 6 hours as needed for nausea/vomiting. TIZANIDINE 4 MG TABLET 270 * 3 05/02/2024 Sig: Take 1.5 tablets by mouth daily at bedtime. Take 1 to 1.5 tablets in the morning as needed for breakthrough muscle spasm DEXTROAMPHETAMINE-AMPHETAMINE 15 MG * 60 t* 0 05/26/2024 06/25/2024 Route: ORAL Sig: Take 1 tablet by mouth two times a day for 30 days. Patient should start on May 26, 2024. DEXTROAMPHETAMINE-AMPHETAMINE 15 MG * 60 t* 0 06/25/2024 07/25/2024 Route: ORAL Sig: Take 1 tablet by mouth two times a day for 30 days. Patient should start on June 25, 2024. DEXTROAMPHETAMINE-AMPHETAMINE 15 MG * 60 t* 0 07/25/2024 08/24/2024 Route: ORAL Sig: Take 1 tablet by mouth two times a day for 30 days. Patient should start on July 25, 2024. LISINOPRIL 20 MG TABLET 90 t* 3 05/02/2024 05/02/2025 Route: ORAL Sig: Take 1 tablet by mouth once daily. Medications Discontinued During This Encounter Prescriptions - ondansetron (ZOFRAN) 4 mg tablet (Discontinued) Take 1 tablet by mouth every 12 hours as needed for nausea/vomiting (for nausea.). - ondansetron orally disintegrating (ZOFRAN ODT) 4 mg disintegrating tablet (Discontinued) Take 1 tablet by mouth every 6 hours as needed for nausea/vomiting. - amphetamine-dextroamphetamine (ADDERALL) 15 mg tablet (Discontinued) Take 1 tablet by mouth two times a day for 30 days. Do not start before 2024. - amphetamine-dextroamphetamine (ADDERALL) 15 mg tablet (Discontinued) Take 1 tablet by mouth two times a day for 30 days. Do not start before January 25, 2024. - amphetamine-dextroamphetamine (ADDERALL) 15 mg tablet (Discontinued) Take 1 tablet by mouth two times a day for 30 days. Do not start before February 17, 2024. - lisinopril (ZESTRIL) 20 mg tablet (Discontinued) Take 1 tablet by mouth once daily. - triamcinolone (KENALOG) 0.025 % cream (Discontinued) Apply 1 application to affected area two times a day. Level of Service: OFFICE/OUTPATIENT ESTABLISHED [facility] 30 MIN [46691] Letter Text Encounter Status:Closed by GLENNA TURNER on 05/02/24 COVID AND INFLUENZA A/B AND RSV NAAT, ROUTINE Observed: 05/02/2024 3:48 PM Status: F Source: [facility] COVID 19 RESULT: Not detectedThe method used is RT-PCR or an equivalent NAAT method. Reference Range (the expected result in uninfected individuals): Not detected INFLUENZA A PCR: Not detectedINFLUENZA B PCR: Not detectedRSV PCR: Not detected Performed By: #### CVFLRS ## ## [facility] CLIA [id number] [address] [place] [address] [place] Observed: 05/02/2024 3:31 PM Status: COMPLETED Source: [facility] HNO ID: [id number] Author: GLENNA TURNER MD Service: ? Author Type: Physician Type: Progress Notes Filed: 05/02/2024 16:08 Note Text: This note was created using SurfEasyter. Subjective Elvia Schmidt is a 54 year old female. Patient presents with: F/U 3 Month SUBJECTIVE: Elvia Schmidt is a 54 year old year old lady here today for 3 month follow up appointment for review of medical conditions. Patient is a 54-year-old female presenting for 3 month follow up but had developed acute onset of viral symptoms, including rhinorrhea, nasal congestion, cephalalgia, nausea, and diarrhea, which began yesterday. She describes the nausea as severe and the headache as unusual, located at the back of her head. She has been managing the headache with Tylenol and uses a daily nasal spray for allergies, which has not provided relief. She denies any wheezing, dyspnea, or cough. Patient is interested in COVID-19 testing. Patient also inquired about the discontinuation of tizanidine, which she believes may be contributing to her current neck pain and headache. She reports that the medication was effective in managing her symptoms previously. Otherwise, stable from other chronic medical issues. ADD managed well with Adderall. Though PDMP does no show filled since 03/07, she states next RX not due to around 05/28. 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, or unspecified(403.90) No date: Variants of migraine, not elsewhere classified, with intractable migraine, so stated, without mention of status migrainosus PAST SURGICAL HISTORY 1994: CHOLECYSTECTOMY Comment: lap 10/27/2018: COLONOSCOPY FLX DX W/COLLJ SPEC WHEN PFRMD Comment: Colonoscopy 11/29/2020: EGD 09/02/2011: EXC BREAST LES PREOP PLMT RAD MARKER OPEN 1 LES Comment: LEFT 2016: HYSTERECTOMY HX Comment: total robotic with bso No date: LAP AURY Y BYPASS BAND OUTLET 11/27/2009: NOVASURE 09/01/2007: PAST SURGICAL HISTORY OF Comment: gastric bypass surgery 09/02/2011: PREOP PLACEMENT NEEDLE LOC Comment: LEFT 02/14/2011: THERAPEUTIC SPINAL PUNCTURE DRAINAGE CSF Comment: 1976: TONSILLECTOMY PRIMARY/SECONDARY <AGE 10 Comment: Tonsillectomy Current Outpatient Medications Medication Sig metFORMIN (GLUCOPHAGE) 1,000 mg tablet take 1 tablet by mouth every day with dinner clonazePAM (KLONOPIN) 0.5 mg tablet Take 1 tablet by mouth two times a day as needed for anxiety for up to 90 days. Do not start before April 12, 2024. triamcinolone (KENALOG) 0.025 % cream Apply 1 application to affected area two times a day. amphetamine-dextroamphetamine (ADDERALL) 15 mg tablet Take 1 tablet by mouth two times a day for 30 days. Do not start before February 17, 2024. amphetamine-dextroamphetamine (ADDERALL) 15 mg tablet Take 1 tablet by mouth two times a day for 30 days. Do not start before 2024. amphetamine-dextroamphetamine (ADDERALL) 15 mg tablet Take 1 tablet by mouth two times a day for 30 days. Do not start before April 17, 2024. buPROPion XL (WELLBUTRIN XL) 300 mg 24 hr tablet Take 1 tablet by mouth once daily. tirzepatide (MOUNJARO) 2.5 mg/0.5 mL pen injector Inject 2.5 mg subcutaneously one time a week. Patient should start on January 15, 2024. nystatin (NYSTOP) powder Apply 1 application to affected area four times daily. rimegepant (NURTEC ODT) 75 mg disintegrating tablet Take 1 tablet by mouth once daily as needed. Max 1 per day ondansetron orally disintegrating (ZOFRAN ODT) 4 mg disintegrating tablet Take 1 tablet by mouth every 6 hours as needed for nausea/vomiting. amphetamine-dextroamphetamine (ADDERALL) 15 mg tablet Take 1 tablet by mouth two times a day for 30 days. Do not start before January 25, 2024. topiramate (TOPAMAX) 50 mg tablet Take 3 tablets by mouth daily at bedtime. May also take 0.5 tablets once daily as needed (for breakthrough migraines). Take 50 mg at bedtime. May take an additional 25mg as needed in AM for breakthrough headaches.. ondansetron (ZOFRAN) 4 mg tablet Take 1 tablet by mouth every 12 hours as needed for nausea/vomiting (for nausea.). Olopatadine 0.6 % spry USE 1 OR 2 SPRAYS ONCE OR TWICE DAILY FOR ALLERGIC RHINITIS. lisinopril (ZESTRIL) 20 mg tablet Take 1 tablet by mouth once daily. esomeprazole (NEXIUM 24HR) 20 mg capsule Take 1 capsule by mouth twice daily at 6AM and 9PM. ferrous fum/C/B12/liver/folic ([id number] C-FA-IF ORAL) multivitamin (ONE-A-DAY ESSENTIAL ORAL) Take 1 tablet by mouth once daily. BIOTIN 2,500 MCG CAP take 5,000 mcg once a day calcium carbonate/vitamin d3(CALCIUM 600 + D(3) 600 MG (1,500)-200 UNIT TAB) Take one(1) tablet twice daily. No current facility-administered medications for this visit. Review of Systems Objective LMP 11/07/2009 Physical Exam Constitutional: General: She is not in acute distress. Appearance: Normal appearance. She is ill-appearing. She is not toxic-appearing or diaphoretic. HENT: Head: Normocephalic. Eyes: Conjunctiva/sclera: Conjunctivae normal. Cardiovascular: Rate and Rhythm: Normal rate and regular rhythm. Heart sounds: Normal heart sounds. Pulmonary: Effort: Pulmonary effort is normal. Breath sounds: Normal breath sounds. Skin: General: Skin is warm and dry. Neurological: General: No focal deficit present. Mental Status: She is alert and oriented to person, place, and time. Psychiatric: Attention and Perception: Attention normal. Mood and Affect: Affect is flat. Speech: Speech normal. Behavior: Behavior normal. Thought Content: Thought content normal. Judgment: Judgment normal. Comments: Patient appears tired and affect flat from illness.Complained of nausea and headache. Assessment and Plan Acute viral syndrome: - Symptoms include runny nose, congestion, headache, and nausea. - Ordered bundled test for COVID-19, influenza, and RSV to confirm viral etiology. - Ondansetron ODT (orally disintegrating tablet) prescribed for nausea, 20 tablets, to be picked up at [facility] in [place]. - Advised to use [id number] Tylenol for headache management. - Recommended short-term use of oxymetazoline nasal spray for severe nasal congestion, not to exceed 3-7 days. - Lungs auscultated and found to be clear, no wheezing or shortness of breath noted. - Provided education on rest, hydration, and symptomatic management including the use of chicken soup. - Work excuse note provided, with results expected by tomorrow. Attention deficit disorder (ADD) without hyperactivity: - Current medication: Adderall. - Reviewed and updated prescription dates to ensure continuity of medication: May 26, June 25, and July 26. - Confirmed that the patient is stable on current dosage and medication is effective. Primary hypertension: - Current medication: Lisinopril. - Prescription reviewed and confirmed to be up-to-date. - No changes in medication regimen as the condition is stable. Continues to get meds through GI who are managing weight loss s/p bariatric surgery. Noted that has been successful with weight loss since started on Mounjaro 06/17/2022. Glenna Turner MD ALLERGIES DATE TYPE / CODE NAME / CODE REACTION SEVERITY SOURCE 11/27/2020 DRUG INGREDI/[id number] 3(SNOMED CT) ETHINYL ESTRADIOL RASH [facility] 06/30/2016 DRUG/[id number](S NOMED CT) OXYCODONE-ACETAMINOP HEN ITCHING [facility] 03/29/2009 DRUG/[id number](S NOMED CT) ETONOGESTREL-ETHINYL ESTRADIOL RASH [facility] ENCOUNTERS ADMIT/DISCHARGE ACCOUNT NUMBER ADMITTING ENCOUNTER CLASS LOC ATION SOURCE 04/05/2025/ [id number] 04/03/2025/ 5 [id number] [facility] 03/31/2025/ 5 [id number] [facility] 03/06/2025/ 5 [id number] [facility] 02/01/2025/ 5 [id number] [facility] 02/01/2025/ 5 [id number] [facility] 11/29/2024/ 5 [id number] [facility] 11/07/2024/ 5 [id number] [facility] 10/07/2024/ 5 [id number] [facility] 07/01/2024/ 4 [id number] [facility] 05/02/2024/ 4 [id number] [facility] PAYERS ENCOUNTER GUARANTOR PAYER SUBSCRIBER SOURCE 04/05/2025 Primary Insurance:CIGNA OAPPolicy Number: [id number] Date:3335-58-95Wajs Name:Collette WHITMOREJOSE MANUELOB: [id number] [place] [address] [facility] 04/05/2025 Secondary Insurance:BLUE CARD PPO OOSPolicy Number: [id number] Date:8227-30-65Zccz Name:Christi Barraza MAITEOB: [id number] [place] [address] [facility] 04/03/2025 Primary Insurance:CIGNA OAPPolicy Number: [id number] Date:3674-86-00Kcze Name:Collette WHITMOREJOSE MANUELOB: [id number] [place] [address] [facility] 04/03/2025 Secondary Insurance:BLUE CARD PPO OOSPolicy Number: [id number] Date:8154-15-20Nafk Name:Christi Barraza HAIMUEDOB: [id number] [place] [address] [facility] 03/31/2025 Primary Insurance:CIGNA OAPPolicy Number: [id number] Date:4430-57-21Fccp Name:Collette Angulo MAITEOB: [id number] [place] [address] [facility] 03/31/2025 Secondary Insurance:BLUE CARD PPO OOSPolicy Number: [id number] Date:7190-37-41Dvzf Name:Christi WHITMOREUEDOB: [id number] [place] [address] [facility] 03/06/2025 Primary Insurance:CIGNA OAPPolicy Number: [id number] Date:2179-16-63Hgzr Name:Collette WHITMOREUEDOB: [id number] [place] [address] [facility] 03/06/2025 Secondary Insurance:BLUE CARD PPO OOSPolicy Number: [id number] Date:2646-44-99Nxky Name:Christi WHITMOREUEDOB: [id number] [place] [address] [facility] 02/01/2025 Primary Insurance:CIGNA OAPPolicy Number: [id number] Date:8809-65-61Bzdf Name:Collette WHITMOREUEDOB: [id number] [place] [address] [facility] 02/01/2025 Secondary Insurance:BLUE CARD PPO OOSPolicy Number: [id number] Date:6001-90-86Liha Name:Christi WHITMOREUEDOB: [id number] [place] [address] [facility] 02/01/2025 Primary Insurance:CIGNA OAPPolicy Number: [id number] Date:3227-34-52Wilf Name:Collette WHITMOREUEDOB: [id number] [place] [address] [facility] 02/01/2025 Secondary Insurance:BLUE CARD PPO OOSPolicy Number: [id number] Date:0582-71-27Yuxq Name:Christi WHITMOREUEDOB: [id number] [place] [address] [facility] 11/29/2024 Primary Insurance:CIGNA OAPPolicy Number: [id number] Date:6560-15-57Nrmf Name:Collette WHITMOREUEDOB: [id number] [facility] [place] [address] [facility] 11/29/2024 Secondary Insurance:BLUE CARD PPO OOSPolicy Number: [id number] Date:5188-82-13Fism Name:Christi WHITMOREUEDOB: [id number] [place] [address] [facility] 11/07/2024 Primary Insurance:CIGNA OAPPolicy Number: [id number] Date:8975-02-20Yqdz Name:Collette WHITMOREUEDOB: [id number] [place] [address] [facility] 11/07/2024 Secondary Insurance:BLUE CARD PPO OOSPolicy Number: [id number] Date:0398-06-07Mexs Name:Christi Barraza HAIMJOSE MANUELOB: [id number] [place] [address] [facility] 10/07/2024 Primary Insurance:CIGNA OAPPolicy Number: [id number] Date:6804-53-48Qrda Name:Collette WHITMOREUEDOB: [id number] [place] [address] [facility] 10/07/2024 Secondary Insurance:BLUE CARD PPO OOSPolicy Number: [id number] Date:9491-40-39Cnvk Name:Christi WHITMOREUEDOB: [id number] [place] [address] [facility] 07/01/2024 Primary Insurance:CIGNA OAPPolicy Number: [id number] Date:9405-03-53Xjgn Name:Collette ARORAOB: [id number] [place] [address] [facility] 07/01/2024 Secondary Insurance:BLUE CARD PPO OOSPolicy Number: [id number] Date:0039-90-90Exnj Name:Christi ARORAOB: [id number] [place] [address] [facility] 05/02/2024 Primary [facility] Number: [id number] Date:6701-63-91Cvmr Name:Collette Angulo MAITEOB: [id number] [place] [address] [facility] 05/02/2024 Secondary Insurance:BLUE CARD PPO [facility] Number: [id number] Date:6540-59-21Mowp Name:Christi ARORAOB: [id number] [place] [address] [facility]
== END 2025-04-18 16:19 | disposition home or self-care (01) ==
PROVIDERS: Emergency Provider Emergency Medicine; PCP Internal Medicine; Visit Provider Emergency Medicine
DX: G43.909 Migraine, unspecified, not intractable, without status migrainosus (principal); I10 Essential (primary) hypertension; M54.2 Cervicalgia
CPT/HCPCS: 70450; 80048; 85025; 96361; 96372; 96374; 96375; 99284; A4216; J3030